=== PATIENT | female | born 1940 | race Caucasian/White ===

== ENCOUNTER 2018-05-01 22:05 | Inpatient (IN) | payer MEDICARE ==
[2018-05-01] MEDS ORDERED: ONDANSETRON 4 MG/2 ML VIAL IVP STA (22:16)
[2018-05-01] MEDS ORDERED: SODIUM CHLORIDE 0.9% 1,000 ML IV ONE (22:16)
[2018-05-01] MEDS ORDERED: SODIUM CHLORIDE 0.9% 1,000 ML IV STA (22:16)
[2018-05-01] MEDS ORDERED: SODIUM CHLORIDE 0.9% 500 ML IV STA (22:16)
[2018-05-01] MEDS ORDERED: PANTOPRAZOLE 40 MG/10 ML VIAL IVP STA (22:16)
--- NOTE | 2018-05-01 22:19 | ED ---
General Adult HPI - General Stated complaint: GI BLEED Time Seen by Provider: 05/01/18 22:08 Source: RN notes reviewed, old records reviewed - History of Present Illness Initial comments: This is a 77-year-old female the ER for evaluation. This patient presents for evaluation regarding positive GI bleed. Patient was found to have blood and bright red blood in her stool. Patient is on heparin. Patient states she feels weak but no wheezing the normal no pain. Patient has no prior history of GI bleed denies abdominal pain. - Related Data Home Medications Medication Instructions Recorded Confirmed Acetaminophen [Tylenol Arthritis] 650 mg PO Q4-6H PRN 11/13/16 11/13/16 Acetaminophen-Codeine 300-30mg 1 tab PO HS PRN 11/13/16 11/13/16 [Tylenol w/codeine #3] Aspirin 81 mg PO DAILY 11/13/16 11/13/16 Bisoprolol-Hctz 10-6.25 mg [Ziac 1 tab PO DAILY 11/13/16 11/13/16 10-6.25 MG] Glucosam/Guzman-Msm1/C/Chu/Bosw 2 tab PO DAILY 11/13/16 11/13/16 [Glucosamine-Chondroitin Tablet] Lisinopril 40 mg PO HS 11/13/16 11/13/16 Multivitamins, Thera [Multivitamin 1 tab PO DAILY 11/13/16 11/13/16 (formulary)] Raloxifene [Evista] 60 mg PO DAILY 11/13/16 11/13/16 amLODIPine [Norvasc] 10 mg PO DAILY 11/13/16 11/13/16 Previous Rx's Medication Instructions Recorded valACYclovir HCL [Valtrex] 1,000 mg PO Q8HR #21 tab 11/13/16 Albuterol Inhaler [Ventolin Hfa 2 puff INHALATION Q6HR PRN 30 Days 11/15/16 Inhaler] inhaler Albuterol Nebulized [Ventolin 2.5 mg INHALATION Q6H PRN 30 Days 11/15/16 Nebulized] nebu Budesonide [Pulmicort] 0.5 mg INHALATION RT-BID 30 Days 11/15/16 nebu Ipratropium Nebulized [Atrovent 0.5 mg INHALATION RT-QID 30 Days 11/15/16 Nebulized] nebu Levofloxacin [Levaquin] 500 mg PO DAILY 5 Days tab 11/15/16 predniSONE See Taper PO DAILY #45 tab 11/15/16 Allergies Allergy/AdvReac Type Severity Reaction Status Date / Time naproxen [From Naprosyn] Allergy Rash/Hives Verified 05/01/18 22:18 Review of Systems ROS Statement: Those systems with pertinent positive or pertinent negative responses have been documented in the HPI. ROS Other: All systems not noted in ROS Statement are negative. Past Medical History Past Medical History: Hyperlipidemia, Hypertension, Osteoarthritis (OA) History of Any Multi-Drug Resistant Organisms: None Reported Past Surgical History: Adenoidectomy, Joint Replacement, Tonsillectomy Additional Past Surgical History / Comment(s): hip replacement x 3 Past Psychological History: No Psychological Hx Reported Smoking Status: Former smoker Past Alcohol Use History: None Reported Past Drug Use History: None Reported - Past Family History Father Family Medical History: Diabetes Mellitus Mother Family Medical History: Hyperlipidemia General Exam General appearance: alert, in no apparent distress Head exam: Present: atraumatic, normocephalic, normal inspection Eye exam: Present: normal appearance, PERRL, EOMI. Absent: scleral icterus, conjunctival injection, periorbital swelling ENT exam: Present: normal exam, mucous membranes moist Neck exam: Present: normal inspection. Absent: tenderness, meningismus, lymphadenopathy Respiratory exam: Present: normal lung sounds bilaterally. Absent: respiratory distress, wheezes, rales, rhonchi, stridor Cardiovascular Exam: Present: regular rate, normal rhythm, normal heart sounds. Absent: systolic murmur, diastolic murmur, rubs, gallop, clicks GI/Abdominal exam: Present: soft, normal bowel sounds. Absent: distended, tenderness, guarding, rebound, rigid Rectal exam: Present: heme (+) stool, black stool, bloody stool Extremities exam: Present: normal inspection, full ROM, normal capillary refill. Absent: tenderness, pedal edema, joint swelling, calf tenderness Back exam: Present: normal inspection Neurological exam: Present: alert, oriented X3, CN II-XII intact Psychiatric exam: Present: normal affect, normal mood Skin exam: Present: warm, dry, intact, normal color. Absent: rash EKG Findings - EKG Comments: EKG Findings:: EKG shows normal sinus rhythm rate of 90, MI 140, QRS 66, QTc 452 Medical Decision Making - Medical Decision Making 77 female positive GI bleed. Patient is consistent GI bleed and bright red blood per rectum is melanotic and bradycardia in color. Patient is getting heparin shots, patient will be admitted for GI bleed Disposition Clinical Impression: GIB (gastrointestinal bleeding), Anemia Disposition: ADMITTED IP TO THIS HOSP Condition: Fair Is patient prescribed a controlled substance at d/c from ED?: No Referrals: Ben Morrow DO [Primary Care Provider] - 1-2 days
[2018-05-01 22:29] LABS: Basophils # (A) 0.1 k/uL (0-0.2); Basophils % (A) 1 %; Eosinophils # (A) 0.2 k/uL (0-0.7); Eosinophils % (A) 2 %; HCT 37.9 % (34.0-46.0); HGB 12.3 gm/dL (11.4-16.0); Lymphocytes # (A) 1.2 k/uL (1.0-4.8); Lymphocytes % (A) 12 %; MCH 34.9 pg (25.0-35.0); MCHC 32.4 g/dL (31.0-37.0); MCV 107.9 fL (80.0-100.0); Macrocytosis Moderate; Mean Platelet Volume 6.7; Monocytes # (A) 0.9 k/uL (0-1.0); Monocytes % (A) 10 %; Neutrophils # (A) 7.2 k/uL (1.3-7.7); Neutrophils % (A) 73 %; Platelet Count 274 k/uL (150-450); RBC 3.51 m/uL (3.80-5.40); RDW 14.2 % (11.5-15.5); WBC 9.8 k/uL (3.8-10.6)
[2018-05-01 22:37] LABS: INR 1.1 (<1.2); Partial Thromboplastin Time 36.3 sec (22.0-30.0); Prothrombin Time 10.6 sec (9.0-12.0)
[2018-05-01 22:53] LABS: ALT 54 U/L (9-52); AST 42 U/L (14-36); Albumin 3.1 g/dL (3.5-5.0); Alkaline Phosphatase 95 U/L (38-126); Anion Gap 10 mmol/L; Blood Urea Nitrogen 26 mg/dL (7-17); Calcium 8.9 mg/dL (8.4-10.2); Carbon Dioxide 30 mmol/L (22-30); Chloride 92 mmol/L (98-107); Glucose 89 mg/dL (74-99); Potassium 4.2 mmol/L (3.5-5.1); Sodium 132 mmol/L (137-145); Total Bilirubin 0.5 mg/dL (0.2-1.3); Total Protein 5.4 g/dL (6.3-8.2)
[2018-05-01 23:54] LABS: Creatine Kinase MB 1.2 ng/mL (0.0-2.4); Troponin I 0.018 ng/mL (0.000-0.034)
[2018-05-02 09:24] LABS: HCT 34.7 % (34.0-46.0); HGB 11.1 gm/dL (11.4-16.0); MCHC 31.9 g/dL (31.0-37.0); MCV 109.7 fL (80.0-100.0); Macrocytosis Marked; Mean Platelet Volume 6.7; Platelet Count 287 k/uL (150-450); RBC 3.16 m/uL (3.80-5.40); WBC 7.1 k/uL (3.8-10.6)
--- NOTE | 2018-05-02 10:01 | P.CONS ---
History of Present Illness - Reason for Consult Consult date: 05/02/18 Rectal bleeding Requesting physician: Chilo Dawkins - History of Present Illness 77-year-old female receiving local rehab originally from the [facility] admitted with one-day history of painless rectal bleeding. Patient states she did not personally witness rectal bleeding however the [facility] staff reported red- colored bowel movements. No recurrent bleeding since admission. She has no history GI bleeds. Denies fever chills hematemesis or melena. Prior to admission she was experiencing moderate constipation for several days. Last colonoscopy possibly 4-5 years ago at [facility] to her memory possible diverticulosis maybe one polyp removed. Hemoglobin 12.3 presently 11.1. MCV 107. White count 9.8. BUN 26 creatinine 0.4. INR 1.1. No aspirin but was receiving Celebrex prior to admission. Heparin subcutaneous injections at the [facility]. Review of Systems Constitutional: Denies fever, chills, sweats, weight gain, or loss. HEENT: Negative for migraines, blurred vision or loss, earaches, drainage, tinnitus, oral mucosal lesions, dysphagia, or odynophagia. CARDIAC: Negative for chest pain, arrhythmias, or palpitation. RESPIRATORY: Negative for shortness of breath, hemoptysis, cough, or sputum production. GI: See HPI for pertinent findings. : Negative for hematuria, urgency, frequency, polyuria, or dysuria. GYNc: Denies possibility of . Negative vaginal discharge. MUSCULOSKELETAL: Negative for muscle aches, swelling, arthritis, and arthralgias. NEUROLOGIC: Negative for stroke or TIA. ENDOCRINE: Negative for thyroid problems. SKIN: Negative for rash or itching. PSYCHIATRIC: Negative history for depression and anxiety Past Medical History Past Medical History: COPD, Hyperlipidemia, Hypertension, Osteoarthritis (OA) Additional Past Medical History / Comment(s): history of brain bleed, pt was sent to [facility]. pt was in rehab at [facility] and on heparin shots at home. History of Any Multi-Drug Resistant Organisms: None Reported Past Surgical History: Adenoidectomy, Joint Replacement, Tonsillectomy Additional Past Surgical History / Comment(s): hip replacement x 3 Past Psychological History: No Psychological Hx Reported Smoking Status: Former smoker Past Alcohol Use History: None Reported Past Drug Use History: None Reported - Past Family History Father Family Medical History: Diabetes Mellitus Mother Family Medical History: Hyperlipidemia Medications and Allergies Home Medications Medication Instructions Recorded Confirmed Type Lisinopril 40 mg PO DAILY 11/13/16 05/01/18 History Raloxifene [Evista] 60 mg PO DAILY 11/13/16 05/01/18 History Acetaminophen [Tylenol Extra 500 mg PO Q4HR PRN 05/01/18 05/01/18 History Strength] Bisoprolol Fumarate [Zebeta] 10 mg PO DAILY 05/01/18 05/01/18 History Diltiazem HCl [Diltiazem ER] 240 mg PO DAILY 05/01/18 05/01/18 History Furosemide [Lasix] 20 mg PO DAILY 05/01/18 05/01/18 History Heparin Sodium,Porcine [Heparin 5,000 unit SQ Q8HR 05/01/18 05/01/18 History Sodium] Levalbuterol Nebulized [Xopenex 1.25 mg INHALATION RT-TID 05/01/18 05/01/18 History Nebulized] Potassium Chloride ER [K-Dur 10] 10 meq PO DAILY 05/01/18 05/01/18 History Tiotropium Alba [Spiriva] 1 cap INHALATION RT-DAILY 05/01/18 05/01/18 History hydrALAZINE HCL 10 mg PO BID 05/01/18 05/01/18 History Allergies Allergy/AdvReac Type Severity Reaction Status Date / Time naproxen [From Naprosyn] Allergy Rash/Hives Verified 05/01/18 22:18 Physical Exam Vitals: Vital Signs Temp Pulse Pulse Resp BP BP Pulse Ox 05/02/18 08:00 98.8 F 94 22 186/87 96 05/02/18 04:00 97.8 F 87 26 H 181/84 97 05/01/18 23:31 97.7 F 82 20 174/88 98 05/01/18 22:57 98.0 F 84 18 153/83 100 05/01/18 22:12 97.2 F L 94 18 171/88 96 Intake and Output 05/01/18 05/02/18 05/02/18 22:59 06:59 14:59 Intake Total 100 530 Balance 100 530 Intake: Intake, IV Titration 100 50 Amount Sodium Chloride 0.9% 1, 100 50 000 ml @ 100 mls/hr IV . Q10H ONE Rx#:[id number] Oral 480 Other: Voiding Method Diaper Diaper Incontinent Incontinent # Voids 2 # Bowel Movements 2 Weight 45.359 kg 46 kg General appearance: The patient is alert, oriented, in no acute distress. HET: Head is normocephalic and atraumatic. Pupils are equal and reactive. Oropharynx is clear without lesions. Neck: Supple without lymphadenopathy. Trachea midline. Heart: S1 S2. Regular rate and rhythm. Lungs: Scattered rhonchi course breath sounds congested cough. Abdomen: Soft, nontender, nondistended with bowel sounds. No peritoneal signs. No palpable organomegaly or masses. Extremities: Normal skin color and turgor. No cyanosis, rash, ulceration, clubbing, or edema. Radial and pedal pulses are 2/4 bilaterally. Neurological: No focal deficits. Strength and sensation are grossly intact. Rectal: Gross dark burgundy stool in rectal vault. No palpable rectal masses. Results CBC & Chem 7: 05/02/18 09:12 05/01/18 22:18 Labs: Abnormal Lab Results - Last 24 Hours (Table) 05/01/18 05/01/18 05/01/18 Range/Units 22:18 22:18 22:18 RBC 3.51 L (3.80-5.40) m/uL Hgb (11.4-16.0) gm/dL MCV 107.9 H (80.0-100.0) fL APTT 36.3 H (22.0-30.0) sec Sodium 132 L (137-145) mmol/L Chloride 92 L (98-107) mmol/L BUN 26 H (7-17) mg/dL Creatinine 0.47 L (0.52-1.04) mg/dL AST 42 H (14-36) U/L ALT 54 H (9-52) U/L Total Protein 5.4 L (6.3-8.2) g/dL Albumin 3.1 L (3.5-5.0) g/dL 05/02/18 Range/Units 09:12 RBC 3.16 L (3.80-5.40) m/uL Hgb 11.1 L (11.4-16.0) gm/dL MCV 109.7 H (80.0-100.0) fL APTT (22.0-30.0) sec Sodium (137-145) mmol/L Chloride (98-107) mmol/L BUN (7-17) mg/dL Creatinine (0.52-1.04) mg/dL AST (14-36) U/L ALT (9-52) U/L Total Protein (6.3-8.2) g/dL Albumin (3.5-5.0) g/dL Assessment and Plan (1) Rectal bleeding Narrative/Plan: 77-year-old female admitted with a 1 day history of acute painless rectal bleeding bright red with reported history of possible colonic diverticulosis 4- 5 years ago per colonoscopy. Possible diverticular bleed exacerbated by constipation possible colitis possible neoplasm. Current Visit: Yes Status: Acute Code(s): K62.5 - HEMORRHAGE OF ANUS AND RECTUM SNOMED Code(s): 15292216 (2) Constipation Current Visit: Yes Status: Acute Code(s): K59.00 - CONSTIPATION, UNSPECIFIED SNOMED Code(s): 01843615 (3) Acute blood loss anemia Current Visit: Yes Status: Acute Code(s): D62 - ACUTE POSTHEMORRHAGIC ANEMIA SNOMED Code(s): 538701375 Plan: 1. Colonoscopy report requested from [facility] and place on chart for further review. 2. CBC monitoring. Clear liquids. Colonoscopy tentative Sunday. Plan of care was discussed with Dr. Dawkins. 3. Increased chest congestion cough will provide incentive spirometer. The epilepsy physician has discussed the risks, benefits and alternative therapies for the above-mentioned procedure and for both sedation/analgesia as well as necessary blood product administration, if indicated, as they pertain to this patient. The patient has indicated understanding and acceptance of the risks and procedures discussed. Thank you for this kind referral and the opportunity to participate in the care of your patient. This consultation was discussed with Dr. Starks. The impression and plan of care have been directed as dictated.
[2018-05-02] MEDS: ALBUTEROL NEBULIZED 2.5 MG/3 ML INHALATION SCH ×3 (12:00→21:29)
[2018-05-02] MEDS: RALOXIFENE 60 MG TAB PO SCH (12:11)
[2018-05-02] MEDS: BISOPROLOL 5 MG TAB PO SCH (12:11)
[2018-05-02] MEDS: LISINOPRIL 20 MG TAB PO SCH (12:11)
[2018-05-02] MEDS: DILTIAZEM CD 240 MG CAP.ER.24H PO SCH (12:11)
[2018-05-02] MEDS: FUROSEMIDE 20 MG TAB PO SCH (12:11)
[2018-05-02] MEDS: hydrALAZINE HCL 10 MG TAB PO SCH ×2 (12:11→19:55)
[2018-05-02] MEDS: POTASSIUM CHLORIDE ER 10 MEQ TAB.ER.PRT PO SCH (12:11)
--- NOTE | 2018-05-02 18:03 | HP ---
HISTORY AND PHYSICAL DATE OF ADMISSION: 05/01/2018. DATE OF SERVICE: 05/02/2018 PRESENTING COMPLAINT: Bright red blood per rectum. HISTORY OF PRESENTING COMPLAINT: This is a 77-year-old patient being followed at [facility] by Dr. Morrow. Chronic stable medical conditions include COPD, hypertension, hyperlipidemia, osteoarthritis and apparently a brain bleed that was managed conservatively at [facility]. The patient also has chronic hypoxic respiratory failure, wears oxygen at home 1.5-2L. The patient is not the most detailed historian. Patient's son is present, who keeps prompting. The patient was admitted with bright red blood per rectum, apparently over the last 2-3 days. Amount is unclear, but the patient is not even aware of the same. She was told the same. No abdominal pain. No nausea, vomiting. The patient has been on subcu heparin. Apparently patient previously had a colonoscopy with known diverticulosis. The patient does feel slightly tired and run down, was seen by GI earlier today. REVIEW OF SYSTEMS: CONSTITUTIONAL: Tired. HEENT: None. RESPIRATORY: Baseline short of breath. CARDIOVASCULAR: None. GASTROINTESTINAL: As above. GENITOURINARY: None. MUSCULOSKELETAL: Arthritic pain in joints. DERMATOLOGICAL: None. HEMATOLOGIC: None. LYMPHATIC: None. PSYCHIATRY: Forgetful. NEUROLOGICAL: Uses a walker. PAST MEDICAL HISTORY: COPD, hyperlipidemia, hypertension, osteoarthritis, cerebral bleed. PAST SURGICAL HISTORY: Adenoidectomy, joint replacement, hip replacement x3. SOCIAL HISTORY: Does not smoke or drink alcohol, though the patient did smoke in the past. Currently a resident of [facility], has been there for 2 days. The patient has smoked about a pack a day for 53 years, stopped about 5 years ago, using a walker. FAMILY HISTORY: Diabetes mellitus type 2. HOME MEDICATIONS: 1. Xopenex 1.25 mg t.i.d. 2. Tylenol 5 mg q.4 p.r.n. 3. Hydralazine 10 mg p.o. b.i.d. 4. Subcu heparin 5000 q.8h. 5. Spiriva 1 capsule p.o. daily. 6. Evista 60 mg p.o. daily. 7. Potassium 10 mEq p.o. daily. 8. Lisinopril 40 mg p.o. daily. 9. Lasix 20 mg p.o. daily. 10.Cardizem ER 240 mg p.o. daily. 11.Zebeta 10 mg p.o. daily. ALLERGIES: To NAPROXEN. EXAMINATION: VITAL SIGNS: On presentation, temperature 97.2, pulse 94, respirations 18, blood pressure 143/83, pulse ox 96% on 2L. GENERAL APPEARANCE: Thin built, BMI 18, lying in bed, awake. EYES: Pupils equal. Conjunctivae pale. HEENT: External appearance of nose and ears normal. Oral cavity normal. NECK: JVD not raised. Mass not palpable. RESPIRATORY: Effort increased. LUNGS: Diminished breath sounds. CARDIOVASCULAR: First and second sounds normal. No edema. ABDOMEN: Soft, nontender. Liver and spleen not palpable. LYMPHATIC: No lymph node palpable in neck or axillae. PSYCHIATRY: The patient is able answer simple questions. Mood and affect normal. NEUROLOGICAL: Pupils equal. Grossly intact. Power and sensation grossly intact. MUSCULOSKELETAL: Evidence of osteoarthritis. INVESTIGATIONS: White count 9.8, hemoglobin 12.3. Potassium 4.2, BUN 26, creatinine 0.47. EKG shows nonspecific ST-segment, some depression, flipped T-waves, poor quality. Repeat hemoglobin 11.1. ASSESSMENT: 1. Acute painless gastrointestinal bleed in a patient with possible known diverticulitis with likely the same. Hemorrhoids is also in the differential. There is no fever, no white count, no pain; hence, makes colitis less likely. 2. Protein-calorie malnutrition. Patient has a BMI of 18. Albumin is 3.1. Has some muscle wasting. 3. Mild hyponatremia, present on admission. 4. Acute blood loss anemia. Hemoglobin 11.21. 5. Chronic obstructive pulmonary disease in an ex-smoker. 6. Hyperlipidemia. 7. Essential hypertension. 8. Primary osteoarthritis. 9. History of cerebral bleed. 10.Chronic hypoxic respiratory failure on 1.5-2L oxygen at home from underlying chronic obstructive pulmonary disease. PLAN: Patient's home medications are resumed. The patient's subcu heparin is discontinued. H and H will be followed. GI was consulted, will follow the patient. Given patient's age, overall prognosis is guarded. Care was discussed with the patient and son at the bedside. MMODL / IJN: [id number] /
[2018-05-03] MEDS: ALBUTEROL NEBULIZED 2.5 MG/3 ML INHALATION SCH ×3 (08:28→20:01)
[2018-05-03] MEDS: IPRATROPIUM 0.5 MG/2.5 ML NEBU INHALATION SCH ×4 (08:28→20:01)
[2018-05-03 08:36] LABS: Basophils % (A) 0 %; Eosinophils # (A) 0.1 k/uL (0-0.7); Eosinophils % (A) 2 %; HCT 35.5 % (34.0-46.0); HGB 11.4 gm/dL (11.4-16.0); Lymphocytes # (A) 0.5 k/uL (1.0-4.8); Lymphocytes % (A) 6 %; MCH 35.1 pg (25.0-35.0); MCHC 32.2 g/dL (31.0-37.0); Macrocytosis Marked; Mean Platelet Volume 6.8; Monocytes # (A) 0.6 k/uL (0-1.0); Monocytes % (A) 7 %; Neutrophils # (A) 6.5 k/uL (1.3-7.7); Neutrophils % (A) 83 %; Platelet Count 281 k/uL (150-450); RBC 3.26 m/uL (3.80-5.40); RDW 14.3 % (11.5-15.5); WBC 7.9 k/uL (3.8-10.6)
[2018-05-03] MEDS: BISOPROLOL 5 MG TAB PO SCH (08:49)
[2018-05-03] MEDS: POTASSIUM CHLORIDE ER 10 MEQ TAB.ER.PRT PO SCH (08:49)
[2018-05-03] MEDS: RALOXIFENE 60 MG TAB PO SCH (08:49)
[2018-05-03] MEDS: DILTIAZEM CD 240 MG CAP.ER.24H PO SCH (08:49)
[2018-05-03] MEDS: FUROSEMIDE 20 MG TAB PO SCH (08:49)
[2018-05-03] MEDS: LISINOPRIL 20 MG TAB PO SCH (08:49)
[2018-05-03] MEDS: hydrALAZINE HCL 10 MG TAB PO SCH ×2 (08:49→20:37)
--- NOTE | 2018-05-03 09:23 | P.PN ---
Subjective Progress Note Date: 05/03/18 Principal diagnosis: No bowel movement since admission. Denies abdominal pain. Previous colonoscopy 4-5 years ago requested from outside facility still not received. Hemoglobin 11.4. Objective - Vital Signs Vital signs: Vital Signs Temp 97.5 F L 05/03/18 08:53 Pulse 85 05/03/18 08:53 Resp 18 05/03/18 08:53 BP 196/83 05/03/18 08:53 Pulse Ox 93 L 05/03/18 08:53 Intake & Output 05/02/18 05/03/18 05/03/18 18:59 06:59 18:59 Intake Total 1660 Balance 1660 Weight 46 kg 45 kg Intake: Intake, IV Titration 50 Amount Sodium Chloride 0.9% 1, 50 000 ml @ 100 mls/hr IV . Q10H ONE Rx#:[id number] Oral 1610 Other: Voiding Method Diaper Diaper Diaper Incontinent Incontinent Incontinent # Voids 2 # Bowel Movements 2 - Exam General appearance: The patient is alert, oriented, in no acute distress. HET: Head is normocephalic and atraumatic. Pupils are equal and reactive. Oropharynx is clear without lesions. Neck: Supple without lymphadenopathy. Trachea midline. Heart: S1 S2. Regular rate and rhythm. Lungs: No crackles or wheezes are heard. Abdomen: Soft, nontender, nondistended with bowel sounds. No peritoneal signs. No palpable organomegaly or masses. Extremities: Normal skin color and turgor. No cyanosis, rash, ulceration, clubbing, or edema. Radial and pedal pulses are 2/4 bilaterally. Neurological: No focal deficits. Strength and sensation are grossly intact. - Labs CBC & Chem 7: 05/03/18 08:22 05/01/18 22:18 Labs: Abnormal Lab Results - Last 24 Hours (Table) 05/02/18 05/03/18 Range/Units 09:12 08:22 RBC 3.16 L 3.26 L (3.80-5.40) m/uL Hgb 11.1 L (11.4-16.0) gm/dL MCV 109.7 H 109.0 H (80.0-100.0) fL MCH 35.1 H (25.0-35.0) pg Assessment and Plan (1) Rectal bleeding Narrative/Plan: 77-year-old female admitted with a 1 day history of acute painless rectal bleeding bright red with reported history of possible colonic diverticulosis 4- 5 years ago per colonoscopy. Possible diverticular bleed exacerbated by constipation possible colitis possible neoplasm. Current Visit: Yes Status: Acute Code(s): K62.5 - HEMORRHAGE OF ANUS AND RECTUM SNOMED Code(s): 56373383 (2) Constipation Current Visit: Yes Status: Acute Code(s): K59.00 - CONSTIPATION, UNSPECIFIED SNOMED Code(s): 39480597 (3) Acute blood loss anemia Current Visit: Yes Status: Acute Code(s): D62 - ACUTE POSTHEMORRHAGIC ANEMIA SNOMED Code(s): 141534536 Plan: 1. Colonoscopy report requested from [facility] and place on chart for further review. 2. CBC monitoring. Clear liquids. Colonoscopy tomorrow morning with Dr. Starks. Plan of care was discussed with Dr. Dawkins. Assessment and plan a care discussed with Dr. Mcmullen
[2018-05-03] MEDS ORDERED: BISACODYL 5 MG TABLET.DR PO STA (09:24)
[2018-05-03 09:36] LABS: Polychromasia Present
--- NOTE | 2018-05-03 10:36 | CDI ---
Last Revision, October 2017 Documentation Clarification Form Date: 05/03/18 From: Olive Lopez RN Admit Date: 05/01/2018 10:19:00 PM Patient Name: Donna Dueñas Visit Number: [id number] ATTENTION: The Clinical Documentation Specialists (CDI) and [facility] Coding Staff appreciate your assistance in clarifying documentation. Please respond to the clarification below the line at the bottom and electronically sign. The CDI & [facility] Coding staff will review the response and follow-up if needed. Please note: Queries are made part of the Legal Health Record. If you have any questions, please contact the author of this message via ITS. Dr. Chilo Dawkins, Malnutrition has been documented in H&P. History/Risk Factors: COPD, HTN, hyperlipidemia, OA, cerebral bleed, diverticulosis, chronic hypoxic respiratory failure with home O2@ 1.5-2 L. Presented with GI bleed Clinical Indicators: Labs: Albumin 3.1,Total Protein 5.4 Current BMI: 17.6 Treatment: Lab monitoring Patient is on a clear liquid diet at this time due to GI bleed In your professional opinion, can you please clarify if these findings signify one of the following conditions? Mild Protein-Calorie Malnutrition Moderate Protein-Calorie Malnutrition Severe Protein-Calorie Malnutrition Malnutrition, Unspecified Other condition, please specify Unable to determine Please continue to document in your progress notes, under the line and/or in the discharge summary in order to capture severity of illness and risk of mortality. Include clinical findings that support your diagnosis. see progress note MTDD
[2018-05-03] MEDS ORDERED: PEG 3350-NA SULF,BICARB,CL/KCL 4,000 ML BOTTLE PO ONE (15:00)
--- NOTE | 2018-05-03 21:40 | PN ---
PROGRESS NOTE DATE OF SERVICE: 05/03/2018 PRESENTING COMPLAINT: Bleeding per rectum. INTERVAL HISTORY: This is a patient who presented with bleeding per rectum. No further episodes. GI is planning to do a colonoscopy tomorrow. Lying in bed somewhat tired-appearing, though comfortable. REVIEW OF SYSTEMS: Attempted for constitutional, cardiovascular, GI, pulmonary; relevant findings as above. CURRENT MEDICATIONS: Reviewed. EXAMINATION: Temperature 97.6, pulse 86, respirations 16, blood pressure 139/69, pulse ox 96% on room air. GENERAL APPEARANCE: Lying in bed, awake. EYES: Pupils equal. Conjunctivae pale. HEENT: External nose and ears normal. Oral cavity normal. NECK: JVD not raised. Mass not palpable. RESPIRATORY: Effort normal. LUNGS: Decreased breath sounds. CARDIOVASCULAR: First and second sounds normal. No edema. ABDOMEN: Soft, nontender. PSYCHIATRY: Awake, answering simple questions. INVESTIGATIONS: White count 7.9, hemoglobin 11.4. ASSESSMENT: 1. Acute painless gastrointestinal bleed in a patient with possible known diverticulosis with cause likely the same. Hemorrhoids in the differential. Colitis less likely. 2. Protein-calorie malnutrition, moderate. 3. Mild hypoxemia, present on admission. 4. Acute blood loss anemia. 5. Chronic obstructive pulmonary disease in an ex-smoker. 6. Hyperlipidemia. 7. Essential hypertension. 8. Primary osteoarthritis. 9. History of cerebral bleed. 10.Chronic hypoxic respiratory failure, 1.5-2L oxygen at home from underlying chronic obstructive pulmonary disease. PLAN: Continue medication and treatment plan. The patient has had no further bleeding. Awaiting colonoscopy tomorrow. MMODL / IJN: [id number] /
[2018-05-04 06:25] LABS: Basophils % (A) 0 %; Eosinophils # (A) 0.1 k/uL (0-0.7); Eosinophils % (A) 1 %; HCT 34.2 % (34.0-46.0); HGB 11.4 gm/dL (11.4-16.0); Lymphocytes # (A) 0.7 k/uL (1.0-4.8); Lymphocytes % (A) 6 %; MCH 35.5 pg (25.0-35.0); MCHC 33.3 g/dL (31.0-37.0); MCV 106.6 fL (80.0-100.0); Macrocytosis Moderate; Mean Platelet Volume 7.1; Monocytes # (A) 0.9 k/uL (0-1.0); Monocytes % (A) 8 %; Neutrophils # (A) 10.1 k/uL (1.3-7.7); Neutrophils % (A) 85 %; Platelet Count 282 k/uL (150-450); RBC 3.21 m/uL (3.80-5.40); RDW 14.7 % (11.5-15.5); WBC 11.9 k/uL (3.8-10.6)
[2018-05-04] MEDS ORDERED: PROPOFOL 10 MG/ML 20 ML VIAL IV ONE (08:14)
[2018-05-04] MEDS ORDERED: LACTATED RINGERS 1,000 ML IV ONE (08:15)
[2018-05-04] MEDS: IPRATROPIUM 0.5 MG/2.5 ML NEBU INHALATION SCH ×4 (08:48→20:12)
[2018-05-04] MEDS: ALBUTEROL NEBULIZED 2.5 MG/3 ML INHALATION SCH ×3 (08:48→20:12)
--- NOTE | 2018-05-04 08:54 | P.PCN ---
Date of Procedure: 05/04/18 Procedure(s) Performed: Procedure: Total colonoscopy. Preoperative diagnosis: Rectal bleeding and anemia. Operative diagnosis: 1. Sigmoid diverticulosis with no evidence of acute diverticulitis, strictures, polyps, cancer or inflammatory disease. 2. No bleeding at the time of this exam. Preparation: GoLYTELY prep. Sedation: Was provided by anesthesia. Brief clinical history: The patient is a 77-year-old female receiving local rehab who was admitted with one-day history of painless rectal bleeding. Patient states she did not personally witness rectal bleeding however the [facility] staff reported red-colored bowel movements. No recurrent bleeding since admission. She has no history GI bleeds. Denies fever, chills, hematemesis or melena. Prior to admission she was experiencing moderate constipation for several days. Last colonoscopy possibly 4-5 years ago with one polyp removed. Hemoglobin 12.3 dropped to 11.1 presently 11.4 for last 2 days. MCV 107. White count 9.8. BUN 26 creatinine 0.4. INR 1.1. No aspirin but was receiving Celebrex prior to admission. Heparin was given subcutaneous injections at the [facility]. Other details are summarized in the history and physical and dictated consultations and progress notes. This evaluation is to assess for a source of bleeding. Procedure: With the patient on her left lateral decubitus position and after informed consent and adequate sedation, the perianal area was inspected and it did not show any fissures or fistulas. There were no masses felt on digital rectal examination. The Olympus CFQ 160L video colonoscope was then inserted in the rectum in the usual fashion and advanced to the cecum. There were several diverticular orifices seen scattered in the sigmoid but there was no evidence of acute diverticulitis or strictures. The mucosa appeared healthy. No polyps or tumors were seen or any evidence of bleeding. The patient tolerated the procedure well. Plan: The patient was reassured. It is possible that her bleeding was related to diverticular disease or superficial perianal pathology. Will allow regular diet as tolerated further plans based on her course.
[2018-05-04] MEDS: BISOPROLOL 5 MG TAB PO SCH (09:30)
[2018-05-04] MEDS: POTASSIUM CHLORIDE ER 10 MEQ TAB.ER.PRT PO SCH (09:30)
[2018-05-04] MEDS: LISINOPRIL 20 MG TAB PO SCH (09:30)
[2018-05-04] MEDS: hydrALAZINE HCL 10 MG TAB PO SCH ×2 (09:31→22:21)
[2018-05-04] MEDS: DILTIAZEM CD 240 MG CAP.ER.24H PO SCH (09:31)
[2018-05-04] MEDS: RALOXIFENE 60 MG TAB PO SCH (09:31)
[2018-05-04] MEDS: FUROSEMIDE 20 MG TAB PO SCH (09:31)
--- NOTE | 2018-05-04 18:41 | PN ---
PROGRESS NOTE DATE OF SERVICE: 05/04/2018 PRESENTING COMPLAINT: Bleeding per rectum. INTERVAL HISTORY: Patient has had bleeding per rectum, did undergo a colonoscopy today, found to have diverticulosis. No further evidence of bleeding. The patient is comfortable. No abdominal pain. REVIEW OF SYSTEMS: Done for constitutional, cardiovascular, GI, pulmonary; relevant findings as above. CURRENT MEDICATIONS: Reviewed. EXAMINATION: Temperature 98, pulse 88, respirations 18, blood pressure 140/70, pulse ox 97% on 2L. GENERAL APPEARANCE: Lying in bed, comfortable. EYES: Pupils equal. Conjunctivae normal. HEENT: External nose and ears normal. Oral cavity normal. NECK: JVD not raised. Mass not palpable. RESPIRATORY: Effort normal. LUNGS: Decreased breath sounds. CARDIOVASCULAR: First and second sounds normal. No edema. ABDOMEN: Soft, nontender. Liver and spleen not palpable. PSYCHIATRY: Awake, answering simple questions. INVESTIGATIONS: White count 11.9, hemoglobin 11.4. ASSESSMENT: 1. Acute gastrointestinal bleed felt to be diverticular. 2. Protein-calorie malnutrition, moderate. 3. Mild hypoxemia, present on admission. 4. Acute blood loss anemia. 5. Chronic obstructive pulmonary disease in an ex-smoker. 6. Hyperlipidemia. 7. Essential hypertension. 8. Primary osteoarthritis. 9. History of cerebral bleed. 10.Chronic hypoxic respiratory failure, 1.5L at home from underlying chronic obstructive pulmonary disease. PLAN: Continue current medication and treatment plan, await going back to the [facility]. I spoke to the nurse case management. Will not happen today because of pre-authorization. KIM / CIERRAN: [id number] /
[2018-05-04] MEDS: ACETAMINOPHEN TAB 500 MG TAB PO PRN (23:00)
[2018-05-05] MEDS: ALBUTEROL NEBULIZED 2.5 MG/3 ML INHALATION SCH ×3 (07:06→19:10)
[2018-05-05] MEDS: IPRATROPIUM 0.5 MG/2.5 ML NEBU INHALATION SCH ×4 (07:06→19:10)
[2018-05-05] MEDS: LISINOPRIL 20 MG TAB PO SCH (07:28)
[2018-05-05] MEDS: RALOXIFENE 60 MG TAB PO SCH (07:28)
[2018-05-05] MEDS: POTASSIUM CHLORIDE ER 10 MEQ TAB.ER.PRT PO SCH (07:28)
[2018-05-05] MEDS: BISOPROLOL 5 MG TAB PO SCH (07:28)
[2018-05-05] MEDS: hydrALAZINE HCL 10 MG TAB PO SCH ×2 (07:28→20:08)
[2018-05-05] MEDS: DILTIAZEM CD 240 MG CAP.ER.24H PO SCH (07:29)
[2018-05-05] MEDS: FUROSEMIDE 20 MG TAB PO SCH (07:29)
--- NOTE | 2018-05-05 21:27 | DS ---
DISCHARGE SUMMARY DATE OF ADMISSION: May 01, 2018. DATE OF DISCHARGE: May 06, 2018. DATE OF SERVICE: May 05, 2018. FINAL DIAGNOSES: 1. Acute gastrointestinal bleed felt to be colonic diverticulosis present on admission. 2. Moderate protein-calorie malnutrition. 3. Acute blood loss anemia from gastrointestinal bleed. 4. Chronic obstructive pulmonary disease in an ex-smoker. 5. Hyperlipidemia. 6. Essential hypertension. 7. Primary osteoarthritis. 8. History of cerebral bleed. 9. Chronic hypoxic respiratory failure, 1.5 L at home from underlying chronic obstructive pulmonary disease. CONSULTATION: Dr. Starks from GI. HOSPITAL COURSE: This patient presented with lower GI bleed. Colonoscopy did confirm diverticulosis with no evidence of active bleed. The patient's hemoglobin is stable at 11.4. PHYSICAL EXAMINATION: ABDOMEN: Soft. Nontender. Lungs fair air entry. DISCHARGE MEDICATIONS: 1. Lisinopril 40 mg p.o. daily. 2. Evista 60 mg p.o. daily. 3. Tylenol Extra 500 mg q.4 p.r.n. 4. Lipitor 10 mg p.o. daily. 5. Cardizem ER 240 mg p.o. daily. 6. Lasix 20 mg p.o. daily. 7. Heparin 5000 units subcu q.8h. 8. Xopenex 1.25 t.i.d. 9. Potassium 10 mEq p.o. daily. 10.Spiriva 1 capsule daily. 11.Hydralazine 10 mg p.o. b.i.d. DISPOSITION: [facility], physician Dr. Morrow at the [facility]. MMODL / CIERRAN: [id number] /
[2018-05-05] MEDS: ACETAMINOPHEN TAB 500 MG TAB PO PRN (23:03)
[2018-05-06] MEDS: hydrALAZINE HCL 10 MG TAB PO SCH ×2 (07:22→19:53)
[2018-05-06] MEDS: FUROSEMIDE 20 MG TAB PO SCH (07:22)
[2018-05-06] MEDS: LISINOPRIL 20 MG TAB PO SCH (07:22)
[2018-05-06] MEDS: POTASSIUM CHLORIDE ER 10 MEQ TAB.ER.PRT PO SCH (07:22)
[2018-05-06] MEDS: RALOXIFENE 60 MG TAB PO SCH (07:23)
[2018-05-06] MEDS: DILTIAZEM CD 240 MG CAP.ER.24H PO SCH (07:23)
[2018-05-06] MEDS: BISOPROLOL 5 MG TAB PO SCH (07:23)
[2018-05-06] MEDS: ALBUTEROL NEBULIZED 2.5 MG/3 ML INHALATION SCH ×2 (07:41→11:06)
[2018-05-06] MEDS: IPRATROPIUM 0.5 MG/2.5 ML NEBU INHALATION SCH ×3 (07:41→15:36)
[2018-05-06] MEDS: cefTRIAXone IN SWFI 1,000 MG/10 ML SYRINGE IVP SCH ×2 (09:34→09:36)
--- NOTE | 2018-05-06 12:54 | XR ---
EXAMINATION TYPE: XR chest 2V DATE OF EXAM: 05/06/2018 COMPARISON: Chest x-ray and CTA chest November 13, 2016 HISTORY: Congested cough and fever rule out pneumonia. TECHNIQUE: Frontal and lateral views of the chest are obtained. FINDINGS: There is chronic parenchymal change with new left basilar opacity and small left pleural e ffusion. There is no elevated left hemidiaphragm on lateral view. The cardiac silhouette size is upp er limits of normal with atherosclerotic aorta. The osseous structures remain demineralized. Underl carlos scoliosis is redemonstrated. IMPRESSION: Chronic changes with new elevated left hemidiaphragm, there is small left pleural effusi on and associated left basilar atelectasis and/or infiltrate new from prior studies.
--- NOTE | 2018-05-06 14:13 | DS ---
DISCHARGE SUMMARY DATE OF SERVICE: May 05, 2018. INTERVAL HISTORY: This patient was seen by me yesterday on May 05, 2018 DATE OF ADMISSION: May 01, 2018. DATE OF DISCHARGE: May 06, 2018. FINAL DIAGNOSES: 1. Acute gastrointestinal bleed felt to be colonic diverticulosis. 2. Moderate protein-calorie malnutrition. 3. Acute blood loss anemia from diverticular bleed. 4. Chronic obstructive pulmonary disease in an ex-smoker. 5. Hyperlipidemia. 6. Essential hypertension. 7. Primary osteoarthritis. 8. History of cerebral bleed. 9. Chronic hypoxic respiratory failure on 1.5 L at home. HOSPITAL COURSE: This pleasant lady who is an [facility] resident presented with bleeding from below. Abdomen was soft, nontender. Colonoscopy did confirm diverticulosis. Hemoglobin remained stable, it was 11.4. PLAN: Continue current medication and treatment plan. Hopefully patient will be discharged to the [facility] tomorrow. MMMARTIRL / CIERRAN: [id number] /
[2018-05-06 14:31] VITALS: BMI 17.5
[2018-05-06] MEDS: PIPERACILLIN-TAZOBACTAM 3.375 GM in DEXTROSE/WATER 1 50ML.BAG IVPB SCH ×2 (17:05→22:55)
[2018-05-06] MEDS ORDERED: IPRATROPIUM-ALBUTEROL 3 ML NEB INHALATION PRN (17:41)
--- NOTE | 2018-05-06 18:35 | P.PN ---
Subjective Progress Note Date: 05/06/18 Progress note being dictated for Dr. Braun Interval history: This is a 77-year-old female admitted with acute GI bleed, status post colonoscopy reporting sigmoid diverticulosis, without strictures polyps or inflammatory disease, no bleeding. Patient initially was being prepared for discharge yesterday and spiked fever, TMAX 100.3. Discharge subsequently was placed on hold and fever workup initiated. Sitting up in chair , presenting with loose nonproductive cough. Chest x-ray reporting new left basilar opacity, small left pleural effusion. Blood cultures pending. Antibiotics changed to Zosyn. No labs available today. Objective - Vital Signs Vital signs: Vital Signs Temp 97.9 F 05/06/18 15:00 Pulse 100 05/06/18 15:44 Resp 16 05/06/18 15:00 BP 156/65 05/06/18 15:00 Pulse Ox 90 L 05/06/18 15:00 Intake & Output 05/05/18 05/06/18 05/06/18 18:59 06:59 18:59 Intake Total 200 Balance 200 Weight 45 kg Intake: Oral 200 Other: Voiding Method Bedpan Bedpan Incontinent Diaper Diaper Incontinent Incontinent # Voids 2 2 2 # Bowel Movements 1 1 1 - Exam PHYSICAL EXAM: VITAL SIGNS: As above GENERAL: Sitting up in chair, tired appearing HEENT: Conjunctivae normal. eyes normal. Oral mucosa moist NECK: No JVD. No thyroid enlargement. No LNs CARDIOVASCULAR: S1, S2 muffled. No murmur RESPIRATION: Breath sounds diminished in the bases. Scattered rhonchi, fine bibasilar crackles, greater on the left. Loose congested cough. No bronchial breathing. ABDOMEN: Soft, nontender . No guarding. no masses palpable.Bowel sounds heard. LEGS: No edema. no swelling PSYCHIATRY: Alert and oriented -3, mood and affect normal. NERVOUS SYSTEM: Cranial N 2-12 grossly normal. Moves all 4 limbs. Diffuse weakness No focal deficits. Skin: no ulcer no rash Joints: No active swelling. No inflammation. - Labs CBC & Chem 7: 05/04/18 05:44 05/01/18 22:18 Assessment and Plan Assessment: 1. Acute on chronic hypoxic respiratory failure secondary to acute left lower lobe effusion, pneumonia. Wears 1.5l at home. 2. Acute blood loss anemia secondary to acutue GI bleed. status post colonoscopy, reporting sigmoid diverticulosis with no active bleeding 3. Moderate protein calorie malnutrition 4. COPD 5. History of nicotine abuse 6. History of cerebral bleed Plan: Continue current medication regime ,monitoring and symptomatic treatment. Antibiotics as mentioned above changed to Zosyn. DuoNeb scheduled and when necessary. Symbicort added to med regime. Sputum culture and urine culture ordered. Blood cultures pending. The impression and plan of care has been dictated as directed. : I performed a history and examination of this patient, discussed the same with the dictator. I agree with the dictator's note ,documented as a scribe. Any additional findings or plans will be noted.
[2018-05-06] MEDS: IPRATROPIUM-ALBUTEROL 3 ML NEB INHALATION SCH ×2 (19:28→20:44)
[2018-05-06] MEDS: SYMBICORT 160-4.5 MCG INHALER INHALATION SCH ×2 (19:28→20:44)
[2018-05-06] MEDS: ACETAMINOPHEN TAB 500 MG TAB PO PRN (19:53)
[2018-05-07 02:40] LABS: Appearance,Urine Cloudy (Clear); Bacteria,Urine Moderate /hpf; Bilirubin,Urine Negative (Negative); Blood,Urine Small (Negative); Color,Urine Yellow; Glucose,Urine (UA) Negative (Negative); Hyaline Casts,Urine 1 /lpf (0-2); Ketones,Urine Negative (Negative); Leukocyte Esterase,Urine Large (Negative); Mucus,Urine Rare /hpf; Nitrite,Urine Positive (Negative); Protein,Urine Negative (Negative); RBC,Urine 18 /hpf (0-5); Specific Gravity,Urine 1.016 (1.001-1.035); Squamous Epithelial Cell,Urine 6 /hpf (0-4); Urobilinogen,Urine <2.0 mg/dL (<2.0); WBC,Urine 84 /hpf (0-5)
[2018-05-07] MEDS: IPRATROPIUM-ALBUTEROL 3 ML NEB INHALATION SCH ×4 (07:37→19:51)
[2018-05-07] MEDS: SYMBICORT 160-4.5 MCG INHALER INHALATION SCH ×2 (07:37→19:51)
[2018-05-07] MEDS: PIPERACILLIN-TAZOBACTAM 3.375 GM in DEXTROSE/WATER 1 50ML.BAG IVPB SCH ×3 (08:22→23:49)
[2018-05-07] MEDS: DILTIAZEM CD 240 MG CAP.ER.24H PO SCH (08:23)
[2018-05-07] MEDS: BISOPROLOL 5 MG TAB PO SCH (08:23)
[2018-05-07] MEDS: hydrALAZINE HCL 10 MG TAB PO SCH ×2 (08:23→21:28)
[2018-05-07] MEDS: POTASSIUM CHLORIDE ER 10 MEQ TAB.ER.PRT PO SCH (08:23)
[2018-05-07] MEDS: RALOXIFENE 60 MG TAB PO SCH (08:24)
[2018-05-07] MEDS: LISINOPRIL 20 MG TAB PO SCH (08:24)
[2018-05-07] MEDS: FUROSEMIDE 20 MG TAB PO SCH (08:24)
--- NOTE | 2018-05-07 12:14 | P.CNPUL ---
History of Present Illness Consult date: 05/07/18 Requesting physician: Chilo Dawkins Reason for consult: abnormal CXR/CT (Left lower lobe atelectasis.) Chief complaint: Bloody bowel movement History of present illness: This is a very pleasant 77-year-old female patient who resides in the [facility] and follows with Dr. Morrow as her primary care physician. She has a history of hypertension, hyperlipidemia, osteoarthritis, previous brain bleed treated conservatively at the [facility], hip replacements 3. She also has a history of 25 year pack per day smoking however quit many years ago. She does have oxygen dependent chronic obstructive pulmonary disease. She's been seen by Dr. Landers in the past. She is on Xopenex and Spiriva in the outpatient setting. She was seen here back on 05/01/2018 in the emergency room after having bright red bleeding in her stools. She subsequently undergone a colonoscopy on 05/04/2018 that revealed diverticulosis but no active bleeding. The patient was planning to be discharged yesterday and developed a temperature of 100.3 and her discharge was placed on hold. Blood and urine cultures reveal no growth to date. Cervix revealed evidence of chronic changes with a elevated left hemidiaphragm. There is a small left pleural effusion and associated atelectasis. No clear evidence of pneumonia. She is currently afebrile. Hemodynamically stable. Maintaining good O2 saturations in the 90s on 2 L/m per nasal cannula. She does have a loose productive cough of thick yellow sputum. She's currently on Zosyn and bronchodilators along with Symbicort. She denies any worsening shortness of breath. She states she normally has a cough but usually clear sputum. Review of Systems Constitutional: Reports fatigue, Reports poor appetite, Reports weakness, Reports weight loss Eyes: denies blurred vision, denies decreased vision Ears: bilateral: decreased hearing Ears, nose, mouth and throat: Denies headache, Denies sore throat Cardiovascular: Denies chest pain, Denies shortness of breath Respiratory: Reports congestion, Reports cough with sputum, Reports dyspnea, Reports home oxygen Gastrointestinal: Reports abdominal pain, Reports melena Genitourinary: Denies dysuria, Denies hematuria Musculoskeletal: Reports low back pain Musculoskeletal: bilateral: hip pain Integumentary: Reports color changes Neurological: Reports balance difficulties, Reports weakness Psychiatric: Reports anxiety Endocrine: Denies fatigue, Denies weight change Hematologic/Lymphatic: Reports as per HPI Allergic/Immunologic: Reports as per HPI Past Medical History Past Medical History: COPD, Hyperlipidemia, Hypertension, Osteoarthritis (OA) Additional Past Medical History / Comment(s): history of brain bleed, pt was sent to [facility]. pt was in rehab at [facility] and on heparin shots at home. History of Any Multi-Drug Resistant Organisms: None Reported Past Surgical History: Adenoidectomy, Joint Replacement, Tonsillectomy Additional Past Surgical History / Comment(s): hip replacement x 3 Past Psychological History: No Psychological Hx Reported Smoking Status: Former smoker Past Alcohol Use History: None Reported Past Drug Use History: None Reported - Past Family History Father Family Medical History: Diabetes Mellitus Mother Family Medical History: Hyperlipidemia Medications and Allergies Home Medications Medication Instructions Recorded Confirmed Type Lisinopril 40 mg PO DAILY 11/13/16 05/01/18 History Raloxifene [Evista] 60 mg PO DAILY 11/13/16 05/01/18 History Acetaminophen [Tylenol Extra 500 mg PO Q4HR PRN 05/01/18 05/01/18 History Strength] Bisoprolol Fumarate [Zebeta] 10 mg PO DAILY 05/01/18 05/01/18 History Diltiazem HCl [Diltiazem 24Hr ER] 240 mg PO DAILY 05/01/18 05/01/18 History Furosemide [Lasix] 20 mg PO DAILY 05/01/18 05/01/18 History Heparin Sodium,Porcine [Heparin 5,000 unit SQ Q8HR 05/01/18 05/01/18 History Sodium] Levalbuterol Nebulized [Xopenex 1.25 mg INHALATION RT-TID 05/01/18 05/01/18 History Nebulized] Potassium Chloride ER [K-Dur 10] 10 meq PO DAILY 05/01/18 05/01/18 History Tiotropium Brinson [Spiriva] 1 cap INHALATION RT-DAILY 05/01/18 05/01/18 History hydrALAZINE HCL 10 mg PO BID 05/01/18 05/01/18 History Allergies Allergy/AdvReac Type Severity Reaction Status Date / Time naproxen [From Naprosyn] Allergy Rash/Hives Verified 05/01/18 22:18 Physical Exam Vitals: Vital Signs Temp Pulse Pulse Resp BP BP Pulse Ox 05/07/18 11:19 88 05/07/18 11:04 80 05/07/18 08:15 24 05/07/18 07:52 84 05/07/18 07:39 76 96 05/07/18 05:35 98.1 F 82 24 177/77 94 L 05/06/18 23:00 98.1 F 87 18 122/60 91 L 05/06/18 20:54 96 05/06/18 20:45 96 05/06/18 15:44 100 05/06/18 15:38 102 H 05/06/18 15:00 97.9 F 107 H 16 156/65 90 L Intake and Output 05/06/18 05/07/18 05/07/18 22:59 06:59 14:59 Other: Voiding Method Bedpan Bedpan Incontinent Incontinent # Voids 1 2 # Bowel Movements 1 - Constitutional General appearance: mild distress, thin - EENT Eyes: EOMI, PERRLA ENT: hard of hearing Ears: bilateral: normal - Neck Neck: normal ROM Carotids: bilateral: upstroke normal Thyroid: bilateral: normal size - Respiratory Respiratory: left: rhonchi - Cardiovascular Rhythm: regular Heart sounds: normal: S1, S2 - Gastrointestinal General gastrointestinal: normal bowel sounds - Neurologic Neurologic: CNII-XII intact - Musculoskeletal Musculoskeletal: generalized weakness - Psychiatric Psychiatric: A&O x's 3, appropriate affect, intact judgment & insight Results - Laboratory Findings CBC and BMP: 05/04/18 05:44 05/01/18 22:18 PT/INR, D-dimer PT 10.6 sec (9.0-12.0) 05/01/18 22:18 INR 1.1 (<1.2) 05/01/18 22:18 Abnormal lab findings: Abnormal Labs 05/01/18 05/01/18 05/01/18 22:18 22:18 22:18 WBC RBC 3.51 L Hgb MCV 107.9 H MCH Neutrophils # Lymphocytes # APTT 36.3 H Sodium 132 L Chloride 92 L BUN 26 H Creatinine 0.47 L AST 42 H ALT 54 H Total Protein 5.4 L Albumin 3.1 L Urine Appearance Urine Blood Urine Nitrite Ur Leukocyte Esterase Urine RBC Urine WBC Ur Squamous Epith Cells Urine Bacteria Urine Mucus 05/02/18 05/03/1805/04/18 09:12 08:22 05:44 WBC 11.9 H RBC 3.16 L 3.26 L 3.21 L Hgb 11.1 L MCV 109.7 H 109.0 H 106.6 H MCH 35.1 H 35.5 H Neutrophils # 10.1 H Lymphocytes # 0.5 L 0.7 L APTT Sodium Chloride BUN Creatinine AST ALT Total Protein Albumin Urine Appearance Urine Blood Urine Nitrite Ur Leukocyte Esterase Urine RBC Urine WBC Ur Squamous Epith Cells Urine Bacteria Urine Mucus 05/07/18 01:45 WBC RBC Hgb MCV MCH Neutrophils # Lymphocytes # APTT Sodium Chloride BUN Creatinine AST ALT Total Protein Albumin Urine Appearance Cloudy H Urine Blood Small H Urine Nitrite Positive H Ur Leukocyte Esterase Large H Urine RBC 18 H Urine WBC 84 H Ur Squamous Epith Cells 6 H Urine Bacteria Moderate H Urine Mucus Rare H - Diagnostic Findings Chest x-ray: image reviewed Assessment and Plan Assessment: Impression: #1 Acute on chronic hypoxic respiratory failure secondary to acute exacerbation of chronic obstructive pulmonary disease secondary to atelectasis/infiltrate in the left lower lobe. Recent colonoscopy. Currently on Zosyn, bronchodilators, Symbicort #2 Transient febrile illness. Suspect urinary tract infection. Blood, sputum and urine cultures are pending. #3 Gastrointestinal bleeding. Status post colonoscopy with evidence of diverticulosis but no acute bleeding. #4 Hypertension. #5 Hyperlipidemia. #6 Osteoarthritis with previous multiple orthopedic surgeries. #7 long term resident. Plan: The patient was seen and evaluated by Dr. King. Chest x-ray and labs were reviewed. Cultures are pending, probable urinary tract infection. We'll repeat a chest x-ray in the a.m. We will continue with DuoNeb inhalations, Symbicort, Zosyn. We will increase her activity as tolerated. We will continue to follow and make further recommendations based on her clinical status. I, the cosigning physician, performed a history & physical examination of the patient. Lungs sounds have few scattered rhonchi more so on the left lung base. Maintaining good O2 saturations in the 90s on 2 L/m per nasal cannula. I discussed the assessment and plan of care with my nurse practitioner, Doris Nails. I attest to the above note as dictated by her. Time with Patient: Greater than 30
[2018-05-07 13:13] LABS: Basophils % (A) 0 %; Eosinophils # (A) 0.1 k/uL (0-0.7); Eosinophils % (A) 1 %; HCT 34.2 % (34.0-46.0); HGB 11.3 gm/dL (11.4-16.0); Lymphocytes # (A) 0.5 k/uL (1.0-4.8); Lymphocytes % (A) 4 %; MCH 35.1 pg (25.0-35.0); MCHC 33.1 g/dL (31.0-37.0); MCV 106.2 fL (80.0-100.0); Macrocytosis Moderate; Mean Platelet Volume 6.9; Monocytes # (A) 0.6 k/uL (0-1.0); Monocytes % (A) 5 %; Neutrophils # (A) 9.5 k/uL (1.3-7.7); Neutrophils % (A) 88 %; Platelet Count 366 k/uL (150-450); RBC 3.22 m/uL (3.80-5.40); RDW 13.6 % (11.5-15.5); WBC 10.8 k/uL (3.8-10.6)
[2018-05-07 13:16] LABS: Anion Gap 8 mmol/L; Blood Urea Nitrogen 24 mg/dL (7-17); Calcium 8.7 mg/dL (8.4-10.2); Carbon Dioxide 32 mmol/L (22-30); Chloride 91 mmol/L (98-107); Glucose 112 mg/dL (74-99); Potassium 4.6 mmol/L (3.5-5.1); Sodium 131 mmol/L (137-145)
--- NOTE | 2018-05-07 17:14 | P.PN ---
Subjective Progress Note Date: 05/07/18 Progress note being dictated for Dr. Braun Interval history: This is a 77-year-old female admitted with acute GI bleed, status post colonoscopy reporting sigmoid diverticulosis, without strictures polyps or inflammatory disease, no bleeding. Patient initially was being prepared for discharge yesterday and spiked fever, TMAX 100.3. Discharge subsequently was placed on hold and fever workup initiated. Sitting up in chair , presenting with loose nonproductive cough. Chest x-ray reporting new left basilar opacity, small left pleural effusion. Blood cultures pending. Antibiotics changed to Zosyn. No labs available today. 05/07/2018 antibiotics adjusted yesterday, afebrile, preliminary blood cultures negative, urine culture pending. Worsening cough this morning with productive yellow sputum. Denies chest pain, palpitations or increasing shortness of breath. Evaluated by pulmonary with recommendations noted. Objective - Vital Signs Vital signs: Vital Signs Temp 98.8 F 05/07/18 14:15 Pulse 88 05/07/18 15:55 Resp 16 05/07/18 14:15 BP 103/61 05/07/18 14:15 Pulse Ox 92 L 05/07/18 14:15 Intake & Output 05/06/18 05/07/18 05/07/18 18:59 06:59 18:59 Intake Total 200 240 Balance 200 240 Weight 45 kg Intake: Oral 200 240 Other: Voiding Method Incontinent Bedpan Bedside Commode Incontinent Diaper # Voids 2 2 3 # Bowel Movements 1 1 1 - Exam PHYSICAL EXAM: VITAL SIGNS: As above GENERAL: Sitting up in chair, no acute distress HEENT: Conjunctivae normal. eyes normal. Oral mucosa moist NECK: No JVD. No thyroid enlargement. No LNs CARDIOVASCULAR: S1, S2 muffled. No murmur RESPIRATION: Breath sounds diminished in the bases. Scattered rhonchi, no crackles, no wheezing. Loose congested cough. No bronchial breathing. ABDOMEN: Soft, nontender . No guarding. no masses palpable.Bowel sounds heard. LEGS: No edema. no swelling PSYCHIATRY: Alert and oriented -3, mood and affect normal. NERVOUS SYSTEM: Cranial N 2-12 grossly normal. Moves all 4 limbs. Diffuse weakness No focal deficits. Skin: no ulcer no rash Joints: No active swelling. No inflammation. - Labs CBC & Chem 7: 05/07/18 12:48 05/07/18 12:48 Labs: Abnormal Lab Results - Last 24 Hours (Table) 05/07/18 05/07/18 05/07/18 Range/Units 01:45 12:48 12:48 WBC 10.8 H (3.8-10.6) k/uL RBC 3.22 L (3.80-5.40) m/uL Hgb 11.3 L (11.4-16.0) gm/dL MCV 106.2 H (80.0-100.0) fL MCH 35.1 H (25.0-35.0) pg Neutrophils # 9.5 H (1.3-7.7) k/uL Lymphocytes # 0.5 L (1.0-4.8) k/uL Sodium 131 L (137-145) mmol/L Chloride 91 L (98-107) mmol/L Carbon Dioxide 32 H (22-30) mmol/L BUN 24 H (7-17) mg/dL Creatinine 0.40 L (0.52-1.04) mg/dL Glucose 112 H (74-99) mg/dL Urine Appearance Cloudy H (Clear) Urine Blood Small H (Negative) Urine Nitrite Positive H (Negative) Ur Leukocyte Esterase Large H (Negative) Urine RBC 18 H (0-5) /hpf Urine WBC 84 H (0-5) /hpf Ur Squamous Epith Cells 6 H (0-4) /hpf Urine Bacteria Moderate H (None) /hpf Urine Mucus Rare H (None) /hpf Microbiology - Last 24 Hours (Table) 05/06/18 09:08 Blood Culture - Preliminary Blood No Growth after 24 hours 05/06/18 08:49 Blood Culture - Preliminary Blood No Growth after 24 hours 05/07/18 01:45 Urine Culture - Preliminary Urine,Voided Assessment and Plan Assessment: 1. Acute on chronic hypoxic respiratory failure secondary to acute COPD exacerbation, acute left lower lobe effusion, possible LLL pneumonia. Wears 1.5l at home. 2. Acute blood loss anemia secondary to acutue GI bleed. status post colonoscopy, reporting sigmoid diverticulosis with no active bleeding 3. Moderate protein calorie malnutrition 4. COPD 5. History of nicotine abuse 6. History of cerebral bleed 7. Ruling out acute UTI, cultures pending. Plan: Continue current medication regime ,monitoring and symptomatic treatment. Maintain Antibiotics, DuoNeb, Symbicort. Follow cultures closely. Discharge planning in progress for tomorrow pending chest x-ray in a.m. The impression and plan of care has been dictated as directed. : I performed a history and examination of this patient, discussed the same with the dictator. I agree with the dictator's note ,documented as a scribe. Any additional findings or plans will be noted.
[2018-05-07] MEDS: ACETAMINOPHEN TAB 500 MG TAB PO PRN (23:49)
[2018-05-08] MEDS: SYMBICORT 160-4.5 MCG INHALER INHALATION SCH ×2 (07:13→19:23)
[2018-05-08] MEDS: IPRATROPIUM-ALBUTEROL 3 ML NEB INHALATION SCH ×4 (07:14→19:23)
[2018-05-08] MEDS: PIPERACILLIN-TAZOBACTAM 3.375 GM in DEXTROSE/WATER 1 50ML.BAG IVPB SCH ×2 (08:15→16:42)
[2018-05-08] MEDS: BISOPROLOL 5 MG TAB PO SCH (08:16)
[2018-05-08] MEDS: FUROSEMIDE 20 MG TAB PO SCH (08:16)
[2018-05-08] MEDS: LISINOPRIL 20 MG TAB PO SCH (08:16)
[2018-05-08] MEDS: DILTIAZEM CD 240 MG CAP.ER.24H PO SCH (08:16)
[2018-05-08] MEDS: RALOXIFENE 60 MG TAB PO SCH (08:17)
[2018-05-08] MEDS: hydrALAZINE HCL 10 MG TAB PO SCH ×2 (08:17→21:38)
[2018-05-08] MEDS: POTASSIUM CHLORIDE ER 10 MEQ TAB.ER.PRT PO SCH (08:17)
[2018-05-08 08:22] LABS: Basophils % (A) 0 %; Eosinophils # (A) 0.2 k/uL (0-0.7); Eosinophils % (A) 3 %; HCT 30.9 % (34.0-46.0); Lymphocytes # (A) 0.4 k/uL (1.0-4.8); Lymphocytes % (A) 6 %; MCH 34.2 pg (25.0-35.0); MCHC 32.4 g/dL (31.0-37.0); MCV 105.5 fL (80.0-100.0); Macrocytosis Moderate; Mean Platelet Volume 7.6; Monocytes # (A) 0.6 k/uL (0-1.0); Monocytes % (A) 8 %; Neutrophils # (A) 5.9 k/uL (1.3-7.7); Neutrophils % (A) 82 %; Platelet Count 317 k/uL (150-450); RBC 2.93 m/uL (3.80-5.40); RDW 13.8 % (11.5-15.5); WBC 7.2 k/uL (3.8-10.6)
[2018-05-08 08:59] LABS: Anion Gap 8 mmol/L; Blood Urea Nitrogen 23 mg/dL (7-17); Calcium 8.3 mg/dL (8.4-10.2); Carbon Dioxide 30 mmol/L (22-30); Chloride 94 mmol/L (98-107); Glucose 83 mg/dL (74-99); Potassium 4.7 mmol/L (3.5-5.1); Sodium 132 mmol/L (137-145)
--- NOTE | 2018-05-08 10:23 | P.PN ---
Subjective Progress Note Date: 05/08/18 Principal diagnosis: Gastrointestinal bleeding This is a very pleasant 77-year-old female patient who resides in the [facility] and follows with Dr. Morrow as her primary care physician. She has a history of hypertension, hyperlipidemia, osteoarthritis, previous brain bleed treated conservatively at the [facility], hip replacements 3. She also has a history of 25 year pack per day smoking however quit many years ago. She does have oxygen dependent chronic obstructive pulmonary disease. She's been seen by Dr. Landers in the past. She is on Xopenex and Spiriva in the outpatient setting. She was seen here back on 05/01/2018 in the emergency room after having bright red bleeding in her stools. She subsequently undergone a colonoscopy on 05/04/2018 that revealed diverticulosis but no active bleeding. The patient was planning to be discharged yesterday and developed a temperature of 100.3 and her discharge was placed on hold. Blood and urine cultures reveal no growth to date. Cervix revealed evidence of chronic changes with a elevated left hemidiaphragm. There is a small left pleural effusion and associated atelectasis. No clear evidence of pneumonia. She is currently afebrile. Hemodynamically stable. Maintaining good O2 saturations in the 90s on 2 L/m per nasal cannula. She does have a loose productive cough of thick yellow sputum. She's currently on Zosyn and bronchodilators along with Symbicort. She denies any worsening shortness of breath. She states she normally has a cough but usually clear sputum. Patient is seen again today 05/08/2018 in follow-up on the regular medical floor. She is currently sitting up in a chair at the bedside. She is awake and alert in no acute distress. She denies any worsening shortness of breath. She continues with a loose nonproductive cough. She is breathing easier today as compared to yesterday. She is maintaining good O2 saturations up to 100% on 4 L/m per nasal cannula. She is currently afebrile. Hemodynamically stable. Pulmonary blood cultures reveal no growth. Urine culture is pending. White count 7.2. Hemoglobin 10.0. Creatinine 0.40. She remains on Zosyn. She is having some issues with weakness needing assist 2 to be up and about where she is usually ambulatory by walker. Considering subacute rehab. Objective - Vital Signs Vital signs: Vital Signs Temp 98.3 F 05/08/18 06:30 Pulse 82 05/08/18 07:29 Resp 16 05/08/18 06:30 BP 118/68 05/08/18 06:30 Pulse Ox 100 05/08/18 07:14 Intake & Output 05/07/18 05/08/18 05/08/18 18:59 06:59 18:59 Intake Total 240 Balance 240 Intake: Oral 240 Other: Voiding Method Bedside Commode Bedside Commode Diaper Diaper # Voids 3 4 # Bowel Movements 1 - Exam General appearance: No acute distress, thin - EENT Eyes: EOMI, PERRLA ENT: hard of hearing Ears: bilateral: normal - Neck Neck: normal ROM Carotids: bilateral: upstroke normal Thyroid: bilateral: normal size - Respiratory Respiratory: left: rhonchi - Cardiovascular Rhythm: regular Heart sounds: normal: S1, S2 - Gastrointestinal General gastrointestinal: normal bowel sounds - Neurologic Neurologic: CNII-XII intact - Musculoskeletal Musculoskeletal: generalized weakness - Psychiatric Psychiatric: A&O x's 3, appropriate affect, intact judgment & insight - Labs CBC & Chem 7: 05/08/18 07:18 05/08/18 07:18 Labs: Abnormal Lab Results - Last 24 Hours (Table) 05/07/18 05/07/18 05/08/18 Range/Units 12:48 12:48 07:18 WBC 10.8 H (3.8-10.6) k/uL RBC 3.22 L 2.93 L (3.80-5.40) m/uL Hgb 11.3 L 10.0 L (11.4-16.0) gm/dL Hct 30.9 L (34.0-46.0) % MCV 106.2 H 105.5 H (80.0-100.0) fL MCH 35.1 H (25.0-35.0) pg Neutrophils # 9.5 H (1.3-7.7) k/uL Lymphocytes # 0.5 L 0.4 L (1.0-4.8) k/uL Sodium 131 L (137-145) mmol/L Chloride 91 L (98-107) mmol/L Carbon Dioxide 32 H (22-30) mmol/L BUN 24 H (7-17) mg/dL Creatinine 0.40 L (0.52-1.04) mg/dL Glucose 112 H (74-99) mg/dL Calcium (8.4-10.2) mg/dL 05/08/18 Range/Units 07:18 WBC (3.8-10.6) k/uL RBC (3.80-5.40) m/uL Hgb (11.4-16.0) gm/dL Hct (34.0-46.0) % MCV (80.0-100.0) fL MCH (25.0-35.0) pg Neutrophils # (1.3-7.7) k/uL Lymphocytes # (1.0-4.8) k/uL Sodium 132 L (137-145) mmol/L Chloride 94 L (98-107) mmol/L Carbon Dioxide (22-30) mmol/L BUN 23 H (7-17) mg/dL Creatinine 0.40 L (0.52-1.04) mg/dL Glucose (74-99) mg/dL Calcium 8.3 L (8.4-10.2) mg/dL Microbiology - Last 24 Hours (Table) 05/06/18 09:08 Blood Culture - Preliminary Blood No Growth after 24 hours 05/06/18 08:49 Blood Culture - Preliminary Blood No Growth after 24 hours 05/07/18 01:45 Urine Culture - Preliminary Urine,Voided Assessment and Plan Assessment: Impression: #1 Acute on chronic hypoxic respiratory failure secondary to acute exacerbation of chronic obstructive pulmonary disease secondary to atelectasis/infiltrate in the left lower lobe. Recent colonoscopy. Currently on Zosyn, bronchodilators, Symbicort. #2 Transient febrile illness. Suspect urinary tract infection. Blood, sputum and urine cultures are pending. #3 Gastrointestinal bleeding. Status post colonoscopy with evidence of diverticulosis but no acute bleeding. #4 Hypertension. #5 Hyperlipidemia. #6 Osteoarthritis with previous multiple orthopedic surgeries. #7 Poor overall functional performance based on the above-mentioned multiple comorbidities. Plan: The patient was seen and evaluated by Dr. King. Chest x-ray pending, labs were reviewed. Cultures are pending, probable urinary tract infection. We will continue with DuoNeb inhalations, Symbicort, Zosyn. We will increase her activity as tolerated. She remains quite weak. May need subacute rehabilitation. We will continue to follow and make further recommendations based on her clinical status. I, the cosigning physician, performed a history & physical examination of the patient. Lungs sounds have few scattered rhonchi more so on the left lung base. Maintaining good O2 saturations in the 90s on 2 L/m per nasal cannula. I discussed the assessment and plan of care with my nurse practitioner, Doris Nails. I attest to the above note as dictated by her.
--- NOTE | 2018-05-08 16:26 | P.PN ---
Subjective Progress Note Date: 05/08/18 Progress note being dictated for Dr. Braun Interval history: This is a 77-year-old female admitted with acute GI bleed, status post colonoscopy reporting sigmoid diverticulosis, without strictures polyps or inflammatory disease, no bleeding. Patient initially was being prepared for discharge yesterday and spiked fever, TMAX 100.3. Discharge subsequently was placed on hold and fever workup initiated. Sitting up in chair , presenting with loose nonproductive cough. Chest x-ray reporting new left basilar opacity, small left pleural effusion. Blood cultures pending. Antibiotics changed to Zosyn. No labs available today. 05/07/2018 antibiotics adjusted yesterday, afebrile, preliminary blood cultures negative, urine culture pending. Worsening cough this morning with productive yellow sputum. Denies chest pain, palpitations or increasing shortness of breath. Evaluated by pulmonary with recommendations noted. 05/08/2018 maintained on Zosyn, nebulized bronchodilators. congestive loose nonproductive cough continues. Oxygen weaned down to 2 L nasal cannula, maintaining O2 sats of 95%. T-max 100. Preliminary blood cultures negative at 48 hours, urine culture pending. Objective - Vital Signs Vital signs: Vital Signs Temp 99.3 F 05/08/18 14:39 Pulse 82 05/08/18 15:36 Resp 18 05/08/18 14:39 BP 111/66 05/08/18 14:39 Pulse Ox 95 05/08/18 14:39 Intake & Output 05/07/18 05/08/18 05/08/18 18:59 06:59 18:59 Intake Total 240 480 Balance 240 480 Intake: Oral 240 480 Other: Voiding Method Bedside Commode Bedside Commode Diaper Diaper # Voids 3 4 3 # Bowel Movements 1 1 - Exam PHYSICAL EXAM: VITAL SIGNS: As above GENERAL: Sitting up in bed, no acute distress HEENT: Conjunctivae normal. eyes normal. Oral mucosa moist NECK: No JVD. No thyroid enlargement. No LNs CARDIOVASCULAR: S1, S2 muffled. No murmur RESPIRATION: Breath sounds diminished in the bases. Scattered rhonchi, no crackles, no wheezing. Loose congested cough. ABDOMEN: Soft, nontender . No guarding. no masses palpable.Bowel sounds heard. LEGS: No edema. no swelling PSYCHIATRY: Alert and oriented -3, mood and affect normal. NERVOUS SYSTEM: Cranial N 2-12 grossly normal. Moves all 4 limbs. Diffuse weakness No focal deficits. Skin: no ulcer no rash Joints: No active swelling. No inflammation. - Labs CBC & Chem 7: 05/08/18 07:18 05/08/18 07:18 Labs: Abnormal Lab Results - Last 24 Hours (Table) 05/08/18 05/08/18 Range/Units 07:18 07:18 RBC 2.93 L (3.80-5.40) m/uL Hgb 10.0 L (11.4-16.0) gm/dL Hct 30.9 L (34.0-46.0) % MCV 105.5 H (80.0-100.0) fL Lymphocytes # 0.4 L (1.0-4.8) k/uL Sodium 132 L (137-145) mmol/L Chloride 94 L (98-107) mmol/L BUN 23 H (7-17) mg/dL Creatinine 0.40 L (0.52-1.04) mg/dL Calcium 8.3 L (8.4-10.2) mg/dL Microbiology - Last 24 Hours (Table) 05/06/18 09:08 Blood Culture - Preliminary Blood No Growth after 48 hours 05/06/18 08:49 Blood Culture - Preliminary Blood No Growth after 48 hours Assessment and Plan Assessment: 1. Acute on chronic hypoxic respiratory failure secondary to acute COPD exacerbation, acute left lower lobe effusion, possible LLL pneumonia. Wears 1.5l at home. 2. Acute blood loss anemia secondary to acutue GI bleed. status post colonoscopy, reporting sigmoid diverticulosis with no active bleeding 3. Moderate protein calorie malnutrition 4. COPD 5. History of nicotine abuse 6. History of cerebral bleed 7. Ruling out acute UTI, cultures pending. Plan: Continue current medication regime ,monitoring and symptomatic treatment. Follow-up chest x-ray pending .Maintain Antibiotics, DuoNeb, Symbicort. Follow cultures closely. T-max 100, Discharge planning in progress for tomorrow. The impression and plan of care has been dictated as directed. : I performed a history and examination of this patient, discussed the same with the dictator. I agree with the dictator's note ,documented as a scribe. Any additional findings or plans will be noted.
--- NOTE | 2018-05-08 17:07 | XR ---
EXAMINATION TYPE: XR chest 1V portable DATE OF EXAM: 05/08/2018 Comparison: 05/06/2018 Clinical History: 77-year-old female LLL infiltrate Findings: Rotated exam. Patient is also obliqued towards the right. Heart appears normal size. There is some ov erlying soft tissue and external catheter projecting over the left base limiting assessment. Some str bhavani opacity here is favored to represent atelectasis. Mild diffuse interstitial prominence. We note a large right main pulmonary artery on the patient's comparison exam on the lateral view. Sclerotic f ocus within the intramedullary space of the proximal left humerus likely chondroid lesion such as enc hondroma. Impression: 1. Focal left basilar opacity has a somewhat strandy configuration favored to represent atelectasis r ather than infiltrate. There are limitations due to rotation, obliquity, and overlying artifacts. Fol low-up can be considered. 2. Pulmonary arterial hypertension. 3. Probable chondroid lesion such as enchondroma proximal left humerus.
[2018-05-08] MEDS: AMOXIC-POT CLAV 875-125MG 1 EACH TAB PO SCH ×2 (17:47→21:38)
[2018-05-08] MEDS: ACETAMINOPHEN TAB 500 MG TAB PO PRN (23:06)
[2018-05-09] MEDS: SYMBICORT 160-4.5 MCG INHALER INHALATION SCH ×2 (07:17→20:19)
[2018-05-09] MEDS: IPRATROPIUM-ALBUTEROL 3 ML NEB INHALATION SCH ×4 (07:17→20:19)
[2018-05-09] MEDS: DILTIAZEM CD 240 MG CAP.ER.24H PO SCH (07:49)
[2018-05-09] MEDS: AMOXIC-POT CLAV 875-125MG 1 EACH TAB PO SCH (07:49)
[2018-05-09] MEDS: FUROSEMIDE 20 MG TAB PO SCH (07:49)
[2018-05-09] MEDS: LISINOPRIL 20 MG TAB PO SCH (07:49)
[2018-05-09] MEDS: BISOPROLOL 5 MG TAB PO SCH (07:49)
[2018-05-09] MEDS: RALOXIFENE 60 MG TAB PO SCH (07:50)
[2018-05-09] MEDS: POTASSIUM CHLORIDE ER 10 MEQ TAB.ER.PRT PO SCH (07:50)
[2018-05-09] MEDS: hydrALAZINE HCL 10 MG TAB PO SCH ×2 (07:50→22:37)
--- NOTE | 2018-05-09 11:26 | P.PN ---
Subjective Progress Note Date: 05/09/18 This is a very pleasant 77-year-old female patient who resides in the [facility] and follows with Dr. Morrow as her primary care physician. She has a history of hypertension, hyperlipidemia, osteoarthritis, previous brain bleed treated conservatively at the [facility], hip replacements 3. She also has a history of 25 year pack per day smoking however quit many years ago. She does have oxygen dependent chronic obstructive pulmonary disease. She's been seen by Dr. Landers in the past. She is on Xopenex and Spiriva in the outpatient setting. She was seen here back on 05/01/2018 in the emergency room after having bright red bleeding in her stools. She subsequently undergone a colonoscopy on 05/04/2018 that revealed diverticulosis but no active bleeding. The patient was planning to be discharged yesterday and developed a temperature of 100.3 and her discharge was placed on hold. Blood and urine cultures reveal no growth to date. Cervix revealed evidence of chronic changes with a elevated left hemidiaphragm. There is a small left pleural effusion and associated atelectasis. No clear evidence of pneumonia. She is currently afebrile. Hemodynamically stable. Maintaining good O2 saturations in the 90s on 2 L/m per nasal cannula. She does have a loose productive cough of thick yellow sputum. She's currently on Zosyn and bronchodilators along with Symbicort. She denies any worsening shortness of breath. She states she normally has a cough but usually clear sputum. Patient is seen again today 05/08/2018 in follow-up on the regular medical floor. She is currently sitting up in a chair at the bedside. She is awake and alert in no acute distress. She denies any worsening shortness of breath. She continues with a loose nonproductive cough. She is breathing easier today as compared to yesterday. She is maintaining good O2 saturations up to 100% on 4 L/m per nasal cannula. She is currently afebrile. Hemodynamically stable. Pulmonary blood cultures reveal no growth. Urine culture is pending. White count 7.2. Hemoglobin 10.0. Creatinine 0.40. She remains on Zosyn. She is having some issues with weakness needing assist 2 to be up and about where she is usually ambulatory by walker. Considering subacute rehab. On 05/09/2018 the patient is resting comfortably in bed. No respiratory complaints. No aspiration. No episodes of GI bleeding. The patient's hemoglobin has remained stable. No cough or sputum production or chest tightness or wheezing. Still on IV Zosyn. White cell count is not elevated. There has been no other significant events the patient is being considered for subacute rehabilitation. The white cell count is at 7.2. Hemoglobin is at 10.0 mg lower compared to yesterday. There is been no evidence of any GI bleeding. Sodium level is at 132. Creatinine is stable at 0.4. Urine analysis was abnormal and urine cultures still pending. Chest x-ray that was done from 05/08/2018 showed limited left basilar opacity/atelectasis. Pulmonary arterial hypertension noted. Chondroid lesion probably a enchondroma in the proximal left humerus. Objective - Vital Signs Vital signs: Vital Signs Temp 97.0 F L 05/09/18 06:18 Pulse 88 05/09/18 11:19 Resp 16 05/09/18 06:18 BP 138/67 05/09/18 06:18 Pulse Ox 95 05/09/18 06:18 Intake & Output 05/08/18 05/09/18 05/09/18 18:59 06:59 18:59 Intake Total 480 Balance 480 Weight 45 kg Intake: Oral 480 Other: Voiding Method Bedside Commode Bedside Commode Bedside Commode Diaper Diaper Diaper Incontinent Incontinent Incontinent # Voids 3 1 2 # Bowel Movements 1 - Exam General appearance: No acute distress, thin - EENT Eyes: EOMI, PERRLA ENT: hard of hearing Ears: bilateral: normal - Neck Neck: normal ROM Carotids: bilateral: upstroke normal Thyroid: bilateral: normal size - Respiratory Respiratory: left: rhonchi - Cardiovascular Rhythm: regular Heart sounds: normal: S1, S2 - Gastrointestinal General gastrointestinal: normal bowel sounds - Neurologic Neurologic: CNII-XII intact - Musculoskeletal Musculoskeletal: generalized weakness - Psychiatric Psychiatric: A&O x's 3, appropriate affect, intact judgment & insight - Labs CBC & Chem 7: 05/08/18 07:18 05/08/18 07:18 Labs: Microbiology - Last 24 Hours (Table) 05/06/18 08:49 Blood Culture - Preliminary Blood No Growth after 72 hours 05/06/18 09:08 Blood Culture - Preliminary Blood No Growth after 48 hours Assessment and Plan Plan: Impression: #1 Acute on chronic hypoxic respiratory failure secondary to acute exacerbation of chronic obstructive pulmonary disease secondary to atelectasis/infiltrate in the left lower lobe. Clinically stable. Repeat chest x-ray from yesterday showed limited atelectatic changes and left lung base. Currently no respiratory difficulties and oxidation status has remained stable for now. #2 Transient febrile illness. Suspect urinary tract infection. Blood, sputum and urine cultures are pending. The patient meanwhile remains on IV Zosyn. #3 Gastrointestinal bleeding. Status post colonoscopy with evidence of diverticulosis but no acute bleeding. No evidence of any GI bleed and hemoglobin is up by 1 g #4 Hypertension. #5 Hyperlipidemia. #6 Osteoarthritis with previous multiple orthopedic surgeries. #7 Poor overall functional performance based on the above-mentioned multiple comorbidities. Plan Pulmonate status is stable. Check urine cultures. Modify antibiotics accordingly. Monitor hemoglobin. Aspiration precautions. ECF transfer once cleared by medicine. IV Zosyn was discontinued and the patient was placed on oral Augmentin.
[2018-05-09] MEDS: PIPERACILLIN-TAZOBACTAM 3.375 GM in DEXTROSE/WATER 1 50ML.BAG IVPB SCH ×2 (14:58→23:57)
[2018-05-09 15:42] LABS: Basophils % (A) 0 %; Eosinophils # (A) 0.2 k/uL (0-0.7); Eosinophils % (A) 2 %; HGB 11.2 gm/dL (11.4-16.0); Hypochromasia Slight; Lymphocytes # (A) 0.3 k/uL (1.0-4.8); Lymphocytes % (A) 4 %; MCH 34.1 pg (25.0-35.0); MCHC 31.9 g/dL (31.0-37.0); MCV 106.9 fL (80.0-100.0); Macrocytosis Moderate; Monocytes # (A) 0.6 k/uL (0-1.0); Monocytes % (A) 7 %; Neutrophils # (A) 7.3 k/uL (1.3-7.7); Neutrophils % (A) 86 %; Platelet Count 410 k/uL (150-450); RBC 3.27 m/uL (3.80-5.40); RDW 13.8 % (11.5-15.5); WBC 8.5 k/uL (3.8-10.6)
[2018-05-09 15:52] LABS: Anion Gap 12 mmol/L; Blood Urea Nitrogen 20 mg/dL (7-17); Calcium 8.8 mg/dL (8.4-10.2); Carbon Dioxide 28 mmol/L (22-30); Chloride 93 mmol/L (98-107); Glucose 132 mg/dL (74-99); Potassium 4.7 mmol/L (3.5-5.1); Sodium 133 mmol/L (137-145)
--- NOTE | 2018-05-09 22:29 | P.PN ---
Subjective Progress Note Date: 05/09/18 Progress note being dictated for Dr. Liang Interval history: This is a 77-year-old female admitted with acute GI bleed, status post colonoscopy reporting sigmoid diverticulosis, without strictures polyps or inflammatory disease, no bleeding. Patient initially was being prepared for discharge yesterday and spiked fever, TMAX 100.3. Discharge subsequently was placed on hold and fever workup initiated. Sitting up in chair , presenting with loose nonproductive cough. Chest x-ray reporting new left basilar opacity, small left pleural effusion. Blood cultures pending. Antibiotics changed to Zosyn. No labs available today. 05/07/2018 antibiotics adjusted yesterday, afebrile, preliminary blood cultures negative, urine culture pending. Worsening cough this morning with productive yellow sputum. Denies chest pain, palpitations or increasing shortness of breath. Evaluated by pulmonary with recommendations noted. 05/08/2018 maintained on Zosyn, nebulized bronchodilators. congestive loose nonproductive cough continues. Oxygen weaned down to 2 L nasal cannula, maintaining O2 sats of 95%. T-max 100. Preliminary blood cultures negative at 48 hours, urine culture pending. 05/09/2018 afebrile currently, fever again last night, T-max 100.6. IV access lost ,patient placed on Augmentin. Urine and sputum cultures pending. Labs pending. Chest x-ray of yesterday reporting atelectasis rather than infiltrate , incidental finding of probable chrondroid lesion proximal left humerus Objective - Vital Signs Vital signs: Vital Signs Temp 98.2 F 05/09/18 14:34 Pulse 84 05/09/18 14:34 Resp 20 05/09/18 14:34 BP 123/63 05/09/18 14:34 Pulse Ox 98 05/09/18 14:34 Intake & Output 05/08/18 05/09/18 05/09/18 18:59 06:59 18:59 Intake Total 480 Balance 480 Weight 45 kg 45 kg Intake: Oral 480 Other: Voiding Method Bedside Commode Bedside Commode Bedside Commode Diaper Diaper Diaper Incontinent Incontinent Incontinent # Voids 3 1 2 # Bowel Movements 1 - Exam PHYSICAL EXAM: VITAL SIGNS: As above GENERAL: Sitting up in bed, no acute distress, thin built HEENT: Conjunctivae normal. eyes normal. Oral mucosa moist NECK: No JVD. No thyroid enlargement. No LNs CARDIOVASCULAR: S1, S2 muffled. No murmur RESPIRATION: Breath sounds diminished in the bases. Scattered rhonchi, no crackles, no wheezing. Loose congested cough. ABDOMEN: Soft, nontender . No guarding. no masses palpable.Bowel sounds heard. LEGS: No edema. no swelling PSYCHIATRY: Alert and oriented -3, mood and affect normal. NERVOUS SYSTEM: Cranial N 2-12 grossly normal. Moves all 4 limbs. Diffuse weakness No focal deficits. Skin: no ulcer no rash Joints: No active swelling. No inflammation. - Labs CBC & Chem 7: 05/09/18 15:22 05/09/18 15:22 Labs: Microbiology - Last 24 Hours (Table) 05/06/18 09:08 Blood Culture - Preliminary Blood No Growth after 72 hours 05/07/18 01:45 Urine Culture - Final Urine,Voided 05/06/18 08:49 Blood Culture - Preliminary Blood No Growth after 72 hours Assessment and Plan Assessment: 1. Acute on chronic hypoxic respiratory failure secondary to acute COPD exacerbation, acute left lower lobe effusion, possible LLL pneumonia. Wears 1.5l at home. 2. Acute blood loss anemia secondary to acutue GI bleed. status post colonoscopy, reporting sigmoid diverticulosis with no active bleeding 3. Moderate protein calorie malnutrition 4. COPD 5. History of nicotine abuse 6. History of cerebral bleed 7. acute UTI, cultures pending. 8. Malnutrition, moderate Plan: Continue current medication regime ,monitoring and symptomatic treatment. Labs pending. Persistent fevers at night, infectious disease consulted. Awaiting sputum and urine cultures. Maintain Antibiotics, DuoNeb, Symbicort. Ensure supplements between meals 3 times a day, given malnutrition. PT/OT. The impression and plan of care has been dictated as directed. : I performed a history and examination of this patient, discussed the same with the dictator. I agree with the dictator's note ,documented as a scribe. Any additional findings or plans will be noted.
--- NOTE | 2018-05-10 06:58 | CONS ---
CONSULTATION DATE OF SERVICE: 05/09/2018. REASON FOR CONSULTATION: Fever. HISTORY OF PRESENT ILLNESS: The patient is a 77-year-old, female, who was brought into the ER at [facility] on 05/01/2018 with concern for bloody bowel movement for which the patient has been evaluated by the GI Services. Patient did have a colonoscopy done on 05/03/2018, which did show evidence of diverticulosis but no active bleeding. The patient was supposed to be discharged home on 05/05/2018, however, the patient has been running low-grade fever. She did have fever of 100.2 on 05/03 with 100.3 on 05/05. No fever on 05/06 and 100 degrees Fahrenheit on 05/07 with 100.6 on 05/08. With these low- grade fevers discharge has been put on hold. The patient did have a chest x-ray done on the , which shows chronic changes with new elevated left hemidiaphragm. The patient did have a urine that was done on the , which showed large leukocyte esterase with moderate bacteremia. The patient was initially treated with Zosyn. However, the patient lost her IV and subsequently refused to get any new IV started and antibiotic was switched to Augmentin. However, the patient did have a low-grade fever that prompted this Infectious Disease consultation. Patient did have a slight elevated white count of 11.1 on 05/04 down to 8.5 as of this morning. The patient says she is feeling weak. She did have a congested cough but unable to bring any sputum up. The patient denies having any chest pain. No nausea, vomiting. No abdominal pain. No diarrhea and no significant urinary symptoms. REVIEW OF SYSTEMS: CONSTITUTIONAL: Positive for weakness along with low-grade fever but no chills. EYES: No complaint. ENT: No complaint. RESPIRATORY: As per HPI. CARDIOVASCULAR: No complaint. GENITOURINARY: No complaint. GASTROINTESTINAL: As per HPI. MUSCULOSKELETAL: No complaint. INTEGUMENTARY: No complaint. PSYCHOLOGICAL: No complaint. ENDOCRINE: No complaint. NEUROLOGIC: No complaint. PAST MEDICAL HISTORY: Hypertension, hyperlipidemia, COPD, osteoarthritis, history of brain bleed. PAST SURGICAL HISTORY: Adenoidectomy, right hip replacement, tonsillectomy. SOCIAL HISTORY: Remote history of smoking. No drinking or drug use. FAMILY HISTORY: Father with history of diabetes. Mother history of hyperlipidemia. ALLERGIES: To NAPROXEN. MEDICATIONS: The patient is currently on Tylenol, DuoNeb, , Symbicort, Cardizem, Lasix, hydralazine, Augmentin, Avastatin, K-Dur. EXAMINATION: Blood pressure 136/60 with a pulse of 115, temperature 97.1, T-max 100.6. She is 94% on 2 L nasal cannula. General description is an elderly female up in the chair in no distress. No tachypnea or accessory muscle for respiration use. HEENT EXAMINATION: Slight pallor. No scleral icterus. Oral mucosa membrane is dry. No pharyngeal erythema or thrush. NECK: Trachea central. No thyromegaly. LUNGS: Unlabored breathing, decreased breath sounds in the bases. No wheeze or crackle. HEART: S1, S2. Regular rate and rhythm. ABDOMEN: Soft, no tenderness. No rigidity. EXTREMITIES: No edema feet. SKIN EXAMINATION: No rash or mass palpable. NEUROLOGICAL: Patient is awake, alert, oriented x2. Mood and affect normal. LABS: Hemoglobin is 11.8 with white count 8.5 with a BUN of 20, creatinine 0.39. Liver enzymes are mildly elevated. Urine has been significantly positive. Blood culture has been negative so far. DIAGNOSTIC IMPRESSION AND PLAN: Patient with low-grade fever in a patient who has been admitted to hospital with GI bleed, more likely secondary to diverticular in origin, status post colonoscopy and there was no evidence of any diverticulitis or active source of bleeding. Since colonoscopy the patient did have a low-grade fever on a daily basis. She did have a blood culture has been negative so far. Chest x-ray with some question of left lower lobe atelectasis versus pneumonia initially on Zosyn. The patient seemed to have resolution of fever for 1 day but then she lost her IV and has to be transitioned to p.o. Augmentin with subsequently recurrence of low-grade fever, more likely a Augmentin resistant pathogen. PLAN: 1. We will try to obtain sputum for Gram stain culture and sensitivity. 2. We will restart IV and restart Zosyn at 3.375 every 8 hours. 3. We will follow up on clinical condition and cultures to further adjust medication and determine her discharge antibiotic. Thank you for this consultation. Will follow this patient along with you. MMODL / IJN: [id number] /
[2018-05-10] MEDS: IPRATROPIUM-ALBUTEROL 3 ML NEB INHALATION SCH ×4 (07:11→18:53)
[2018-05-10] MEDS: SYMBICORT 160-4.5 MCG INHALER INHALATION SCH ×2 (07:11→18:53)
[2018-05-10] MEDS: LISINOPRIL 20 MG TAB PO SCH (07:14)
[2018-05-10] MEDS: hydrALAZINE HCL 10 MG TAB PO SCH ×2 (07:14→21:34)
[2018-05-10] MEDS: PIPERACILLIN-TAZOBACTAM 3.375 GM in DEXTROSE/WATER 1 50ML.BAG IVPB SCH ×3 (07:14→23:59)
[2018-05-10] MEDS: FUROSEMIDE 20 MG TAB PO SCH (07:14)
[2018-05-10] MEDS: POTASSIUM CHLORIDE ER 10 MEQ TAB.ER.PRT PO SCH (07:14)
[2018-05-10] MEDS: RALOXIFENE 60 MG TAB PO SCH (07:14)
[2018-05-10] MEDS: BISOPROLOL 5 MG TAB PO SCH (07:15)
[2018-05-10] MEDS: DILTIAZEM CD 240 MG CAP.ER.24H PO SCH (07:15)
--- NOTE | 2018-05-10 08:15 | CDI ---
Last Revision, October 2017 Documentation Clarification Form Date: 05/10/18 From: Olive Lopez RN Admit Date: 05/01/2018 10:19:00 PM Patient Name: Donna Dueñas Visit Number: [id number] ATTENTION: The Clinical Documentation Specialists (CDI) and [facility] Coding Staff appreciate your assistance in clarifying documentation. Please respond to the clarification below the line at the bottom and electronically sign. The CDI & [facility] Coding staff will review the response and follow-up if needed. Please note: Queries are made part of the Legal Health Record. If you have any questions, please contact the author of this message via ITS. Dr. Heriberto Braun, Pneumonia was documented in your notes on 05/06 - 05/09 History/Risk Factors: COPD, HTN,, hyperlipidemia, OA, cerebral bleed, diverticulosis, x smoker chronic hypoxic respiratory failure and home O2@ 1.5-2 L Clinical Indicators: WBC on admission: 9.8, 05/04 11.9, 05/09 11.2 Temp. 05/01 97.2 admission, 05/02 99.4, 05/04 100.1 & 100.2, 05/05 100.3, 05/07 100.0, 05/08 100.6, 05/09 97.0 X-ray: 05/06 left basilar atelectasis and /or infiltrate, 05/08 configuration favored to represent atelectasis rather than infiltrate. Sputum Cultures pending, blood cultures neg. after 72 hrs. Positive UTI Treatment: Antibiotics: Amoxicillin, Rocephin, Piperacillin O2 2L Breathing Tx: Albuterol, Symbicort In order to capture the severity of condition, please clarify if the condition signifies and you are treating for: Pneumonia ruled in Pneumonia ruled out Bacterial Pneumonia, specify causal organism (if known) Gram Negative Pneumonia Other bacteria (please specify) Viral Pneumonia, specify casual organism (if known) Healthcare Acquired Pneumonia/Pneumonia, unspecified Other, please specify Unable to determine Please continue to document in your progress notes, under the line below and/or in the discharge summary in order to capture severity of illness and risk of mortality. Include clinical findings that support your diagnosis. MTDD
--- NOTE | 2018-05-10 08:30 | CDI ---
Last Revision, October 2017 Documentation Clarification Form Date: 05/10/19 From: Olive Lopez RN Admit Date: 05/01/2018 10:19:00 PM Patient Name: Donna Dueñas Visit Number: [id number] ATTENTION: The Clinical Documentation Specialists (CDI) and [facility] Coding Staff appreciate your assistance in clarifying documentation. Please respond to the clarification below the line at the bottom and electronically sign. The CDI & [facility] Coding staff will review the response and follow-up if needed. Please note: Queries are made part of the Legal Health Record. If you have any questions, please contact the author of this message via ITS. Dr. Heriberto Braun, Documentation and location in medical record included Transient febrile illness , hypoxic respiratory failure, probable UTI, Pt. feels weak, Pneumonia was documented in the notes on 05/06 - 05/09 History/Risk Factors: COPD, HTN,, hyperlipidemia, OA, cerebral bleed, diverticulosis, x smoker chronic hypoxic respiratory failure and home O2@ 1.5-2 L Clinical Indicators: Vitals on admission: T 97.2, P 94, R 18, 171/88, 96% 2L WBC on admission: 9.8, 05/04 11.9, 05/09 11.2 Temp. 05/01 97.2 admission, 05/02 99.4, 05/04 100.1 & 100.2, 05/05 100.3, 05/07 100.0, 05/08 100.6, 05/09 97.0 X-ray: 05/06 left basilar atelectasis and /or infiltrate, Sputum Cultures pending, blood cultures neg. after 72 hrs. Positive UTI Treatment: Antibiotics: Amoxicillin, Rocephin, Piperacillin O2 2L Breathing Tx: Albuterol, Symbicort ID Consult: Dr. Romero IV Bolus: x1 In your professional opinion, please clarify if these findings signify one of the following conditions, whether the condition is POA, and cause, if known: Condition Sepsis ruled out Sepsis ruled in Severe Sepsis Septic Shock Other, please specify Unable to determine Present on Admission: Yes No Please continue to document in your progress notes, under the line below and/or in the discharge summary in order to capture severity of illness and risk of mortality. Include clinical findings that support your diagnosis. MTDD
[2018-05-10 09:13] LABS: Basophils # (A) 0.1 k/uL (0-0.2); Basophils % (A) 1 %; Eosinophils # (A) 0.2 k/uL (0-0.7); Eosinophils % (A) 2 %; HCT 35.2 % (34.0-46.0); HGB 11.1 gm/dL (11.4-16.0); Lymphocytes # (A) 0.6 k/uL (1.0-4.8); Lymphocytes % (A) 6 %; MCH 34.6 pg (25.0-35.0); MCHC 31.7 g/dL (31.0-37.0); MCV 109.2 fL (80.0-100.0); Macrocytosis Marked; Mean Platelet Volume 7.2; Monocytes # (A) 0.8 k/uL (0-1.0); Monocytes % (A) 8 %; Neutrophils % (A) 82 %; Platelet Count 425 k/uL (150-450); RBC 3.22 m/uL (3.80-5.40); WBC 9.8 k/uL (3.8-10.6)
[2018-05-10 09:44] LABS: Anion Gap 8 mmol/L; Blood Urea Nitrogen 20 mg/dL (7-17); Calcium 8.8 mg/dL (8.4-10.2); Carbon Dioxide 31 mmol/L (22-30); Chloride 93 mmol/L (98-107); Glucose 92 mg/dL (74-99); Potassium 4.8 mmol/L (3.5-5.1); Sodium 132 mmol/L (137-145)
[2018-05-10 10:24] LABS: Poikilocytosis (M) Present; Toxic Granulation Present
--- NOTE | 2018-05-10 14:38 | P.PN ---
Subjective Progress Note Date: 05/10/18 Principal diagnosis: Gastrointestinal bleeding This is a very pleasant 77-year-old female patient who resides in the [facility] and follows with Dr. Morrow as her primary care physician. She has a history of hypertension, hyperlipidemia, osteoarthritis, previous brain bleed treated conservatively at the [facility], hip replacements 3. She also has a history of 25 year pack per day smoking however quit many years ago. She does have oxygen dependent chronic obstructive pulmonary disease. She's been seen by Dr. Landers in the past. She is on Xopenex and Spiriva in the outpatient setting. She was seen here back on 05/01/2018 in the emergency room after having bright red bleeding in her stools. She subsequently undergone a colonoscopy on 05/04/2018 that revealed diverticulosis but no active bleeding. The patient was planning to be discharged yesterday and developed a temperature of 100.3 and her discharge was placed on hold. Blood and urine cultures reveal no growth to date. Cervix revealed evidence of chronic changes with a elevated left hemidiaphragm. There is a small left pleural effusion and associated atelectasis. No clear evidence of pneumonia. She is currently afebrile. Hemodynamically stable. Maintaining good O2 saturations in the 90s on 2 L/m per nasal cannula. She does have a loose productive cough of thick yellow sputum. She's currently on Zosyn and bronchodilators along with Symbicort. She denies any worsening shortness of breath. She states she normally has a cough but usually clear sputum. Patient is seen again today 05/08/2018 in follow-up on the regular medical floor. She is currently sitting up in a chair at the bedside. She is awake and alert in no acute distress. She denies any worsening shortness of breath. She continues with a loose nonproductive cough. She is breathing easier today as compared to yesterday. She is maintaining good O2 saturations up to 100% on 4 L/m per nasal cannula. She is currently afebrile. Hemodynamically stable. Pulmonary blood cultures reveal no growth. Urine culture is pending. White count 7.2. Hemoglobin 10.0. Creatinine 0.40. She remains on Zosyn. She is having some issues with weakness needing assist 2 to be up and about where she is usually ambulatory by walker. Considering subacute rehab. On 05/09/2018 the patient is resting comfortably in bed. No respiratory complaints. No aspiration. No episodes of GI bleeding. The patient's hemoglobin has remained stable. No cough or sputum production or chest tightness or wheezing. Still on IV Zosyn. White cell count is not elevated. There has been no other significant events the patient is being considered for subacute rehabilitation. The white cell count is at 7.2. Hemoglobin is at 10.0 mg lower compared to yesterday. There is been no evidence of any GI bleeding. Sodium level is at 132. Creatinine is stable at 0.4. Urine analysis was abnormal and urine cultures still pending. Chest x-ray that was done from 05/08/2018 showed limited left basilar opacity/atelectasis. Pulmonary arterial hypertension noted. Chondroid lesion probably a enchondroma in the proximal left humerus. The patient is seen again today 05/10/2018 in follow-up on the regular medical floor. She is currently sitting up in bed. She is awake and alert in no acute distress. She denies any worsening shortness of breath, cough or congestion. She is maintaining good O2 saturations in the upper 90s on 2 L/m per nasal cannula. She's been afebrile. Hemodynamically stable. Sputum culture reveals no growth thus far. White count 9.8. Hemoglobin 11.1. Creatinine 0.40. Blood and urine cultures revealed no growth. Objective - Vital Signs Vital signs: Vital Signs Temp 97.6 F 05/10/18 05:58 Pulse 100 05/10/18 11:12 Resp 15 05/10/18 05:58 BP 150/75 05/10/18 05:58 Pulse Ox 97 05/10/18 05:58 Intake & Output 05/09/18 05/10/18 05/10/18 18:59 06:59 18:59 Weight 45 kg Other: Voiding Method Bedside Commode Bedside Commode Bedside Commode Diaper Diaper Diaper Incontinent Incontinent Incontinent # Voids 2 1 2 # Bowel Movements 1 - Exam General appearance: No acute distress, thin - EENT Eyes: EOMI, PERRLA ENT: hard of hearing Ears: bilateral: normal - Neck Neck: normal ROM Carotids: bilateral: upstroke normal Thyroid: bilateral: normal size - Respiratory Respiratory: left: rhonchi - Cardiovascular Rhythm: regular Heart sounds: normal: S1, S2 - Gastrointestinal General gastrointestinal: normal bowel sounds - Neurologic Neurologic: CNII-XII intact - Musculoskeletal Musculoskeletal: generalized weakness - Psychiatric Psychiatric: A&O x's 3, appropriate affect, intact judgment & insight - Labs CBC & Chem 7: 05/10/18 07:46 05/10/18 07:46 Labs: Abnormal Lab Results - Last 24 Hours (Table) 05/09/18 05/09/18 05/10/18 Range/Units 15:22 15:22 07:46 RBC 3.27 L 3.22 L (3.80-5.40) m/uL Hgb 11.2 L 11.1 L (11.4-16.0) gm/dL MCV 106.9 H 109.2 H (80.0-100.0) fL Neutrophils # 8.0 H (1.3-7.7) k/uL Lymphocytes # 0.3 L 0.6 L (1.0-4.8) k/uL Sodium 133 L (137-145) mmol/L Chloride 93 L (98-107) mmol/L Carbon Dioxide (22-30) mmol/L BUN 20 H (7-17) mg/dL Creatinine 0.39 L (0.52-1.04) mg/dL Glucose 132 H (74-99) mg/dL 05/10/18 Range/Units 07:46 RBC (3.80-5.40) m/uL Hgb (11.4-16.0) gm/dL MCV (80.0-100.0) fL Neutrophils # (1.3-7.7) k/uL Lymphocytes # (1.0-4.8) k/uL Sodium 132 L (137-145) mmol/L Chloride 93 L (98-107) mmol/L Carbon Dioxide 31 H (22-30) mmol/L BUN 20 H (7-17) mg/dL Creatinine 0.40 L (0.52-1.04) mg/dL Glucose (74-99) mg/dL Microbiology - Last 24 Hours (Table) 05/06/18 09:08 Blood Culture - Preliminary Blood No Growth after 96 hours 05/06/18 08:49 Blood Culture - Preliminary Blood No Growth after 96 hours 05/07/18 01:45 Urine Culture - Final Urine,Voided 06/21/18 15:00 Gram Stain - Preliminary Sputum Assessment and Plan Assessment: Impression: #1 Acute on chronic hypoxic respiratory failure secondary to acute exacerbation of chronic obstructive pulmonary disease secondary to atelectasis/infiltrate in the left lower lobe. Recent colonoscopy. Currently on Zosyn, bronchodilators, Symbicort. #2 Transient febrile illness. Suspect urinary tract infection. Blood, sputum and urine cultures are pending. #3 Gastrointestinal bleeding. Status post colonoscopy with evidence of diverticulosis but no acute bleeding. #4 Hypertension. #5 Hyperlipidemia. #6 Osteoarthritis with previous multiple orthopedic surgeries. #7 Poor overall functional performance based on the above-mentioned multiple comorbidities. Plan: The patient was seen and evaluated by Dr. King. She is currently stable from the pulmonary standpoint. Antibiotics per ID. We'll see her on as-needed basis. I, the cosigning physician, performed a history & physical examination of the patient. Lungs sounds have few scattered rhonchi more so on the left lung base. Maintaining good O2 saturations in the 90s on 2 L/m per nasal cannula. I discussed the assessment and plan of care with my nurse practitioner, Doris Nails. I attest to the above note as dictated by her.
--- NOTE | 2018-05-10 18:00 | P.PN ---
Subjective Progress Note Date: 05/10/18 Progress note being dictated for Dr. Liang Interval history: This is a 77-year-old female admitted with acute GI bleed, status post colonoscopy reporting sigmoid diverticulosis, without strictures polyps or inflammatory disease, no bleeding. Patient initially was being prepared for discharge yesterday and spiked fever, TMAX 100.3. Discharge subsequently was placed on hold and fever workup initiated. Sitting up in chair , presenting with loose nonproductive cough. Chest x-ray reporting new left basilar opacity, small left pleural effusion. Blood cultures pending. Antibiotics changed to Zosyn. No labs available today. 05/07/2018 antibiotics adjusted yesterday, afebrile, preliminary blood cultures negative, urine culture pending. Worsening cough this morning with productive yellow sputum. Denies chest pain, palpitations or increasing shortness of breath. Evaluated by pulmonary with recommendations noted. 05/08/2018 maintained on Zosyn, nebulized bronchodilators. congestive loose nonproductive cough continues. Oxygen weaned down to 2 L nasal cannula, maintaining O2 sats of 95%. T-max 100. Preliminary blood cultures negative at 48 hours, urine culture pending. 05/09/2018 afebrile currently, fever again last night, T-max 100.6. IV access lost ,patient placed on Augmentin. Urine and sputum cultures pending. Labs pending. Chest x-ray of yesterday reporting atelectasis rather than infiltrate , incidental finding of probable chrondroid lesion proximal left humerus 05/10/2018 IV Zosyn resumed yesterday.afebrile, remained afebrile throughout the night. Sputum culture pending. Urine culture recollected. Feeling better. Objective - Vital Signs Vital signs: Vital Signs Temp 98.1 F 05/10/18 15:00 Pulse 102 H 05/10/18 15:55 Resp 14 05/10/18 15:00 BP 127/59 05/10/18 15:00 Pulse Ox 97 05/10/18 15:00 Intake & Output 05/09/18 05/10/18 05/10/18 18:59 06:59 18:59 Weight 45 kg Other: Voiding Method Bedside Commode Bedside Commode Bedside Commode Diaper Diaper Diaper Incontinent Incontinent Incontinent # Voids 2 1 2 # Bowel Movements 1 - Exam PHYSICAL EXAM: VITAL SIGNS: As above GENERAL: Sitting up in bed, no acute distress, thin built HEENT: Conjunctivae normal. eyes normal. Oral mucosa moist NECK: No JVD. No thyroid enlargement. No LNs CARDIOVASCULAR: S1, S2 muffled. No murmur RESPIRATION: Breath sounds diminished in the bases. Scattered rhonchi, no crackles, no wheezing. Loose congested cough. ABDOMEN: Soft, nontender . No guarding. no masses palpable.Bowel sounds heard. LEGS: No edema. no swelling PSYCHIATRY: Alert and oriented -3, mood and affect normal. NERVOUS SYSTEM: Cranial N 2-12 grossly normal. Moves all 4 limbs. Diffuse weakness No focal deficits. Skin: no ulcer no rash Joints: No active swelling. No inflammation. - Labs CBC & Chem 7: 05/10/18 07:46 05/10/18 07:46 Labs: Abnormal Lab Results - Last 24 Hours (Table) 05/10/18 05/10/18 Range/Units 07:46 07:46 RBC 3.22 L (3.80-5.40) m/uL Hgb 11.1 L (11.4-16.0) gm/dL MCV 109.2 H (80.0-100.0) fL Neutrophils # 8.0 H (1.3-7.7) k/uL Lymphocytes # 0.6 L (1.0-4.8) k/uL Sodium 132 L (137-145) mmol/L Chloride 93 L (98-107) mmol/L Carbon Dioxide 31 H (22-30) mmol/L BUN 20 H (7-17) mg/dL Creatinine 0.40 L (0.52-1.04) mg/dL Microbiology - Last 24 Hours (Table) 05/06/18 09:08 Blood Culture - Preliminary Blood No Growth after 96 hours 05/06/18 08:49 Blood Culture - Preliminary Blood No Growth after 96 hours 05/07/18 01:45 Urine Culture - Final Urine,Voided 05/09/18 15:00 Gram Stain - Preliminary Sputum Assessment and Plan Assessment: 1. Acute on chronic hypoxic respiratory failure secondary to acute COPD exacerbation, acute left lower lobe effusion, possible LLL pneumonia. Wears 1.5l at home. 2. Acute blood loss anemia secondary to acutue GI bleed. status post colonoscopy, reporting sigmoid diverticulosis with no active bleeding 3. Moderate protein calorie malnutrition 4. COPD 5. History of nicotine abuse 6. History of cerebral bleed 7. acute UTI, cultures pending. 8. Malnutrition, moderate Plan: Continue current medication regime ,monitoring and symptomatic treatment. Sputum and urine cultures pending. Discharge antibiotics as per ID. Discharge planning in progress for subacute rehab. Preauthorization pending. The impression and plan of care has been dictated as directed. : I performed a history and examination of this patient, discussed the same with the dictator. I agree with the dictator's note ,documented as a scribe. Any additional findings or plans will be noted.
--- NOTE | 2018-05-10 22:44 | PN ---
PROGRESS NOTE DATE OF SERVICE: 05/10/2018 REASON FOR FOLLOWUP: Pneumonia. INTERVAL HISTORY: The patient's overall fever pattern has improved, with no fever recorded in the last 24 hours after the patient started on Zosyn. The patient denies significant chest pain. She did have some cough, not bringing up any sputum. No abdominal pain. No nausea, vomiting, diarrhea. No burning or frequency of urine. PHYSICAL EXAMINATION: Blood pressure 127/57, pulse of 86, temperature 98.1. She is 97% on 2 L nasal cannula. General description is an elderly female lying in bed in no distress. RESPIRATORY SYSTEM: Unlabored breathing with decreased breath sounds at the base. No wheeze. HEART: S1, S2. Regular rate and rhythm. ABDOMEN: Soft. No tenderness. LABS: Hemoglobin 11.1 with a white count of 9.8. BUN of 20, creatinine 0.40. DIAGNOSTIC IMPRESSION AND PLAN: Patient with low-grade fever with concern likely for a possible Gram-negative pneumonia. Patient's fever responded to addition of Zosyn. That will be continued while waiting for the sputum culture to finalize to determine her discharge antibiotics. Continue with supportive care. MMODL / IJN: [id number] /
[2018-05-11] MEDS: SYMBICORT 160-4.5 MCG INHALER INHALATION SCH ×2 (07:45→19:05)
[2018-05-11] MEDS: IPRATROPIUM-ALBUTEROL 3 ML NEB INHALATION SCH ×4 (07:45→19:05)
[2018-05-11] MEDS: POTASSIUM CHLORIDE ER 10 MEQ TAB.ER.PRT PO SCH (08:41)
[2018-05-11] MEDS: DILTIAZEM CD 240 MG CAP.ER.24H PO SCH (08:41)
[2018-05-11] MEDS: BISOPROLOL 5 MG TAB PO SCH (08:41)
[2018-05-11] MEDS: FUROSEMIDE 20 MG TAB PO SCH (08:41)
[2018-05-11] MEDS: RALOXIFENE 60 MG TAB PO SCH (08:42)
[2018-05-11] MEDS: hydrALAZINE HCL 10 MG TAB PO SCH ×2 (08:42→20:34)
[2018-05-11] MEDS: LISINOPRIL 20 MG TAB PO SCH (08:42)
[2018-05-11 08:58] LABS: Anion Gap 6 mmol/L; Blood Urea Nitrogen 17 mg/dL (7-17); Calcium 8.6 mg/dL (8.4-10.2); Carbon Dioxide 32 mmol/L (22-30); Chloride 94 mmol/L (98-107); Glucose 126 mg/dL (74-99); Potassium 4.4 mmol/L (3.5-5.1); Sodium 132 mmol/L (137-145)
[2018-05-11 09:05] LABS: Basophils % (A) 1 %; Eosinophils # (A) 0.2 k/uL (0-0.7); Eosinophils % (A) 3 %; HCT 34.4 % (34.0-46.0); HGB 10.9 gm/dL (11.4-16.0); Hypochromasia Slight; Lymphocytes # (A) 0.4 k/uL (1.0-4.8); Lymphocytes % (A) 6 %; MCH 34.9 pg (25.0-35.0); MCHC 31.8 g/dL (31.0-37.0); MCV 109.8 fL (80.0-100.0); Macrocytosis Marked; Mean Platelet Volume 6.7; Monocytes # (A) 0.5 k/uL (0-1.0); Monocytes % (A) 7 %; Neutrophils % (A) 83 %; Platelet Count 424 k/uL (150-450); RBC 3.13 m/uL (3.80-5.40); RDW 14.1 % (11.5-15.5); WBC 7.2 k/uL (3.8-10.6)
[2018-05-11] MEDS: PIPERACILLIN-TAZOBACTAM 3.375 GM in DEXTROSE/WATER 1 50ML.BAG IVPB SCH ×2 (09:26→17:24)
--- NOTE | 2018-05-11 20:33 | PN ---
PROGRESS NOTE DATE OF SERVICE: 05/11/2018 This 77-year-old woman who was admitted with acute hypoxic respiratory failure with possible left lower lobe pneumonia also was having some fever. ECF rehab is being planned at this time. Pulmonary and Infectious Disease following the patient closely. Possibly gram-negative pneumonia. The patient has improved with Zosyn. No chest pain. No palpitations. No fever at this time. PHYSICAL EXAM: Alert and oriented times three. Pulse 86. Blood pressure 119/62, respirations 16, temperature 97.8, pulse ox 94% on 2 L. HEENT conjunctivae normal. Oral mucosa moist. NECK is no jugular venous distention. No carotid bruit. No lymph node enlargement. CARDIOVASCULAR: S1-S2 muffled. RESPIRATIONS: Breath sounds diminished in the bases. A few scattered rhonchi and crackles. ABDOMEN: Soft, nontender. LEGS: No edema. No swelling. CENTRAL NERVOUS SYSTEM: No focal deficits. LABORATORY DATA: WBC 7.9, hemoglobin 10.9, sodium 132. ASSESSMENT: 1. Acute left lower lobe pneumonia possibly gram-negative with chronic obstructive pulmonary disease, acute exacerbation, acute on chronic hypoxic respiratory failure. 2. Acute blood loss anemia secondary to acute gastrointestinal bleed, possibly sigmoid diverticulosis. 3. Moderate protein calorie malnutrition. 4. Gait dysfunction. 5. Chronic obstructive pulmonary disease. 6. History of nicotine dependence. 7. History of cerebral bleed. 8. Acute urinary tract infection. RECOMMENDATIONS AND DISCUSSION: In this 77-year-old woman who presented with multiple complex medical issues. We will monitor the patient closely. Continue the current medications, management and symptomatic treatment. Continue with IV antibiotics. PT, OT evaluation, possible ECF rehab. Guarded prognosis. Further recommendations to follow. MMODL / IJN: [id number] /
--- NOTE | 2018-05-11 23:00 | PN ---
PROGRESS NOTE DATE OF SERVICE: 05/11/2018. REASON FOR FOLLOWUP: Possible gram-negative pneumonia. INTERVAL HISTORY: The patient is afebrile. She has been breathing more comfortably. The cough has decreased in intensity. It is mostly dry in nature. No chest pain. No abdominal pain. No diarrhea. No urinary symptoms. EXAMINATION: Blood pressure 119/62 with a pulse of 83, temperature 97.8. She is 94% on 2 L nasal cannula. General description is an elderly female lying in bed in no distress. Respiratory system: Unlabored breathing with decreased breath sounds at the bases. No wheeze. Heart S1, S2. Regular rate and rhythm. Abdomen soft, no tenderness. LABS: Hemoglobin is 10.8, white count 7.2, BUN of 17, creatinine 0.43. currently pending. Blood culture has been negative. DIAGNOSTIC IMPRESSION AND PLAN: Patient with low-grade fever with concern for possible gram negative pneumonia. The patient at this time will be continued on Zosyn while waiting for the culture to finalize to narrow down her antibiotics. Continue supportive care. MMODL / IJN: [id number] /
[2018-05-12] MEDS: PIPERACILLIN-TAZOBACTAM 3.375 GM in DEXTROSE/WATER 1 50ML.BAG IVPB SCH ×4 (00:58→23:12)
[2018-05-12] MEDS: ACETAMINOPHEN TAB 500 MG TAB PO PRN (03:27)
[2018-05-12 06:27] VITALS: RESP 16
[2018-05-12] MEDS: IPRATROPIUM-ALBUTEROL 3 ML NEB INHALATION SCH ×5 (07:31→19:50)
[2018-05-12] MEDS: SYMBICORT 160-4.5 MCG INHALER INHALATION SCH ×2 (07:31→19:50)
[2018-05-12] MEDS: hydrALAZINE HCL 10 MG TAB PO SCH ×2 (08:27→21:39)
[2018-05-12] MEDS: RALOXIFENE 60 MG TAB PO SCH (08:27)
[2018-05-12] MEDS: FUROSEMIDE 20 MG TAB PO SCH (08:27)
[2018-05-12] MEDS: LISINOPRIL 20 MG TAB PO SCH (08:27)
[2018-05-12] MEDS: DILTIAZEM CD 240 MG CAP.ER.24H PO SCH (08:27)
[2018-05-12] MEDS: POTASSIUM CHLORIDE ER 10 MEQ TAB.ER.PRT PO SCH (08:27)
[2018-05-12] MEDS: BISOPROLOL 5 MG TAB PO SCH (08:27)
[2018-05-12 09:35] LABS: Basophils % (A) 1 %; Eosinophils # (A) 0.2 k/uL (0-0.7); Eosinophils % (A) 3 %; HCT 31.6 % (34.0-46.0); HGB 10.2 gm/dL (11.4-16.0); Lymphocytes # (A) 0.4 k/uL (1.0-4.8); Lymphocytes % (A) 7 %; MCH 34.5 pg (25.0-35.0); MCHC 32.3 g/dL (31.0-37.0); Macrocytosis Moderate; Mean Platelet Volume 6.7; Monocytes # (A) 0.5 k/uL (0-1.0); Monocytes % (A) 7 %; Neutrophils # (A) 5.4 k/uL (1.3-7.7); Neutrophils % (A) 81 %; Platelet Count 411 k/uL (150-450); RBC 2.96 m/uL (3.80-5.40); RDW 13.8 % (11.5-15.5); WBC 6.7 k/uL (3.8-10.6)
[2018-05-12 09:48] LABS: Anion Gap 8 mmol/L; Blood Urea Nitrogen 17 mg/dL (7-17); Calcium 8.5 mg/dL (8.4-10.2); Carbon Dioxide 32 mmol/L (22-30); Chloride 93 mmol/L (98-107); Glucose 107 mg/dL (74-99); Potassium 4.3 mmol/L (3.5-5.1); Sodium 133 mmol/L (137-145)
--- NOTE | 2018-05-12 19:07 | PN ---
PROGRESS NOTE DATE OF SERVICE: 05/12/2018 This 77-year-old woman who was admitted with acute left lower pneumonia possibly gram- negative with COPD exacerbation with acute on chronic hypoxic respiratory failure is being closely monitored at this time. No chest pain. No palpitations. Patient also complaining of mild fever this time. Cultures are negative so far. EXAM: Alert and oriented x3. Pulse is 78, blood pressure 129/59, respiration 16, temperature 99.1, pulse ox 97% on room air. HEENT: Conjunctivae normal. NECK: No jugular venous distention. CARDIOVASCULAR: S1, S2 muffled. RESPIRATORY: Breath sounds diminished in the bases. A few rhonchi. ABDOMEN: Soft. NERVOUS SYSTEM: No focal deficits. LABS: WBC 6.2, hemoglobin 10.2, sodium 133. ASSESSMENT: 1. Acute left lower lobe pneumonia possibly gram-negative pneumonia with chronic obstructive pulmonary disease acute exacerbation with acute on chronic hypoxic respiratory failure. 2. Acute blood loss anemia secondary to acute GI bleed, possibly sigmoid diverticulosis, moderate protein calorie malnutrition. 3. Gait dysfunction. 4. History of chronic obstructive pulmonary disease. 5. History of nicotine dependence. 7. Acute urinary tract infection. RECOMMENDATIONS AND DISCUSSION: I recommend to continue current medications. Symptomatic treatment. Otherwise at this time I recommend to continue with current medications. Continue symptomatic treatment. Continue with empiric antibiotics. Closely follow. Eventually ECF rehab. Guarded prognosis. Follow closely with Infectious Disease. Further recommendations to follow. KIM / CIERRAN: [id number] / MTDD
--- NOTE | 2018-05-13 00:16 | PN ---
PROGRESS NOTE DATE OF SERVICE: 05/12/2018. REASON FOR FOLLOWUP: Pneumonia. INTERVAL HISTORY: The patient did have a low-grade fever last night of 100.8, afebrile since then. She seemed to have been breathing comfortably. Denies having any chest pain or shortness of breath. Occasional cough. No abdominal pain, no diarrhea. EXAMINATION: Blood pressure 124/53 with a pulse of 96, temperature 97.7, he is 95% on room air. GENERAL DESCRIPTION: An elderly female up in the bed in no distress. RESPIRATORY SYSTEM: Unlabored breathing with decreased breath sounds at the bases. HEART: S1, S2. Regular rate and rhythm. ABDOMEN: Soft, no tenderness. LABS: Hemoglobin 10.8, white count 6.7 with a BUN of 17, creatinine 0.47. DIAGNOSTIC IMPRESSION AND PLAN: Patient with pneumonia. So far sputum has been negative for resistant pathogen. respiratory robbin. Currently on Zosyn. Antibiotic can be transitioned to oral Augmentin 875 b.i.d. for another 5 to 7 days to finish course of therapy. Continue supportive care. MMODL / IJN: [id number] /
[2018-05-13 06:29] VITALS: BP 154/72; TEMP 98.5
[2018-05-13] MEDS: PIPERACILLIN-TAZOBACTAM 3.375 GM in DEXTROSE/WATER 1 50ML.BAG IVPB SCH (08:05)
[2018-05-13] MEDS: IPRATROPIUM-ALBUTEROL 3 ML NEB INHALATION SCH ×2 (08:24→12:02)
[2018-05-13] MEDS: SYMBICORT 160-4.5 MCG INHALER INHALATION SCH (08:24)
[2018-05-13] MEDS: hydrALAZINE HCL 10 MG TAB PO SCH (09:14)
[2018-05-13] MEDS: LISINOPRIL 20 MG TAB PO SCH (09:14)
[2018-05-13] MEDS: FUROSEMIDE 20 MG TAB PO SCH (09:14)
[2018-05-13] MEDS: BISOPROLOL 5 MG TAB PO SCH (09:14)
[2018-05-13] MEDS: RALOXIFENE 60 MG TAB PO SCH (09:14)
[2018-05-13] MEDS: POTASSIUM CHLORIDE ER 10 MEQ TAB.ER.PRT PO SCH (09:15)
[2018-05-13] MEDS: DILTIAZEM CD 240 MG CAP.ER.24H PO SCH (09:15)
--- NOTE | 2018-05-13 09:56 | P.PN ---
Subjective Progress Note Date: 05/10/18 Progress note being dictated for Dr. Liang Interval history: This is a 77-year-old female admitted with acute GI bleed, status post colonoscopy reporting sigmoid diverticulosis, without strictures polyps or inflammatory disease, no bleeding. Patient initially was being prepared for discharge yesterday and spiked fever, TMAX 100.3. Discharge subsequently was placed on hold and fever workup initiated. Sitting up in chair , presenting with loose nonproductive cough. Chest x-ray reporting new left basilar opacity, small left pleural effusion. Blood cultures pending. Antibiotics changed to Zosyn. No labs available today. 05/07/2018 antibiotics adjusted yesterday, afebrile, preliminary blood cultures negative, urine culture pending. Worsening cough this morning with productive yellow sputum. Denies chest pain, palpitations or increasing shortness of breath. Evaluated by pulmonary with recommendations noted. 05/08/2018 maintained on Zosyn, nebulized bronchodilators. congestive loose nonproductive cough continues. Oxygen weaned down to 2 L nasal cannula, maintaining O2 sats of 95%. T-max 100. Preliminary blood cultures negative at 48 hours, urine culture pending. 05/09/2018 afebrile currently, fever again last night, T-max 100.6. IV access lost ,patient placed on Augmentin. Urine and sputum cultures pending. Labs pending. Chest x-ray of yesterday reporting atelectasis rather than infiltrate , incidental finding of probable chrondroid lesion proximal left humerus 05/10/2018 IV Zosyn resumed yesterday.afebrile, remained afebrile throughout the night. Sputum culture pending. Urine culture recollected. Feeling better. Objective - Vital Signs Vital signs: Vital Signs Temp 97.6 F 05/10/18 05:58 Pulse 92 05/10/18 07:25 Resp 15 05/10/18 05:58 BP 150/75 05/10/18 05:58 Pulse Ox 97 05/10/18 05:58 Intake & Output 05/09/18 05/10/18 05/10/18 18:59 06:59 18:59 Weight 45 kg Other: Voiding Method Bedside Commode Bedside Commode Bedside Commode Diaper Diaper Diaper Incontinent Incontinent Incontinent # Voids 2 1 - Exam PHYSICAL EXAM: VITAL SIGNS: As above GENERAL: Sitting up in bed, no acute distress, thin built HEENT: Conjunctivae normal. eyes normal. Oral mucosa moist NECK: No JVD. No thyroid enlargement. No LNs CARDIOVASCULAR: S1, S2 muffled. No murmur RESPIRATION: Breath sounds diminished in the bases. Scattered rhonchi, no crackles, no wheezing. Loose congested cough. ABDOMEN: Soft, nontender . No guarding. no masses palpable.Bowel sounds heard. LEGS: No edema. no swelling PSYCHIATRY: Alert and oriented -3, mood and affect normal. NERVOUS SYSTEM: Cranial N 2-12 grossly normal. Moves all 4 limbs. Diffuse weakness No focal deficits. Skin: no ulcer no rash Joints: No active swelling. No inflammation. - Labs CBC & Chem 7: 05/12/18 09:11 05/12/18 09:11 Labs: Abnormal Lab Results - Last 24 Hours (Table) 05/09/18 05/09/18 05/10/18 Range/Units 15:22 15:22 07:46 RBC 3.27 L 3.22 L (3.80-5.40) m/uL Hgb 11.2 L 11.1 L (11.4-16.0) gm/dL MCV 106.9 H 109.2 H (80.0-100.0) fL Lymphocytes # 0.3 L (1.0-4.8) k/uL Sodium 133 L (137-145) mmol/L Chloride 93 L (98-107) mmol/L BUN 20 H (7-17) mg/dL Creatinine 0.39 L (0.52-1.04) mg/dL Glucose 132 H (74-99) mg/dL Microbiology - Last 24 Hours (Table) 05/07/18 01:45 Urine Culture - Final Urine,Voided 05/09/18 15:00 Gram Stain - Preliminary Sputum 05/06/18 09:08 Blood Culture - Preliminary Blood No Growth after 72 hours 05/06/18 08:49 Blood Culture - Preliminary Blood No Growth after 72 hours Assessment and Plan Assessment: 1. Acute on chronic hypoxic respiratory failure secondary to acute COPD exacerbation, acute left lower lobe effusion, possible LLL pneumonia. Wears 1.5l at home. 2. Acute blood loss anemia secondary to acutue GI bleed. status post colonoscopy, reporting sigmoid diverticulosis with no active bleeding 3. Moderate protein calorie malnutrition 4. COPD 5. History of nicotine abuse 6. History of cerebral bleed 7. acute UTI, cultures pending. 8. Malnutrition, moderate Plan: Continue current medication regime ,monitoring and symptomatic treatment. Sputum and urine cultures pending. Discharge antibiotics as per ID. Discharge planning in progress for subacute rehab. Preauthorization pending. The impression and plan of care has been dictated as directed. : I performed a history and examination of this patient, discussed the same with the dictator. I agree with the dictator's note ,documented as a scribe. Any additional findings or plans will be noted.
--- NOTE | 2018-05-13 10:09 | P.DS ---
Providers Date of admission: 05/01/18 22:19 Expected date of discharge: 05/13/18 Attending physician: Chilo Liang Consults: 05/07/18 09:57 Consult Physician Routine Consulting Provider: Elton King Consult Reason/Comments: congestion, cough Do you want consulting provider notified?: Yes 05/09/18 12:16 Consult Physician Routine Consulting Provider: Veronica Romero Consult Reason/Comments: persist. fevers, UTI, LLL infiltrate Do you want consulting provider notified?: Yes Primary care physician: [facility] Course: Final Diagnoses: 1. Acute on chronic hypoxic respiratory failure secondary to acute COPD exacerbation, acute left lower lobe pneumonia. Wears 1.5l at home. 2. Acute blood loss anemia secondary to acutue GI bleed. status post colonoscopy, reporting sigmoid diverticulosis with no active bleeding 3. Moderate protein calorie malnutrition 4. COPD 5. History of nicotine abuse 6. History of cerebral bleed 7. acute UTI 8. Malnutrition, moderate protein calorie Hospital course:This is a 77-year-old female admitted initially with acute GI bleed, status post colonoscopy reporting sigmoid diverticulosis, without strictures polyps or inflammatory disease, no bleeding. Patient initially was being prepared for discharge, spiked fever, TMAX 100.3. Discharge subsequently was placed on hold and fever workup initiated. Chest x-ray reporting new left basilar opacity, small left pleural effusion. Evaluated by infectious disease and pulmonary. Maintained on IV antibiotics, nebulized bronchodilators for acute left lower lobe pneumonia, possibly gram-negative with acute COPD exacerbation. Sputum negative. Urine culture negative. Significant clinical improvement.Cleared by both infectious disease and pulmonary for discharge. Patient is being discharged to subacute rehab in a stable condition with guarded prognosis. EXAM: GENERAL: Alert and oriented 3, no acute distress, thin built CARDIOVASCULAR: S1, S2 muffled. No murmur RESPIRATION: Breath sounds diminished in the bases. Scattered rhonchi, no crackles, no wheezing. ABDOMEN: Soft, nontender . No guarding. no masses palpable.Bowel sounds heard. NERVOUS SYSTEM: Cranial N 2-12 grossly normal. Moves all 4 limbs. Diffuse weakness No focal deficits. The impression and plan of care has been dictated as directed. : I performed a history and examination of this patient, discussed the same with the dictator. I agree with the dictator's note ,documented as a scribe. Any additional findings or plans will be noted. Time taken: 35 minutes Patient Condition at Discharge: Stable Plan - Discharge Summary New Discharge Prescriptions: New Budesonide-Formot 160-4.5 Mcg [Symbicort 160-4.5 Mcg Inhaler] 2 puff INHALATION RT-BID puff Amoxic-Pot Clav 875-125Mg [Augmentin 875-125] 1 tab PO Q12HR #10 tablet Ipratropium-Albuterol Nebulize [Duoneb 0.5 mg-3 mg/3 ml Soln] 3 ml INHALATION RT-QID ampul.neb Ipratropium-Albuterol Nebulize [Duoneb 0.5 mg-3 mg/3 ml Soln] 3 ml INHALATION Q4H PRN ampul.neb PRN Reason: Shortness Of Breath Or Wheezing Continue Raloxifene [Evista] 60 mg PO DAILY Lisinopril 40 mg PO DAILY hydrALAZINE HCL 10 mg PO BID Heparin Sodium,Porcine [Heparin Sodium] 5,000 unit SQ Q8HR Potassium Chloride ER [K-Dur 10] 10 meq PO DAILY Furosemide [Lasix] 20 mg PO DAILY Diltiazem HCl [Diltiazem 24Hr ER] 240 mg PO DAILY Bisoprolol Fumarate [Zebeta] 10 mg PO DAILY Acetaminophen [Tylenol Extra Strength] 500 mg PO Q4HR PRN PRN Reason: Pain Discontinued Tiotropium [place] [Spiriva] 1 cap INHALATION RT-DAILY Discharge Medication List Lisinopril 40 mg PO DAILY 11/13/16 [History] Raloxifene [Evista] 60 mg PO DAILY 11/13/16 [History] Acetaminophen [Tylenol Extra Strength] 500 mg PO Q4HR PRN 05/01/18 [History] Bisoprolol Fumarate [Zebeta] 10 mg PO DAILY 05/01/18 [History] Diltiazem HCl [Diltiazem 24Hr ER] 240 mg PO DAILY 05/01/18 [History] Furosemide [Lasix] 20 mg PO DAILY 05/01/18 [History] Heparin Sodium,Porcine [Heparin Sodium] 5,000 unit SQ Q8HR 05/01/18 [History] Potassium Chloride ER [K-Dur 10] 10 meq PO DAILY 05/01/18 [History] hydrALAZINE HCL 10 mg PO BID 05/01/18 [History] Amoxic-Pot Clav 875-125Mg [Augmentin 875-125] 1 tab PO Q12HR #10 tablet [Rx] Budesonide-Formot 160-4.5 Mcg [Symbicort 160-4.5 Mcg Inhaler] 2 puff INHALATION RT-BID puff 05/13/18 [Rx] Ipratropium-Albuterol Nebulize [Duoneb 0.5 mg-3 mg/3 ml Soln] 3 ml INHALATION Q4H PRN ampul.neb 05/13/18 [Rx] Ipratropium-Albuterol Nebulize [Duoneb 0.5 mg-3 mg/3 ml Soln] 3 ml INHALATION RT -QID ampul.neb 05/13/18 [Rx] Follow up Appointment(s)/Referral(s): David Landers MD [STAFF PHYSICIAN] - 1 Week Ben Morrow DO [Primary Care Provider] - 05/07/18 [facility] Kerry Kam [NON-STAFF] - 1 Week Patient Instructions/Handouts: Diverticulosis (DC), Urinary Tract Infection in Women (DC), Diverticulosis Diet (GEN) Activity/Diet/Wound Care/Special Instructions: Oxygen via nasal cannula Up with assist and walker, fall precautions, change positions every 2 hours while awake. Cardiac, divertic diet. DNR code status Discharge Disposition: TRANSFER TO SNF/ECF
[2018-05-13 12:15] VITALS: PULSE 84
--- NOTE | 2018-05-13 13:07 | ECHOF ---
Referral Reason:infection MEASUREMENTS -------- HEIGHT: 160.0 cm WEIGHT: 44.9 kg BP: 154/72 RVIDd: 2.8 cm (< 3.3) IVSd: 1.2 cm (0.6 - 1.1) LVIDd: 4.6 cm (3.9 - 5.3) LVPWd: 1.2 cm (0.6 - 1.1) IVSs: 1.3 cm LVIDs: 2.6 cm LVPWs: 1.4 cm Ao Diam: 3.1 cm (2.0 - 3.7) AV Cusp: 1.5 cm (1.5 - 2.6) LA Diam: 2.0 cm (2.7 - 3.8) EPSS: 0.7 cm MV E August: 0.58 m/s MV DecT: 306 ms MV A August: 1.27 m/s MV E/A Ratio: 0.45 AR PHT: 521 ms RAP: 5.00 mmHg RVSP: 37.65 mmHg MV EF SLOPE: 144.99 mm/s (70 - 150) MV EXCURSION: 1.44 cm (> 18.000) FINDINGS -------- Sinus rhythm. This was a technically good study. The left ventricular size is normal. There is mild concentric left ventricular hypertrophy. Overa ll left ventricular systolic function is normal with, an EF between 55 - 60 %. The right ventricle is normal in size and function. The left atrium is mildly dilated. RA appears enlarged. Aortic valve is trileaflet and is mildly thickened. There is moderate aortic regurgitation. There is no evidence of aortic stenosis. The mitral valve leaflets are mildly thickened. Moderate mitral annular calcification present. Mi ld mitral regurgitation is present. Mild tricuspid regurgitation present. There is borderline pulmonary hypertension. The right ventr icular systolic pressure, as measured by Doppler, is 37.65mmHg. Trace/mild (physiologic) pulmonic regurgitation. The aortic root size is normal. Normal inferior vena cava with normal inspiratory collapse consistent with estimated right atrial pre ssure of 5 mmHg. There is no pericardial effusion. CONCLUSIONS -------- 1. Sinus rhythm. 2. This was a technically good study. 3. The left ventricular size is normal. 4. There is mild concentric left ventricular hypertrophy. 5. Overall left ventricular systolic function is normal with, an EF between 55 - 60 %. 6. The left atrium is mildly dilated. 7. RA appears enlarged. 8. Aortic valve is trileaflet and is mildly thickened. 9. There is moderate aortic regurgitation. 10. The mitral valve leaflets are mildly thickened. 11. Moderate mitral annular calcification present. 12. Mild mitral regurgitation is present. 13. Mild tricuspid regurgitation present. 14. There is borderline pulmonary hypertension. 15. The right ventricular systolic pressure, as measured by Doppler, is 37.65mmHg. 16. Trace/mild (physiologic) pulmonic regurgitation. 17. The aortic root size is normal. 18. There is no pericardial effusion. EVENING ANCHOR: Juan Bonner RDCS
--- NOTE | 2018-05-13 14:10 | PN ---
PROGRESS NOTE DATE OF SERVICE: 05/13/2018 REASON FOR FOLLOWUP: Pneumonia. INTERVAL HISTORY: The patient is afebrile, she is breathing comfortably. The cough has decreased in intensity. Denies having any chest pain. No abdominal pain or any diarrhea. PHYSICAL EXAMINATION: Blood pressure 154/72 with a pulse of 84, temperature 98.5, she is 99% on 2 L nasal cannula. General description is an elderly female, lying in bed in no distress. RESPIRATORY SYSTEM: Unlabored breathing, clear to auscultation. HEART: S1, S2. Regular rate and rhythm. ABDOMEN: Soft, no tenderness. LABS: Hemoglobin 10.8, white count 6.7, BUN of 17, creatinine 0.47. DIAGNOSTIC IMPRESSION AND PLAN: Patient with pneumonia, sputum has been negative and the pathogen antibiotic can be switched to Augmentin antibiotic b.i.d. for about a week to finish a course of therapy. Continue supportive care. MMODL / IJN: [id number] /
== END 2018-05-13 14:01 | DRG 377 ==
LOC: EC 22:05 → 6SEL 22:19 → 4MS4W 05-04 15:38
PROVIDERS: ADMIT Hospitalist; ATTEND Hospitalist
PROC: 0DJD8ZZ Inspection of Lower Intestinal Tract, Via Natural or Artificial Opening Endoscopic (ICD-10-PCS; principal; 2018-05-04 08:00)
DX: K57.31 Diverticulosis of large intestine without perforation or abscess with bleeding (principal); J96.21 Acute and chronic respiratory failure with hypoxia; J15.6 Pneumonia due to other Gram-negative bacteria; E44.0 Moderate protein-calorie malnutrition; D62 Acute posthemorrhagic anemia; Z68.1 Body mass index [BMI] 19.9 or less, adult; E87.1 Hypo-osmolality and hyponatremia; J44.0 Chronic obstructive pulmonary disease with (acute) lower respiratory infection; J44.1 Chronic obstructive pulmonary disease with (acute) exacerbation; J98.11 Atelectasis; N39.0 Urinary tract infection, site not specified; I27.21 Secondary pulmonary arterial hypertension; D16.02 Benign neoplasm of scapula and long bones of left upper limb; E78.5 Hyperlipidemia, unspecified; I10 Essential (primary) hypertension; M19.91 Primary osteoarthritis, unspecified site; R26.9 Unspecified abnormalities of gait and mobility; R32 Unspecified urinary incontinence; K59.00 Constipation, unspecified; Z71.3 Dietary counseling and surveillance; Z99.81 Dependence on supplemental oxygen; Z79.01 Long term (current) use of anticoagulants; Z79.82 Long term (current) use of aspirin; Z79.810 Long term (current) use of selective estrogen receptor modulators (SERMs); Z79.899 Other long term (current) drug therapy; Z87.891 Personal history of nicotine dependence; Z86.010 Personal history of colon polyps; Z86.79 Personal history of other diseases of the circulatory system; Z96.641 Presence of right artificial hip joint; Z88.8 Allergy status to other drugs, medicaments and biological substances; Z83.3 Family history of diabetes mellitus; Z83.49 Family history of other endocrine, nutritional and metabolic diseases
CPT/HCPCS: 36415; 45378; 71045; 71046; 80048; 80053; 81001; 82550; 82553; 84484; 85025; 85027; 85610; 85730; 86850; 86900; 86901; 87040; 87070; 87086; 87205; 93005; 93306; 94640; 94760; 96361; 96374; 99285

== ENCOUNTER 2019-03-26 12:07 | Inpatient (IN) | payer MEDICARE ==
[2019-03-26] MEDS ORDERED: ACETAMINOPHEN TAB 500 MG TAB PO STA (12:28)
[2019-03-26] MEDS ORDERED: IPRATROPIUM-ALBUTEROL 3 ML NEB INHALATION STA (12:32)
[2019-03-26] MEDS ORDERED: methylPREDNISolone SOD SUCCI 125 MG/2 ML VIAL IV STA (12:32)
--- NOTE | 2019-03-26 12:32 | ED ---
General Adult HPI - General Chief complaint: Shortness of Breath Stated complaint: LOW O2, FATIQUE Time Seen by Provider: 03/26/19 12:10 Source: patient, family, RN notes reviewed Mode of arrival: wheelchair Limitations: no limitations - History of Present Illness Initial comments: This is a 78-year-old female who presents emergency department with past medical history significant for COPD and pedal edema. Patient comes into the emergency department stating overnight she got much worse with her breathing she has oxygen at home but only wears in the house not which goes out. Patient states she also has a cough and is coughing up some sputum on occasion. Patient denies any chest pain or palpitations. Patient states she feels warm but has not taken her temperature. Patient denies any abdominal pain patient nausea vomiting diarrhea. Patient states her pedal edema and stayed consistent is not any worse and has been. Patient denies any abdominal pain patient denies nausea vomiting diarrhea. Patient denies any lightheadedness or dizziness. Patient denies any headache or any numbness or weakness. Patient states she's [place] [facility] [place]. - Related Data Home Medications Medication Instructions Recorded Confirmed Lisinopril 40 mg PO DAILY 11/13/16 03/26/19 Acetaminophen [Tylenol Extra 500 mg PO Q4HR PRN 05/01/18 03/26/19 Strength] Bisoprolol Fumarate [Zebeta] 10 mg PO DAILY 05/01/18 03/26/19 Furosemide [Lasix] 20 mg PO DAILY 05/01/18 03/26/19 Potassium Chloride ER [K-Dur 10] 10 meq PO DAILY 05/01/18 03/26/19 hydrALAZINE HCL 10 mg PO BID 05/01/18 03/26/19 Acetaminophen-Codeine 300-30mg 1 tab PO BID PRN 03/26/19 03/26/19 [Tylenol w/codeine #3] Celecoxib [CeleBREX] 200 mg PO DAILY 03/26/19 03/26/19 Diltiazem HCl [Cardizem CD] 120 mg PO DAILY 03/26/19 03/26/19 Fexofenadine HCl [Lucia Allergy] 180 mg PO DAILY 03/26/19 03/26/19 Multivitamins, Thera [Multivitamin 1 tab PO DAILY 03/26/19 03/26/19 (formulary)] Raloxifene [Evista] 60 mg PO DAILY 03/26/19 03/26/19 Previous Rx's Medication Instructions Recorded Budesonide-Formot 160-4.5 Mcg 2 puff INHALATION RT-BID puff 05/13/18 [Symbicort 160-4.5 Mcg Inhaler] Ipratropium-Albuterol Nebulize 3 ml INHALATION Q4H PRN ampul.neb 05/13/18 [Duoneb 0.5 mg-3 mg/3 ml Soln] Ipratropium-Albuterol Nebulize 3 ml INHALATION RT-QID ampul.neb 05/13/18 [Duoneb 0.5 mg-3 mg/3 ml Soln] Allergies Allergy/AdvReac Type Severity Reaction Status Date / Time naproxen [From Naprosyn] Allergy Rash/Hives Verified 03/26/19 12:55 Review of Systems ROS Statement: Those systems with pertinent positive or pertinent negative responses have been documented in the HPI. ROS Other: All systems not noted in ROS Statement are negative. Past Medical History Past Medical History: COPD, Hyperlipidemia, Hypertension, Osteoarthritis (OA) Additional Past Medical History / Comment(s): history of brain bleed, pt was se nt to [facility]. pt was in rehab at [facility] and on heparin shots at home. History of Any Multi-Drug Resistant Organisms: None Reported Past Surgical History: Adenoidectomy, Joint Replacement, Tonsillectomy Additional Past Surgical History / Comment(s): hip replacement x 3 Past Psychological History: No Psychological Hx Reported Smoking Status: Former smoker Past Alcohol Use History: None Reported Past Drug Use History: None Reported - Past Family History Father Family Medical History: Diabetes Mellitus Mother Family Medical History: Hyperlipidemia General Exam - General Exam Comments Initial Comments: GENERAL: Patient is well-developed and well-nourished. Patient is nontoxic and well- hydrated and is in mild distress. I took the patient's temperature in the room orally was 99.5 though she feels warm. ENT: Neck is soft and supple. No significant lymphadenopathy is noted. Oropharynx is clear. Moist mucous membranes. Neck has full range of motion without eliciting any pain. EYES: The sclera were anicteric and conjunctiva were pink and moist. Extraocular movements were intact and pupils were equal round and reactive to light. Eyeli ds were unremarkable. PULMONARY: Unlabored respirations. Good breath sounds bilaterally. Patient has crackles in the left lung base. or wheezing was noted. CARDIOVASCULAR: There is a regular rate and rhythm without any murmurs gallops or rubs. ABDOMEN: Soft and nontender with normal bowel sounds. SKIN: Skin is clear with no lesions or rashes and otherwise unremarkable. NEUROLOGIC: Patient is alert and oriented x3. Cranial nerves II through XII are grossly intact. Motor and sensory are also intact. Normal speech, volume and content. Symmetrical smile. MUSCULOSKELETAL: Normal extremities with adequate strength and full range of motion. Patient has 2+ edema bilaterally LYMPHATICS: No significant lymphadenopathy is noted PSYCHIATRIC: Normal psychiatric evaluation. Limitations: no limitations Course Vital Signs 03/26/19 03/26/19 03/26/19 12:15 12:26 13:09 Temperature 98.2 F 99.5 F Pulse Rate 90 80 Respiratory 22 Rate Blood Pressure 183/83 O2 Sat by Pulse 89 L Oximetry 03/26/19 13:20 Temperature Pulse Rate 75 Respiratory Rate Blood Pressure O2 Sat by Pulse Oximetry Medical Decision Making - Medical Decision Making EKG shows sinus rhythm with occasional PAC at a rate of 70 bpm KS interval 254 QRS is 68 QT interval 400 QTC is 456 per patient's EKG shows no ST segment elevation or depression. X-ray shows no acute infiltrate. I gave the patient breathing treatments and steroids and she was feeling better but still not back to her baseline. I repeated the breathing treatment. Patient was oxygenating upper 80s after the treatment him without oxygen I spoke with Dr. Dawkins he agreed to admit the patient admitted the patient I wrote admitting orders. - Lab Data Result diagrams: 03/26/19 12:30 03/26/19 12:30 Lab Results 03/26/19 03/26/19 03/26/19 Range/Units 12:30 12:30 12:30 WBC 4.9 (3.8-10.6) k/uL RBC 3.40 L (3.80-5.40) m/uL Hgb 11.6 (11.4-16.0) gm/dL Hct 37.5 (34.0-46.0) % MCV 110.5 H (80.0-100.0) fL MCH 34.2 (25.0-35.0) pg MCHC 31.0 (31.0-37.0) g/dL RDW 17.2 H (11.5-15.5) % Plt Count 247 (150-450) k/uL Neutrophils % 76 % Lymphocytes % 10 % Monocytes % 10 % Eosinophils % 1 % Basophils % 0 % Neutrophils # 3.7 (1.3-7.7) k/uL Lymphocytes # 0.5 L (1.0-4.8) k/uL Monocytes # 0.5 (0-1.0) k/uL Eosinophils # 0.0 (0-0.7) k/uL Basophils # 0.0 (0-0.2) k/uL Manual Slide Review Performed Hypochromasia Slight Poikilocytosis Slight Anisocytosis Slight Macrocytosis Marked A PT (9.0-12.0) sec INR (<1.2) APTT (22.0-30.0) sec Sodium 138 (137-145) mmol/L Potassium 5.6 H (3.5-5.1) mmol/L Chloride 103 (98-107) mmol/L Carbon Dioxide 28 (22-30) mmol/L Anion Gap 7 mmol/L BUN 25 H (7-17) mg/dL Creatinine 0.35 L (0.52-1.04) mg/dL Est GFR (CKD-EPI)AfAm >90 (>60 ml/min/1.73 sqM) Est GFR (CKD-EPI)NonAf >90 (>60 ml/min/1.73 sqM) Glucose 90 (74-99) mg/dL Plasma Lactic Acid Kit 1.4 (0.7-2.0) mmol/L Calcium 9.3 (8.4-10.2) mg/dL Total Bilirubin 0.9 (0.2-1.3) mg/dL AST 69 H (14-36) U/L ALT 53 H (9-52) U/L Alkaline Phosphatase 102 (38-126) U/L Troponin I (0.000-0.034) ng/mL Total Protein 7.0 (6.3-8.2) g/dL Albumin 4.1 (3.5-5.0) g/dL 03/26/19 03/26/19 Range/Units 12:30 12:30 WBC (3.8-10.6) k/uL RBC (3.80-5.40) m/uL Hgb (11.4-16.0) gm/dL Hct (34.0-46.0) % MCV (80.0-100.0) fL MCH (25.0-35.0) pg MCHC (31.0-37.0) g/dL RDW (11.5-15.5) % Plt Count (150-450) k/uL Neutrophils % % Lymphocytes % % Monocytes % % Eosinophils % % Basophils % % Neutrophils # (1.3-7.7) k/uL Lymphocytes # (1.0-4.8) k/uL Monocytes # (0-1.0) k/uL Eosinophils # (0-0.7) k/uL Basophils # (0-0.2) k/uL Manual Slide Review Hypochromasia Poikilocytosis Anisocytosis Macrocytosis PT 10.9 (9.0-12.0) sec INR 1.0 (<1.2) APTT 24.8 (22.0-30.0) sec Sodium (137-145) mmol/L Potassium (3.5-5.1) mmol/L Chloride (98-107) mmol/L Carbon Dioxide (22-30) mmol/L Anion Gap mmol/L BUN (7-17) mg/dL Creatinine (0.52-1.04) mg/dL Est GFR (CKD-EPI)AfAm (>60 ml/min/1.73 sqM) Est GFR (CKD-EPI)NonAf (>60 ml/min/1.73 sqM) Glucose (74-99) mg/dL Plasma Lactic Acid Kit (0.7-2.0) mmol/L Calcium (8.4-10.2) mg/dL Total Bilirubin (0.2-1.3) mg/dL AST (14-36) U/L ALT (9-52) U/L Alkaline Phosphatase (38-126) U/L Troponin I 0.049 H* (0.000-0.034) ng/mL Total Protein (6.3-8.2) g/dL Albumin (3.5-5.0) g/dL Critical Care Time Critical Care Time: Yes Total Critical Care Time: 35 Disposition Clinical Impression: COPD with acute exacerbation Disposition: ADMITTED IP TO THIS HOSP Referrals: Ben Morrow DO [Primary Care Provider] - 1-2 days Time of Disposition: 15:21
[2019-03-26 13:00] LABS: Anisocytosis Slight; Basophils % (A) 0 %; Eosinophils % (A) 1 %; HCT 37.5 % (34.0-46.0); HGB 11.6 gm/dL (11.4-16.0); Hypochromasia Slight; Lymphocytes # (A) 0.5 k/uL (1.0-4.8); Lymphocytes % (A) 10 %; MCH 34.2 pg (25.0-35.0); MCV 110.5 fL (80.0-100.0); Macrocytosis Marked; Monocytes # (A) 0.5 k/uL (0-1.0); Monocytes % (A) 10 %; Neutrophils # (A) 3.7 k/uL (1.3-7.7); Neutrophils % (A) 76 %; Platelet Count 247 k/uL (150-450); Poikilocytosis Slight; RDW 17.2 % (11.5-15.5); WBC 4.9 k/uL (3.8-10.6)
[2019-03-26 13:18] LABS: Partial Thromboplastin Time 24.8 sec (22.0-30.0); Prothrombin Time 10.9 sec (9.0-12.0)
[2019-03-26 13:20] LABS: Albumin 4.1 g/dL (3.5-5.0); Anion Gap 7 mmol/L; Blood Urea Nitrogen 25 mg/dL (7-17); Calcium 9.3 mg/dL (8.4-10.2); Carbon Dioxide 28 mmol/L (22-30); Chloride 103 mmol/L (98-107); Glucose 90 mg/dL (74-99); Sodium 138 mmol/L (137-145); Total Bilirubin 0.9 mg/dL (0.2-1.3)
[2019-03-26 13:22] LABS: AST 69 U/L (14-36); Potassium 5.6 mmol/L (3.5-5.1)
[2019-03-26 13:23] LABS: ALT 53 U/L (9-52); Alkaline Phosphatase 102 U/L (38-126)
--- NOTE | 2019-03-26 15:00 | XR ---
EXAMINATION TYPE: XR chest 2V DATE OF EXAM: 03/26/2019 COMPARISON: 05/08/2018 HISTORY: Shortness of breath TECHNIQUE: Frontal and lateral views of the chest are obtained. FINDINGS: Scattered senescent parenchymal changes noted. Hyperinflation compatible with COPD. No evidence for infiltrate. No evidence for atelectasis. Heart size is stable. Pulmonary venous congestion without evidence for overt failure. Basilar pleural -parenchymal opacity remains stable. Mediastinal structures are stable and grossly unremarkable. No evidence for hilar prominence. Degenerative changes dorsal spine. IMPRESSION: 1. Pulmonary venous congestion without evidence for overt failure. Basilar pleural-parenchymal opacit y remains stable.
[2019-03-26] MEDS ORDERED: ALBUTEROL NEBULIZED (CONC) 5 MG, SODIUM CHLORIDE 0.9% NEBULIZ 3 ML INHALATION STA ×2 (15:21)
[2019-03-26] MEDS ORDERED: IPRATROPIUM-ALBUTEROL 3 ML NEB INHALATION PRN (15:22)
[2019-03-26 16:59] LABS: Glucose,Whole Blood 154 mg/dL (75-99)
[2019-03-26 17:16] LABS: Amorphous Sediment,Urine Occasional /hpf; Appearance,Urine Cloudy (Clear); Bacteria,Urine Rare /hpf; Bilirubin,Urine Negative (Negative); Blood,Urine Negative (Negative); Color,Urine Light Yellow; Glucose,Urine (UA) Negative (Negative); Ketones,Urine Negative (Negative); Leukocyte Esterase,Urine Negative (Negative); Nitrite,Urine Negative (Negative); PH, Urine 7.5 (5.0-8.0); Protein,Urine Negative (Negative); RBC,Urine 1 /hpf (0-5); Specific Gravity,Urine 1.012 (1.001-1.035); Squamous Epithelial Cell,Urine 10 /hpf (0-4); Urobilinogen,Urine <2.0 mg/dL (<2.0); WBC,Urine 4 /hpf (0-5)
[2019-03-26] MEDS: methylPREDNISolone SOD SUCCI 125 MG/2 ML VIAL IV SCH ×2 (18:03→23:55)
[2019-03-26] MEDS ORDERED: SYMBICORT 160-4.5 MCG INHALER INHALATION SCH (20:00)
[2019-03-26] MEDS ORDERED: guaiFENesin SYRUP 100MG/5ML 200 MG/10 ML CUP PO PRN (20:04)
[2019-03-26 20:46] LABS: Glucose,Whole Blood 250 mg/dL (75-99)
[2019-03-26] MEDS: IPRATROPIUM-ALBUTEROL 3 ML NEB INHALATION SCH (21:03)
--- NOTE | 2019-03-26 23:22 | HP ---
HISTORY AND PHYSICAL DATE OF ADMISSION: 03/26/2019. DATE OF SERVICE: 03/26/2019. PRESENTING COMPLAINT: Short of breath. HISTORY OF PRESENTING COMPLAINT: Pleasant 78-year-old patient of Dr. Morrow and it data architect Dr. Reid. Chronic stable medical conditions include diverticulosis, hypertension, hyperlipidemia, osteoarthritis, and on home oxygen 1.5 L. For 2 to 3 days has been increasingly short of breath, cough with sputum which is green in color. No fever. No chills. Appetite is fair. Wheezing quite a bit. Short of breath at rest. Admitted for the same. REVIEW OF SYSTEMS: CONSTITUTIONAL: Weak and tired. HEENT: None. RESPIRATORY: As above. CARDIOVASCULAR: None. GASTROINTESTINAL: None. GENITOURINARY: None. MUSCULOSKELETAL: Arthritic pain in different joints. DERMATOLOGICAL, HEMATOLOGIC, LYMPHATIC: None. PSYCHIATRY: None. NEUROLOGIC: None. PAST HISTORY: Diverticulosis, COPD, hypertension, hyperlipidemia, osteoarthritis, cerebral bleed, home oxygen 1.5 L. PAST SURGICAL HISTORY: Adenoidectomy, joint replacement, tonsillectomy, left hip replacement x3. SOCIAL HISTORY: The patient smoked a pack a day for close to 53 years, stopped about 6 years ago. No smoking. No alcohol. Uses a walker. Lives at [facility]. FAMILY HISTORY: Diabetes type 2. MEDICATIONS: 1. DuoNeb every 4 p.r.n. 2. Symbicort 160/4.5, 2 puffs b.i.d. 3. Evista 50 mg p.o. daily. 4. Potassium 10 mEq daily. 5. Lisinopril 40 mg daily. 6. DuoNeb q.i.d. 7. Lasix 20 mg daily. 8. Celebrex 200 mg p.o. daily. 9. Zometa 10 mg p.o. daily. 10.Hydralazine 10 mg b.i.d. 11. 180 mg p.o. daily. 12.Cardizem CD 120 mg p.o. daily. 13.Tylenol 3 one tablet p.o. b.i.d. p.r.n. 14.Multivitamin 1 tablet p.o. daily. 15.Tylenol Extra Strength 500 mg every 4h p.r.n. ALLERGIES: NAPROXEN. PHYSICAL EXAMINATION: VITAL SIGNS: Vital signs on presentation, temperature 98.2, pulse 90, respiration 22, blood pressure 183/83, pulse ox 98% on room air. GENERAL APPEARANCE: Thin built. BMI 17.6, sitting up, short of breath at rest. EYES: Pupils equal. Conjunctivae normal. HEENT: External appearance of nose and ears normal. Oral cavity normal. NECK: JVD not raised. Mass not palpable. Respiratory effort increased. LUNGS: Diminished breath sounds, prolonged expiration wheezing. CARDIOVASCULAR: First and second sounds normal. No edema. ABDOMEN: Soft, nontender. Liver and spleen not palpable. LYMPHATIC: No lymph nodes palpable in the neck and axilla. PSYCHIATRY: Alert and oriented x3. Mood and affect anxious-appearing. NEUROLOGICAL: Pupils equal. Cranial nerves grossly intact. Power and sensation grossly intact. INVESTIGATIONS: White count 4.9, , potassium 5.6, BUN 25, creatinine 0.35, troponin 0.049 and 0.027. EKG tracing personally reviewed by me shows nonspecific T-wave changes. Chest x-ray film personally reviewed by me shows some cardiomegaly and some chronic changes. ASSESSMENT: 1. Acute COPD exacerbation in an ex-smoker. 2. Acute tracheobronchitis versus pneumonia. 3. Colonic diverticulosis, asymptomatic. 4. Essential hypertension. 5. Hyperlipidemia. 6. Primary osteoarthritis. 7. Chronic hypoxic respiratory failure on 1.5 L from underlying chronic obstructive pulmonary disease. PLAN: Patient is put on nebulized bronchodilators, inhaled steroids, IV steroids, nebulized Perforomist. Increase dose of Mucinex 200 mg twice a day. Also getting Solu-Medrol. Care was discussed with the patient. Questions were answered. Consultation will be made to Dr. King. MMCHARU / SHALINI: [id number] /
[2019-03-26] MEDS: hydrALAZINE HCL 10 MG TAB PO SCH (23:42)
[2019-03-26] MEDS: guaiFENesin 600 MG TABLET.ER PO SCH (23:43)
[2019-03-26] MEDS: INSULIN ASPART (NovoLOG) 100 UNIT/ML VIAL SQ SCH (23:45)
[2019-03-27] MEDS: IPRATROPIUM-ALBUTEROL 3 ML NEB INHALATION SCH ×6 (00:14→20:25)
[2019-03-27] MEDS: BUDESONIDE 1 MG/2 ML NEBU INHALATION SCH ×3 (00:14→20:25)
[2019-03-27] MEDS: FORMOTEROL FUMARATE 20 MCG/2 ML NEBU INHALATION SCH ×3 (00:14→20:02)
[2019-03-27] MEDS: Acetaminophen-Codeine 300-30mg TAB PO PRN ×2 (01:20→21:50)
[2019-03-27] MEDS: ACETAMINOPHEN TAB 500 MG TAB PO PRN ×2 (01:24→21:47)
[2019-03-27] MEDS: methylPREDNISolone SOD SUCCI 125 MG/2 ML VIAL IV SCH ×3 (06:15→17:35)
[2019-03-27 07:03] LABS: Glucose,Whole Blood 137 mg/dL (75-99)
[2019-03-27] MEDS: LORATADINE 10 MG TAB PO SCH (07:22)
[2019-03-27] MEDS: POTASSIUM CHLORIDE ER 10 MEQ TAB.ER.PRT PO SCH (07:22)
[2019-03-27] MEDS: hydrALAZINE HCL 10 MG TAB PO SCH ×2 (07:22→21:41)
[2019-03-27] MEDS: MULTIVITAMINS, THERA 1 EACH TAB PO SCH (07:22)
[2019-03-27] MEDS: LISINOPRIL 20 MG TAB PO SCH (07:22)
[2019-03-27] MEDS: guaiFENesin 600 MG TABLET.ER PO SCH ×2 (07:22→21:41)
[2019-03-27] MEDS: MELOXICAM 7.5 MG TAB PO SCH (07:22)
[2019-03-27] MEDS: INSULIN ASPART (NovoLOG) 100 UNIT/ML VIAL SQ SCH ×4 (07:23→21:42)
[2019-03-27] MEDS: FUROSEMIDE 20 MG TAB PO SCH (07:23)
[2019-03-27] MEDS: RALOXIFENE 60 MG TAB PO SCH (07:24)
[2019-03-27] MEDS: DILTIAZEM CD 120 MG CAP.ER.24H PO SCH (07:24)
[2019-03-27] MEDS: BISOPROLOL 5 MG TAB PO SCH (07:24)
[2019-03-27 12:01] LABS: Glucose,Whole Blood 169 mg/dL (75-99)
[2019-03-27] MEDS ORDERED: ARTIFICIAL TEARS-HYPROMELLOSE DROPS 15 ML BTL BOTH EYES PRN (12:28)
[2019-03-27] MEDS: AZITHROMYCIN 500 MG TAB PO SCH (12:29)
--- NOTE | 2019-03-27 12:32 | P.CNPUL ---
History of Present Illness Consult date: 03/27/19 Requesting physician: Chilo Dawkins Reason for consult: dyspnea, cough, COPD, hypoxemia, abnormal CXR/CT Chief complaint: Shortness of breath, cough, congestion History of present illness: This is a 78-year-old white female patient with past medical history of COPD with chronic hypoxemic respiratory failure, patient usually wears 1,5 of oxygen/min, patient has a history of hypertension, hyperlipidemia, osteoarthritis, previous history of intracranial hemorrhage that was treated conservatively at the [facility], hip replacements 3. Patient resides at the [facility], and she does require assistance with some of her ADLs including getting dressed and bathed, she normally moves around in the wheelchair, but is able to ambulate briefly with a walker short distances. Patient has a chronically elevated left hemidiaphragm, we had previously seen the patient in consultation in April 2018 for COPD exacerbation, and possibility of left lower lobe infiltrate, a UTI and GI bleeding. On 03/26/2019 patient presented to the emergency department with complaints of worsening shortness of breath for 2 days, some cough and congestion, and patient was not able to bring up any sputum, she denied any fever or chills, she denied any chest pain, denied any lower extremity edema, no nausea vomiting or diarrhea. No headaches, no palpitations, no numbness or weakness. She states she had missed 2-3 doses of her oral Lasix because she thinks it fell out of her medication couple. And she had noted some increased swelling in her lower extremities. Chest x-ray showed pulmonary venous congestion without evidence of overt heart failure, and chronic basilar pleural parenchymal opacity. EKG showed sinus rhythm with PACs, left ventricular hypertrophy, and evidence of a septal infarct of undetermined age. No acute ischemic changes. Troponin was mildly elevated at 0.049, and the second and third troponins were negative at 0.027, and 0.021. White blood cell, was 4.9, hemoglobin is 11.6, coagulation profile was within normal limits, sodium was 138, potassium is 5.6, chloride was 103, CO2 is 28, B1 is 25 creatinine was 0.35. Patient was started on her home dose Lasix, nebulized treatments, the steroids, we were consulted for evaluation of her shortness of breath Review of Systems All systems: negative Constitutional: Denies chills, Denies fever Eyes: denies blurred vision, denies pain Ears, nose, mouth and throat: Denies headache, Denies sore throat Cardiovascular: Reports edema, Reports leg edema, Reports shortness of breath, Denies chest pain Respiratory: Reports congestion, Reports cough, Reports dyspnea, Reports home oxygen Gastrointestinal: Denies abdominal pain, Denies diarrhea, Denies nausea, Denies vomiting Genitourinary: Denies dysuria, Denies hematuria Musculoskeletal: Denies myalgias Integumentary: Denies pruritus, Denies rash Neurological: Denies numbness, Denies weakness Psychiatric: Denies anxiety, Denies depression Endocrine: Denies fatigue, Denies weight change Past Medical History Past Medical History: COPD, Hyperlipidemia, Hypertension, Osteoarthritis (OA) Additional Past Medical History / Comment(s): history of brain bleed, pt was sent to [facility]. History of Any Multi-Drug Resistant Organisms: None Reported Past Surgical History: Adenoidectomy, Joint Replacement, Tonsillectomy Additional Past Surgical History / Comment(s): Left hip replacement x 3 Past Anesthesia/Blood Transfusion Reactions: No Reported Reaction Past Psychological History: No Psychological Hx Reported Smoking Status: Former smoker Past Alcohol Use History: None Reported Past Drug Use History: None Reported - Past Family History Father Family Medical History: Diabetes Mellitus Mother Family Medical History: Hyperlipidemia Medications and Allergies Home Medications Medication Instructions Recorded Confirmed Type Lisinopril 40 mg PO DAILY 11/13/16 03/26/19 History Acetaminophen [Tylenol Extra 500 mg PO Q4HR PRN 05/01/18 03/26/19 History Strength] Bisoprolol Fumarate [Zebeta] 10 mg PO DAILY 05/01/18 03/26/19 History Furosemide [Lasix] 20 mg PO DAILY 05/01/18 03/26/19 History Potassium Chloride ER [K-Dur 10] 10 meq PO DAILY 05/01/18 03/26/19 History hydrALAZINE HCL 10 mg PO BID 05/01/18 03/26/19 History Budesonide-Formot 160-4.5 Mcg 2 puff INHALATION RT-BID puff 05/13/18 03/26/19 Rx [Symbicort 160-4.5 Mcg Inhaler] Ipratropium-Albuterol Nebulize 3 ml INHALATION Q4H PRN ampul.neb 05/13/18 03/26/19 Rx [Duoneb 0.5 mg-3 mg/3 ml Soln] Ipratropium-Albuterol Nebulize 3 ml INHALATION RT-QID ampul.neb 05/13/18 03/26/19 Rx [Duoneb 0.5 mg-3 mg/3 ml Soln] Acetaminophen-Codeine 300-30mg 1 tab PO BID PRN 03/26/19 03/26/19 History [Tylenol w/codeine #3] Celecoxib [CeleBREX] 200 mg PO DAILY 03/26/19 03/26/19 History Diltiazem HCl [Cardizem CD] 120 mg PO DAILY 03/26/19 03/26/19 History Fexofenadine HCl [Lucia Allergy] 180 mg PO DAILY 03/26/19 03/26/19 History Multivitamins, Thera [Multivitamin 1 tab PO DAILY 03/26/19 03/26/19 History (formulary)] Raloxifene [Evista] 60 mg PO DAILY 03/26/19 03/26/19 History Allergies Allergy/AdvReac Type Severity Reaction Status Date / Time naproxen [From Naprosyn] Allergy Rash/Hives Verified 03/26/19 12:55 Physical Exam Vitals: Vital Signs Temp Pulse Pulse Resp BP BP Pulse Ox 03/27/19 12:02 80 03/27/19 09:09 84 03/27/19 08:55 84 03/27/19 08:44 84 96 03/27/19 07:00 98.1 F 92 16 199/89 93 L 03/27/19 00:27 88 03/27/19 00:15 84 03/26/19 22:00 98.2 F 88 20 165/72 88 L 03/26/19 21:14 80 03/26/19 21:07 97 03/26/19 21:04 80 03/26/19 16:46 98.2 F 90 18 179/79 93 L 03/26/19 16:32 98.0 F 90 18 176/81 96 03/26/19 15:45 78 18 03/26/19 15:40 78 18 03/26/19 15:32 78 19 189/98 89 L 03/26/19 13:20 75 03/26/19 13:09 80 03/26/19 12:26 99.5 F 03/26/19 12:15 98.2 F 90 22 183/83 89 L Intake and Output 03/26/19 03/27/19 03/27/19 22:59 06:59 14:59 Intake Total 250 Balance 250 Intake: Oral 250 Other: Voiding Method Bedpan Bedpan Bedpan Incontinent Incontinent Incontinent # Voids 1 0 GENERAL EXAM: Alert, pleasant, 78-year-old white female, on 2 L of oxygen with pulse ox of 96%, comfortable in no apparent distress. Ration has a loose congested nonproductive cough HEAD: Normocephalic/atraumatic. EYES: Normal reaction of pupils, equal size. Conjunctiva pink, sclera white. NOSE: Clear with pink turbinates. THROAT: No erythema or exudates. NECK: No masses, no JVD, no thyroid enlargement, no adenopathy. CHEST: No chest wall deformity. Symmetrical expansion. LUNGS: Equal air entry and breath sounds, with the basilar Rales CVS: Regular rate and rhythm, normal S1 and S2, no gallops, no murmurs, no rubs ABDOMEN: Soft, nontender. No hepatosplenomegaly, normal bowel sounds, no guarding or rigidity. EXTREMITIES: No clubbing, no edema, no cyanosis, 2+ pulses and upper and lower extremities. MUSCULOSKELETAL: Muscle strength and tone normal. SPINE: No scoliosis or deformity SKIN: No rashes CENTRAL NERVOUS SYSTEM: Alert and oriented -3. No focal deficits, tone is normal in all 4 extremities. PSYCHIATRIC: Alert and oriented -3. Appropriate affect. Intact judgment and insight. Results - Laboratory Findings CBC and BMP: 03/26/19 12:30 03/26/19 12:30 PT/INR, D-dimer PT 10.9 sec (9.0-12.0) 03/26/19 12:30 INR 1.0 (<1.2) 03/26/19 12:30 Abnormal lab findings: Abnormal Labs 03/26/19 03/26/19 03/26/19 12:30 12:30 12:30 RBC 3.40 L MCV 110.5 H RDW 17.2 H Lymphocytes # 0.5 L Macrocytosis Marked A Potassium 5.6 H BUN 25 H Creatinine 0.35 L POC Glucose (mg/dL) AST 69 H ALT 53 H Troponin I 0.049 H* Urine Appearance Ur Squamous Epith Cells Amorphous Sediment Urine Bacteria 03/26/19 03/26/19 03/26/19 14:26 16:56 20:40 RBC MCV RDW Lymphocytes # Macrocytosis Potassium BUN Creatinine POC Glucose (mg/dL) 154 H 250 H AST ALT Troponin I Urine Appearance Cloudy H Ur Squamous Epith Cells 10 H Amorphous Sediment Occasional H Urine Bacteria Rare H 03/27/19 03/27/19 07:02 11:58 RBC MCV RDW Lymphocytes # Macrocytosis Potassium BUN Creatinine POC Glucose (mg/dL) 137 H 169 H AST ALT Troponin I Urine Appearance Ur Squamous Epith Cells Amorphous Sediment Urine Bacteria - Diagnostic Findings Chest x-ray: report reviewed, image reviewed Additional studies: EKG reviewed Assessment and Plan Plan: Assessment: #1. Acute on chronic hypoxemic respiratory failure, related to exacerbation of COPD, and chest x-ray showed pulmonary venous congestion that could be related to acute exacerbation of congestive heart failure with previously documented p reserved left ventricular systolic function with an EF of 55-60% on the echocardiogram from 05/13/2018 #2. Mild exacerbation of COPD #3. Hypertension #4. Hyperlipidemia #5. Osteoarthritis #6. History of COPD with chronic hypoxemic respiratory failure with underlying FEV1 of 0.73 L or 36% of predicted, consistent with stage III COPD #7. The story of intracranial hemorrhage that was conservatively managed at the [facility] #8. Recent outpatient treatment for his COPD exacerbation in February #9. Former smoker, in remission, quit smoking 5 years ago, smoked half a pack a day for 20 years Plan: Continue with the oral dose of Lasix, continue nebulized bronchodilators and IV steroids, we'll add Zithromax, Pulmicort and Perforomist, we'll continue to follow and make further recommendations I performed a history & physical examination of the patient and discussed their management with my nurse practitioner, Laly Calabrese. I reviewed the nurse practitioner's note and agree with the documented findings and plan of care. Lung sounds are positive for bibasilar crackles. The findings and the impression was discussed with the patient. I attest to the documentation by the nurse practitioner. Time with Patient: Greater than 30
[2019-03-27 13:45] VITALS: BMI 17.2
[2019-03-27 16:50] LABS: Glucose,Whole Blood 254 mg/dL (75-99)
[2019-03-27 20:15] LABS: Glucose,Whole Blood 183 mg/dL (75-99)
[2019-03-28] MEDS: IPRATROPIUM-ALBUTEROL 3 ML NEB INHALATION SCH ×6 (00:19→20:54)
[2019-03-28] MEDS: methylPREDNISolone SOD SUCCI 125 MG/2 ML VIAL IV SCH ×4 (00:34→17:09)
[2019-03-28 07:29] LABS: Glucose,Whole Blood 149 mg/dL (75-99)
--- NOTE | 2019-03-28 07:29 | PN ---
PROGRESS NOTE DATE OF SERVICE: 03/27/2019. PRESENTING COMPLAINT: Short of breath, wheezing. INTERVAL HISTORY: Patient admitted with severe COPD exacerbation with tracheobronchitis, pneumonia. Still very congested, short of breath, wheezing, though she is better than yesterday. Did tolerate some diet. REVIEW OF SYSTEMS: Done for constitutional, cardiovascular, GI, pulmonary; relevant findings above. CURRENT MEDICATIONS: Current medications are reviewed that include bronchodilators, IV Solu-Medrol. PHYSICAL EXAMINATION: On examination, temperature 96.7, pulse 72, respiration 16, blood pressure 126/71, pulse ox 96% on 2 L. GENERAL APPEARANCE: Sitting up, awake, tired. EYES: Pupils equal. Conjunctivae normal. NECK: JVD not raised. Mass not palpable. RESPIRATORY: Effort increased. LUNGS: Diminished breath sounds, prolonged expiration. CARDIOVASCULAR: First and second sounds normal, no edema. ABDOMEN: Soft, nontender. Liver and spleen not palpable. PSYCHIATRY: Alert and oriented x3. Mood and affect normal. INVESTIGATIONS: Accu-Cheks are noted. ASSESSMENT: 1. Acute chronic obstructive pulmonary disease exacerbation in an ex-smoker. 2. Acute tracheobronchitis versus pneumonia. 3. Colonic diverticulosis, asymptomatic. 4. Essential hypertension. 5. Hyperlipidemia. 6. Primary osteoarthritis. 7. Chronic hypoxic respiratory failure on 1.5 L from underlying chronic obstructive pulmonary disease. PLAN: Continue current medication and treatment plan. Patient is slow to respond. Continue with IV steroids, bronchodilators and current medications. MMODL / IJN: [id number] /
[2019-03-28] MEDS ORDERED: IPRATROPIUM-ALBUTEROL 3 ML NEB INHALATION PRN (07:50)
[2019-03-28] MEDS: POTASSIUM CHLORIDE ER 10 MEQ TAB.ER.PRT PO SCH (08:06)
[2019-03-28] MEDS: LORATADINE 10 MG TAB PO SCH (08:06)
[2019-03-28] MEDS: hydrALAZINE HCL 10 MG TAB PO SCH ×2 (08:06→21:42)
[2019-03-28] MEDS: guaiFENesin 600 MG TABLET.ER PO SCH ×2 (08:06→21:42)
[2019-03-28] MEDS: MULTIVITAMINS, THERA 1 EACH TAB PO SCH (08:07)
[2019-03-28] MEDS: MELOXICAM 7.5 MG TAB PO SCH (08:07)
[2019-03-28] MEDS: RALOXIFENE 60 MG TAB PO SCH (08:07)
[2019-03-28] MEDS: LISINOPRIL 20 MG TAB PO SCH (08:07)
[2019-03-28] MEDS: FUROSEMIDE 20 MG TAB PO SCH (08:07)
[2019-03-28] MEDS: BISOPROLOL 5 MG TAB PO SCH (08:08)
[2019-03-28] MEDS: DILTIAZEM CD 120 MG CAP.ER.24H PO SCH (08:08)
[2019-03-28] MEDS: INSULIN ASPART (NovoLOG) 100 UNIT/ML VIAL SQ SCH ×4 (08:10→21:46)
[2019-03-28] MEDS: BUDESONIDE 1 MG/2 ML NEBU INHALATION SCH ×2 (09:18→20:54)
[2019-03-28] MEDS: FORMOTEROL FUMARATE 20 MCG/2 ML NEBU INHALATION SCH ×2 (09:18→20:54)
[2019-03-28] MEDS: AZITHROMYCIN 500 MG TAB PO SCH (11:11)
[2019-03-28 11:41] LABS: Glucose,Whole Blood 150 mg/dL (75-99)
--- NOTE | 2019-03-28 13:27 | P.PN ---
Subjective Progress Note Date: 03/28/19 Principal diagnosis: Acute on chronic hypoxic respiratory failure related to exacerbation of COPD and exacerbation of CHF This is a 78-year-old white female patient with past medical history of COPD with chronic hypoxemic respiratory failure, patient usually wears 1,5 of oxygen/ min, patient has a history of hypertension, hyperlipidemia, osteoarthritis, previous history of intracranial hemorrhage that was treated conservatively at the [facility], hip replacements 3. Patient resides at the [facility], and she does require assistance with some of her ADLs including getting dressed and bathed, she normally moves around in the wheelchair, but is able to ambulate briefly with a walker short distances. Patient has a chronically elevated left hemidiaphragm, we had previously seen the patient in consultation in April 2018 for COPD exacerbation, and possibility of left lower lobe infiltrate, a UTI and GI bleeding. On 03/26/2019 patient presented to the [facility] department with complaints of worsening shortness of breath for 2 days, some cough and congestion, and patient was not able to bring up any sputum, she denied any fever or chills, she denied any chest pain, denied any lower extremity edema, no nausea vomiting or diarrhea. No headaches, no palpitations, no numbness or weakness. She states she had missed 2-3 doses of her oral Lasix because she thinks it fell out of her medication couple. And she had noted some increased swelling in her lower extremities. Chest x-ray showed pulmonary venous congestion without evidence of overt heart failure, and chronic basilar pleural parenchymal opacity. EKG showed sinus rhythm with PACs, left vent ricular hypertrophy, and evidence of a septal infarct of undetermined age. No acute ischemic changes. Troponin was mildly elevated at 0.049, and the second and third troponins were negative at 0.027, and 0.021. White blood cell, was 4.9, hemoglobin is 11.6, coagulation profile was within normal limits, sodium was 138, potassium is 5.6, chloride was 103, CO2 is 28, B1 is 25 creatinine was 0.35. Patient was started on her home dose Lasix, nebulized treatments, the steroids, we were consulted for evaluation of her shortness of breath On 03/28/2019 patient seen in follow-up on medical surgical floor. She states she is breathing easier, still sounds congested, she started to bring up some y ellowish colored phlegm. Lung sounds are diminished, patient remains on supplemental oxygen, currently at 3 L with a pulse ox of 98%, no fever or chills, blood and urine cultures showed no growth, proBNP came back elevated 13,400, suggesting acute exacerbation of chronic congestive heart failure. No acute events overnight, no complaint of chest pain, patient is on the oral Zithromax, she is on oral Lasix, breathing treatments and IV steroids. Objective - Vital Signs Vital signs: Vital Signs Temp 97.6 F 03/28/19 06:46 Pulse 90 03/28/19 13:11 Resp 18 03/28/19 08:29 BP 195/94 03/28/19 06:46 Pulse Ox 98 03/28/19 09:18 Intake & Output 03/27/19 03/28/19 03/28/19 18:59 06:59 18:59 Intake Total 450 Balance 450 Weight 45.359 kg Intake: Oral 450 Other: Voiding Method Bedpan Bedpan Bedpan Incontinent Incontinent Incontinent # Voids 4 2 # Bowel Movements 0 1 - Exam GENERAL EXAM: Alert, pleasant, 78-year-old white female, on 3 L of oxygen with pulse ox of 96%, comfortable in no apparent distress. she has a loose congested nonproductive cough HEAD: Normocephalic/atraumatic. EYES: Normal reaction of pupils, equal size. Conjunctiva pink, sclera white. NOSE: Clear with pink turbinates. THROAT: No erythema or exudates. NECK: No masses, no JVD, no thyroid enlargement, no adenopathy. CHEST: No chest wall deformity. Symmetrical expansion. LUNGS: Equal air entry and breath sounds, with the basilar Rales CVS: Regular rate and rhythm, normal S1 and S2, no gallops, no murmurs, no rubs ABDOMEN: Soft, nontender. No hepatosplenomegaly, normal bowel sounds, no guarding or rigidity. EXTREMITIES: No clubbing, no edema, no cyanosis, 2+ pulses and upper and lower extremities. MUSCULOSKELETAL: Muscle strength and tone normal. SPINE: No scoliosis or deformity SKIN: No rashes CENTRAL NERVOUS SYSTEM: Alert and oriented -3. No focal deficits, tone is normal in all 4 extremities. PSYCHIATRIC: Alert and oriented -3. Appropriate affect. Intact judgment and insight. - Labs CBC & Chem 7: 03/26/19 12:30 03/26/19 12:30 Labs: Abnormal Lab Results - Last 24 Hours (Table) 03/27/19 03/27/19 03/28/19 Range/Units 16:48 20:14 07:04 POC Glucose (mg/dL) 254 H 183 H 149 H (75-99) mg/dL 03/28/19 Range/Units 11:26 POC Glucose (mg/dL) 150 H (75-99) mg/dL Microbiology - Last 24 Hours (Table) 03/26/19 14:26 Urine Culture - Final Urine,Voided 03/26/19 12:30 Blood Culture - Preliminary Blood No Growth after 24 hours Assessment and Plan Plan: Assessment: #1. Acute on chronic hypoxemic respiratory failure, related to exacerbation of COPD, and chest x-ray showed pulmonary venous congestion that could be related to acute exacerbation of congestive heart failure with previously documented preserved left ventricular systolic function with an EF of 55-60% on the echocardiogram from 05/13/2018 #2. Mild exacerbation of COPD #3. Hypertension #4. Hyperlipidemia #5. Osteoarthritis #6. History of COPD with chronic hypoxemic respiratory failure with underlying FEV1 of 0.73 L or 36% of predicted, consistent with stage III COPD #7. The story of intracranial hemorrhage that was conservatively managed at the [facility] #8. Recent outpatient treatment for his COPD exacerbation in February #9. Former smoker, in remission, quit smoking 5 years ago, smoked half a pack a day for 20 years Plan: Continue current medical treatment, oral diuretics, empiric antibiotics, breathing treatments and IV steroids. No acute events overnight, no complaints of chest pain, proBNP was positive at 13,400 suggesting acute exacerbation of chronic congestive heart failure. We'll obtain a repeat chest x-ray tomorrow, continue with oral diuretics. I performed a history & physical examination of the patient and discussed their management with my nurse practitioner, Laly Calabrese. I reviewed the nurse practitioner's note and agree with the documented findings and plan of care. Lung sounds are positive for bibasilar crackles. The findings and the impression was discussed with the patient. I attest to the documentation by the nurse practitioner. Time with Patient: Less than 30
[2019-03-28] MEDS ORDERED: FUROSEMIDE 10 MG/ML 2 ML VIAL IV ONE (15:49)
[2019-03-28 16:55] LABS: Glucose,Whole Blood 251 mg/dL (75-99)
[2019-03-28] MEDS: ACETAMINOPHEN TAB 500 MG TAB PO PRN (19:47)
[2019-03-28 20:37] LABS: Glucose,Whole Blood 160 mg/dL (75-99)
[2019-03-28] MEDS: Acetaminophen-Codeine 300-30mg TAB PO PRN (21:53)
--- NOTE | 2019-03-28 23:05 | PN ---
PROGRESS NOTE DATE OF SERVICE: 03/28/2019 PRESENTING COMPLAINT: Short of breath, wheezing. INTERVAL HISTORY: Patient admitted with severe COPD exacerbation with tracheobronchitis/pneumonia. Breathing is only a shade better. Still congested cough. Not bringing up much sputum. Remains short of breath, wheezing. Eating some. REVIEW OF SYSTEMS: Done for constitutional, cardiovascular, GI, pulmonary; relevant findings as above. CURRENT MEDICATIONS: Reviewed. They include DuoNeb every 4 hours, IV Solu-Medrol. PHYSICAL EXAMINATION: Temperature 98.4, pulse 87, respiration 22, blood pressure 171/87, pulse ox 96% on 2 L. GENERAL APPEARANCE: Sitting up. Tired-appearing. EYES: Pupils equal. Conjunctivae normal. NECK: JVD unable to assess. Mass not palpable. RESPIRATORY: Effort increased. LUNGS: Poor air entry. Prolonged expiration. CARDIOVASCULAR: First and second sounds normal. No edema. ABDOMEN: Soft, non-tender. Liver and spleen not palpable. PSYCHIATRY: Alert and oriented x3. Mood and affect normal. INVESTIGATIONS: Accu-Cheks are noted. ProBNP 30,400. ASSESSMENT: 1. Acute severe chronic obstructive pulmonary disease exacerbation an ex-smoker, slow to respond. 2. Pneumonia; suspect gram-negative organism. 3. Chronic diverticulosis, asymptomatic. 4. Essential hypertension. 5. Hyperlipidemia. 6. Primary osteoarthritis. 7. Chronic hypoxic respiratory failure, on 1.5 L at home, from underlying chronic obstructive pulmonary disease. PLAN: Patient definitely is slow to respond. Continue with bronchodilators, steroids. Did talk to the patient at length and told her that she will be here at least for 2 or 3 days, depending on her clinical course. I encouraged her to be out of bed. MMODL / IJN: [id number] /
[2019-03-29] MEDS: methylPREDNISolone SOD SUCCI 125 MG/2 ML VIAL IV SCH ×4 (05:13→17:58)
[2019-03-29 06:56] LABS: Glucose,Whole Blood 180 mg/dL (75-99)
--- NOTE | 2019-03-29 07:31 | XR ---
EXAMINATION TYPE: XR chest 1V portable DATE OF EXAM: 03/29/2019 HISTORY: shortness of breath. REFERENCE: Previous study dated 03/26/2019. FINDINGS: Heart size upper limits of normal. Pulmonary vasculature has improved. There is some residu al interstitial change persisting. There is left basilar airspace disease. I cannot exclude a small l eft effusion. IMPRESSION: 1. SOME IMPROVEMENT IN THE AMOUNT OF VASCULAR CONGESTION. 2. BORDERLINE CARDIOMEGALY. 3. LEFT BASILAR AIRSPACE DISEASE. 4. I CANNOT EXCLUDE A SMALL, LEFT EFFUSION.
[2019-03-29] MEDS: guaiFENesin 600 MG TABLET.ER PO SCH ×2 (08:16→21:02)
[2019-03-29] MEDS: MULTIVITAMINS, THERA 1 EACH TAB PO SCH (08:16)
[2019-03-29] MEDS: POTASSIUM CHLORIDE ER 10 MEQ TAB.ER.PRT PO SCH (08:16)
[2019-03-29] MEDS: LISINOPRIL 20 MG TAB PO SCH (08:16)
[2019-03-29] MEDS: RALOXIFENE 60 MG TAB PO SCH (08:16)
[2019-03-29] MEDS: FUROSEMIDE 20 MG TAB PO SCH (08:16)
[2019-03-29] MEDS: BISOPROLOL 5 MG TAB PO SCH (08:16)
[2019-03-29] MEDS: MELOXICAM 7.5 MG TAB PO SCH (08:16)
[2019-03-29] MEDS: DILTIAZEM CD 120 MG CAP.ER.24H PO SCH (08:16)
[2019-03-29] MEDS: INSULIN ASPART (NovoLOG) 100 UNIT/ML VIAL SQ SCH ×4 (08:17→21:03)
[2019-03-29] MEDS: LORATADINE 10 MG TAB PO SCH (08:17)
[2019-03-29] MEDS: hydrALAZINE HCL 10 MG TAB PO SCH ×2 (08:17→21:02)
[2019-03-29] MEDS: Acetaminophen-Codeine 300-30mg TAB PO PRN ×2 (08:20→21:10)
[2019-03-29] MEDS: FORMOTEROL FUMARATE 20 MCG/2 ML NEBU INHALATION SCH ×2 (08:24→19:54)
[2019-03-29] MEDS: IPRATROPIUM-ALBUTEROL 3 ML NEB INHALATION SCH ×4 (08:24→19:54)
[2019-03-29] MEDS: BUDESONIDE 1 MG/2 ML NEBU INHALATION SCH ×2 (08:24→19:54)
--- NOTE | 2019-03-29 11:23 | P.PN ---
Subjective Progress Note Date: 03/29/19 Principal diagnosis: Acute on chronic hypoxic respiratory failure related to exacerbation of COPD and exacerbation of CHF This is a 78-year-old white female patient with past medical history of COPD with chronic hypoxemic respiratory failure, patient usually wears 1,5 of oxygen /min, patient has a history of hypertension, hyperlipidemia, osteoarthritis, previous history of intracranial hemorrhage that was treated conservatively at the [facility], hip replacements 3. Patient resides at the [facility], and she does require assistance with some of her ADLs including getting dressed and bathed, she normally moves around in the wheelchair, but is able to ambulate briefly with a walker short distances. Patient has a chronically elevated left hemidiaphragm, we had previously seen the patient in consultation in April 2018 for COPD exacerbation, and possibility of left lower lobe infiltrate, a UTI and GI bleeding. [facility] complaints of worsening shortness of breath for 2 days, some cough and congestion, and patient was not able to bring up any sputum, she denied any fever or chills, she denied any chest pain, denied any lower extremity edema, no nausea vomiting or diarrhea. No headaches, no palpitations, no numbness or weakness. She states she had missed 2-3 doses of her oral Lasix because she thinks it fell out of her medication couple. And she had noted some increased swelling in her lower extremities. Chest x-ray showed pulmonary venous congestion without evidence of overt heart failure, and chronic basilar pleural parenchymal opacity. EKG showed sinus rhythm with PACs, left tere tricular hypertrophy, and evidence of a septal infarct of undetermined age. No acute ischemic changes. Troponin was mildly elevated at 0.049, and the second and third troponins were negative at 0.027, and 0.021. White blood cell, was 4.9, hemoglobin is 11.6, coagulation profile was within normal limits, sodium was 138, potassium is 5.6, chloride was 103, CO2 is 28, B1 is 25 creatinine was 0.35. Patient was started on her home dose Lasix, nebulized treatments, the steroids, we were consulted for evaluation of her shortness of breath On 03/28/2019 patient seen in follow-up on medical surgical floor. She states she is breathing easier, still sounds congested, she started to bring up some yellowish colored phlegm. Lung sounds are diminished, patient remains on supplemental oxygen, currently at 3 L with a pulse ox of 98%, no fever or chills, blood and urine cultures showed no growth, proBNP came back elevated 13,400, suggesting acute exacerbation of chronic congestive heart failure. No acute events overnight, no complaint of chest pain, patient is on the oral Zithromax, she is on oral Lasix, breathing treatments and IV steroids. The patient is seen today 03/29/2019 in follow-up on the regular medical floor. She is awake and alert in no acute distress. Resting quite comfortably in bed. Breathing easier today as compared to yesterday. Maintaining good O2 saturations in the upper 90s on 2 L/m per nasal cannula. She's been afebrile. Blood and urine cultures reveal no growth. She remains on DuoNeb inhalations, Pulmicort and Perforomist inhalations, V Solu-Medrol and antibiotics in the form of azithromycin. Today's chest x-ray shows improvement in the vascular conge stion. Borderline cardiomegaly, left basilar airspace disease, small left effusion. Objective - Vital Signs Vital signs: Vital Signs Temp 98.7 F 03/29/19 07:00 Pulse 104 H 03/29/19 11:05 Resp 15 03/29/19 08:00 BP 195/84 03/29/19 07:00 Pulse Ox 97 03/29/19 07:00 Intake & Output 03/28/19 03/29/19 03/29/19 18:59 06:59 18:59 Intake Total 1080 360 Output Total 500 Balance 1080 -500 360 Intake: Oral 1080 360 Output: Urine 500 Other: Voiding Method Bedpan Bedpan Bedpan Incontinent Incontinent Incontinent # Voids 10 1 # Bowel Movements 1 - Exam GENERAL EXAM: Alert, pleasant, 78-year-old white female, on 2 L of oxygen, comfortable in no apparent distress. HEAD: Normocephalic/atraumatic. EYES: Normal reaction of pupils, equal size. Conjunctiva pink, sclera white. NOSE: Clear with pink turbinates. THROAT: No erythema or exudates. NECK: No masses, no JVD, no thyroid enlargement, no adenopathy. CHEST: No chest wall deformity. Symmetrical expansion. LUNGS: Equal air entry and breath sounds, with the basilar Rales CVS: Regular rate and rhythm, normal S1 and S2, no gallops, no murmurs, no rubs ABDOMEN: Soft, nontender. No hepatosplenomegaly, normal bowel sounds, no guarding or rigidity. EXTREMITIES: No clubbing, no edema, no cyanosis, 2+ pulses and upper and lower extremities. MUSCULOSKELETAL: Muscle strength and tone normal. SPINE: No scoliosis or deformity SKIN: No rashes CENTRAL NERVOUS SYSTEM: No focal deficits, tone is normal in all 4 extremities. PSYCHIATRIC: Alert and oriented -3. Appropriate affect. Intact judgment and insight - Labs CBC & Chem 7: 03/26/19 12:30 03/26/19 12:30 Labs: Abnormal Lab Results - Last 24 Hours (Table) 03/28/19 03/28/19 03/28/19 Range/Units 11:26 16:21 20:36 POC Glucose (mg/dL) 150 H 251 H 160 H (75-99) mg/dL 03/29/19 Range/Units 06:54 POC Glucose (mg/dL) 180 H (75-99) mg/dL Microbiology - Last 24 Hours (Table) 03/26/19 12:30 Blood Culture - Preliminary Blood No Growth after 48 hours Assessment and Plan Assessment: Assessment: #1. Acute on chronic hypoxemic respiratory failure, related to exacerbation of COPD, and chest x-ray showed pulmonary venous congestion that could be related to acute exacerbation of congestive heart failure with previously documented preserved left ventricular systolic function with an EF of 55-60% on the echocardiogram from 05/13/2018 #2. Mild exacerbation of COPD #3. Hypertension #4. Hyperlipidemia #5. Osteoarthritis #6. History of COPD with chronic hypoxemic respiratory failure with underlying FEV1 of 0.73 L or 36% of predicted, consistent with stage III COPD #7. The story of intracranial hemorrhage that was conservatively managed at the [facility] #8. Recent outpatient treatment for his COPD exacerbation in February #9. Former smoker, in remission, quit smoking 5 years ago, smoked half a pack a day for 20 years Plan: The patient was seen and evaluated by Dr. Landers. Chest x-ray reviewed. We'll continue with the current treatment plan. Increase her activity as tolerated. We'll continue to follow. I, the cosigning physician, performed a history & physical examination of the patient. Lungs sounds with crackles at the bilateral bases, few scattered rhonchi. Maintaining good O2 saturations in the 90s on 2 L/m per nasal cannula. I discussed the assessment and plan of care with my nurse practitioner, Doris Nails. I attest to the above note as dictated by her.
[2019-03-29 11:45] LABS: Glucose,Whole Blood 146 mg/dL (75-99)
[2019-03-29] MEDS: AZITHROMYCIN 500 MG TAB PO SCH (13:12)
[2019-03-29 16:48] LABS: Glucose,Whole Blood 186 mg/dL (75-99)
[2019-03-29] MEDS: FUROSEMIDE 10 MG/ML 4 ML VIAL IV SCH ×2 (17:58→21:03)
--- NOTE | 2019-03-29 19:55 | PN ---
PROGRESS NOTE DATE OF SERVICE: 03/29/2019 This 78-year-old woman who was admitted with COPD also had some fluid overload also. The patient also had significant shortness of breath. The patient also had concerns for possible tracheobronchitis and pneumonia. Dr. Landers following the patient closely. The most recent chest x-ray personally reviewed by me showed bilateral lesions. PAST MEDICAL HISTORY: Reviewed. REVIEW OF SYSTEMS: CARDIO SYSTEM: As mentioned earlier. RESPIRATORY: As mentioned earlier. GI no nausea. no dysuria. CENTRAL NERVOUS SYSTEM: As mentioned earlier. CURRENT MEDICATIONS: Reviewed and include: 1. Tylenol 500 q.4h p.r.n. 2. Tylenol #3. 3. DuoNeb q.i.d. and p.r.n. 4. Artificial tears. 5. Zithromax 500 mg. 6. Zebeta. 7. Pulmicort 1 mg b.i.d. 8. Cardizem CD 120 mg daily. 9. Perforomist b.i.d. 10.Lasix. 11.Mucinex. 12.Apresoline. 13.Zestril. 14.Claritin. 15.Solu-Medrol 60 IV q.6h. PHYSICAL EXAM: Patient is alert, oriented x3, pulse 83, blood pressure 114/70, respiration 17, temperature 98.4, pulse ox 91 percent on 2 L. HEENT: Conjunctivae normal. Oral mucosa moist. NECK is no jugular venous distention. No carotid bruit. No lymph node enlargement. CARDIOVASCULAR SYSTEM: Ejection systolic murmur present. RESPIRATORY: Breath sounds diminished at the bases. Scattered rhonchi and crackles. Expiratory wheezing also present. ABDOMEN: Soft, nontender. LEGS are no edema. No swelling. CENTRAL NERVOUS SYSTEM: No focal deficits. LABS: WBC not available. Otherwise, potassium is 5.6 and glucose is 146. NT proBNP is 13, 400. ASSESSMENT: 1. Shortness of breath possibly multifactorial including chronic obstructive pulmonary disease acute exacerbation as well as congestive heart failure acute exacerbation with acute on chronic diastolic dysfunction, ejection fraction 50-60 percent with acute hypoxic respiratory failure. 2. Acute purulent tracheobronchitis, possible bibasilar bronchopneumonia possibly gram- negative. 3. Chronic diverticulosis, symptomatic. 4. Hypertension. 5. Hyperlipidemia. 6. Degenerative joint disease. 7. Chronic hypoxic respiratory failure on 1.5 L oxygen at home. 8. Increased random blood sugar. 9. Increased potassium. 10.Increased MCV. RECOMMENDATIONS AND DISCUSSION: This 78-year-old woman who presented with multiple complex medical issues, we will monitor the patient closely. Continue the current management. Continue symptomatic treatment. We will initiate cautious IV. Monitor creatinine closely. Otherwise, at this time, I also recommend continue IV steroids. Optimize bronchodilators. Empiric antibiotics. Closely follow with Dr. Landers. Guarded prognosis. Further recommendations to follow. MMODL / IJN: [id number] / MTDD
[2019-03-29 20:11] LABS: Glucose,Whole Blood 175 mg/dL (75-99)
[2019-03-29] MEDS: HEPARIN SODIUM,PORCINE 5,000 UNIT/ML 1 ML VIAL SQ SCH (21:03)
[2019-03-30] MEDS: methylPREDNISolone SOD SUCCI 125 MG/2 ML VIAL IV SCH ×4 (00:11→18:12)
[2019-03-30 06:48] LABS: Glucose,Whole Blood 145 mg/dL (75-99)
[2019-03-30 07:19] LABS: Anisocytosis Slight; Basophils % (A) 0 %; Eosinophils % (A) 0 %; HGB 11.3 gm/dL (11.4-16.0); Hypochromasia Moderate; Lymphocytes # (A) 0.3 k/uL (1.0-4.8); Lymphocytes % (A) 3 %; MCH 33.9 pg (25.0-35.0); MCHC 30.4 g/dL (31.0-37.0); MCV 111.7 fL (80.0-100.0); Mean Platelet Volume 7.6; Monocytes # (A) 0.6 k/uL (0-1.0); Monocytes % (A) 6 %; Neutrophils # (A) 8.5 k/uL (1.3-7.7); Neutrophils % (A) 90 %; Platelet Count 281 k/uL (150-450); Poikilocytosis Slight; RBC 3.32 m/uL (3.80-5.40); RDW 16.7 % (11.5-15.5); WBC 9.4 k/uL (3.8-10.6)
[2019-03-30 07:30] LABS: Macrocytosis Marked
--- NOTE | 2019-03-30 07:46 | XR ---
EXAMINATION TYPE: XR chest 1V portable DATE OF EXAM: 03/30/2019 HISTORY: shortness of breath. REFERENCE: Previous study dated 03/29/2019. FINDINGS: Lung volumes are prominent. Heart size upper limits of normal. There is dense consolidation behind the heart. There is a left-sided pleural effusion. There has been little if any change in the appearance of the chest. IMPRESSION: NO SIGNIFICANT INTERVAL CHANGE IN THE APPEARANCE OF THE CHEST.
[2019-03-30 07:54] LABS: Blood Urea Nitrogen 54 mg/dL (7-17); Calcium 8.8 mg/dL (8.4-10.2); Chloride 98 mmol/L (98-107); Glucose 129 mg/dL (74-99); Potassium 3.7 mmol/L (3.5-5.1); Sodium 142 mmol/L (137-145)
[2019-03-30 08:01] LABS: Anion Gap 5 mmol/L
[2019-03-30] MEDS: LISINOPRIL 20 MG TAB PO SCH (08:01)
[2019-03-30] MEDS: MELOXICAM 7.5 MG TAB PO SCH (08:02)
[2019-03-30] MEDS: RALOXIFENE 60 MG TAB PO SCH (08:02)
[2019-03-30] MEDS: BISOPROLOL 5 MG TAB PO SCH (08:02)
[2019-03-30] MEDS: hydrALAZINE HCL 10 MG TAB PO SCH ×2 (08:02→21:36)
[2019-03-30] MEDS: MULTIVITAMINS, THERA 1 EACH TAB PO SCH (08:02)
[2019-03-30] MEDS: POTASSIUM CHLORIDE ER 10 MEQ TAB.ER.PRT PO SCH (08:02)
[2019-03-30] MEDS: DILTIAZEM CD 120 MG CAP.ER.24H PO SCH (08:02)
[2019-03-30] MEDS: LORATADINE 10 MG TAB PO SCH (08:02)
[2019-03-30] MEDS: HEPARIN SODIUM,PORCINE 5,000 UNIT/ML 1 ML VIAL SQ SCH ×2 (08:02→21:39)
[2019-03-30] MEDS: guaiFENesin 600 MG TABLET.ER PO SCH ×2 (08:02→21:35)
[2019-03-30] MEDS: FUROSEMIDE 10 MG/ML 4 ML VIAL IV SCH (08:03)
[2019-03-30] MEDS: INSULIN ASPART (NovoLOG) 100 UNIT/ML VIAL SQ SCH ×4 (08:03→21:37)
[2019-03-30] MEDS: FORMOTEROL FUMARATE 20 MCG/2 ML NEBU INHALATION SCH ×2 (08:11→20:14)
[2019-03-30] MEDS: IPRATROPIUM-ALBUTEROL 3 ML NEB INHALATION SCH ×4 (08:11→20:16)
[2019-03-30] MEDS: ACETAMINOPHEN TAB 500 MG TAB PO PRN ×2 (08:11→23:07)
[2019-03-30] MEDS: BUDESONIDE 1 MG/2 ML NEBU INHALATION SCH ×3 (08:11→20:27)
[2019-03-30] MEDS: Acetaminophen-Codeine 300-30mg TAB PO PRN ×2 (08:12→21:48)
[2019-03-30 08:14] LABS: Carbon Dioxide 39 mmol/L (22-30)
--- NOTE | 2019-03-30 09:19 | P.PN ---
Subjective Progress Note Date: 03/30/19 Principal diagnosis: Acute on chronic hypoxic respiratory failure related to exacerbation of COPD and exacerbation of CHF This is a 78-year-old white female patient with past medical history of COPD with chronic hypoxemic respiratory failure, patient usually wears 1,5 of oxygen/ min, patient has a history of hypertension, hyperlipidemia, osteoarthritis, previous history of intracranial hemorrhage that was treated conservatively at the [facility], hip replacements 3. Patient resides at the [facility], and she does require assistance with some of her ADLs including getting dressed and bathed, she normally moves around in the wheelchair, but is able to ambulate briefly with a walker short distances. Patient has a chronically elevated left hemidiaphragm, we had previously seen the patient in consultation in April 2018 for COPD exacerbation, and possibility of left lower lobe infiltrate, a UTI and GI bleeding. On 03/26/2019 patient presented to the [facility] department with complaints of worsening shortness of breath for 2 days, some cough and congestion, and patient was not able to bring up any sputum, she denied any fever or chills, she denied any chest pain, denied any lower extremity edema, no nausea vomiting or diarrhea. No headaches, no palpitations, no numbness or weakness. She states she had missed 2-3 doses of her oral Lasix because she thinks it fell out of her medication couple. And she had noted some increased swelling in her lower extremities. Chest x-ray showed pulmonary venous congestion without evidence of overt heart failure, and chronic basilar pleural parenchymal opacity. EKG showed sinus rhythm with PACs, left vent ricular hypertrophy, and evidence of a septal infarct of undetermined age. No acute ischemic changes. Troponin was mildly elevated at 0.049, and the second and third troponins were negative at 0.027, and 0.021. White blood cell, was 4.9, hemoglobin is 11.6, coagulation profile was within normal limits, sodium was 138, potassium is 5.6, chloride was 103, CO2 is 28, B1 is 25 creatinine was 0.35. Patient was started on her home dose Lasix, nebulized treatments, the steroids, we were consulted for evaluation of her shortness of breath On 03/28/2019 patient seen in follow-up on medical surgical floor. She states she is breathing easier, still sounds congested, she started to bring up some y ellowish colored phlegm. Lung sounds are diminished, patient remains on supplemental oxygen, currently at 3 L with a pulse ox of 98%, no fever or chills, blood and urine cultures showed no growth, proBNP came back elevated 13,400, suggesting acute exacerbation of chronic congestive heart failure. No acute events overnight, no complaint of chest pain, patient is on the oral Zithromax, she is on oral Lasix, breathing treatments and IV steroids. On 03/30/2019 patient seen in follow-up on medical surgical floor. She is awake and alert, in no acute distress, she is complaining that she was urinating all night last night, and did not get any sleep. She was started on IV Lasix of 40 mg every 12 hours yesterday, and she has been on the bedpan frequently through the night. She remains on 1/2 L of oxygen with pulse ox of 94%, she is afebrile, hemodynamically patient is stable, a bit hypertensive. Lung sounds are positive for coarse rhonchi, and patient has a congested cough, and she is able to bring up whitish colored sputum. No chest pain, no chills, blood and urine cultures showed no growth, she is on oral Zithromax for antibiotic coverage, and she is on breathing treatments. No edema in lower extremities. Repeat chest x-ray was obtained this morning, and shows no interval change since yesterday's chest x-ray with dense consolidation at the left lower lobe. Patient is clinically stable, no leukocytosis on today's labs, white blood cell count is 9.4, hemoglobin is 11.3, sodium is 142, potassium is 3.7, chloride is 98, CO2 is 39, B1 is 54, and creatinine 0.47, and patient is developing volume contraction alkalosis, we'll cut back the IV Lasix to once daily Objective - Vital Signs Vital signs: Vital Signs Temp 98.3 F 03/30/19 07:00 Pulse 100 03/30/19 08:26 Resp 16 03/30/19 08:07 BP 193/77 03/30/19 07:00 Pulse Ox 94 L 03/30/19 07:00 Intake & Output 03/29/19 03/30/19 03/30/19 18:59 06:59 18:59 Intake Total 840 Balance 840 Intake: Oral 840 Other: Voiding Method Bedpan Bedpan Incontinent Incontinent # Voids 4 3 - Exam GENERAL EXAM: Alert, pleasant, 78-year-old white female, on 1.5 L of oxygen with pulse ox of 96%, comfortable in no apparent distress. she has a loose congested nonproductive cough HEAD: Normocephalic/atraumatic. EYES: Normal reaction of pupils, equal size. Conjunctiva pink, sclera white. NOSE: Clear with pink turbinates. THROAT: No erythema or exudates. NECK: No masses, no JVD, no thyroid enlargement, no adenopathy. CHEST: No chest wall deformity. Symmetrical expansion. LUNGS: Equal air entry and breath sounds, with coarse rhonchi CVS: Regular rate and rhythm, normal S1 and S2, no gallops, no murmurs, no rubs ABDOMEN: Soft, nontender. No hepatosplenomegaly, normal bowel sounds, no guarding or rigidity. EXTREMITIES: No clubbing, no edema, no cyanosis, 2+ pulses and upper and lower extremities. MUSCULOSKELETAL: Muscle strength and tone normal. SPINE: No scoliosis or deformity SKIN: No rashes CENTRAL NERVOUS SYSTEM: Alert and oriented -3. No focal deficits, tone is normal in all 4 extremities. PSYCHIATRIC: Alert and oriented -3. Appropriate affect. Intact judgment and insight. - Labs CBC & Chem 7: 03/30/19 06:52 03/30/19 06:52 Labs: Abnormal Lab Results - Last 24 Hours (Table) 03/29/19 03/29/19 03/29/19 Range/Units 11:44 16:46 20:10 RBC (3.80-5.40) m/uL Hgb (11.4-16.0) gm/dL MCV (80.0-100.0) fL MCHC (31.0-37.0) g/dL RDW (11.5-15.5) % Neutrophils # (1.3-7.7) k/uL Lymphocytes # (1.0-4.8) k/uL Macrocytosis Carbon Dioxide (22-30) mmol/L BUN (7-17) mg/dL Creatinine (0.52-1.04) mg/dL Glucose (74-99) mg/dL POC Glucose (mg/dL) 146 H 186 H 175 H (75-99) mg/dL 03/30/19 03/30/19 03/30/19 Range/Units 06:47 06:52 06:52 RBC 3.32 L (3.80-5.40) m/uL Hgb 11.3 L (11.4-16.0) gm/dL MCV 111.7 H (80.0-100.0) fL MCHC 30.4 L (31.0-37.0) g/dL RDW 16.7 H (11.5-15.5) % Neutrophils # 8.5 H (1.3-7.7) k/uL Lymphocytes # 0.3 L (1.0-4.8) k/uL Macrocytosis Marked A Carbon Dioxide 39 H (22-30) mmol/L BUN 54 H (7-17) mg/dL Creatinine 0.47 L (0.52-1.04) mg/dL Glucose 129 H (74-99) mg/dL POC Glucose (mg/dL) 145 H (75-99) mg/dL Microbiology - Last 24 Hours (Table) 03/26/19 12:30 Blood Culture - Preliminary Blood No Growth after 72 hours Assessment and Plan Plan: Assessment: #1. Acute on chronic hypoxemic respiratory failure, related to exacerbation of COPD, and chest x-ray showed pulmonary venous congestion that could be related to acute exacerbation of congestive heart failure with previously documented preserved left ventricular systolic function with an EF of 55-60% on the echocardiogram from 05/13/2018 On 03/30/2019 repeat chest x-ray was obtained, and shows dense consolidation at the left lower lobe, behind a heart with left-sided pleural effusion, has not changed despite the IV diuretics. Rule out possibility of pneumonia #2. Mild exacerbation of COPD #3. Hypertension #4. Hyperlipidemia #5. Osteoarthritis #6. History of COPD with chronic hypoxemic respiratory failure with underlying FEV1 of 0.73 L or 36% of predicted, consistent with stage III COPD #7. The story of intracranial hemorrhage that was conservatively managed at the [facility] #8. Recent outpatient treatment for his COPD exacerbation in February #9. Former smoker, in remission, quit smoking 5 years ago, smoked half a pack a day for 20 years Plan: Patient is developing volume contraction alkalosis, clinically does not look fluid overloaded we'll cut back the dose of Lasix to once daily, chest x-ray has been reviewed, and shows dense consolidation behind the heart with left-sided pleural effusion. We'll continue with current antibiotics, clinically patient is looking stable, no leukocytosis, no fever or chills, and sputum for culture, will obtain pro-calcitonin level. We'll continue to follow I performed a history & physical examination of the patient and discussed their management with my nurse practitioner, Laly Calabrese. I reviewed the nurse practitioner's note and agree with the documented findings and plan of care. Lung sounds are positive for bibasilar crackles. The findings and the impression was discussed with the patient. I attest to the documentation by the nurse practitioner. Time with Patient: Less than 30
[2019-03-30 11:36] LABS: Glucose,Whole Blood 182 mg/dL (75-99)
[2019-03-30] MEDS: AZITHROMYCIN 500 MG TAB PO SCH (13:38)
[2019-03-30 16:51] LABS: Glucose,Whole Blood 211 mg/dL (75-99)
[2019-03-30 21:30] LABS: Glucose,Whole Blood 131 mg/dL (75-99)
[2019-03-30] MEDS: PANTOPRAZOLE 40 MG TABLET PO SCH (21:34)
[2019-03-30] MEDS: predniSONE 20 MG TAB PO SCH (21:35)
[2019-03-30] MEDS: FUROSEMIDE 40 MG TAB PO SCH (21:35)
--- NOTE | 2019-03-30 23:03 | PN ---
PROGRESS NOTE DATE OF SERVICE: 03/30/2019 This 78-year-old woman was admitted with multiple medical issues, including COPD acute exacerbation, also had some fluid overload also. The patient is on steroids and IV Lasix, also. The patient's hemoglobin improved significantly. The most recent chest x- ray which was personally reviewed by me showed dense consolidation being the left heart. PAST MEDICAL HISTORY: Reviewed. REVIEW OF SYSTEMS: CARDIOVASCULAR: No angina or palpitations. RESPIRATION: As mentioned earlier. GI as mentioned earlier. : No dysuria. CENTRAL NERVOUS SYSTEM: As mentioned earlier. CURRENT MEDICATIONS: Reviewed and include: 1. Tylenol 500 mg q.4 p.r.n. 2. Tylenol #3. 3. DuoNeb q.i.d. p.r.n. 4. Zithromax 500 mg p.o. daily. 5. Zebeta. 6. Pulmicort. 7. Cardizem CD. 8. Perforomist. 9. Lasix. 10.Mucinex. 11.Heparin. 12.NovoLog. 13.Zestril. 14.Claritin. 15.Solu-Medrol. 16.K-Dur. PHYSICAL EXAMINATION: The patient is alert, oriented times three. Pulse is 80. Blood pressure 130/64, respiration 16, temperature 98.4, pulse ox 97% on 2 L. HEENT: Conjunctivae normal. Oral mucosa moist. NECK is no jugular venous distention. No carotid bruit. No lymph node enlargement. CARDIOVASCULAR: S1, S2 muffled. RESPIRATORY: Breath sounds diminished in the bases. Bilateral scattered rhonchi and expiratory wheezing and crackles. ABDOMEN is soft, nontender. LEGS are no edema. No swelling. CENTRAL NERVOUS SYSTEM: No focal deficits. LABORATORY DATA: WBC 9.2, hemoglobin 11.3. Accu-Cheks noted. ASSESSMENT: 1. Shortness of breath possibly multifactorial including chronic obstructive pulmonary disease acute exacerbation also well as congestive heart failure acute exacerbation with acute on chronic diastolic dysfunction, ejection fraction 50-60 percent with acute hypoxic respiratory failure. 2. Possible left lower lobe pneumonia possibly gram-negative. 3. Chronic diverticulosis, symptomatic. 4. Hypertension. 5. Hyperlipidemia. 6. History of degenerative joint disease. 7. Chronic hypoxic respiratory failure on 1.5 L oxygen at home. 8. Increased random blood sugar. 9. Increased potassium. 10.Increased MCV. RECOMMENDATIONS AND DISCUSSION: Recommend to continue current medications. Continue with monitoring, symptomatic treatment. Continue with antibiotics. We will cut down the steroids. Guarded prognosis because of multiple complex medical issues. Closely follow with Pulmonary. Further recommendations to follow. X-rays noted. The patient is keen on going home but I would also recommend PT/OT evaluation and continue to monitor. Prognosis guarded. Further recommendations to follow. MMMARTIRL / IJN: [id number] / MTDD
[2019-03-31 07:15] LABS: Glucose,Whole Blood 204 mg/dL (75-99)
[2019-03-31] MEDS: predniSONE 20 MG TAB PO SCH (07:35)
[2019-03-31] MEDS: HEPARIN SODIUM,PORCINE 5,000 UNIT/ML 1 ML VIAL SQ SCH ×2 (07:35→21:27)
[2019-03-31] MEDS: BISOPROLOL 5 MG TAB PO SCH (07:35)
[2019-03-31] MEDS: MELOXICAM 7.5 MG TAB PO SCH (07:36)
[2019-03-31] MEDS: guaiFENesin 600 MG TABLET.ER PO SCH ×2 (07:36→21:26)
[2019-03-31] MEDS: hydrALAZINE HCL 10 MG TAB PO SCH ×2 (07:36→21:26)
[2019-03-31] MEDS: POTASSIUM CHLORIDE ER 10 MEQ TAB.ER.PRT PO SCH (07:36)
[2019-03-31] MEDS: RALOXIFENE 60 MG TAB PO SCH (07:36)
[2019-03-31] MEDS: LISINOPRIL 20 MG TAB PO SCH (07:36)
[2019-03-31] MEDS: FUROSEMIDE 40 MG TAB PO SCH (07:36)
[2019-03-31] MEDS: MULTIVITAMINS, THERA 1 EACH TAB PO SCH (07:36)
[2019-03-31] MEDS: DILTIAZEM CD 120 MG CAP.ER.24H PO SCH (07:37)
[2019-03-31] MEDS: PANTOPRAZOLE 40 MG TABLET PO SCH (07:37)
[2019-03-31] MEDS: LORATADINE 10 MG TAB PO SCH (07:37)
[2019-03-31] MEDS: INSULIN ASPART (NovoLOG) 100 UNIT/ML VIAL SQ SCH ×4 (07:44→21:27)
[2019-03-31] MEDS: FORMOTEROL FUMARATE 20 MCG/2 ML NEBU INHALATION SCH ×2 (07:47→20:10)
[2019-03-31] MEDS: IPRATROPIUM-ALBUTEROL 3 ML NEB INHALATION SCH ×4 (07:47→20:11)
[2019-03-31] MEDS: BUDESONIDE 1 MG/2 ML NEBU INHALATION SCH ×2 (07:47→20:10)
[2019-03-31 08:34] LABS: Basophils % (A) 0 %; Eosinophils % (A) 0 %; HCT 38.4 % (34.0-46.0); HGB 11.5 gm/dL (11.4-16.0); Hypochromasia Marked; Lymphocytes # (A) 0.2 k/uL (1.0-4.8); Lymphocytes % (A) 3 %; MCH 33.3 pg (25.0-35.0); MCV 111.1 fL (80.0-100.0); Macrocytosis Marked; Mean Platelet Volume 7.3; Monocytes # (A) 0.7 k/uL (0-1.0); Monocytes % (A) 7 %; Neutrophils # (A) 8.5 k/uL (1.3-7.7); Neutrophils % (A) 89 %; Platelet Count 331 k/uL (150-450); Poikilocytosis Slight; RBC 3.45 m/uL (3.80-5.40); RDW 15.9 % (11.5-15.5); WBC 9.6 k/uL (3.8-10.6)
[2019-03-31 09:00] LABS: Blood Urea Nitrogen 51 mg/dL (7-17); Calcium 8.8 mg/dL (8.4-10.2); Chloride 95 mmol/L (98-107); Glucose 124 mg/dL (74-99); Potassium 3.8 mmol/L (3.5-5.1); Sodium 142 mmol/L (137-145)
[2019-03-31] MEDS ORDERED: FUROSEMIDE 10 MG/ML 4 ML VIAL IV SCH (09:00)
[2019-03-31 09:07] LABS: Anion Gap 4 mmol/L
[2019-03-31 09:13] LABS: Carbon Dioxide 43 mmol/L (22-30)
--- NOTE | 2019-03-31 11:30 | P.PN ---
Subjective Progress Note Date: 03/31/19 Principal diagnosis: Acute on chronic hypoxic respiratory failure related to exacerbation of COPD and exacerbation of CHF This is a 78-year-old white female patient with past medical history of COPD with chronic hypoxemic respiratory failure, patient usually wears 1,5 of oxygen/ min, patient has a history of hypertension, hyperlipidemia, osteoarthritis, previous history of intracranial hemorrhage that was treated conservatively at the [facility], hip replacements 3. Patient resides at the [facility], and she does require assistance with some of her ADLs including getting dressed and bathed, she normally moves around in the wheelchair, but is able to ambulate briefly with a walker short distances. Patient has a chronically elevated left hemidiaphragm, we had previously seen the patient in consultation in April 2018 for COPD exacerbation, and possibility of left lower lobe infiltrate, a UTI and GI bleeding. On 03/26/2019 patient presented to the [facility] department with complaints of worsening shortness of breath for 2 days, some cough and congestion, and patient was not able to bring up any sputum, she denied any fever or chills, she denied any chest pain, denied any lower extremity edema, no nausea vomiting or diarrhea. No headaches, no palpitations, no numbness or weakness. She states she had missed 2-3 doses of her oral Lasix because she thinks it fell out of her medication couple. And she had noted some increased swelling in her lower extremities. Chest x-ray showed pulmonary venous congestion without evidence of overt heart failure, and chronic basilar pleural parenchymal opacity. EKG showed sinus rhythm with PACs, left vent ricular hypertrophy, and evidence of a septal infarct of undetermined age. No acute ischemic changes. Troponin was mildly elevated at 0.049, and the second and third troponins were negative at 0.027, and 0.021. White blood cell, was 4.9, hemoglobin is 11.6, coagulation profile was within normal limits, sodium was 138, potassium is 5.6, chloride was 103, CO2 is 28, B1 is 25 creatinine was 0.35. Patient was started on her home dose Lasix, nebulized treatments, the steroids, we were consulted for evaluation of her shortness of breath On 03/28/2019 patient seen in follow-up on medical surgical floor. She states she is breathing easier, still sounds congested, she started to bring up some y ellowish colored phlegm. Lung sounds are diminished, patient remains on supplemental oxygen, currently at 3 L with a pulse ox of 98%, no fever or chills, blood and urine cultures showed no growth, proBNP came back elevated 13,400, suggesting acute exacerbation of chronic congestive heart failure. No acute events overnight, no complaint of chest pain, patient is on the oral Zithromax, she is on oral Lasix, breathing treatments and IV steroids. On 03/30/2019 patient seen in follow-up on medical surgical floor. She is awake and alert, in no acute distress, she is complaining that she was urinating all night last night, and did not get any sleep. She was started on IV Lasix of 40 mg every 12 hours yesterday, and she has been on the bedpan frequently through the night. She remains on 1/2 L of oxygen with pulse ox of 94%, she is afebrile, hemodynamically patient is stable, a bit hypertensive. Lung sounds are positive for coarse rhonchi, and patient has a congested cough, and she is able to bring up whitish colored sputum. No chest pain, no chills, blood and urine cultures showed no growth, she is on oral Zithromax for antibiotic coverage, and she is on breathing treatments. No edema in lower extremities. Repeat chest x-ray was obtained this morning, and shows no interval change since yesterday's chest x-ray with dense consolidation at the left lower lobe. Patient is clinically stable, no leukocytosis on today's labs, white blood cell count is 9.4, hemoglobin is 11.3, sodium is 142, potassium is 3.7, chloride is 98, CO2 is 39, B1 is 54, and creatinine 0.47, and patient is developing volume contraction alkalosis, we'll cut back the IV Lasix to once daily On 03/31/2017 patient seen in follow-up on medical surgical floor. She is awake and alert, she is sitting up in the recliner, she is in no acute distress, she is on 23 L of oxygen per pulse ox is 99%, no complaints of chest pain, no worsening shortness of breath, lung sounds are positive for a few scattered rho nchi, no rales. Today's labs have been reviewed and showed a CO2 of 43, BUN of 51, creatinine is 0.44, and IV Lasix has been switched to oral Lasix. No white count, no fever or chills. Pro-calcitonin level is low at 0.05, suggesting absence of infection. Objective - Vital Signs Vital signs: Vital Signs Temp 98.1 F 03/31/19 06:00 Pulse 96 03/31/19 08:11 Resp 18 03/31/19 08:00 BP 187/83 03/31/19 06:00 Pulse Ox 99 03/31/19 07:47 Intake & Output 03/30/19 03/31/19 03/31/19 18:59 06:59 18:59 Intake Total 850 540 480 Balance 850 540 480 Intake: Oral 850 540 480 Other: Voiding Method Bedpan Bedpan Incontinent Incontinent # Voids 14 # Bowel Movements 0 - Exam GENERAL EXAM: Alert, pleasant, 78-year-old white female, on 3 L of oxygen with pulse ox of 96%, comfortable in no apparent distress. she has a loose congested nonproductive cough HEAD: Normocephalic/atraumatic. EYES: Normal reaction of pupils, equal size. Conjunctiva pink, sclera white. NOSE: Clear with pink turbinates. THROAT: No erythema or exudates. NECK: No masses, no JVD, no thyroid enlargement, no adenopathy. CHEST: No chest wall deformity. Symmetrical expansion. LUNGS: Equal air entry and breath sounds, with coarse rhonchi CVS: Regular rate and rhythm, normal S1 and S2, no gallops, no murmurs, no rubs ABDOMEN: Soft, nontender. No hepatosplenomegaly, normal bowel sounds, no guarding or rigidity. EXTREMITIES: No clubbing, no edema, no cyanosis, 2+ pulses and upper and lower extremities. MUSCULOSKELETAL: Muscle strength and tone normal. SPINE: No scoliosis or deformity SKIN: No rashes CENTRAL NERVOUS SYSTEM: Alert and oriented -3. No focal deficits, tone is normal in all 4 extremities. PSYCHIATRIC: Alert and oriented -3. Appropriate affect. Intact judgment and insight. - Labs CBC & Chem 7: 03/31/19 08:06 03/31/19 08:06 Labs: Abnormal Lab Results - Last 24 Hours (Table) 03/30/19 03/30/19 03/30/19 Range/Units 11:34 16:31 21:03 RBC (3.80-5.40) m/uL MCV (80.0-100.0) fL MCHC (31.0-37.0) g/dL RDW (11.5-15.5) % Neutrophils # (1.3-7.7) k/uL Lymphocytes # (1.0-4.8) k/uL Macrocytosis Chloride (98-107) mmol/L Carbon Dioxide (22-30) mmol/L BUN (7-17) mg/dL Creatinine (0.52-1.04) mg/dL Glucose (74-99) mg/dL POC Glucose (mg/dL) 182 H 211 H 131 H (75-99) mg/dL 03/31/19 03/31/19 03/31/19 Range/Units 07:10 08:06 08:06 RBC 3.45 L (3.80-5.40) m/uL MCV 111.1 H (80.0-100.0) fL MCHC 30.0 L (31.0-37.0) g/dL RDW 15.9 H (11.5-15.5) % Neutrophils # 8.5 H (1.3-7.7) k/uL Lymphocytes # 0.2 L (1.0-4.8) k/uL Macrocytosis Marked A Chloride 95 L (98-107) mmol/L Carbon Dioxide 43 H* (22-30) mmol/L BUN 51 H (7-17) mg/dL Creatinine 0.44 L (0.52-1.04) mg/dL Glucose 124 H (74-99) mg/dL POC Glucose (mg/dL) 204 H (75-99) mg/dL Microbiology - Last 24 Hours (Table) 03/26/19 12:30 Blood Culture - Preliminary Blood No Growth after 96 hours Assessment and Plan Plan: Assessment: #1. Acute on chronic hypoxemic respiratory failure, related to exacerbation of COPD, and chest x-ray showed pulmonary venous congestion that could be related to acute exacerbation of congestive heart failure with previously documented preserved left ventricular systolic function with an EF of 55-60% on the echocardiogram from 05/13/2018 On 03/30/2019 repeat chest x-ray was obtained, and shows dense consolidation at the left lower lobe, behind a heart with left-sided pleural effusion, has not changed despite the IV diuretics. Rule out possibility of pneumonia #2. Mild exacerbation of COPD #3. Hypertension #4. Hyperlipidemia #5. Osteoarthritis #6. History of COPD with chronic hypoxemic respiratory failure with underlying FEV1 of 0.73 L or 36% of predicted, consistent with stage III COPD #7. The story of intracranial hemorrhage that was conservatively managed at the [facility] #8. Recent outpatient treatment for his COPD exacerbation in February #9. Former smoker, in remission, quit smoking 5 years ago, smoked half a pack a day for 20 years Plan: Lasix have been transitioned to oral Lasix, patient has developed volume contraction alkalosis. Calcitonin level came back low at 0.05, suggesting absence of infection, left lower lung consolidation likely related to atelectasis, clinically patient is negative for any fever or chills, no chest pain, no leukocytosis. Encourage patient to sit up in the chair, deep breathe and cough, continue with nebulized bronchodilators, we will Probably stop the antibiotics, from pulmonary perspective patient is stable for discharge home to [facility] today, if cleared by cardiology. I performed a history & physical examination of the patient and discussed their management with my nurse practitioner, Laly Calabrese. I reviewed the nurse practitioner's note and agree with the documented findings and plan of care. Lung sounds are positive for bibasilar crackles. The findings and the impression was discussed with the patient. I attest to the documentation by the nurse practitioner. Time with Patient: Less than 30
[2019-03-31 11:54] LABS: Glucose,Whole Blood 146 mg/dL (75-99)
[2019-03-31 17:04] LABS: Glucose,Whole Blood 163 mg/dL (75-99)
[2019-03-31 20:40] LABS: Glucose,Whole Blood 149 mg/dL (75-99)
[2019-03-31] MEDS: Acetaminophen-Codeine 300-30mg TAB PO PRN (21:25)
[2019-03-31] MEDS: ACETAMINOPHEN TAB 500 MG TAB PO PRN (21:26)
--- NOTE | 2019-03-31 21:48 | PN ---
PROGRESS NOTE DATE OF SERVICE: 03/31/2019 This 78-year-old woman who was admitted with COPD acute exacerbation as well as CHF acute exacerbation is being closely monitored. The shortness of breath is much improved at this time. Patient complains of weakness. No chest pain. No palpitations. No fever. EXAM: Alert and oriented times three. Pulse is 91. Blood pressure 172/75, respiration 18, temperature 98.1, pulse ox 94% on room air. HEENT: Conjunctivae normal. NECK: No jugular venous distention. No carotid bruit. CARDIOVASCULAR: S1, S2 muffled. RESPIRATORY: Breath sounds diminished in the bases. Bilateral scattered rhonchi and crackles. Expiratory wheezing. ABDOMEN is soft. Nontender. CENTRAL NERVOUS SYSTEM: No focal deficits. LABORATORY DATA: WBC 9.7, hemoglobin 11.2, sodium 140 potassium 3.8, CO2 is 43. ASSESSMENT: 1. Shortness of breath possibly multifactorial including chronic obstructive pulmonary disease acute exacerbation as well as congestive heart failure acute exacerbation with acute on chronic diastolic dysfunction, ejection fraction 50-60 percent with acute hypoxic hypercarbic respiratory failure. 2. Possible left lower lobe pneumonia possibly gram-negative. 3. Chronic diverticulosis, symptomatic. 4. Hypertension. 5. Gait dysfunction. 6. Hyperlipidemia. 7. History of degenerative joint disease. 8. Chronic hypoxic respiratory failure on 1.5 L oxygen at home. 9. Increased random blood sugar. 10.Increased potassium. 11.Increased MCV. RECOMMENDATIONS AND DISCUSSION: Recommend to continue current medications and continue with monitoring, symptomatic treatment. Otherwise, at this time, I recommend continue the bronchodilators. Continue with tapering steroids. Otherwise PT/OT evaluation, possible ECF rehab. Guarded prognosis because of multiple complex medical issues. Further recommendations to follow. MMODL / IJN: [id number] /
[2019-04-01] MEDS: BUDESONIDE 1 MG/2 ML NEBU INHALATION SCH ×2 (07:06→19:21)
[2019-04-01] MEDS: IPRATROPIUM-ALBUTEROL 3 ML NEB INHALATION SCH ×4 (07:06→19:21)
[2019-04-01] MEDS: FORMOTEROL FUMARATE 20 MCG/2 ML NEBU INHALATION SCH ×2 (07:06→19:21)
[2019-04-01 07:11] LABS: Glucose,Whole Blood 101 mg/dL (75-99)
[2019-04-01] MEDS: INSULIN ASPART (NovoLOG) 100 UNIT/ML VIAL SQ SCH ×4 (07:46→21:44)
[2019-04-01] MEDS: HEPARIN SODIUM,PORCINE 5,000 UNIT/ML 1 ML VIAL SQ SCH ×2 (07:47→21:43)
[2019-04-01] MEDS: DILTIAZEM CD 120 MG CAP.ER.24H PO SCH (07:47)
[2019-04-01] MEDS: LORATADINE 10 MG TAB PO SCH (07:47)
[2019-04-01] MEDS: BISOPROLOL 5 MG TAB PO SCH (07:47)
[2019-04-01] MEDS: MULTIVITAMINS, THERA 1 EACH TAB PO SCH (07:47)
[2019-04-01] MEDS: hydrALAZINE HCL 10 MG TAB PO SCH ×2 (07:47→21:43)
[2019-04-01] MEDS: PANTOPRAZOLE 40 MG TABLET PO SCH (07:47)
[2019-04-01] MEDS: LISINOPRIL 20 MG TAB PO SCH (07:48)
[2019-04-01] MEDS: FUROSEMIDE 40 MG TAB PO SCH (07:48)
[2019-04-01] MEDS: MELOXICAM 7.5 MG TAB PO SCH (07:48)
[2019-04-01] MEDS: POTASSIUM CHLORIDE ER 10 MEQ TAB.ER.PRT PO SCH (07:48)
[2019-04-01] MEDS: predniSONE 20 MG TAB PO SCH (07:49)
[2019-04-01] MEDS: Acetaminophen-Codeine 300-30mg TAB PO PRN (07:54)
[2019-04-01] MEDS: RALOXIFENE 60 MG TAB PO SCH (07:56)
[2019-04-01] MEDS: guaiFENesin 600 MG TABLET.ER PO SCH ×2 (07:57→21:43)
[2019-04-01 09:31] LABS: Anisocytosis Slight; Basophils % (A) 0 %; Eosinophils % (A) 0 %; HCT 38.5 % (34.0-46.0); HGB 11.7 gm/dL (11.4-16.0); Hypochromasia Moderate; Lymphocytes # (A) 0.3 k/uL (1.0-4.8); Lymphocytes % (A) 2 %; MCH 33.7 pg (25.0-35.0); MCHC 30.5 g/dL (31.0-37.0); MCV 110.6 fL (80.0-100.0); Macrocytosis Marked; Mean Platelet Volume 7.6; Monocytes # (A) 1.2 k/uL (0-1.0); Monocytes % (A) 9 %; Neutrophils # (A) 12.6 k/uL (1.3-7.7); Neutrophils % (A) 88 %; Platelet Count 307 k/uL (150-450); Poikilocytosis Slight; RBC 3.48 m/uL (3.80-5.40); WBC 14.4 k/uL (3.8-10.6)
[2019-04-01 09:51] LABS: Blood Urea Nitrogen 44 mg/dL (7-17); Calcium 8.9 mg/dL (8.4-10.2); Chloride 96 mmol/L (98-107); Glucose 100 mg/dL (74-99); Potassium 4.1 mmol/L (3.5-5.1); Sodium 141 mmol/L (137-145)
[2019-04-01 09:58] LABS: Anion Gap 4 mmol/L
[2019-04-01 10:22] LABS: Carbon Dioxide 41 mmol/L (22-30)
--- NOTE | 2019-04-01 11:40 | ECHOF ---
Referral Reason:chf MEASUREMENTS -------- HEIGHT: 162.6 cm WEIGHT: 45.4 kg BP: 187/83 RVIDd: 2.9 cm (< 3.3) IVSd: 1.3 cm (0.6 - 1.1) LVIDd: 4.4 cm (3.9 - 5.3) LVPWd: 1.2 cm (0.6 - 1.1) IVSs: 1.8 cm LVIDs: 3.1 cm LVPWs: 1.6 cm LA Diam: 2.6 cm (2.7 - 3.8) LAESV Index (A-L): 45.75 ml/m Ao Diam: 1.2 cm (2.0 - 3.7) EPSS: 1.7 cm MV E August: 0.61 m/s MV DecT: 278 ms MV A August: 1.32 m/s MV E/A Ratio: 0.46 AV maxP.53 mmHg AV meanP.57 mmHg AR PHT: 699 ms RAP: 5.00 mmHg RVSP: 51.67 mmHg MV EF SLOPE: 13.26 mm/s (70 - 150) MV EXCURSION: 1.59 cm (> 18.000) FINDINGS -------- Sinus rhythm. This was a technically excellent study. The left ventricular size is normal. There is mild concentric left ventricular hypertrophy. Overa ll left ventricular systolic function is mild-moderately impaired with, an EF between 40 - 45 %. The right ventricle is normal in size. LA is severely dilated >40 ml/m2 The right atrium is normal in size. Patent foramen ovale present There is mild aortic valve sclerosis. There is [id number]-sbjagbuv aortic regurgitation. There is mi ld aortic stenosis present. Peak/mean gradient across the Aortic Valve is 17.53mmHg / 6.57mmHg. The mitral valve leaflets are mildly thickened. Mild mitral annular calcification present. Mild m itral regurgitation is present. Mild tricuspid regurgitation present. There is moderate pulmonary hypertension. The right ventric ular systolic pressure, as measured by Doppler, is 51.67mmHg. Trace/mild (physiologic) pulmonic regurgitation. The aortic root size is normal. Normal inferior vena cava with normal inspiratory collapse consistent with estimated right atrial pre ssure of 5 mmHg. There is no pericardial effusion. Small Pleural Effusion. CONCLUSIONS -------- 1. Sinus rhythm. 2. This was a technically excellent study. 3. The left ventricular size is normal. 4. There is mild concentric left ventricular hypertrophy. 5. Overall left ventricular systolic function is mild-moderately impaired with, an EF between 40 - 45 %. 6. The right ventricle is normal in size. 7. LA is severely dilated >40 ml/m2 8. The right atrium is normal in size. 9. Patent foramen ovale present 10. There is mild aortic valve sclerosis. 11. There is [id number] aortic regurgitation. 12. There is mild aortic stenosis present. 13. Peak/mean gradient across the Aortic Valve is 17.53mmHg / 6.57mmHg. 14. The mitral valve leaflets are mildly thickened. 15. Mild mitral annular calcification present. 16. Mild mitral regurgitation is present. 17. Mild tricuspid regurgitation present. 18. There is moderate pulmonary hypertension. 19. The right ventricular systolic pressure, as measured by Doppler, is 51.67mmHg. 20. Trace/mild (physiologic) pulmonic regurgitation. 21. The aortic root size is normal. 22. Normal inferior vena cava with normal inspiratory collapse consistent with estimated right atrial pressure of 5 mmHg. 23. There is no pericardial effusion. 24. Small Pleural Effusion. RN CARDIAC REHAB: JOEY Knight
[2019-04-01 11:57] LABS: Glucose,Whole Blood 131 mg/dL (75-99)
--- NOTE | 2019-04-01 13:15 | P.DS ---
Providers Date of admission: 03/27/19 15:49 Attending physician: Chilo Dawkins Consults: 03/26/19 15:22 Consult Physician Routine Consulting Provider: Elton King Consult Reason/Comments: COPD Do you want consulting provider notified?: Yes Primary care physician: Ben Morrow [facility] Course: Final diagnosis Shortness of breath possibly multifactorial including COPD acute exacerbation as well as CHF acute exacerbation with acute on chronic diastolic dysfunction ejection fraction 50-60% with acute hypoxic hypercapnic respiratory failure present on admission. Left lower lobe pneumonia possibly gram-negative present on admission. Chronic diverticulosis symptomatic asymptomatic. Hypertension Gait dysfunction Hyperlipidemia history of DJD Chronic hypoxic respiratory failure on 1.5 L oxygen at home Increased elevated blood sugar Increased potassium Increased random blood sugar Increased potassium Increased MCV Discharge disposition The patient be discharged in a stable condition with guarded prognosis to ECF. Total time that time taken 35 minutes. History of present illness This 78-year-old woman with a past medical history multiple medical problems being followed by Dr. Morrow outpatient setting was admitted with a shortness of breath which is multifactorial as described above. Patient was treated with bronchodilator steroids antibiotics. Patient improved significantly. However the patient was complaining of severe weakness. PTOT was consulted. ECF rehab was recommended. Discharged in a stable condition with guarded prognosis. On exam vitals are stable. Cardio S1 and S2 normal. Respirator system few sc attered rhonchi and crackles. Abdomen soft nontender. Nervous system no focal deficit. Please refer to the medication reconciliation sheet or details of medications. Plan - Discharge Summary New Discharge Prescriptions: New Artificial Tears-Hypromellose [Artificial Tear Drops] 2 drops BOTH EYES TID PRN bottle PRN Reason: Dry Eye(S) Cefuroxime Axetil [Ceftin] 500 mg PO BID 3 Days #6 tab Ipratropium-Albuterol Nebulize [Duoneb 0.5 mg-3 mg/3 ml Soln] 3 ml INHALATION RT-QID ampul.neb guaiFENesin [Mucinex] 1,200 mg PO Q12HR tablet.er predniSONE 10 mg PO DIRECTED #30 tab Continue Lisinopril 40 mg PO DAILY hydrALAZINE HCL 10 mg PO BID Potassium Chloride ER [K-Dur 10] 10 meq PO DAILY Furosemide [Lasix] 20 mg PO DAILY Bisoprolol Fumarate [Zebeta] 10 mg PO DAILY Acetaminophen [Tylenol Extra Strength] 500 mg PO Q4HR PRN PRN Reason: Pain Budesonide-Formot 160-4.5 Mcg [Symbicort 160-4.5 Mcg Inhaler] 2 puff INHALATION RT-BID puff Ipratropium-Albuterol Nebulize [Duoneb 0.5 mg-3 mg/3 ml Soln] 3 ml INHALATION RT-QID ampul.neb Ipratropium-Albuterol Nebulize [Duoneb 0.5 mg-3 mg/3 ml Soln] 3 ml INHALATION Q4H PRN ampul.neb PRN Reason: Shortness Of Breath Or Wheezing Raloxifene [Evista] 60 mg PO DAILY Celecoxib [CeleBREX] 200 mg PO DAILY Fexofenadine HCl [Lucia Allergy] 180 mg PO DAILY Diltiazem HCl [Cardizem CD] 120 mg PO DAILY Acetaminophen-Codeine 300-30mg [Tylenol w/codeine #3] 1 tab PO BID PRN PRN Reason: Pain Multivitamins, Thera [Multivitamin (formulary)] 1 tab PO DAILY Discharge Medication List Lisinopril 40 mg PO DAILY 11/13/16 [History] Acetaminophen [Tylenol Extra Strength] 500 mg PO Q4HR PRN 05/01/18 [History] Bisoprolol Fumarate [Zebeta] 10 mg PO DAILY 05/01/18 [History] Furosemide [Lasix] 20 mg PO DAILY 05/01/18 [History] Potassium Chloride ER [K-Dur 10] 10 meq PO DAILY 05/01/18 [History] hydrALAZINE HCL 10 mg PO BID 05/01/18 [History] Budesonide-Formot 160-4.5 Mcg [Symbicort 160-4.5 Mcg Inhaler] 2 puff INHALATION RT-BID puff 05/13/18 [Rx] Ipratropium-Albuterol Nebulize [Duoneb 0.5 mg-3 mg/3 ml Soln] 3 ml INHALATION Q4H PRN ampul.neb 05/13/18 [Rx] Ipratropium-Albuterol Nebulize [Duoneb 0.5 mg-3 mg/3 ml Soln] 3 ml INHALATION RT-QID ampul.neb 05/13/18 [Rx] Acetaminophen-Codeine 300-30mg [Tylenol w/codeine #3] 1 tab PO BID PRN 03/26/19 [History] Celecoxib [CeleBREX] 200 mg PO DAILY 03/26/19 [History] Diltiazem HCl [Cardizem CD] 120 mg PO DAILY 03/26/19 [History] Fexofenadine HCl [Lucia Allergy] 180 mg PO DAILY 03/26/19 [History] Multivitamins, Thera [Multivitamin (formulary)] 1 tab PO DAILY 03/26/19 [History] Raloxifene [Evista] 60 mg PO DAILY 03/26/19 [History] Artificial Tears-Hypromellose [Artificial Tear Drops] 2 drops BOTH EYES TID PRN bottle 04/01/19 [Rx] Cefuroxime Axetil [Ceftin] 500 mg PO BID 3 Days #6 tab 04/01/19 [Rx] Ipratropium-Albuterol Nebulize [Duoneb 0.5 mg-3 mg/3 ml Soln] 3 ml INHALATION RT-QID ampul.neb 04/01/19 [Rx] guaiFENesin [Mucinex] 1,200 mg PO Q12HR tablet.er 04/01/19 [Rx] predniSONE 10 mg PO DIRECTED #30 tab 04/01/19 [Rx] Follow up Appointment(s)/Referral(s): Ben Morrow DO [Primary Care Provider] - 04/03/19 2:40 pm [facility] [NON-STAFF] - Activity/Diet/Wound Care/Special Instructions: RN Please call [facility] to update them when patient is d/c.
[2019-04-01 17:26] LABS: Glucose,Whole Blood 205 mg/dL (75-99)
[2019-04-01 20:33] LABS: Glucose,Whole Blood 130 mg/dL (75-99)
[2019-04-02] MEDS: IPRATROPIUM-ALBUTEROL 3 ML NEB INHALATION SCH ×4 (07:04→20:09)
[2019-04-02] MEDS: BUDESONIDE 1 MG/2 ML NEBU INHALATION SCH ×2 (07:04→20:08)
[2019-04-02] MEDS: FORMOTEROL FUMARATE 20 MCG/2 ML NEBU INHALATION SCH ×2 (07:04→20:08)
[2019-04-02 07:37] LABS: Glucose,Whole Blood 93 mg/dL (75-99)
[2019-04-02] MEDS: HEPARIN SODIUM,PORCINE 5,000 UNIT/ML 1 ML VIAL SQ SCH ×2 (08:06→21:38)
[2019-04-02] MEDS: MELOXICAM 7.5 MG TAB PO SCH (08:07)
[2019-04-02] MEDS: predniSONE 20 MG TAB PO SCH (08:07)
[2019-04-02] MEDS: FUROSEMIDE 40 MG TAB PO SCH (08:08)
[2019-04-02] MEDS: LORATADINE 10 MG TAB PO SCH (08:08)
[2019-04-02] MEDS: LISINOPRIL 20 MG TAB PO SCH (08:08)
[2019-04-02] MEDS: BISOPROLOL 5 MG TAB PO SCH (08:08)
[2019-04-02] MEDS: ACETAMINOPHEN TAB 500 MG TAB PO PRN (08:09)
[2019-04-02] MEDS: DILTIAZEM CD 120 MG CAP.ER.24H PO SCH (08:09)
[2019-04-02] MEDS: INSULIN ASPART (NovoLOG) 100 UNIT/ML VIAL SQ SCH ×4 (08:10→21:38)
[2019-04-02] MEDS: hydrALAZINE HCL 10 MG TAB PO SCH ×2 (08:10→21:37)
[2019-04-02] MEDS: MULTIVITAMINS, THERA 1 EACH TAB PO SCH (08:10)
[2019-04-02] MEDS: PANTOPRAZOLE 40 MG TABLET PO SCH (08:10)
[2019-04-02] MEDS: guaiFENesin 600 MG TABLET.ER PO SCH ×2 (08:10→21:37)
[2019-04-02] MEDS: POTASSIUM CHLORIDE ER 10 MEQ TAB.ER.PRT PO SCH (08:10)
[2019-04-02] MEDS: RALOXIFENE 60 MG TAB PO SCH (08:11)
[2019-04-02 09:46] LABS: HCT 37.2 % (34.0-46.0); HGB 11.1 gm/dL (11.4-16.0); Hypochromasia Marked; MCHC 29.8 g/dL (31.0-37.0); MCV 110.8 fL (80.0-100.0); Macrocytosis Marked; Mean Platelet Volume 7.3; Platelet Count 287 k/uL (150-450); Poikilocytosis Slight; RBC 3.35 m/uL (3.80-5.40); RDW 15.7 % (11.5-15.5); WBC 12.5 k/uL (3.8-10.6)
[2019-04-02 09:57] LABS: Blood Urea Nitrogen 42 mg/dL (7-17); Calcium 8.7 mg/dL (8.4-10.2); Chloride 96 mmol/L (98-107); Glucose 116 mg/dL (74-99); Potassium 3.8 mmol/L (3.5-5.1); Sodium 139 mmol/L (137-145)
[2019-04-02 10:04] LABS: Anion Gap 2 mmol/L
[2019-04-02 10:12] LABS: Carbon Dioxide 41 mmol/L (22-30)
--- NOTE | 2019-04-02 10:35 | PN ---
PROGRESS NOTE DATE OF SERVICE: 04/01/2019 This is a 78-year-old woman who was admitted with COPD exacerbation, improved significantly. No chest pain. No palpitations. No fever. PHYSICAL EXAM: Alert and oriented x2. Pulse 88, blood pressure 90/77, respirations 15, temp is 98 degrees, pulse ox 100% on 2 L. HEENT: Conjunctivae normal. CARDIOVASCULAR: S1, S2, muffled. RESPIRATORY: Breath sounds diminished at the bases, scattered rhonchi, no crackles. ABDOMEN: Soft, nontender. LEGS: No edema, no swelling. NERVOUS SYSTEM: No focal deficits. LABS: Reviewed. WBC 14.4. ASSESSMENT: 1. Chronic obstructive pulmonary disease, acute exacerbation. 2. Congestive heart failure, acute exacerbation. 3. Left lower lobe pneumonia. 4. Chronic diverticulosis. 5. Hypertension. 6. Gait dysfunction. 7. Hyperlipidemia. 8. Degenerative joint disease. 9. Chronic hypoxic respiratory failure. RECOMMENDATION: Consequently continue the management and treatments at this time PT OT evaluation, possible ECF rehab. Guarded prognosis. Further recommendations to follow. MMODL / IJN: [id number] / MTDD
[2019-04-02 11:28] LABS: Lymphocytes # (M) 0.13 k/uL (1.0-4.8); Metamyelocytes # (M) 0.13 k/uL (0); Metamyelocytes % 1 %; Myelocytes # (M) 0.25 k/uL (0); Myelocytes % 2 %; Neutrophils # (M) 11.13 k/uL (1.3-7.7); Neutrophils % (M) 89 %; Nucleated Red Blood Cells 0 /100 WBC (0-0); Total Cells Counted 200
[2019-04-02 11:29] LABS: Target Cells Present
[2019-04-02 11:30] LABS: Anisocytosis (M) Present
[2019-04-02 12:13] LABS: Glucose,Whole Blood 155 mg/dL (75-99)
[2019-04-02 17:16] LABS: Glucose,Whole Blood 198 mg/dL (75-99)
[2019-04-02 22:03] LABS: Glucose,Whole Blood 139 mg/dL (75-99)
[2019-04-03] MEDS: IPRATROPIUM-ALBUTEROL 3 ML NEB INHALATION SCH ×3 (07:05→15:12)
[2019-04-03] MEDS: BUDESONIDE 1 MG/2 ML NEBU INHALATION SCH (07:05)
[2019-04-03] MEDS: FORMOTEROL FUMARATE 20 MCG/2 ML NEBU INHALATION SCH (07:05)
[2019-04-03 07:45] LABS: Glucose,Whole Blood 87 mg/dL (75-99)
[2019-04-03] MEDS: PANTOPRAZOLE 40 MG TABLET PO SCH (07:45)
[2019-04-03] MEDS: POTASSIUM CHLORIDE ER 10 MEQ TAB.ER.PRT PO SCH (07:45)
[2019-04-03] MEDS: FUROSEMIDE 40 MG TAB PO SCH (07:45)
[2019-04-03] MEDS: predniSONE 20 MG TAB PO SCH (07:45)
[2019-04-03] MEDS: LISINOPRIL 20 MG TAB PO SCH (07:46)
[2019-04-03] MEDS: HEPARIN SODIUM,PORCINE 5,000 UNIT/ML 1 ML VIAL SQ SCH (07:46)
[2019-04-03] MEDS: MULTIVITAMINS, THERA 1 EACH TAB PO SCH (07:47)
[2019-04-03] MEDS: hydrALAZINE HCL 10 MG TAB PO SCH (07:47)
[2019-04-03] MEDS: MELOXICAM 7.5 MG TAB PO SCH (07:47)
[2019-04-03] MEDS: LORATADINE 10 MG TAB PO SCH (07:47)
[2019-04-03] MEDS: guaiFENesin 600 MG TABLET.ER PO SCH (07:47)
[2019-04-03] MEDS: INSULIN ASPART (NovoLOG) 100 UNIT/ML VIAL SQ SCH ×3 (07:51→12:05)
[2019-04-03] MEDS: DILTIAZEM CD 120 MG CAP.ER.24H PO SCH (07:52)
[2019-04-03] MEDS: BISOPROLOL 5 MG TAB PO SCH (07:52)
[2019-04-03] MEDS: RALOXIFENE 60 MG TAB PO SCH (07:56)
[2019-04-03 09:45] LABS: Anion Gap 2 mmol/L; Blood Urea Nitrogen 43 mg/dL (7-17); Calcium 8.8 mg/dL (8.4-10.2); Carbon Dioxide 40 mmol/L (22-30); Chloride 97 mmol/L (98-107); Glucose 88 mg/dL (74-99); Potassium 3.8 mmol/L (3.5-5.1); Sodium 139 mmol/L (137-145)
[2019-04-03 09:55] LABS: HGB 11.5 gm/dL (11.4-16.0); Hypochromasia Marked; MCH 32.8 pg (25.0-35.0); MCHC 29.6 g/dL (31.0-37.0); MCV 110.8 fL (80.0-100.0); Macrocytosis Marked; Mean Platelet Volume 7.5; Platelet Count 299 k/uL (150-450); RBC 3.52 m/uL (3.80-5.40); RDW 15.5 % (11.5-15.5)
[2019-04-03] MEDS: ACETAMINOPHEN TAB 500 MG TAB PO PRN (10:09)
[2019-04-03 10:30] LABS: WBC 12.6 k/uL (3.8-10.6)
[2019-04-03 10:35] LABS: Band Neutrophils % 1 %; Lymphocytes # (M) 0.63 k/uL (1.0-4.8); Metamyelocytes # (M) 0.13 k/uL (0); Metamyelocytes % 1 %; Monocytes # (M) 0.76 k/uL (0-1.0); Myelocytes # (M) 0.13 k/uL (0); Myelocytes % 1 %; Neutrophils % (M) 87 %; Nucleated Red Blood Cells 0 /100 WBC (0-0); Total Cells Counted 200
[2019-04-03 10:37] LABS: Anisocytosis (M) Present
[2019-04-03 10:38] LABS: Poikilocytosis (M) Present
--- NOTE | 2019-04-03 11:28 | DS ---
DISCHARGE SUMMARY DATE OF ADMISSION: 03/27/2019 DATE OF DISCHARGE: 04/03/2019 FINAL DIAGNOSES: 1. Acute severe chronic obstructive pulmonary disease exacerbation in an ex-smoker. 2. Pneumonia, suspect gram-negative organism, POA. 3. Chronic colonic diverticulosis, asymptomatic. 4. Essential hypertension. 5. Hyperlipidemia. 6. Primary osteoarthritis. 7. Chronic hypoxic respiratory failure on 1.5 L oxygen at home from underlying chronic obstructive pulmonary disease. 8. Chronic systolic left ventricular dysfunction, ejection fraction 40% to 45% from hypertensive cardiomyopathy. CONSULTATION: Dr. Reid from Pulmonary. HOSPITAL COURSE: This patient presented with COPD exacerbation and pneumonia. Doing better at the time of discharge. The patient has become a bit weak and tired. Appetite is catching up. Per the rn field case manager, the patient was not sure about his disposition. Had a talk with the patient and also brought the watch caser back and had a further discussion with the patient. The patient at this point is ready to go to inpatient rehab. [facility] is being looked at. Questions were discussed and answered. Otherwise patient is rather comfortable. Discussion and discharge planning more than 35 minutes. ON EXAMINATION: Afebrile, pulse 86, respiration 20, blood pressure 160/77, pulse ox 92% on 2 L. LUNGS: Decreased breath sounds. PSYCH: AO x3. LABS: White count 12.6, potassium 3.8, BUN 43, creatinine 0.45. The patient did have a 2-D echocardiogram that showed a EF of 40% to 45%. DISPOSITION: [facility], [facility]. MEDICATIONS: 1. Lisinopril 40 mg a day. 2. Tylenol Extra Strength 500 mg q.4 p.r.n. 3. Zebeta 10 mg p.o. daily. 4. Lasix 20 mg daily. 5. Potassium 10 mEq daily. 6. Symbicort 160/4.5 two puffs b.i.d. 7. DuoNeb q.i.d. plus q.4 p.r.n. 8. Tylenol No. 3 one tablet b.i.d. p.r.n. 9. Celebrex 200 mg p.o. daily. 10.Cardizem CD 120 mg p.o. daily. 11.Lucia 180 mg p.o. daily. 12.Multivitamin 1 tablet p.o. daily. 13.Evista 60 mg p.o. daily. 14.Artificial Tears 2 drops both eyes t.i.d. p.r.n. 15.DuoNeb q.i.d. 16.Mucinex 1200 mg q.12. 17.Prednisone taper. 18.Hydralazine 50 mg p.o. t.i.d. Follow up with Dr. Morrow at the [facility]. MMMARTIRL / CIERRAN: [id number] /
[2019-04-03 11:48] LABS: Glucose,Whole Blood 126 mg/dL (75-99)
[2019-04-03 14:56] VITALS: BP 167/74; RESP 18; TEMP 98.1
[2019-04-03 15:21] VITALS: PULSE 82
== END 2019-04-03 15:54 | DRG 177 ==
LOC: EC 12:07 → INTOOBSV 15:22 → 4SSUR 15:22 → 4MS4W 15:39 → OBSVTOIN 03-27 15:49 → 4SSUR 03-28 18:48 → 4MS4W 03-30 14:53
PROVIDERS: ADMIT Hospitalist; ATTEND Hospitalist
DX: J15.6 Pneumonia due to other Gram-negative bacteria (principal); J96.21 Acute and chronic respiratory failure with hypoxia; J96.22 Acute and chronic respiratory failure with hypercapnia; I50.33 Acute on chronic diastolic (congestive) heart failure; J44.1 Chronic obstructive pulmonary disease with (acute) exacerbation; I43 Cardiomyopathy in diseases classified elsewhere; J44.0 Chronic obstructive pulmonary disease with (acute) lower respiratory infection; I11.0 Hypertensive heart disease with heart failure; E78.5 Hyperlipidemia, unspecified; M19.91 Primary osteoarthritis, unspecified site; Z96.642 Presence of left artificial hip joint; R26.9 Unspecified abnormalities of gait and mobility; K57.30 Diverticulosis of large intestine without perforation or abscess without bleeding; Z79.1 Long term (current) use of non-steroidal anti-inflammatories (NSAID); Z79.51 Long term (current) use of inhaled steroids; Z79.899 Other long term (current) drug therapy; Z83.3 Family history of diabetes mellitus; Z86.73 Personal history of transient ischemic attack (TIA), and cerebral infarction without residual deficits; Z87.891 Personal history of nicotine dependence; Z99.81 Dependence on supplemental oxygen; Z90.89 Acquired absence of other organs; Z83.49 Family history of other endocrine, nutritional and metabolic diseases
CPT/HCPCS: 36415; 71045; 71046; 80048; 80053; 81001; 83605; 83880; 84145; 84484; 85025; 85610; 85730; 87040; 87086; 93005; 93306; 94640; 94760; 96374; 99291

== ENCOUNTER 2019-05-28 14:32 | Inpatient (IN) | payer MEDICARE ==
[2019-05-28] MEDS ORDERED: ACETAMINOPHEN TAB 325 MG TAB PO STA (15:17)
[2019-05-28] MEDS ORDERED: IPRATROPIUM-ALBUTEROL 3 ML NEB INHALATION STA (15:18)
--- NOTE | 2019-05-28 15:21 | ED ---
General Adult HPI - General Chief complaint: Shortness of Breath Stated complaint: SOB Time Seen by Provider: 05/28/19 15:12 Source: patient, EMS, RN notes reviewed Mode of arrival: EMS Limitations: no limitations - History of Present Illness Initial comments: Patient is a pleasant 78-year-old female presenting to the emergency Department with complaints of cough and difficulty breathing. Patient has similar symptoms chronically associated with COPD. Symptoms have been worse for the past couple of days. Patient states she was told she had a fever earlier however herself was unaware of it. Patient has been coughing productive of a sputum. Patient does have some leg swelling however this is chronic and unchanged for her. No chest pain. - Related Data Home Medications Medication Instructions Recorded Confirmed Lisinopril 40 mg PO DAILY 11/13/16 05/28/19 Acetaminophen [Tylenol Extra 500 mg PO Q4HR PRN 05/01/18 05/28/19 Strength] Bisoprolol Fumarate [Zebeta] 10 mg PO DAILY 05/01/18 05/28/19 Furosemide [Lasix] 20 mg PO DAILY 05/01/18 05/28/19 Potassium Chloride ER [K-Dur 10] 10 meq PO DAILY 05/01/18 05/28/19 Celecoxib [CeleBREX] 200 mg PO DAILY 03/26/19 05/28/19 Diltiazem HCl [Cardizem CD] 240 mg PO DAILY 03/26/19 05/28/19 Fexofenadine HCl [Lucia Allergy] 180 mg PO DAILY 03/26/19 05/28/19 Multivitamins, Thera [Multivitamin 1 tab PO DAILY 03/26/19 05/28/19 (formulary)] Raloxifene [Evista] 60 mg PO DAILY 03/26/19 05/28/19 Ipratropium-Albuterol Nebulize 3 ml INHALATION RT-Q4H PRN 05/28/19 05/28/19 [Duoneb 0.5 mg-3 mg/3 ml Soln] hydrALAZINE HCL 10 mg PO TID 05/28/19 05/28/19 Previous Rx's Medication Instructions Recorded Budesonide-Formot 160-4.5 Mcg 2 puff INHALATION RT-BID puff 05/13/18 [Symbicort 160-4.5 Mcg Inhaler] Artificial Tears-Hypromellose 2 drops BOTH EYES TID PRN bottle 04/01/19 [Artificial Tear Drops] Ipratropium-Albuterol Nebulize 3 ml INHALATION RT-QID ampul.neb 04/01/19 [Duoneb 0.5 mg-3 mg/3 ml Soln] Allergies Allergy/AdvReac Type Severity Reaction Status Date / Time naproxen [From Naprosyn] Allergy Rash/Hives Verified 05/28/19 15:48 Review of Systems ROS Statement: Those systems with pertinent positive or pertinent negative responses have been documented in the HPI. ROS Other: All systems not noted in ROS Statement are negative. Constitutional: Reports: as per HPI Eyes: Denies: eye pain ENT: Denies: ear pain Respiratory: Reports: cough, dyspnea Cardiovascular: Denies: chest pain Endocrine: Reports: fatigue Gastrointestinal: Denies: abdominal pain Genitourinary: Denies: dysuria Musculoskeletal: Denies: back pain Skin: Denies: rash Neurological: Denies: weakness Past Medical History Past Medical History: COPD, Hyperlipidemia, Hypertension, Osteoarthritis (OA) Additional Past Medical History / Comment(s): history of brain bleed, pt was sent to [facility]. History of Any Multi-Drug Resistant Organisms: None Reported Past Surgical History: Adenoidectomy, Joint Replacement, Tonsillectomy Additional Past Surgical History / Comment(s): Left hip replacement x 3 Past Anesthesia/Blood Transfusion Reactions: No Reported Reaction Past Psychological History: No Psychological Hx Reported Smoking Status: Former smoker Past Alcohol Use History: None Reported Past Drug Use History: None Reported - Past Family History Father Family Medical History: Diabetes Mellitus Mother Family Medical History: Hyperlipidemia General Exam Limitations: no limitations General appearance: alert Head exam: Present: atraumatic Eye exam: Present: normal appearance, PERRL ENT exam: Present: normal oropharynx Neck exam: Present: normal inspection Respiratory exam: Present: wheezes, rales Cardiovascular Exam: Present: tachycardia GI/Abdominal exam: Present: soft. Absent: tenderness Extremities exam: Present: pedal edema (+1 bilateral). Absent: calf tenderness Neurological exam: Present: alert Psychiatric exam: Present: normal affect, normal mood Skin exam: Present: normal color Course Vital Signs 05/28/19 05/28/19 05/28/19 14:42 15:36 15:38 Temperature 100.9 F H Pulse Rate 131 H 126 H 116 H Respiratory 24 24 Rate Blood Pressure 199/122 176/109 O2 Sat by Pulse 94 L 95 Oximetry 05/28/19 15:50 Temperature Pulse Rate 122 H Respiratory Rate Blood Pressure O2 Sat by Pulse Oximetry - Reevaluation(s) Reevaluation #1: 05/28/19 16:35 Patient does meet sepsis criteria diagnosed at 1635. Blood culture and lactic acid have been ordered. IV antibiotics will be ordered. EKG Findings - EKG Comments: EKG Findings:: Sinus tachycardia 123. OR 150. QRS 68. QT 412. QTC 589. Left axis. Septal Q waves. Nonspecific ST-T. Medical Decision Making - Medical Decision Making Patient reevaluated. Patient updated on results and plan. Case is discussed in detail with Dr. Dawkins, who will admit For Dr. Morrow. - Lab Data Result diagrams: 05/28/19 14:41 05/28/19 14:41 Lab Results 05/28/19 05/28/19 05/28/19 Range/Units 14:41 14:41 14:41 WBC 9.4 (3.8-10.6) k/uL RBC 3.50 L (3.80-5.40) m/uL Hgb 11.9 (11.4-16.0) gm/dL Hct 37.5 (34.0-46.0) % MCV 107.2 H (80.0-100.0) fL MCH 34.1 (25.0-35.0) pg MCHC 31.8 (31.0-37.0) g/dL RDW 14.8 (11.5-15.5) % Plt Count 318 (150-450) k/uL Neutrophils % 83 % Lymphocytes % 4 % Monocytes % 11 % Eosinophils % 0 % Basophils % 0 % Neutrophils # 7.8 H (1.3-7.7) k/uL Lymphocytes # 0.4 L (1.0-4.8) k/uL Monocytes # 1.0 (0-1.0) k/uL Eosinophils # 0.0 (0-0.7) k/uL Basophils # 0.0 (0-0.2) k/uL Hypochromasia Slight Macrocytosis Moderate PT (9.0-12.0) sec INR (<1.2) APTT (22.0-30.0) sec Sodium 137 (137-145) mmol/L Potassium 5.2 H (3.5-5.1) mmol/L Chloride 102 (98-107) mmol/L Carbon Dioxide 25 (22-30) mmol/L Anion Gap 10 mmol/L BUN 31 H (7-17) mg/dL Creatinine 0.36 L (0.52-1.04) mg/dL Est GFR (CKD-EPI)AfAm >90 (>60 ml/min/1.73 sqM) Est GFR (CKD-EPI)NonAf >90 (>60 ml/min/1.73 sqM) Glucose 121 H (74-99) mg/dL Plasma Lactic Acid Kit 1.5 (0.7-2.0) mmol/L Calcium 9.5 (8.4-10.2) mg/dL Total Bilirubin 0.6 (0.2-1.3) mg/dL AST 40 H (14-36) U/L ALT 24 (9-52) U/L Alkaline Phosphatase 122 (38-126) U/L Total Protein 6.5 (6.3-8.2) g/dL Albumin 3.9 (3.5-5.0) g/dL Urine Color Urine Appearance (Clear) Urine pH (5.0-8.0) Ur Specific [place] (1.001-1.035) Urine Protein (Negative) Urine Glucose (UA) (Negative) Urine Ketones (Negative) Urine Blood (Negative) Urine Nitrite (Negative) Urine Bilirubin (Negative) Urine Urobilinogen (<2.0) mg/dL Ur Leukocyte Esterase (Negative) Urine RBC (0-5) /hpf Urine WBC (0-5) /hpf Ur Squamous Epith Cells (0-4) /hpf Urine Bacteria (None) /hpf Urine Mucus (None) /hpf 05/28/19 05/28/19 Range/Units 14:41 15:20 WBC (3.8-10.6) k/uL RBC (3.80-5.40) m/uL Hgb (11.4-16.0) gm/dL Hct (34.0-46.0) % MCV (80.0-100.0) fL MCH (25.0-35.0) pg MCHC (31.0-37.0) g/dL RDW (11.5-15.5) % Plt Count (150-450) k/uL Neutrophils % % Lymphocytes % % Monocytes % % Eosinophils % % Basophils % % Neutrophils # (1.3-7.7) k/uL Lymphocytes # (1.0-4.8) k/uL Monocytes # (0-1.0) k/uL Eosinophils # (0-0.7) k/uL Basophils # (0-0.2) k/uL Hypochromasia Macrocytosis PT 10.4 (9.0-12.0) sec INR 1.0 (<1.2) APTT 29.3 (22.0-30.0) sec Sodium (137-145) mmol/L Potassium (3.5-5.1) mmol/L Chloride (98-107) mmol/L Carbon Dioxide (22-30) mmol/L Anion Gap mmol/L BUN (7-17) mg/dL Creatinine (0.52-1.04) mg/dL Est GFR (CKD-EPI)AfAm (>60 ml/min/1.73 sqM) Est GFR (CKD-EPI)NonAf (>60 ml/min/1.73 sqM) Glucose (74-99) mg/dL Plasma Lactic Acid Kit (0.7-2.0) mmol/L Calcium (8.4-10.2) mg/dL Total Bilirubin (0.2-1.3) mg/dL AST (14-36) U/L ALT (9-52) U/L Alkaline Phosphatase (38-126) U/L Total Protein (6.3-8.2) g/dL Albumin (3.5-5.0) g/dL Urine Color Yellow Urine Appearance Cloudy H (Clear) Urine pH 5.5 (5.0-8.0) Ur Specific [place] 1.025 (1.001-1.035) Urine Protein 2+ H (Negative) Urine Glucose (UA) Negative (Negative) Urine Ketones 1+ H (Negative) Urine Blood Small H (Negative) Urine Nitrite Positive H (Negative) Urine Bilirubin Negative (Negative) Urine Urobilinogen <2.0 (<2.0) mg/dL Ur Leukocyte Esterase Large H (Negative) Urine RBC 11 H (0-5) /hpf Urine WBC >182 H (0-5) /hpf Ur Squamous Epith Cells 5 H (0-4) /hpf Urine Bacteria Moderate H (None) /hpf Urine Mucus Many H (None) /hpf - Radiology Data Radiology results: image reviewed (Chest x-ray shows chronic changes and cardiomegaly. Persistent left basilar opacity, difficult to exclude acute infiltrate.) Critical Care Time Critical Care Time: Yes Total Critical Care Time: 33 Disposition Clinical Impression: Acute exacerbation of chronic obstructive airways disease, UTI (urinary tract infection), Sepsis Disposition: ADMITTED IP TO THIS HOSP Is patient prescribed a controlled substance at d/c from ED?: No Referrals: Ben Morrow DO [Primary Care Provider] - 1-2 days Decision Time: 16:36
[2019-05-28 15:35] LABS: Basophils % (A) 0 %; Eosinophils % (A) 0 %; HCT 37.5 % (34.0-46.0); HGB 11.9 gm/dL (11.4-16.0); Hypochromasia Slight; Lymphocytes # (A) 0.4 k/uL (1.0-4.8); Lymphocytes % (A) 4 %; MCH 34.1 pg (25.0-35.0); MCHC 31.8 g/dL (31.0-37.0); MCV 107.2 fL (80.0-100.0); Macrocytosis Moderate; Mean Platelet Volume 7.4; Monocytes % (A) 11 %; Neutrophils # (A) 7.8 k/uL (1.3-7.7); Neutrophils % (A) 83 %; Platelet Count 318 k/uL (150-450); RDW 14.8 % (11.5-15.5); WBC 9.4 k/uL (3.8-10.6)
[2019-05-28 15:44] LABS: ALT 24 U/L (9-52); AST 40 U/L (14-36); African American GFR (CKD) >90 (>60 ml/min/1.73 sqM); Albumin 3.9 g/dL (3.5-5.0); Alkaline Phosphatase 122 U/L (38-126); Anion Gap 10 mmol/L; Blood Urea Nitrogen 31 mg/dL (7-17); Calcium 9.5 mg/dL (8.4-10.2); Carbon Dioxide 25 mmol/L (22-30); Chloride 102 mmol/L (98-107); Glucose 121 mg/dL (74-99); Potassium 5.2 mmol/L (3.5-5.1); Sodium 137 mmol/L (137-145); Total Bilirubin 0.6 mg/dL (0.2-1.3); Total Protein 6.5 g/dL (6.3-8.2)
[2019-05-28 15:47] LABS: Appearance,Urine Cloudy (Clear); Bacteria,Urine Moderate /hpf; Bilirubin,Urine Negative (Negative); Blood,Urine Small (Negative); Color,Urine Yellow; Glucose,Urine (UA) Negative (Negative); Ketones,Urine 1+ (Negative); Leukocyte Esterase,Urine Large (Negative); Mucus,Urine Many /hpf; Nitrite,Urine Positive (Negative); PH, Urine 5.5 (5.0-8.0); Protein,Urine 2+ (Negative); RBC,Urine 11 /hpf (0-5); Specific Gravity,Urine 1.025 (1.001-1.035); Squamous Epithelial Cell,Urine 5 /hpf (0-4); Urobilinogen,Urine <2.0 mg/dL (<2.0); WBC,Urine >182 /hpf (0-5)
[2019-05-28 15:50] LABS: Partial Thromboplastin Time 29.3 sec (22.0-30.0); Prothrombin Time 10.4 sec (9.0-12.0)
--- NOTE | 2019-05-28 16:28 | XR ---
EXAMINATION TYPE: XR chest 2V DATE OF EXAM: 05/28/2019 COMPARISON: Chest x-ray March 30, 2019 HISTORY: COPD with shortness of breath TECHNIQUE: Frontal and lateral views of the chest are obtained. FINDINGS: There is chronic parenchymal changes with persistent left basilar opacity. Right lung abdoulaye ins clear. The cardiac silhouette size remains enlarged with atherosclerotic aorta. Sclerotic focus l eft humeral head is consistent with bone infarct. IMPRESSION: Chronic changes and cardiomegaly with persistent left basilar opacity which some acute i nfiltrate is difficult to exclude on background chronic parenchymal change.
[2019-05-28] MEDS ORDERED: cefTRIAXone IN SWFI 1,000 MG/10 ML SYRINGE IVP STA (16:36)
[2019-05-28] MEDS ORDERED: IPRATROPIUM-ALBUTEROL 3 ML NEB INHALATION PRN (16:36)
[2019-05-28] MEDS ORDERED: methylPREDNISolone SOD SUCCI 125 MG/2 ML VIAL IV STA (16:36)
[2019-05-28] MEDS: hydrALAZINE HCL 10 MG TAB PO SCH ×2 (19:27→23:35)
[2019-05-28] MEDS: IPRATROPIUM-ALBUTEROL 3 ML NEB INHALATION SCH (19:27)
[2019-05-28] MEDS: methylPREDNISolone SOD SUCCI 125 MG/2 ML VIAL IV SCH ×2 (19:29→23:35)
[2019-05-28] MEDS ORDERED: ARTIFICIAL TEARS-HYPROMELLOSE DROPS 15 ML BTL BOTH EYES PRN (19:56)
[2019-05-28] MEDS: SYMBICORT 160-4.5 MCG INHALER INHALATION SCH (20:49)
[2019-05-29 00:06] LABS: Glucose,Whole Blood 173 mg/dL (75-99)
[2019-05-29] MEDS: methylPREDNISolone SOD SUCCI 125 MG/2 ML VIAL IV SCH ×3 (05:21→16:29)
[2019-05-29] MEDS: FUROSEMIDE 20 MG TAB PO SCH (07:27)
[2019-05-29] MEDS: LISINOPRIL 20 MG TAB PO SCH (07:27)
[2019-05-29] MEDS: DILTIAZEM CD 240 MG CAP.ER.24H PO SCH (07:28)
[2019-05-29] MEDS: MULTIVITAMINS, THERA 1 EACH TAB PO SCH (07:28)
[2019-05-29] MEDS: BISOPROLOL 5 MG TAB PO SCH (07:28)
[2019-05-29] MEDS: POTASSIUM CHLORIDE ER 10 MEQ TAB.ER.PRT PO SCH (07:28)
[2019-05-29] MEDS: hydrALAZINE HCL 10 MG TAB PO SCH ×3 (07:28→22:22)
[2019-05-29] MEDS: ACETAMINOPHEN TAB 500 MG TAB PO PRN ×2 (07:36→22:22)
[2019-05-29] MEDS: IPRATROPIUM-ALBUTEROL 3 ML NEB INHALATION SCH ×4 (08:45→19:35)
[2019-05-29] MEDS: SYMBICORT 160-4.5 MCG INHALER INHALATION SCH ×2 (08:46→19:35)
[2019-05-29] MEDS: guaiFENesin 600 MG TABLET.ER PO SCH ×2 (10:48→20:19)
[2019-05-29] MEDS: NON-FORMULARY DRUG (Celecoxib 200 MG) PO SCH (11:20)
--- NOTE | 2019-05-29 12:43 | P.CNPUL ---
History of Present Illness Consult date: 05/29/19 Reason for consult: dyspnea, cough Chief complaint: Dyspnea cough, congestion, fever History of present illness: This is a 78-year-old white female patient, a resident at the [facility], with past medical history of COPD on home oxygen at 2-3 L/m, hypertension, hyperlipidemia, osteoarthritis, previous history of intracranial hemorrhage treated conservatively at the [facility], hip replacements 3, recu rrent urinary tract infections, previous episode of GI bleeding, former smoker, osteoarthritis, CHF with diastolic dysfunction. Patient presents to the emergency department on 05/28/2019 with 4 day history of dyspnea, and coughing, she was told she had a fever. Denied any chest pain, she is bringing up thick clear and white sputum. No hemoptysis, no chest pain, no nausea, vomiting or diarrhea. She states she had a couple of nurses aides with cold symptoms and coughing that were taking care of her. She has some chronic lower extremity swelling, which is unchanged. Chest x-ray chronic changes of left hemidiaphragm elevation with left basilar opacity, although an acute infiltrate is difficult to exclude. Urinalysis with evidence of infection, positive for nitrites and blood, large amount of leuks, RBCs and WBCs of greater than 182. Patient denied any urinary symptoms. The rest of blood work has been reviewed, showing white blood cell, of 9.4, hemoglobin of 11.9, platelet count of 318, coagulation profile was within normal limits, sodium was 137, potassium is 5.2, chloride was 102, CO2 is 25, BUN is 31 and creatinine was 0.36. Lactic acid was 1.5, and subsequent one was 1.3. Her liver enzymes were unremarkable. Patient was tachycardic on admission, febrile with a temp of 100.9F. EKG showed sinus tach with left axis deviation, left atrial enlargement, and evidence of anteroseptal infarct of undetermined age. Blood cultures have been sent, urine and sputum cultures have been ordered. Patient has been started on empiric antibiotics in the form of Rocephin. We are consulted for evaluation of her shortness of breath and cough Review of Systems All systems: negative Constitutional: Denies chills, Denies fever Eyes: denies blurred vision, denies pain Ears, nose, mouth and throat: Denies headache, Denies sore throat Cardiovascular: Denies chest pain, Denies shortness of breath Respiratory: Reports congestion, Reports cough, Reports cough with sputum, Reports respiratory infections Gastrointestinal: Denies abdominal pain, Denies diarrhea, Denies nausea, Denies vomiting Genitourinary: Denies dysuria, Denies hematuria Musculoskeletal: Denies myalgias Integumentary: Denies pruritus, Denies rash Neurological: Denies numbness, Denies weakness Psychiatric: Denies anxiety, Denies depression Endocrine: Denies fatigue, Denies weight change Past Medical History Past Medical History: COPD, Hyperlipidemia, Hypertension, Osteoarthritis (OA) Additional Past Medical History / Comment(s): history of brain bleed about a year ago, pt was sent to [facility] [[email or web address] History of Any Multi-Drug Resistant Organisms: None Reported Past Surgical History: Adenoidectomy, Joint Replacement, Tonsillectomy Additional Past Surgical History / Comment(s): Left hip replacement x 3 Past Anesthesia/Blood Transfusion Reactions: No Reported Reaction Past Psychological History: No Psychological Hx Reported Smoking Status: Former smoker Past Alcohol Use History: None Reported Past Drug Use History: None Reported - Past Family History Father Family Medical History: Diabetes Mellitus Mother Family Medical History: Hyperlipidemia Medications and Allergies Home Medications Medication Instructions Recorded Confirmed Type Lisinopril 40 mg PO DAILY 11/13/16 05/28/19 History Acetaminophen [Tylenol Extra 500 mg PO Q4HR PRN 05/01/18 05/28/19 History Strength] Bisoprolol Fumarate [Zebeta] 10 mg PO DAILY 05/01/18 05/28/19 History Furosemide [Lasix] 20 mg PO DAILY 05/01/18 05/28/19 History Potassium Chloride ER [K-Dur 10] 10 meq PO DAILY 05/01/18 05/28/19 History Budesonide-Formot 160-4.5 Mcg 2 puff INHALATION RT-BID puff 05/13/18 05/28/19 Rx [Symbicort 160-4.5 Mcg Inhaler] Celecoxib [CeleBREX] 200 mg PO DAILY 03/26/19 05/28/19 History Diltiazem HCl [Cardizem CD] 240 mg PO DAILY 03/26/19 05/28/19 History Fexofenadine HCl [Lucia Allergy] 180 mg PO DAILY 03/26/19 05/28/19 History Multivitamins, Thera [Multivitamin 1 tab PO DAILY 03/26/19 05/28/19 History (formulary)] Raloxifene [Evista] 60 mg PO DAILY 03/26/19 05/28/19 History Artificial Tears-Hypromellose 2 drops BOTH EYES TID PRN bottle 04/01/19 05/28/19 Rx [Artificial Tear Drops] Ipratropium-Albuterol Nebulize 3 ml INHALATION RT-QID ampul.neb 04/01/19 05/28/19 Rx [Duoneb 0.5 mg-3 mg/3 ml Soln] Ipratropium-Albuterol Nebulize 3 ml INHALATION RT-Q4H PRN 05/28/19 05/28/19 History [Duoneb 0.5 mg-3 mg/3 ml Soln] hydrALAZINE HCL 10 mg PO TID 05/28/19 05/28/19 History Allergies Allergy/AdvReac Type Severity Reaction Status Date / Time naproxen [From Naprosyn] Allergy Rash/Hives Verified 05/28/19 15:48 Physical Exam Vitals: Vital Signs Temp Pulse Pulse Resp BP BP Pulse Ox 05/29/19 11:36 90 05/29/19 11:26 88 05/29/19 09:20 90 05/29/19 09:07 86 97 05/29/19 05:05 98.3 F 88 22 176/87 97 05/29/19 01:28 85 151/81 96 05/28/19 23:42 92 152/81 94 L 05/28/19 22:25 97.8 F 99 22 171/77 97 05/28/19 21:30 97.5 F L 118 H 24 179/84 94 L 05/28/19 19:59 111 H 16 153/77 96 05/28/19 19:39 112 H 05/28/19 19:31 120 H 95 05/28/19 19:28 98 F 130 H 28 H 172/90 97 05/28/19 18:32 98.9 F 102 H 24 156/84 94 L 05/28/19 16:45 99.0 F 111 H 24 141/103 94 L 05/28/19 15:50 122 H 05/28/19 15:38 116 H 05/28/19 15:36 126 H 24 176/109 95 05/28/19 14:42 100.9 F H 131 H 24 199/122 94 L Intake and Output 05/28/19 05/29/19 05/29/19 22:59 06:59 14:59 Intake Total 400 100 Balance 400 100 Intake: Amount of Fluid Infused ( 200 ml) Oral 200 100 Other: Voiding Method Bedpan Incontinent # Voids 1 3 GENERAL EXAM: Alert, pleasant, 78-year-old white female, on 3 L of oxygen with a pulse ox of 97%, comfortable in no apparent distress. HEAD: Normocephalic/atraumatic. EYES: Normal reaction of pupils, equal size. Conjunctiva pink, sclera white. NOSE: Clear with pink turbinates. THROAT: No erythema or exudates. NECK: No masses, no JVD, no thyroid enlargement, no adenopathy. CHEST: No chest wall deformity. Symmetrical expansion. LUNGS: Equal air entry with minimal basilar crackles CVS: Regular rate and rhythm, normal S1 and S2, no gallops, no murmurs, no rubs ABDOMEN: Soft, nontender. No hepatosplenomegaly, normal bowel sounds, no guarding or rigidity. EXTREMITIES: No clubbing, mild pretibial edema, with healing wounds on the lower extremities. no cyanosis, 2+ pulses and upper and lower extremities. MUSCULOSKELETAL: Muscle strength and tone normal. SPINE: No scoliosis or deformity SKIN: No rashes CENTRAL NERVOUS SYSTEM: Alert and oriented -3. No focal deficits, tone is nor mal in all 4 extremities. PSYCHIATRIC: Alert and oriented -3. Appropriate affect. Intact judgment and insight. Results - Laboratory Findings CBC and BMP: 05/28/19 14:41 05/28/19 14:41 PT/INR, D-dimer PT 10.4 sec (9.0-12.0) 05/28/19 14:41 INR 1.0 (<1.2) 05/28/19 14:41 Abnormal lab findings: Abnormal Labs 05/28/19 05/28/19 05/28/19 14:41 14:41 15:20 RBC 3.50 L MCV 107.2 H Neutrophils # 7.8 H Lymphocytes # 0.4 L Potassium 5.2 H BUN 31 H Creatinine 0.36 L Glucose 121 H POC Glucose (mg/dL) AST 40 H Urine Appearance Cloudy H Urine Protein 2+ H Urine Ketones 1+ H Urine Blood Small H Urine Nitrite Positive H Ur Leukocyte Esterase Large H Urine RBC 11 H Urine WBC >182 H Ur Squamous Epith Cells 5 H Urine Bacteria Moderate H Urine Mucus Many H 05/29/19 00:03 RBC MCV Neutrophils # Lymphocytes # Potassium BUN Creatinine Glucose POC Glucose (mg/dL) 173 H AST Urine Appearance Urine Protein Urine Ketones Urine Blood Urine Nitrite Ur Leukocyte Esterase Urine RBC Urine WBC Ur Squamous Epith Cells Urine Bacteria Urine Mucus - Diagnostic Findings Chest x-ray: report reviewed, image reviewed Additional studies: EKG reviewed Assessment and Plan Plan: Assessment: #1. Dyspnea, cough congestion, chest x-ray showed chronic changes of left hemidiaphragm elevation, and left basilar opacity, acute infiltrate is difficult to exclude, and exacerbation of COPD #2. Acute urinary tract infection #3. History of stage III COPD, with underlying FEV1 of 0.73 L or 36% of predicted with chronic hypoxemic respiratory failure #4. History of chronic congestive heart failure, and the latest echocardiogram showed mild to moderately impaired LV function with EF between 40-45% with [id number] aortic regurgitation, mild aortic stenosis, with peak/mean gradient across the aortic valve of 17.53 mmHg/6.57 mmHg, mild mitral regurgitation and mild tricuspid regurgitation #5. Moderate pulmonary hypertension with right ventricular systolic pressure of 51.6 mmHg #6. Hypertension #7. Hyperlipidemia #8. Osteoarthritis #9. History of intracranial hemorrhage conservatively managed at the [facility] #10. Former smoker, in remission, quit smoking 5 years ago, smoked half a pack a day for 20 years Plan: We will continue with current antibiotic coverage, we will add Zithromax, chest x-ray has been reviewed with Dr. Cardona, showing chronic changes, however possibility of acute infiltrate at the left base is difficult to entirely exclu de, will continue the antibiotics, nebulized bronchodilators, Mucinex will be added, IV steroids, oral Lasix. Send a sputum culture, blood and urine cultures are pending. I performed a history & physical examination of the patient and discussed their management with my nurse practitioner, Laly Calabrese. I reviewed the nurse practitioner's note and agree with the documented findings and plan of care. Lung sounds are positive for basilar rales throughout the lung garcia. The findings and the impression was discussed with the patient. I attest to the documentation by the nurse practitioner. Time with Patient: Greater than 30
[2019-05-29] MEDS: AZITHROMYCIN 500 MG TAB PO SCH (13:05)
[2019-05-29 14:58] VITALS: BMI 18.8
--- NOTE | 2019-05-29 16:34 | P.HPIM ---
History of Present Illness H&P Date: 05/29/19 Chief Complaint: Cough short of breath History of presenting complaint: This is a very pleasant 78-year-old patient of Dr. Morrow and Dr. Quesada is patient's detailer. Chronic stable medical conditions include colonic diverticulosis, hypertension, hyperlipidemia, osteoarthritis on home oxygen 1.5 L. Patient presents with worsening cough short of breath and wheezing going on for about 4 days. Getting worse. Patient also had some fever and chills. Bringing up some phlegm. Does small amount. Congested in the chest. Checks x- ray did show pneumonia admitted with broncho-titers steroids antibiotics. Patient's appetite is okay. Review of systems: GEN.: Tired, fever or chills EYES: None HEENT: None NECK: None RESPIRATORY: As above CARDIOVASCULAR: None GASTROINTESTINAL: None GENITOURINARY: None MUSCULOSKELETAL: Pain in the joints LYMPHATICS: None HEMATOLOGICAL: None PSYCHIATRY: None NEUROLOGICAL: None Social history: Patient stopped smoking C is 6 years ago. Smoked for about 53 years about a pack a day. No alcohol. Does use a walker. Lives at [facility] Family history: Diabetes mellitus type 2 Physical examination: VITAL SIGNS: Temperature 100.9, pulse 131, respiration 24, blood pressure 1 99/ 1 22, 94% on 2 L GENERAL: Slim built sitting up slightly short of breath. EYES: Pupils equal. Conjunctiva normal. HEENT: External appearance of nose and ears normal, oral cavity grossly normal. NECK: JVD not raised; masses not palpable. HEART: First and second heart sounds are normal; no edema. LUNGS: Respiratory rate increased, decreased breath sounds prolonged expiration and wheezing few scattered crackles. ABDOMEN: Soft, nontender, liver spleen not palpable, no masses palpable. PSYCH: Alert and oriented x3; mood and affect normal. NEUROLOGICAL: Cranial nerves grossly intact; no facial asymmetry, power and sensation grossly intact. LYMPHATICS: No lymph nodes palpable in the axilla and neck MUSCULAR- skeletal: Evidence of OA especially in the hands Investigations, reviewed in the clinical context: EKG-tracing personally reviewed by me shows sinus tachycardia and evidence of P pulmonale Checks x-ray film personally reviewed by me shows scattered infiltrates White count 9.4 hemoglobin 11.9 potassium 5.2 nightly 31 and creatinine 0.36 Assessment: -Pneumonia, suspected gram-negative organism, causing sepsis, POA -Acute COPD exacerbation and an ex-smoker -Colonic diverticulosis -Essential hypertension -Hyperlipidemia -Primary osteoarthritis -Chronic hypoxic respiratory failure on 1.5 L of oxygen at home from underlying COPD -History of brain bleed Plan: Patient started on IV Solu-Medrol, bronchodilators, IV ceftriaxone. Other home medications resumed. Lovenox for DVT prophylaxis. Care was discussed with the patient. Questions were answered. Pulmonary was consulted. Past Medical History Past Medical History: COPD, Hyperlipidemia, Hypertension, Osteoarthritis (OA) Additional Past Medical History / Comment(s): history of brain bleed about a year ago, pt was sent to [facility]. History of Any Multi-Drug Resistant Organisms: None Reported Past Surgical History: Adenoidectomy, Joint Replacement, Tonsillectomy Additional Past Surgical History / Comment(s): Left hip replacement x 3 Past Anesthesia/Blood Transfusion Reactions: No Reported Reaction Past Psychological History: No Psychological Hx Reported Smoking Status: Former smoker Past Alcohol Use History: None Reported Past Drug Use History: None Reported - Past Family History Father Family Medical History: Diabetes Mellitus Mother Family Medical History: Hyperlipidemia Medications and Allergies Home Medications Medication Instructions Recorded Confirmed Type Lisinopril 40 mg PO DAILY 11/13/16 05/28/19 History Acetaminophen [Tylenol Extra 500 mg PO Q4HR PRN 05/01/18 05/28/19 History Strength] Bisoprolol Fumarate [Zebeta] 10 mg PO DAILY 05/01/18 05/28/19 History Furosemide [Lasix] 20 mg PO DAILY 05/01/18 05/28/19 History Potassium Chloride ER [K-Dur 10] 10 meq PO DAILY 05/01/18 05/28/19 History Budesonide-Formot 160-4.5 Mcg 2 puff INHALATION RT-BID puff 05/13/18 05/28/19 Rx [Symbicort 160-4.5 Mcg Inhaler] Celecoxib [CeleBREX] 200 mg PO DAILY 03/26/19 05/28/19 History Diltiazem HCl [Cardizem CD] 240 mg PO DAILY 03/26/19 05/28/19 History Fexofenadine HCl [Lucia Allergy] 180 mg PO DAILY 03/26/19 05/28/19 History Multivitamins, Thera [Multivitamin 1 tab PO DAILY 03/26/19 05/28/19 History (formulary)] Raloxifene [Evista] 60 mg PO DAILY 03/26/19 05/28/19 History Artificial Tears-Hypromellose 2 drops BOTH EYES TID PRN bottle 04/01/19 05/28/19 Rx [Artificial Tear Drops] Ipratropium-Albuterol Nebulize 3 ml INHALATION RT-QID ampul.neb 04/01/19 05/28/19 Rx [Duoneb 0.5 mg-3 mg/3 ml Soln] Ipratropium-Albuterol Nebulize 3 ml INHALATION RT-Q4H PRN 05/28/19 05/28/19 History [Duoneb 0.5 mg-3 mg/3 ml Soln] hydrALAZINE HCL 10 mg PO TID 05/28/19 05/28/19 History Allergies Allergy/AdvReac Type Severity Reaction Status Date / Time naproxen [From Naprosyn] Allergy Rash/Hives Verified 05/28/19 15:48 Physical Exam Vitals: Vital Signs Temp Pulse Pulse Resp BP BP Pulse Ox 05/29/19 11:36 90 05/29/19 11:26 88 05/29/19 09:20 90 05/29/19 09:07 86 97 05/29/19 05:05 98.3 F 88 22 176/87 97 05/29/19 01:28 85 151/81 96 05/28/19 23:42 92 152/81 94 L 05/28/19 22:25 97.8 F 99 22 171/77 97 05/28/19 21:30 97.5 F L 118 H 24 179/84 94 L 05/28/19 19:59 111 H 16 153/77 96 05/28/19 19:39 112 H 05/28/19 19:31 120 H 95 05/28/19 19:28 98 F 130 H 28 H 172/90 97 05/28/19 18:32 98.9 F 102 H 24 156/84 94 L 05/28/19 16:45 99.0 F 111 H 24 141/103 94 L 05/28/19 15:50 122 H 05/28/19 15:38 116 H 05/28/19 15:36 126 H 24 176/109 95 Intake and Output 05/29/19 05/29/19 05/29/19 06:59 14:59 22:59 Intake Total 100 Balance 100 Intake: Oral 100 Other: Voiding Method Bedpan Incontinent # Voids 3 Weight 49.895 kg Results CBC & Chem 7: 05/28/19 14:41 05/28/19 14:41 Labs: Abnormal Lab Results - Last 24 Hours (Table) 05/28/19 05/28/19 05/28/19 Range/Units 14:41 14:41 15:20 RBC 3.50 L (3.80-5.40) m/uL MCV 107.2 H (80.0-100.0) fL Neutrophils # 7.8 H (1.3-7.7) k/uL Lymphocytes # 0.4 L (1.0-4.8) k/uL Potassium 5.2 H (3.5-5.1) mmol/L BUN 31 H (7-17) mg/dL Creatinine 0.36 L (0.52-1.04) mg/dL Glucose 121 H (74-99) mg/dL POC Glucose (mg/dL) (75-99) mg/dL AST 40 H (14-36) U/L Urine Appearance Cloudy H (Clear) Urine Protein 2+ H (Negative) Urine Ketones 1+ H (Negative) Urine Blood Small H (Negative) Urine Nitrite Positive H (Negative) Ur Leukocyte Esterase Large H (Negative) Urine RBC 11 H (0-5) /hpf Urine WBC >182 H (0-5) /hpf Ur Squamous Epith Cells 5 H (0-4) /hpf Urine Bacteria Moderate H (None) /hpf Urine Mucus Many H (None) /hpf 05/29/19 Range/Units 00:03 RBC (3.80-5.40) m/uL MCV (80.0-100.0) fL Neutrophils # (1.3-7.7) k/uL Lymphocytes # (1.0-4.8) k/uL Potassium (3.5-5.1) mmol/L BUN (7-17) mg/dL Creatinine (0.52-1.04) mg/dL Glucose (74-99) mg/dL POC Glucose (mg/dL) 173 H (75-99) mg/dL AST (14-36) U/L Urine Appearance (Clear) Urine Protein (Negative) Urine Ketones (Negative) Urine Blood (Negative) Urine Nitrite (Negative) Ur Leukocyte Esterase (Negative) Urine RBC (0-5) /hpf Urine WBC (0-5) /hpf Ur Squamous Epith Cells (0-4) /hpf Urine Bacteria (None) /hpf Urine Mucus (None) /hpf Microbiology - Last 24 Hours (Table) 05/28/19 15:20 Urine Culture - Preliminary Urine,Catheterized Thrombosis Risk Factor Assmnt - Choose All That Apply Each Risk Factor Represents 3 Points: Age 75 years or older Thrombosis Risk Factor Assessment Total Risk Factor Score: 3 Thrombosis Risk Factor Assessment Level: Moderate Risk
[2019-05-29] MEDS: methylPREDNISolone SOD SUCCI 40 MG/ML 1 ML VIAL IV SCH (16:45)
[2019-05-29] MEDS: ENOXAPARIN 40 MG/0.4 ML SYRINGE SQ SCH (16:48)
[2019-05-30] MEDS: methylPREDNISolone SOD SUCCI 40 MG/ML 1 ML VIAL IV SCH ×4 (00:08→23:32)
[2019-05-30] MEDS: guaiFENesin 600 MG TABLET.ER PO SCH ×2 (08:05→20:30)
[2019-05-30] MEDS: POTASSIUM CHLORIDE ER 10 MEQ TAB.ER.PRT PO SCH (08:06)
[2019-05-30] MEDS: AZITHROMYCIN 500 MG TAB PO SCH (08:06)
[2019-05-30] MEDS: hydrALAZINE HCL 10 MG TAB PO SCH ×3 (08:06→21:58)
[2019-05-30] MEDS: FUROSEMIDE 20 MG TAB PO SCH (08:06)
[2019-05-30] MEDS: MULTIVITAMINS, THERA 1 EACH TAB PO SCH (08:06)
[2019-05-30] MEDS: LISINOPRIL 20 MG TAB PO SCH (08:06)
[2019-05-30] MEDS: ENOXAPARIN 40 MG/0.4 ML SYRINGE SQ SCH (08:09)
[2019-05-30] MEDS: SYMBICORT 160-4.5 MCG INHALER INHALATION SCH ×2 (08:33→19:09)
[2019-05-30] MEDS: IPRATROPIUM-ALBUTEROL 3 ML NEB INHALATION SCH ×4 (08:33→19:09)
[2019-05-30] MEDS: DILTIAZEM CD 240 MG CAP.ER.24H PO SCH (08:36)
[2019-05-30] MEDS: NON-FORMULARY DRUG (Celecoxib 200 MG) PO SCH (08:36)
[2019-05-30] MEDS: BISOPROLOL 5 MG TAB PO SCH (08:36)
--- NOTE | 2019-05-30 10:47 | P.PN ---
Subjective Progress Note Date: 05/30/19 Principal diagnosis: COPD exacerbation, left basilar opacity This is a 78-year-old white female patient, a resident at the [facility], with past medical history of COPD on home oxygen at 2-3 L/m, hypertension, hyperlipidemia, osteoarthritis, previous history of intracranial hemorrhage treated conservatively at the [facility], hip replacements 3, recurrent urinary tract infections, previous episode of GI bleeding, former smoker, osteoarthritis, CHF with diastolic dysfunction. Patient presents to the emergency department on 05/28/2019 with 4 day history of dyspnea, and coughing, she was told she had a fever. Denied any chest pain, she is bringing up thick clear and white sputum. No hemoptysis, no chest pain, no nausea, vomiting or diarrhea. She states she had a couple of nurses aides with cold symptoms and coughing that were taking care of her. She has some chronic lower extremity swelling, which is unchanged. Chest x-ray chronic changes of left hemidiaphragm elevation with left basilar opacity, although an acute infiltrate is difficult to exclude. Urinalysis with evidence of infection, positive for nitrites and blood, large amount of leuks, RBCs and WBCs of greater than 182. Patient denied any urinary symptoms. The rest of blood work has been reviewed, showing white blood cell, of 9.4, hemoglobin of 11.9, platelet count of 318, coagulation profile was within normal limits, sodium was 137, potassium is 5.2, chloride was 102, CO2 is 25, BUN is 31 and creatinine was 0.36. Lactic acid was 1.5, and subsequent one was 1.3. Her liver enzymes were unremarkable. Patient was tachycardic on admission, febrile with a temp of 100.9F. EKG showed sinus tach with left axis deviation, left atrial enlargement, and evidence of anteroseptal infarct of undetermined age. Blood cultures have been sent, urine and sputum cultures have been ordered. Patient has been started on empiric antibiotics in the form of Rocephin. We are consulted for evaluation of her shortness of breath and cough. The patient is seen today 05/30/2019 in follow-up on the regular medical floor. She is awake and alert in no acute distress. She continues with a loose productive cough. No fever chills or night sweats. She is maintaining good O2 saturations in the upper 90s on 3 L/m per nasal cannula. She's been afebrile. Urine culture positive for gram-negative bacilli. Blood culture reveals no growth. Currently on ceftriaxone and azithromycin. Continued on DuoNeb inhalations, Symbicort, IV Solu Medrol. Objective - Vital Signs Vital signs: Vital Signs Temp 97.8 F 05/30/19 05:50 Pulse 92 05/30/19 08:43 Resp 16 05/30/19 05:50 BP 173/80 05/30/19 05:50 Pulse Ox 98 05/30/19 05:50 Intake & Output 05/29/19 05/30/19 05/30/19 18:59 06:59 18:59 Intake Total 100 Balance 100 Weight 49.895 kg Intake: Oral 100 Other: Voiding Method Bedpan Incontinent # Voids 3 1 1 - Exam GENERAL EXAM: Alert, pleasant, 78-year-old female, on 3 L of oxygen with a pulse ox of 98%, comfortable in no apparent distress. HEAD: Normocephalic/atraumatic. EYES: Normal reaction of pupils, equal size. Conjunctiva pink, sclera white. NOSE: Clear with pink turbinates. THROAT: No erythema or exudates. NECK: No masses, no JVD, no thyroid enlargement, no adenopathy. CHEST: No chest wall deformity. Symmetrical expansion. LUNGS: Equal air entry with few scattered rhonchi, end expiratory wheeze. CVS: Regular rate and rhythm, normal S1 and S2, no gallops, no murmurs, no rubs ABDOMEN: Soft, nontender. No hepatosplenomegaly, normal bowel sounds, no guarding or rigidity. EXTREMITIES: No clubbing, mild pretibial edema, with healing wounds on the lower extremities. no cyanosis, 2+ pulses and upper and lower extremities. MUSCULOSKELETAL: Muscle strength and tone normal. SPINE: No scoliosis or deformity SKIN: No rashes CENTRAL NERVOUS SYSTEM: No focal deficits, tone is normal in all 4 extremities. PSYCHIATRIC: Alert and oriented -3. Appropriate affect. Intact judgment and insight. - Labs CBC & Chem 7: 05/28/19 14:41 05/28/19 14:41 Labs: Microbiology - Last 24 Hours (Table) 05/28/19 15:20 Urine Culture - Preliminary Urine,Catheterized Gram Neg Bacilli 05/28/19 14:41 Blood Culture - Preliminary Blood No Growth after 24 hours Assessment and Plan Assessment: Assessment: #1. Dyspnea, cough congestion, chest x-ray showed chronic changes of left hemidiaphragm elevation, and left basilar opacity, acute infiltrate is difficult to exclude, and exacerbation of COPD #2. Acute urinary tract infection secondary to gram-negative bacilli #3. History of stage III COPD, with underlying FEV1 of 0.73 L or 36% of predicted with chronic hypoxemic respiratory failure #4. History of chronic congestive heart failure, and the latest echocardiogram showed mild to moderately impaired LV function with EF between 40-45% with [id number] aortic regurgitation, mild aortic stenosis, with peak/mean gradient across the aortic valve of 17.53 mmHg/6.57 mmHg, mild mitral regurgitation and mild tricuspid regurgitation #5. Moderate pulmonary hypertension with right ventricular systolic pressure of 51.6 mmHg #6. Hypertension #7. Hyperlipidemia #8. Osteoarthritis #9. History of intracranial hemorrhage conservatively managed at the [facility] #10. Former smoker, in remission, quit smoking 5 years ago, smoked half a pack a day for 20 years Plan: The patient was seen and evaluated by Dr. Landers. She is currently stable from the pulmonary standpoint. We'll continue with the current treatment plan. Increase her activity as tolerated. Obtain a sputum sample. We'll continue to follow and make further recommendations based on her clinical status. I, the cosigning physician, performed a history & physical examination of the patient. Lungs sounds with few scattered rhonchi, end expiratory wheeze. Maintaining good O2 saturations in the 90s on 3 L/m per nasal cannula. I discussed the assessment and plan of care with my nurse practitioner, Doris Nails. I attest to the above note as dictated by her.
[2019-05-30 14:18] VITALS: RESP 20
[2019-05-30] MEDS: ACETAMINOPHEN TAB 500 MG TAB PO PRN (20:30)
--- NOTE | 2019-05-30 23:33 | P.PN ---
Progress Note - Text Progress Note Date: 05/30/19 Chief Complaint: Cough short of breath History of presenting complaint: This is a very pleasant 78-year-old patient of Dr. 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 Chronic stable medical conditions include colonic diverticulosis, hypertension, hyperlipidemia, osteoarthritis on home oxygen 1.5 L. Patient presents with worsening cough short of breath and wheezing going on for about 4 days. Getting worse. Patient also had some fever and chills. Bringing up some phlegm. Does small amount. Congested in the chest. Checks x- ray did show pneumonia admitted with broncho-titers steroids antibiotics. Patient's appetite is okay. Admitted with COPD exacerbation and pneumonia. Today-still feeling tired. Short of breath. Wheezing. Cough. Congested. Tired rundown. Clitoris some diet. Review of systems: Was done for constitutional, cardiovascular, GI, pulmonary. relevant finding as above Current medications are reviewed that include: Azithromycin, ceftriaxone, IV Solu-Medrol 40 mg every 8, DuoNeb Physical examination: VITAL SIGNS: L 98.1, 85, 20, 147/68, 97% on 2 L GENERAL: Laying in bed, short of breath, tired. EYES: Pupils equal. Conjunctiva normal. HEENT: External appearance of nose and ears normal, oral cavity grossly normal. NECK: JVD not raised; masses not palpable. HEART: First and second heart sounds are normal; no edema. LUNGS: Respiratory rate increased, decreased breath sounds prolonged expiration and wheezing few scattered crackles. ABDOMEN: Soft, nontender, liver spleen not palpable, no masses palpable. PSYCH: Alert and oriented x3; mood and affect normal. Investigations, reviewed in the clinical context: EKG-tracing personally reviewed by me shows sinus tachycardia and evidence of P pulmonale Checks x-ray film personally reviewed by me shows scattered infiltrates Assessment: -Pneumonia, suspected gram-negative organism, causing sepsis, POA, slow to respond -Acute COPD exacerbation and an ex-smoker, slow to respond -Colonic diverticulosis -Essential hypertension -Hyperlipidemia -Primary osteoarthritis -Chronic hypoxic respiratory failure on 1.5 L of oxygen at home from underlying COPD -History of brain bleed Plan: Patient started on symptomatic. Continue with bronchodilators IV steroids. IV antibiotics. Care was discussed with patient. Encouraged to sit up and be out of bed.
[2019-05-31 06:56] VITALS: BP 173/83; TEMP 97.8
[2019-05-31] MEDS: SYMBICORT 160-4.5 MCG INHALER INHALATION SCH (07:12)
[2019-05-31] MEDS: IPRATROPIUM-ALBUTEROL 3 ML NEB INHALATION SCH ×2 (07:12→10:54)
[2019-05-31] MEDS: AZITHROMYCIN 500 MG TAB PO SCH (09:10)
[2019-05-31] MEDS: MULTIVITAMINS, THERA 1 EACH TAB PO SCH (09:11)
[2019-05-31] MEDS: POTASSIUM CHLORIDE ER 10 MEQ TAB.ER.PRT PO SCH (09:11)
[2019-05-31] MEDS: hydrALAZINE HCL 10 MG TAB PO SCH (09:11)
[2019-05-31] MEDS: ENOXAPARIN 40 MG/0.4 ML SYRINGE SQ SCH (09:11)
[2019-05-31] MEDS: guaiFENesin 600 MG TABLET.ER PO SCH (09:11)
[2019-05-31] MEDS: LISINOPRIL 20 MG TAB PO SCH (09:11)
[2019-05-31] MEDS: DILTIAZEM CD 240 MG CAP.ER.24H PO SCH (09:11)
[2019-05-31] MEDS: methylPREDNISolone SOD SUCCI 40 MG/ML 1 ML VIAL IV SCH (09:11)
[2019-05-31] MEDS: BISOPROLOL 5 MG TAB PO SCH (09:11)
[2019-05-31] MEDS: NON-FORMULARY DRUG (Celecoxib 200 MG) PO SCH (09:12)
[2019-05-31] MEDS: FUROSEMIDE 20 MG TAB PO SCH (09:12)
[2019-05-31 11:00] VITALS: PULSE 78
--- NOTE | 2019-05-31 23:36 | P.DS ---
Providers Date of admission: 05/28/19 16:36 Expected date of discharge: 05/31/19 Attending physician: Chilo Dawkins Consults: 05/28/19 16:36 Consult Physician Routine Consulting Provider: David Landers Consult Reason/Comments: dyspnea Do you want consulting provider notified?: Yes Primary care physician: Ben Morrow [place] [facility] Course: Hospital course: This is a very pleasant 78-year-old patient of Dr. 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 Chronic stable medical conditions include colonic diverticulosis, hypertension, hyperlipidemia, osteoarthritis on home oxygen 1.5 L. Patient presents with worsening cough short of breath and wheezing going on for about 4 days. Getting worse. Patient also had some fever and chills. Bringing up some phlegm. Does small amount. Congested in the chest. Checks x- ray did show pneumonia admitted with broncho-titers steroids antibiotics. Patient's appetite is okay. Admitted with COPD exacerbation and pneumonia. Today. Feeling much better. Breathing much improved. Eating well. Very keen to go home. Feels nearly back to baseline. Consultations: Dr. Landers from pulmonary Physical examination: VITAL SIGNS: 97.8, 80, 20, 154/70, 35% on 2 L GENERAL: Propped up, looking better. EYES: Pupils equal. Conjunctiva normal. HEENT: External appearance of nose and ears normal, oral cavity grossly normal. NECK: JVD not raised; masses not palpable. HEART: First and second heart sounds are normal; no edema. LUNGS: Respiratory rate increased, improved air entry, less wheezing ABDOMEN: Soft, nontender, liver spleen not palpable, no masses palpable. PSYCH: Alert and oriented x3; mood and affect normal. Investigations, reviewed in the clinical context: EKG-tracing personally reviewed by me shows sinus tachycardia and evidence of P pulmonale Checks x-ray film personally reviewed by me shows scattered infiltrates Discharge diagnosis: -Pneumonia, suspected gram-negative organism, causing sepsis, POA, -Acute COPD exacerbation and an ex-smoker, -Colonic diverticulosis -Essential hypertension -Hyperlipidemia -Primary osteoarthritis -Chronic hypoxic respiratory failure on 1.5 L of oxygen at home from underlying COPD -History of brain bleed Disposition: Home Patient Condition at Discharge: Stable Plan - Discharge Summary Discharge Rx Participant: No New Discharge Prescriptions: New Cefuroxime Axetil [Ceftin] 500 mg PO BID 3 Days #6 tab guaiFENesin [Mucinex] 1,200 mg PO Q12HR #30 tablet.er predniSONE 10 mg PO DAILY #30 tab Continue Lisinopril 40 mg PO DAILY Potassium Chloride ER [K-Dur 10] 10 meq PO DAILY Furosemide [Lasix] 20 mg PO DAILY Bisoprolol Fumarate [Zebeta] 10 mg PO DAILY Acetaminophen [Tylenol Extra Strength] 500 mg PO Q4HR PRN PRN Reason: Pain Budesonide-Formot 160-4.5 Mcg [Symbicort 160-4.5 Mcg Inhaler] 2 puff INHALATION RT-BID puff Raloxifene [Evista] 60 mg PO DAILY Celecoxib [CeleBREX] 200 mg PO DAILY Fexofenadine HCl [Lucia Allergy] 180 mg PO DAILY Diltiazem HCl [Cardizem CD] 240 mg PO DAILY Multivitamins, Thera [Multivitamin (formulary)] 1 tab PO DAILY Artificial Tears-Hypromellose [Artificial Tear Drops] 2 drops BOTH EYES TID PRN bottle PRN Reason: Dry Eye(S) Ipratropium-Albuterol Nebulize [Duoneb 0.5 mg-3 mg/3 ml Soln] 3 ml INHALATION RT-Q4H PRN PRN Reason: Shortness Of Breath Or Wheezing hydrALAZINE HCL 10 mg PO TID Discontinued Ipratropium-Albuterol Nebulize [Duoneb 0.5 mg-3 mg/3 ml Soln] 3 ml INHALATION RT-QID ampul.neb Discharge Medication List Lisinopril 40 mg PO DAILY 11/13/16 [History] Acetaminophen [Tylenol Extra Strength] 500 mg PO Q4HR PRN 05/01/18 [History] Bisoprolol Fumarate [Zebeta] 10 mg PO DAILY 05/01/18 [History] Furosemide [Lasix] 20 mg PO DAILY 05/01/18 [History] Potassium Chloride ER [K-Dur 10] 10 meq PO DAILY 05/01/18 [History] Budesonide-Formot 160-4.5 Mcg [Symbicort 160-4.5 Mcg Inhaler] 2 puff INHALATION RT-BID puff 05/13/18 [Rx] Celecoxib [CeleBREX] 200 mg PO DAILY 03/26/19 [History] Diltiazem HCl [Cardizem CD] 240 mg PO DAILY 03/26/19 [History] Fexofenadine HCl [Lucia Allergy] 180 mg PO DAILY 03/26/19 [History] Multivitamins, Thera [Multivitamin (formulary)] 1 tab PO DAILY 03/26/19 [History] Raloxifene [Evista] 60 mg PO DAILY 03/26/19 [History] Artificial Tears-Hypromellose [Artificial Tear Drops] 2 drops BOTH EYES TID PRN bottle 04/01/19 [Rx] Ipratropium-Albuterol Nebulize [Duoneb 0.5 mg-3 mg/3 ml Soln] 3 ml INHALATION RT-Q4H PRN 05/28/19 [History] hydrALAZINE HCL 10 mg PO TID 05/28/19 [History] Cefuroxime Axetil [Ceftin] 500 mg PO BID 3 Days #6 tab 05/31/19 [Rx] guaiFENesin [Mucinex] 1,200 mg PO Q12HR #30 tablet.er 05/31/19 [Rx] predniSONE 10 mg PO DAILY #30 tab 05/31/19 [Rx] Follow up Appointment(s)/Referral(s): Ben Morrow DO [Primary Care Provider] - [facility] - Patient Instructions/Handouts: Urinary Tract Infection in Women (DC), COPD (Chronic Obstructive Pulmonary Disease) (DC) Discharge Disposition: HOME WITH HOME HEALTH SERVICES
== END 2019-05-31 15:07 | disposition home or self-care (01) | DRG 871 ==
LOC: EC 14:32 → 4MS4W 16:36
PROVIDERS: ADMIT Hospitalist; ATTEND Hospitalist
DX: A41.9 Sepsis, unspecified organism (principal); J15.6 Pneumonia due to other Gram-negative bacteria; J44.1 Chronic obstructive pulmonary disease with (acute) exacerbation; N39.0 Urinary tract infection, site not specified; J96.11 Chronic respiratory failure with hypoxia; I50.32 Chronic diastolic (congestive) heart failure; J44.0 Chronic obstructive pulmonary disease with (acute) lower respiratory infection; I11.0 Hypertensive heart disease with heart failure; M19.91 Primary osteoarthritis, unspecified site; Z66 Do not resuscitate; E78.5 Hyperlipidemia, unspecified; I27.20 Pulmonary hypertension, unspecified; Z96.642 Presence of left artificial hip joint; K57.30 Diverticulosis of large intestine without perforation or abscess without bleeding; B96.89 Other specified bacterial agents as the cause of diseases classified elsewhere; Z79.51 Long term (current) use of inhaled steroids; Z79.899 Other long term (current) drug therapy; Z88.6 Allergy status to analgesic agent; Z90.49 Acquired absence of other specified parts of digestive tract; Z83.3 Family history of diabetes mellitus; Z83.49 Family history of other endocrine, nutritional and metabolic diseases; Z86.69 Personal history of other diseases of the nervous system and sense organs; Z79.1 Long term (current) use of non-steroidal anti-inflammatories (NSAID); Z87.440 Personal history of urinary (tract) infections; Z99.81 Dependence on supplemental oxygen; Z87.891 Personal history of nicotine dependence
CPT/HCPCS: 36415; 71046; 80053; 81001; 83605; 85025; 85610; 85730; 87040; 87070; 87077; 87086; 87186; 87205; 93005; 94640; 94760; 96374; 96375; 99291

== ENCOUNTER 2019-09-10 10:20 | Inpatient (IN) | payer MEDICARE ==
[2019-09-10] MEDS ORDERED: SODIUM CHLORIDE 0.9% 1,000 ML IV STA ×2 (11:04)
[2019-09-10] MEDS ORDERED: methylPREDNISolone SOD SUCCI 125 MG/2 ML VIAL IV STA (11:09)
[2019-09-10] MEDS ORDERED: IPRATROPIUM-ALBUTEROL 3 ML NEB INHALATION STA (11:09)
[2019-09-10] MEDS ORDERED: LABETALOL 5 MG/ML VIAL MDV IVP STA (11:12)
[2019-09-10 11:20] LABS: Basophils # (A) 0.3 k/uL (0-0.2); Basophils % (A) 2 %; Eosinophils # (A) 0.1 k/uL (0-0.7); Eosinophils % (A) 1 %; HCT 39.1 % (34.0-46.0); HGB 12.3 gm/dL (11.4-16.0); Hypochromasia Marked; Lymphocytes # (A) 0.1 k/uL (1.0-4.8); Lymphocytes % (A) 1 %; MCH 32.9 pg (25.0-35.0); MCHC 31.4 g/dL (31.0-37.0); MCV 104.7 fL (80.0-100.0); Macrocytosis Moderate; Mean Platelet Volume 6.9; Monocytes # (A) 0.5 k/uL (0-1.0); Monocytes % (A) 4 %; Neutrophils # (A) 12.6 k/uL (1.3-7.7); Neutrophils % (A) 92 %; Platelet Count 358 k/uL (150-450); Poikilocytosis Slight; RBC 3.74 m/uL (3.80-5.40); RDW 14.9 % (11.5-15.5); WBC 13.7 k/uL (3.8-10.6)
[2019-09-10 11:30] LABS: ALT 30 U/L (9-52); AST 65 U/L (14-36); African American GFR (CKD) >90 (>60 ml/min/1.73 sqM); Albumin 3.8 g/dL (3.5-5.0); Alkaline Phosphatase 99 U/L (38-126); Anion Gap 8 mmol/L; Blood Urea Nitrogen 25 mg/dL (7-17); Calcium 9.3 mg/dL (8.4-10.2); Carbon Dioxide 31 mmol/L (22-30); Chloride 100 mmol/L (98-107); Glucose 94 mg/dL (74-99); Sodium 139 mmol/L (137-145); Total Bilirubin 1.3 mg/dL (0.2-1.3)
[2019-09-10 11:32] LABS: Potassium 5.3 mmol/L (3.5-5.1)
--- NOTE | 2019-09-10 11:48 | XR ---
EXAMINATION TYPE: XR chest 2V DATE OF EXAM: 09/10/2019 COMPARISON: Chest x-ray May 28, 2019 HISTORY: History of UTI with weakness rule out infiltrate TECHNIQUE: Frontal and lateral views of the chest are obtained. FINDINGS: There is chronic parenchymal changes bilaterally. Focal lateral left basilar opacity is i mproved from prior. Focal right suprahilar opacity and air overlying EKG leads is also present. No pl eural effusion or pneumothorax bilaterally The cardiac silhouette size is enlarged with atherosclerot ic aorta. Sclerotic lesion left proximal humerus favors bone infarct or chondroid lesion. It is noted stable. IMPRESSION: Cardiomegaly and chronic parenchymal changes with areas of acute infiltrate lateral left lung base and right suprahilar level difficult to exclude. Consider progress study.
[2019-09-10 11:55] LABS: Partial Thromboplastin Time 18.6 sec (22.0-30.0)
[2019-09-10] MEDS ORDERED: ACETAMINOPHEN TAB 500 MG TAB PO STA (12:19)
[2019-09-10] MEDS ORDERED: AZITHROMYCIN 500 MG in SODIUM CHLORIDE 0.9% 250 ML IVPB STA (12:20)
--- NOTE | 2019-09-10 12:25 | ED ---
General Adult HPI - General Chief complaint: Altered Mental Status Stated complaint: Weak/uti/mental status change Time Seen by Provider: 09/10/19 10:54 Source: EMS Mode of arrival: EMS Limitations: altered mental status, physical limitation - History of Present Illness Initial comments: This 78-year-old white female presents with home care worker with a complaint of cough and difficulty in breathing. She apparently has had this for approximately one week. She apparently has had intermittent fevers as well and has a temperature of 102 currently. She lies any chest pain. She apparently give a urine sample this past Sunday and was called 2 days ago noting that she has a urinary tract infection. She apparently was going to have some medicatio ns delivered to her house but she would not answer. The home care worker relates that she is normally alert and oriented but today she is confused. History is somewhat limited per patient due to this confusion. She is denying any current urinary frequency, urgency, or dysuria. She does have a history of COPD and wears oxygen at home and takes breathing treatments regularly. No other complaints or modifying factors. - Related Data Home Medications Medication Instructions Recorded Confirmed Lisinopril 40 mg PO DAILY 11/13/16 09/10/19 Acetaminophen [Tylenol Extra 500 mg PO Q4HR PRN 05/01/18 09/10/19 Strength] Bisoprolol Fumarate [Zebeta] 10 mg PO DAILY 05/01/18 09/10/19 Furosemide [Lasix] 20 mg PO BID 05/01/18 09/10/19 Potassium Chloride ER [K-Dur 10] 10 meq PO DAILY 05/01/18 09/10/19 Celecoxib [CeleBREX] 200 mg PO DAILY 03/26/19 09/10/19 Diltiazem HCl [Cardizem CD] 240 mg PO DAILY 03/26/19 09/10/19 Fexofenadine HCl [Lucia Allergy] 180 mg PO DAILY 03/26/19 09/10/19 Multivitamins, Thera [Multivitamin 1 tab PO DAILY 03/26/19 09/10/19 (formulary)] Raloxifene [Evista] 60 mg PO DAILY 03/26/19 09/10/19 Ipratropium-Albuterol Nebulize 3 ml INHALATION RT-Q4H PRN 05/28/19 09/10/19 [Duoneb 0.5 mg-3 mg/3 ml Soln] hydrALAZINE HCL 10 mg PO TID 05/28/19 09/10/19 Cefuroxime [Ceftin] 250 mg PO BID 09/10/19 09/10/19 Cholecalciferol [Vitamin D3 (25 5,000 unit PO DAILY 09/10/19 09/10/19 Mcg = 1000 Iu)] Silvsorb Topical Gel 1 applic TOPICAL DIRECTED 09/10/19 09/10/19 Previous Rx's Medication Instructions Recorded Budesonide-Formot 160-4.5 Mcg 2 puff INHALATION RT-BID puff 05/13/18 [Symbicort 160-4.5 Mcg Inhaler] Artificial Tears-Hypromellose 2 drops BOTH EYES TID PRN bottle 04/01/19 [Artificial Tear Drops] Allergies Allergy/AdvReac Type Severity Reaction Status Date / Time naproxen [From Naprosyn] Allergy Rash/Hives Verified 09/10/19 11:24 Review of Systems ROS Statement: Those systems with pertinent positive or pertinent negative responses have been documented in the HPI. ROS Other: All systems not noted in ROS Statement are negative. Past Medical History Past Medical History: COPD, Hyperlipidemia, Hypertension, Osteoarthritis (OA) Additional Past Medical History / Comment(s): history of brain bleed about a year ago, pt was sent to [facility]. History of Any Multi-Drug Resistant Organisms: None Reported Past Surgical History: Adenoidectomy, Joint Replacement, Tonsillectomy Additional Past Surgical History / Comment(s): Left hip replacement x 3 Past Anesthesia/Blood Transfusion Reactions: No Reported Reaction Past Psychological History: No Psychological Hx Reported Smoking Status: Former smoker Past Alcohol Use History: None Reported Past Drug Use History: None Reported - Past Family History Father Family Medical History: Diabetes Mellitus Mother Family Medical History: Hyperlipidemia General Exam - General Exam Comments Initial Comments: GENERAL: The patient is well nourished and well hydrated. VITAL SIGNS: Heart rate, blood pressure, respiratory rate reviewed as recorded in nurse's notes. EYES: Pupils are round and reactive. Extraocular movements are intact. No conjunctival / lid redness or swelling. ENT: No external evidence of injury, swelling, or ecchymosis. Airway is patent. Throat is clear. NECK: Nontender. No swelling or evidence of injury. No subcutaneous emphysema. Trachea is midline. No thyroid mass. HEART: Regular rate and rhythm. Good peripheral pulses. LUNGS/CHEST: Wheezing noted bilateral chest. No ecchymosis, subcutaneous emphysema, or tenderness. ABDOMEN: Abdomen soft without tenderness. No palpable masses or organomegaly. No peritoneal signs. No abdominal wall swelling or ecchymosis. EXTREMITIES: No extremity tenderness. Normal muscle tone and function. No thorac olumbar tenderness. NEUROLOGIC: Sensation is grossly intact. Cranial nerve exam reveals face is sym metrical, tongue is midline, speech is clear. SKIN: There are some chronic wounds to anterior aspect of bilateral legs. No induration or masses noted. PSYCHIATRIC: Alert and pleasant but not oriented. Limitations: altered mental status, physical limitation Course Vital Signs 09/10/19 09/10/19 09/10/19 10:49 11:57 11:59 Temperature 102.2 F H Pulse Rate 100 98 Pulse Rate [ 98 Ophthalmology Assistant ] Respiratory 16 20 Rate Blood Pressure 206/108 Blood Pressure 192/89 [Left Arm Sitting] O2 Sat by Pulse 97 96 Oximetry 09/10/19 09/10/19 12:00 12:16 Temperature Pulse Rate 98 99 Pulse Rate [ Ophthalmology Assistant ] Respiratory 20 Rate Blood Pressure 192/89 Blood Pressure [Left Arm Sitting] O2 Sat by Pulse 96 Oximetry Medical Decision Making - Medical Decision Making The patient is seen and examined. All diagnostics are reviewed. The EKG shows a normal sinus rhythm at a rate of 99. There is some nonspecific ST-T wave changes noted diffusely. There is no ST elevation. The NJ interval is 144, QS duration is 82, and the QTC intervals prolonged at 526. There is evidence of left ventricular hypertrophy. An IV is established patient is hydrated. She receives some Tylenol orally for her fever. She does receive a double DuoNeb breathing treatment. The laboratories reviewed and does show a leukocytosis as well as some hyperkalemia. Lactic acid is normal. Patient is given Rocephin and Zithromax intravenously. Her last admission was over 3 months ago and this appears to be a community-acquired pneumonia. The chest x-ray does show bilateral pneumonia per radiology. This certainly would be consistent with her symptomatology. Urinalysis is pending. The case is discussed with Dr. Dawkins and he is agreeable with admission. In addition, her blood pressure is significantly elevated and she is given some labetalol. It is felt as though her mental status changes are likely due to the infection. It is certainly possible that she may have a urinary infection as well but she is unable to urinate at this time. - Lab Data Result diagrams: 09/10/19 10:48 09/10/19 10:48 Lab Results 09/10/19 09/10/19 09/10/19 Range/Units 10:48 10:48 10:48 WBC 13.7 H (3.8-10.6) k/uL RBC 3.74 L (3.80-5.40) m/uL Hgb 12.3 (11.4-16.0) gm/dL Hct 39.1 (34.0-46.0) % MCV 104.7 H (80.0-100.0) fL MCH 32.9 (25.0-35.0) pg MCHC 31.4 (31.0-37.0) g/dL RDW 14.9 (11.5-15.5) % Plt Count 358 (150-450) k/uL Neutrophils % 92 % Lymphocytes % 1 % Monocytes % 4 % Eosinophils % 1 % Basophils % 2 % Neutrophils # 12.6 H (1.3-7.7) k/uL Lymphocytes # 0.1 L (1.0-4.8) k/uL Monocytes # 0.5 (0-1.0) k/uL Eosinophils # 0.1 (0-0.7) k/uL Basophils # 0.3 H (0-0.2) k/uL Hypochromasia Marked Poikilocytosis Slight Macrocytosis Moderate PT (9.0-12.0) sec INR (<1.2) APTT (22.0-30.0) sec Sodium 139 (137-145) mmol/L Potassium 5.3 H (3.5-5.1) mmol/L Chloride 100 (98-107) mmol/L Carbon Dioxide 31 H (22-30) mmol/L Anion Gap 8 mmol/L BUN 25 H (7-17) mg/dL Creatinine 0.42 L (0.52-1.04) mg/dL Est GFR (CKD-EPI)AfAm >90 (>60 ml/min/1.73 sqM) Est GFR (CKD-EPI)NonAf >90 (>60 ml/min/1.73 sqM) Glucose 94 (74-99) mg/dL Plasma Lactic Acid Kit 1.8 (0.7-2.0) mmol/L Calcium 9.3 (8.4-10.2) mg/dL Total Bilirubin 1.3 (0.2-1.3) mg/dL AST 65 H (14-36) U/L ALT 30 (9-52) U/L Alkaline Phosphatase 99 (38-126) U/L Total Protein 7.0 (6.3-8.2) g/dL Albumin 3.8 (3.5-5.0) g/dL 09/10/19 Range/Units 10:48 WBC (3.8-10.6) k/uL RBC (3.80-5.40) m/uL Hgb (11.4-16.0) gm/dL Hct (34.0-46.0) % MCV (80.0-100.0) fL MCH (25.0-35.0) pg MCHC (31.0-37.0) g/dL RDW (11.5-15.5) % Plt Count (150-450) k/uL Neutrophils % % Lymphocytes % % Monocytes % % Eosinophils % % Basophils % % Neutrophils # (1.3-7.7) k/uL Lymphocytes # (1.0-4.8) k/uL Monocytes # (0-1.0) k/uL Eosinophils # (0-0.7) k/uL Basophils # (0-0.2) k/uL Hypochromasia Poikilocytosis Macrocytosis PT 11.0 (9.0-12.0) sec INR 1.0 (<1.2) APTT 18.6 L (22.0-30.0) sec Sodium (137-145) mmol/L Potassium (3.5-5.1) mmol/L Chloride (98-107) mmol/L Carbon Dioxide (22-30) mmol/L Anion Gap mmol/L BUN (7-17) mg/dL Creatinine (0.52-1.04) mg/dL Est GFR (CKD-EPI)AfAm (>60 ml/min/1.73 sqM) Est GFR (CKD-EPI)NonAf (>60 ml/min/1.73 sqM) Glucose (74-99) mg/dL Plasma Lactic Acid Kit (0.7-2.0) mmol/L Calcium (8.4-10.2) mg/dL Total Bilirubin (0.2-1.3) mg/dL AST (14-36) U/L ALT (9-52) U/L Alkaline Phosphatase (38-126) U/L Total Protein (6.3-8.2) g/dL Albumin (3.5-5.0) g/dL Disposition Clinical Impression: Fever, Hypertensive crisis, Bilateral pneumonia, Dyspnea, Leukocytosis, Altered mental status, Urinary tract infection, COPD exacerbation, Hyperkalemia, Prolonged Q-T interval on ECG Disposition: ADMITTED IP TO THIS HOSP Condition: Fair Is patient prescribed a controlled substance at d/c from ED?: No Referrals: Ben Morrow DO [Primary Care Provider] - 1-2 days Time of Disposition: 12:29 Decision Date: 09/10/19 Decision Time: 12:29
[2019-09-10] MEDS ORDERED: ARTIFICIAL TEARS-HYPROMELLOSE DROPS 15 ML BTL BOTH EYES PRN (12:33)
[2019-09-10] MEDS ORDERED: ACETAMINOPHEN TAB 500 MG TAB PO PRN (12:35)
[2019-09-10] MEDS ORDERED: LABETALOL 5 MG/ML VIAL MDV IVP PRN (12:36)
[2019-09-10 13:01] LABS: Appearance,Urine Cloudy (Clear); Bacteria,Urine Many /hpf; Bilirubin,Urine Negative (Negative); Blood,Urine Negative (Negative); Color,Urine Yellow; Glucose,Urine (UA) Negative (Negative); Ketones,Urine 1+ (Negative); Leukocyte Esterase,Urine Moderate (Negative); Mucus,Urine Rare /hpf; Nitrite,Urine Positive (Negative); Protein,Urine 1+ (Negative); Specific Gravity,Urine 1.019 (1.001-1.035); Squamous Epithelial Cell,Urine <1 /hpf (0-4); Urobilinogen,Urine <2.0 mg/dL (<2.0); WBC,Urine 78 /hpf (0-5)
[2019-09-10] MEDS ORDERED: cloNIDine HCL 0.1 MG TAB PO PRN (13:02)
[2019-09-10] MEDS: ENOXAPARIN 40 MG/0.4 ML SYRINGE SQ SCH (13:35)
[2019-09-10] MEDS: [UNRECOGNIZED DRUG - OTHER] TOPICAL SCH (13:35)
[2019-09-10] MEDS: IPRATROPIUM-ALBUTEROL 3 ML NEB INHALATION PRN (15:35)
[2019-09-10] MEDS ORDERED: INFLUENZA VACCINE (6 MOS+) 60 MCG/0.5 ML SYRINGE IM ONE (16:02)
[2019-09-10 16:07] VITALS: BMI 19.5
[2019-09-10] MEDS: hydrALAZINE HCL 10 MG TAB PO SCH ×2 (16:15→21:54)
[2019-09-10] MEDS: SYMBICORT 160-4.5 MCG INHALER INHALATION SCH (20:37)
[2019-09-10 21:02] LABS: Glucose,Whole Blood 194 mg/dL (75-99)
[2019-09-10] MEDS: FUROSEMIDE 20 MG TAB PO SCH (21:55)
[2019-09-10] MEDS: INSULIN ASPART (NovoLOG) 100 UNIT/ML VIAL SQ SCH (21:56)
--- NOTE | 2019-09-10 21:58 | CT ---
EXAMINATION TYPE: CT brain wo con DATE OF EXAM: 09/10/2019 COMPARISON: None HISTORY: ams CT DLP: 1153 mGycm Automated exposure control for dose reduction was used. FINDINGS: There is some hypodensity in the periventricular white matter. There is no mass effect nor midline sh ift. There is no sign of intracranial hemorrhage. There is 3 cm area of yañez-white matter hypodensity left occipital lobe consistent with old infarct. The calvarium is intact. 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 CHRONIC SMALL VESSEL ISCHEMIA. NO HEMORRHAGE.
[2019-09-10 22:35] LABS: ABG Base Excess 4.9 mmol/L; ABG HCO3 30 mmol/L (21-25); ABG Oxygen Saturation 96.2 % (94-97); ABG PCO2 47 mmHg (35-45); ABG PH 7.41 (7.35-7.45); ABG PO2 80 mmHg (83-108); ABG TCO2 31 mmol/L (19-24); Allen Test Performed? Yes
[2019-09-11 06:57] LABS: Glucose,Whole Blood 105 mg/dL (75-99)
[2019-09-11] MEDS: IPRATROPIUM-ALBUTEROL 3 ML NEB INHALATION PRN (07:21)
[2019-09-11] MEDS: SYMBICORT 160-4.5 MCG INHALER INHALATION SCH (07:21)
[2019-09-11] MEDS: ENOXAPARIN 40 MG/0.4 ML SYRINGE SQ SCH (09:48)
[2019-09-11] MEDS: MELOXICAM 7.5 MG TAB PO SCH (09:54)
[2019-09-11] MEDS: CHOLECALCIFEROL 1,000 UNIT TAB PO SCH (09:54)
[2019-09-11] MEDS: LORATADINE 10 MG TAB PO SCH (09:54)
[2019-09-11] MEDS: hydrALAZINE HCL 10 MG TAB PO SCH ×3 (09:54→21:38)
[2019-09-11] MEDS: FUROSEMIDE 20 MG TAB PO SCH ×2 (09:57→21:38)
[2019-09-11] MEDS: DILTIAZEM CD 120 MG CAP.ER.24H PO SCH (09:57)
[2019-09-11] MEDS: LISINOPRIL 20 MG TAB PO SCH (09:57)
[2019-09-11] MEDS: RALOXIFENE 60 MG TAB PO SCH (09:58)
[2019-09-11] MEDS: BISOPROLOL 5 MG TAB PO SCH (09:58)
[2019-09-11] MEDS: MULTIVITAMINS, THERA 1 EACH TAB PO SCH (09:58)
[2019-09-11] MEDS: POTASSIUM CHLORIDE ER 10 MEQ TAB.ER.PRT PO SCH (10:10)
--- NOTE | 2019-09-11 10:40 | P.CNPUL ---
History of Present Illness Consult date: 09/11/19 Requesting physician: Chilo Dawkins Reason for consult: dyspnea, abnormal CXR/CT Chief complaint: Fever, altered mental status, UTI, History of present illness: This is a very pleasant 78-year-old female patient who follows with Dr. Morrow as her primary care physician. She has a history of arthritis, hemorrhagic CVA, hypertension, anemia. She also has Gold stage III chronic obstructive pulmonary disease with an FEV1 value 36% of predicted. She does have a 20 year pack per day smoking history however quit in 2009. She follows with Dr. Reid in our office for the same. She is maintained on Symbicort, DuoNeb inhalations. She was brought in to the emergency room yesterday by her order control clerk blood bank after being found to have altered mental status and confusion. Computed tomography scan of the brain revealed old left occipital lobe cortical infarct. Chronic small vessel ischemia. No hemorrhage. She had a temperature of 102. Recent urinalysis revealed a UTI but the patient did not answer the door when the medications were being delivered. Urinalysis here does show positive nitrates moderate leukocytes and high white count. Influenza screen is negative. ProBNP 13,100. Troponin 0.034. Arterial blood gases on 28% FiO2 revealed a pO2 of 80, pCO2 47, pH 7.41. White count 13.7. Hemoglobin 12.3. Sodium 139. Potassium 5.3. Bicarb 31. Creatinine 0.42. Chest x-ray showed areas of acute infiltrate in the lateral left lung base in the right suprahilar area. We're consulted for the same. She is seen today on the regular medical floor. She is awake and alert in no acute distress. She is still confused as to place and time. She is stating she did not receive her breathing treatment this morning however upon discussion with respiratory therapy she had just had it recently. She is maintaining good O2 saturations in the mid 90s on 2 L/m per nasal cannula. She's been afebrile. Urine culture pending. Blood and sputum cultures pending. She has been initiated on DuoNeb inhalations, Symbicort and antibiotics in the form of ceftriaxone and azithromycin. Review of Systems REVIEW OF SYSTEMS: CONSTITUTIONAL: Denies any recent significant weight loss or weight gain. EYES: Denies change in vision. EARS, NOSE, MOUTH, THROAT: Denies headaches, denies sore throat. CARDIOVASCULAR: Denies chest pain, palpitations or syncopal episodes. RESPIRATORY: Positive for shortness of breath, cough, congestion no hemoptysis. GASTROINTESTINAL: Denies change in appetite, denies abdominal pain GENITOURINARY: Denies hematuria, denies infections. MUSKULOSKELETAL: Denies pain, denies swelling. INTEGUMENTARY: Denies rash, denies eczema. NEUROLOGICAL: Positive for recent memory loss, no recent seizure activity. PSYCHIATRIC: Denies anxiety, denies depression. HEMATOLOGIC/LYMPHATIC: Denies anemia, denies enlarged lymph nodes. Past Medical History Past Medical History: COPD, Hyperlipidemia, Hypertension, Osteoarthritis (OA) Additional Past Medical History / Comment(s): history of brain bleed about a year ago, pt was sent to [facility]. History of Any Multi-Drug Resistant Organisms: None Reported Past Surgical History: Adenoidectomy, Joint Replacement, Tonsillectomy Additional Past Surgical History / Comment(s): Left hip replacement x 3 Past Anesthesia/Blood Transfusion Reactions: No Reported Reaction Smoking Status: Former smoker - Past Family History Father Family Medical History: Diabetes Mellitus Mother Family Medical History: Hyperlipidemia Medications and Allergies Home Medications Medication Instructions Recorded Confirmed Type Lisinopril 40 mg PO DAILY 11/13/16 09/10/19 History Acetaminophen [Tylenol Extra 500 mg PO Q4HR PRN 05/01/18 09/10/19 History Strength] Bisoprolol Fumarate [Zebeta] 10 mg PO DAILY 05/01/18 09/10/19 History Furosemide [Lasix] 20 mg PO BID 05/01/18 09/10/19 History Potassium Chloride ER [K-Dur 10] 10 meq PO DAILY 05/01/18 09/10/19 History Budesonide-Formot 160-4.5 Mcg 2 puff INHALATION RT-BID puff 05/13/18 09/10/19 Rx [Symbicort 160-4.5 Mcg Inhaler] Celecoxib [CeleBREX] 200 mg PO DAILY 03/26/19 09/10/19 History Diltiazem HCl [Cardizem CD] 240 mg PO DAILY 03/26/19 09/10/19 History Fexofenadine HCl [Lucia Allergy] 180 mg PO DAILY 03/26/19 09/10/19 History Multivitamins, Thera [Multivitamin 1 tab PO DAILY 03/26/19 09/10/19 History (formulary)] Raloxifene [Evista] 60 mg PO DAILY 03/26/19 09/10/19 History Artificial Tears-Hypromellose 2 drops BOTH EYES TID PRN bottle 04/01/19 09/10/19 Rx [Artificial Tear Drops] Ipratropium-Albuterol Nebulize 3 ml INHALATION RT-Q4H PRN 05/28/19 09/10/19 History [Duoneb 0.5 mg-3 mg/3 ml Soln] hydrALAZINE HCL 10 mg PO TID 05/28/19 09/10/19 History Cefuroxime [Ceftin] 250 mg PO BID 09/10/19 09/10/19 History Cholecalciferol [Vitamin D3 (25 5,000 unit PO DAILY 09/10/19 09/10/19 History Mcg = 1000 Iu)] Silvsorb Topical Gel 1 applic TOPICAL DIRECTED 09/10/19 09/10/19 History Allergies Allergy/AdvReac Type Severity Reaction Status Date / Time naproxen [From Naprosyn] Allergy Rash/Hives Verified 09/10/19 11:24 Physical Exam Vitals: Vital Signs Temp Pulse Pulse Pulse Resp BP BP 09/11/19 07:36 84 09/11/19 07:22 88 09/11/19 04:11 98.6 F 81 16 188/86 09/10/19 22:06 83 20 169/77 09/10/19 21:09 97.6 F 75 26 H 166/77 09/10/19 20:38 09/10/19 20:30 97.6 F 87 18 138/76 09/10/19 19:00 98.2 F 87 18 139/65 09/10/19 16:59 98.5 F 90 15 169/75 09/10/19 15:44 85 09/10/19 15:35 81 09/10/19 15:00 98.2 F 89 18 165/86 09/10/19 13:47 96.9 F L 09/10/19 13:34 09/10/19 13:20 93 26 H 161/77 09/10/19 13:00 95 27 H 176/94 09/10/19 12:52 97 20 176/94 09/10/19 12:50 97 26 H 176/94 09/10/19 12:40 98 11 L 176/94 09/10/19 12:30 103 H 6 L 198/97 09/10/19 12:16 99 09/10/19 12:00 98 20 192/89 09/10/19 11:59 98 09/10/19 11:57 98 20 192/89 09/10/19 10:49 102.2 F H 100 16 206/108 Pulse Ox 09/11/19 07:36 09/11/19 07:22 09/11/19 04:11 96 09/10/19 22:06 95 09/10/19 21:09 95 09/10/19 20:38 97 09/10/19 20:30 98 09/10/19 19:00 94 L 09/10/19 16:59 92 L 09/10/19 15:44 09/10/19 15:35 09/10/19 15:00 97 09/10/19 13:47 09/10/19 13:34 96 09/10/19 13:20 95 09/10/19 13:00 94 L 09/10/19 12:52 93 L 09/10/19 12:50 09/10/19 12:40 09/10/19 12:30 90 L 09/10/19 12:16 09/10/19 12:00 96 09/10/19 11:59 09/10/19 11:57 96 09/10/19 10:49 97 Intake and Output 09/10/19 09/11/19 09/11/19 22:59 06:59 14:59 Intake Total 540 240 Balance 540 240 Intake: Intake, IV Titration 300 Amount Sodium Chloride 0.9% 1, 300 000 ml @ 100 mls/hr IV . Q10H STA Rx#:[id number] Oral 240 240 Other: Voiding Method Incontinent Incontinent # Voids 1 3 GENERAL EXAM: Alert, pleasant 78-year-old female patient, on 2 L nasal cannula, comfortable in no apparent distress. HEAD: Normocephalic. EYES: Normal reaction of pupils, equal size. NOSE: Clear with pink turbinates. THROAT: No erythema or exudates. NECK: No masses, no JVD. CHEST: No chest wall deformity. LUNGS: Equal air entry with end expiratory wheeze, few scattered rhonchi. CVS: S1 and S2 normal with no audible murmur, regular rhythm. ABDOMEN: No hepatosplenomegaly, normal bowel sounds, no guarding or rigidity. SPINE: No scoliosis or deformity SKIN: No rashes CENTRAL NERVOUS SYSTEM: Alert, oriented 2. No focal deficits, tone is normal in all 4 extremities. EXTREMITIES: There is no peripheral edema. No clubbing, no cyanosis. Peripheral pulses are intact. Results - Laboratory Findings CBC and BMP: 09/10/19 10:48 09/10/19 10:48 ABG ABG pH 7.41 (7.35-7.45) 09/10/19 22:28 ABG pCO2 47 mmHg (35-45) H 09/10/19 22:28 ABG pO2 80 mmHg (83-108) L 09/10/19 22:28 ABG O2 Saturation 96.2 % (94-97) 09/10/19 22:28 PT/INR, D-dimer PT 11.0 sec (9.0-12.0) 09/10/19 10:48 INR 1.0 (<1.2) 09/10/19 10:48 Abnormal lab findings: Abnormal Labs 09/10/19 09/10/19 09/10/19 10:48 10:48 10:48 WBC 13.7 H RBC 3.74 L MCV 104.7 H Neutrophils # 12.6 H Lymphocytes # 0.1 L Basophils # 0.3 H APTT 18.6 L ABG pCO2 ABG pO2 ABG HCO3 ABG Total CO2 Potassium 5.3 H Carbon Dioxide 31 H BUN 25 H Creatinine 0.42 L POC Glucose (mg/dL) AST 65 H Urine Appearance Urine Protein Urine Ketones Urine Nitrite Ur Leukocyte Esterase Urine WBC Urine Bacteria Urine Mucus 09/10/19 09/10/19 09/10/19 12:40 21:00 22:28 WBC RBC MCV Neutrophils # Lymphocytes # Basophils # APTT ABG pCO2 47 H ABG pO2 80 L ABG HCO3 30 H ABG Total CO2 31 H Potassium Carbon Dioxide BUN Creatinine POC Glucose (mg/dL) 194 H AST Urine Appearance Cloudy H Urine Protein 1+ H Urine Ketones 1+ H Urine Nitrite Positive H Ur Leukocyte Esterase Moderate H Urine WBC 78 H Urine Bacteria Many H Urine Mucus Rare H 09/11/19 06:47 WBC RBC MCV Neutrophils # Lymphocytes # Basophils # APTT ABG pCO2 ABG pO2 ABG HCO3 ABG Total CO2 Potassium Carbon Dioxide BUN Creatinine POC Glucose (mg/dL) 105 H AST Urine Appearance Urine Protein Urine Ketones Urine Nitrite Ur Leukocyte Esterase Urine WBC Urine Bacteria Urine Mucus - Diagnostic Findings Chest x-ray: image reviewed Assessment and Plan Assessment: Impression: #1 Altered mental status suspect secondary to urinary tract infection and multifocal pneumonia. #2 Acute exacerbation of Gold stage III chronic obstructive pulmonary disease, FEV1 value 36% of predicted, secondary to an acute pneumonia. #3 Urinary tract infection, cultures pending. #4 Febrile illness secondary to above. #5 History of previous hemorrhagic CVA. #6 Hypertension. #7 Arthritis. #8 History of systolic congestive heart failure with ejection fraction 40-45%. Plan: The patient was seen and evaluated by Dr. Landers. Chest x-ray and labs were reviewed. We'll continue with the current treatment plan including DuoNeb inhalations, Symbicort, antibiotics. Hold off on steroids for now due to her altered mental status. Cultures are pending. We will continue to follow and make further recommendations based on her clinical status. I, the cosigning physician, performed a history & physical examination of the patient. Lungs sounds with faint end expiratory wheeze, few scattered rhonchi. Maintaining good O2 saturations in the 90s on 2 L/m per nasal cannula. I discussed the assessment and plan of care with my nurse practitioner, Doris Nails. I attest to the above consultation as dictated by her. Time with Patient: Greater than 30
[2019-09-11] MEDS: INSULIN ASPART (NovoLOG) 100 UNIT/ML VIAL SQ SCH ×4 (10:48→21:21)
[2019-09-11] MEDS: IPRATROPIUM-ALBUTEROL 3 ML NEB INHALATION SCH ×3 (11:09→19:43)
--- NOTE | 2019-09-11 11:33 | P.CON ---
Consult Note - . Consult date: 09/11/19 Assessment/Plan:: This is a 78-year-old pleasant feel now who is known to the wound care center being seen by wound care for nonhealing ulcerations to bilateral lower extremities and sacrum. The bilateral lower leg ulcerations have been there for approximately 1 year they will spontaneously occur and then heal and reopened. Prior to being seen by the wound care center she has been using Neosporin to the site and is noticed that they were progressively getting worse. When the patient was seen in the wound care center she had significant small ample bilateral legs that swelling has decreased. Patient also has a ulceration to the sacrum but is been there for a few months. Ulceration to right medial lower extremity has adherent Slough and granulation. Wound is attached to the wound bed measuring approximately 2 x 4 x 2 x 1 x 0.2 cm, left lateral superior lower leg ulceration shows improvement from last week. Measuring approximately 4.2 x 1.5 x 0.1 cm there is adherent Slough granulation seen within wound bed, left lateral inferior lower extremity ulceration is showing improvement compared to last week, measuring approximately 2.9 x 1.5 x 0.1 cm, minimal slough noted on the wound bed granulation seen throughout. Sacral ulceration shows no change compared to last week we'll measuring 0.5 x 0.5 x 0.2 cm granulation is noted within wound bed. starr Wound has callus noted. Review of systems: Integumentary: Reports wounds, denies pruritus, denies other lesions Physical exam: Integumentary: See HPI, Assessment/plan: 1. 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 Apply honey alginate, saline moistened gauze, and rolled gauze, Tubigrip. Change Sunday. Elevate legs at least 30 minutes 3 times a day. Keep current appointment in the [facility]ound Care [facility]tr[facility] September 18 at 3:00 2. Nonpressure chronic ulcer of left lower extremity with fat layer exposure. As noted above 3. Pressure ulcer of sacral region stage II. Apply triad daily Utilize foam, limit weightbearing to the site, utilized a air cushion for sitting. 4. Venous insufficiency. As noted above Thank you for the consultation, any questions please contact the wound care center DNP note has been reviewed and discussed with Dr. Schuster and the impression and plan of care has been directed as dictated.
[2019-09-11 11:48] LABS: Glucose,Whole Blood 109 mg/dL (75-99)
[2019-09-11] MEDS ORDERED: AZITHROMYCIN 500 MG in SODIUM CHLORIDE 0.9% 250 ML IVPB SCH (12:00)
[2019-09-11] MEDS: [UNRECOGNIZED DRUG - OTHER] TOPICAL SCH (14:06)
[2019-09-11] MEDS: HYDROPHILIC CREAM 180 GM TUBE TOPICAL SCH (14:56)
--- NOTE | 2019-09-11 16:48 | P.HPIM ---
History of Present Illness H&P Date: 09/11/19 Chief Complaint: Congested cough History of presenting complaint: This is a very pleasant 78-year-old patient of Dr. Morrow and Dr. 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 Chronic stable medical conditions include colonic diverticulosis, hypertension, hyperlipidemia, osteoarthritis on home oxygen 1.5 L. patient has not been feeling well. She was just diagnosed with a UTI. Has had a cough and fever. Bringing up sputum. When the home care worker checked on her found her to be a bit confused. Patient was brought to the ER. Found to have fever of 101. Chest x-ray showed infiltrates. Compared with pneumonia. Patient's appetite is gone on. Bringing up yellow sputum. Review of systems: GEN.: Tired, fever or chills EYES: None HEENT: None NECK: None RESPIRATORY: As above CARDIOVASCULAR: None GASTROINTESTINAL: None GENITOURINARY: None MUSCULOSKELETAL: Pain in the joints LYMPHATICS: None HEMATOLOGICAL: None PSYCHIATRY: Was confused at home NEUROLOGICAL: None Social history: Patient stopped smoking 6 years ago. Smoked for about 53 years about a pack a day. No alcohol. Does use a walker. Lives at [facility] Family history: Diabetes mellitus type 2 Physical examination: VITAL SIGNS: 102.2, 100, 16, 206 overweight, 77% on 4 L GENERAL: BMI 19.5, sitting up tired EYES: Pupils equal. Conjunctiva normal. HEENT: External appearance of nose and ears normal, oral cavity grossly normal. NECK: JVD not raised; masses not palpable. HEART: First and second heart sounds are normal; no edema. LUNGS: Respiratory rate increased, decreased breath sounds prolonged expiration and wheezing few scattered crackles. ABDOMEN: Soft, nontender, liver spleen not palpable, no masses palpable. PSYCH: Answering questions, but not sure exactly what happened at home NEUROLOGICAL: Cranial nerves grossly intact; no facial asymmetry, power and sensation grossly intact. LYMPHATICS: No lymph nodes palpable in the axilla and neck MUSCULAR- skeletal: Evidence of OA especially in the hands Investigations, reviewed in the clinical context: White count 3.7 hemoglobin 12.3 potassium 5.3 bun 25 ferritin 0.42 Computed tomography scan of brain-chronic changes EKG tracing personally reviewed by me-normal sinus rhythm Chest x-ray film personally reviewed by me-infiltrates particularly on the right side - Assessment: -Pneumonia, suspected gram-negative organism, causing sepsis, POA -Acute delirium from underlying pneumonia -Acute COPD exacerbation in an ex-smoker -Colonic diverticulosis -Essential hypertension -Hyperlipidemia -Primary osteoarthritis -Chronic hypoxic respiratory failure on 1.5 L of oxygen at home from underlying COPD -History of brain bleed -CODE STATUS DO NOT RESUSCITATE Plan: Patient started on inhaled steroid, bronchodilators, IV ceftriaxone. Home medications be continued. Pulmonary was consulted. Care was discussed with the patient. Lovenox for DVT prophylaxis. Past Medical History Past Medical History: COPD, Hyperlipidemia, Hypertension, Osteoarthritis (OA) Additional Past Medical History / Comment(s): history of brain bleed about a year ago, pt was sent to [facility]. History of Any Multi-Drug Resistant Organisms: None Reported Past Surgical History: Adenoidectomy, Joint Replacement, Tonsillectomy Additional Past Surgical History / Comment(s): Left hip replacement x 3 Past Anesthesia/Blood Transfusion Reactions: No Reported Reaction Smoking Status: Former smoker - Past Family History Father Family Medical History: Diabetes Mellitus Mother Family Medical History: Hyperlipidemia Medications and Allergies Home Medications Medication Instructions Recorded Confirmed Type Lisinopril 40 mg PO DAILY 11/13/16 09/10/19 History Acetaminophen [Tylenol Extra 500 mg PO Q4HR PRN 05/01/18 09/10/19 History Strength] Bisoprolol Fumarate [Zebeta] 10 mg PO DAILY 05/01/18 09/10/19 History Furosemide [Lasix] 20 mg PO BID 05/01/18 09/10/19 History Potassium Chloride ER [K-Dur 10] 10 meq PO DAILY 05/01/18 09/10/19 History Budesonide-Formot 160-4.5 Mcg 2 puff INHALATION RT-BID puff 05/13/18 09/10/19 Rx [Symbicort 160-4.5 Mcg Inhaler] Celecoxib [CeleBREX] 200 mg PO DAILY 03/26/19 09/10/19 History Diltiazem HCl [Cardizem CD] 240 mg PO DAILY 03/26/19 09/10/19 History Fexofenadine HCl [Lucia Allergy] 180 mg PO DAILY 03/26/19 09/10/19 History Multivitamins, Thera [Multivitamin 1 tab PO DAILY 03/26/19 09/10/19 History (formulary)] Raloxifene [Evista] 60 mg PO DAILY 03/26/19 09/10/19 History Artificial Tears-Hypromellose 2 drops BOTH EYES TID PRN bottle 04/01/19 09/10/19 Rx [Artificial Tear Drops] Ipratropium-Albuterol Nebulize 3 ml INHALATION RT-Q4H PRN 05/28/19 09/10/19 History [Duoneb 0.5 mg-3 mg/3 ml Soln] hydrALAZINE HCL 10 mg PO TID 05/28/19 09/10/19 History Cefuroxime [Ceftin] 250 mg PO BID 09/10/19 09/10/19 History Cholecalciferol [Vitamin D3 (25 5,000 unit PO DAILY 09/10/19 09/10/19 History Mcg = 1000 Iu)] Silvsorb Topical Gel 1 applic TOPICAL DIRECTED 09/10/19 09/10/19 History Allergies Allergy/AdvReac Type Severity Reaction Status Date / Time naproxen [From Naprosyn] Allergy Rash/Hives Verified 09/10/19 11:24 Physical Exam Vitals: Vital Signs Temp Pulse Pulse Pulse Resp BP BP 09/11/19 07:36 84 09/11/19 07:22 88 09/11/19 04:11 98.6 F 81 16 188/86 09/10/19 22:06 83 20 169/77 09/10/19 21:09 97.6 F 75 26 H 166/77 09/10/19 20:38 09/10/19 20:30 97.6 F 87 18 138/76 09/10/19 19:00 98.2 F 87 18 139/65 09/10/19 16:59 98.5 F 90 15 169/75 09/10/19 15:44 85 09/10/19 15:35 81 09/10/19 15:00 98.2 F 89 18 165/86 09/10/19 13:47 96.9 F L 09/10/19 13:34 09/10/19 13:20 93 26 H 161/77 09/10/19 13:00 95 27 H 176/94 09/10/19 12:52 97 20 176/94 09/10/19 12:50 97 26 H 176/94 09/10/19 12:40 98 11 L 176/94 09/10/19 12:30 103 H 6 L 198/97 09/10/19 12:16 99 09/10/19 12:00 98 20 09/10/19 11:59 98 09/10/19 11:57 98 19209/10/19 10:49 102.2 F H 100 16 206/108 Pulse Ox 09/11/19 07:36 09/11/19 07:22 09/11/19 04:11 96 09/10/19 22:06 95 09/10/19 21:09 95 09/10/19 20:38 97 09/10/19 20:30 98 09/10/19 19:00 94 L 09/10/19 16:59 92 L 09/10/19 15:44 09/10/19 15:35 09/10/19 15:00 97 09/10/19 13:47 09/10/19 13:34 96 09/10/19 13:20 95 09/10/19 13:00 94 L 09/10/19 12:52 93 L 09/10/19 12:50 09/10/19 12:40 09/10/19 12:30 90 L 09/10/19 12:16 09/10/19 12:00 96 09/10/19 11:59 09/10/19 11:57 96 09/10/19 10:49 97 Intake and Output 09/10/19 09/11/19 09/11/19 22:59 06:59 14:59 Intake Total 540 240 Balance 540 240 Intake: Intake, IV Titration 300 Amount Sodium Chloride 0.9% 1, 300 000 ml @ 100 mls/hr IV . Q10H STA Rx#:[id number] Oral 240 240 Other: Voiding Method Incontinent Incontinent # Voids 1 3 Results CBC & Chem 7: 09/10/19 10:48 09/10/19 10:48 Labs: Abnormal Lab Results - Last 24 Hours (Table) 09/10/19 09/10/19 09/10/19 Range/Units 10:48 10:48 10:48 WBC 13.7 H (3.8-10.6) k/uL RBC 3.74 L (3.80-5.40) m/uL MCV 104.7 H (80.0-100.0) fL Neutrophils # 12.6 H (1.3-7.7) k/uL Lymphocytes # 0.1 L (1.0-4.8) k/uL Basophils # 0.3 H (0-0.2) k/uL APTT 18.6 L (22.0-30.0) sec ABG pCO2 (35-45) mmHg ABG pO2 (83-108) mmHg ABG HCO3 (21-25) mmol/L ABG Total CO2 (19-24) mmol/L Potassium 5.3 H (3.5-5.1) mmol/L Carbon Dioxide 31 H (22-30) mmol/L BUN 25 H (7-17) mg/dL Creatinine 0.42 L (0.52-1.04) mg/dL POC Glucose (mg/dL) (75-99) mg/dL AST 65 H (14-36) U/L Urine Appearance (Clear) Urine Protein (Negative) Urine Ketones (Negative) Urine Nitrite (Negative) Ur Leukocyte Esterase (Negative) Urine WBC (0-5) /hpf Urine Bacteria (None) /hpf Urine Mucus (None) /hpf 09/10/19 09/10/19 09/10/19 Range/Units 12:40 21:00 22:28 WBC (3.8-10.6) k/uL RBC (3.80-5.40) m/uL MCV (80.0-100.0) fL Neutrophils # (1.3-7.7) k/uL Lymphocytes # (1.0-4.8) k/uL Basophils # (0-0.2) k/uL APTT (22.0-30.0) sec ABG pCO2 47 H (35-45) mmHg ABG pO2 80 L (83-108) mmHg ABG HCO3 30 H (21-25) mmol/L ABG Total CO2 31 H (19-24) mmol/L Potassium (3.5-5.1) mmol/L Carbon Dioxide (22-30) mmol/L BUN (7-17) mg/dL Creatinine (0.52-1.04) mg/dL POC Glucose (mg/dL) 194 H (75-99) mg/dL AST (14-36) U/L Urine Appearance Cloudy H (Clear) Urine Protein 1+ H (Negative) Urine Ketones 1+ H (Negative) Urine Nitrite Positive H (Negative) Ur Leukocyte Esterase Moderate H (Negative) Urine WBC 78 H (0-5) /hpf Urine Bacteria Many H (None) /hpf Urine Mucus Rare H (None) /hpf 09/11/19 Range/Units 06:47 WBC (3.8-10.6) k/uL RBC (3.80-5.40) m/uL MCV (80.0-100.0) fL Neutrophils # (1.3-7.7) k/uL Lymphocytes # (1.0-4.8) k/uL Basophils # (0-0.2) k/uL APTT (22.0-30.0) sec ABG pCO2 (35-45) mmHg ABG pO2 (83-108) mmHg ABG HCO3 (21-25) mmol/L ABG Total CO2 (19-24) mmol/L Potassium (3.5-5.1) mmol/L Carbon Dioxide (22-30) mmol/L BUN (7-17) mg/dL Creatinine (0.52-1.04) mg/dL POC Glucose (mg/dL) 105 H (75-99) mg/dL AST (14-36) U/L Urine Appearance (Clear) Urine Protein (Negative) Urine Ketones (Negative) Urine Nitrite (Negative) Ur Leukocyte Esterase (Negative) Urine WBC (0-5) /hpf Urine Bacteria (None) /hpf Urine Mucus (None) /hpf Microbiology - Last 24 Hours (Table) 09/10/19 12:40 Urine Culture - Preliminary Urine,Voided Thrombosis Risk Factor Assmnt - Choose All That Apply Any of the Below Risk Factors Present?: Yes Each Factor Represents 1 point: Abnormal pulmonary function (COPD), Serious lung disease incl. pneumonia (< 1month) Other Risk Factors: Yes Each Risk Factor Represents 3 Points: Age 75 years or older Other congenital or acquired thrombophilia - If yes, enter type in comment: No Thrombosis Risk Factor Assessment Total Risk Factor Score: 5 Thrombosis Risk Factor Assessment Level: High Risk
[2019-09-11] MEDS: guaiFENesin 600 MG TABLET.ER PO SCH ×2 (16:52→21:38)
[2019-09-11 17:10] LABS: Glucose,Whole Blood 100 mg/dL (75-99)
[2019-09-11] MEDS: FORMOTEROL FUMARATE 20 MCG/2 ML NEBU INHALATION SCH (19:43)
[2019-09-11] MEDS: BUDESONIDE 1 MG/2 ML NEBU INHALATION SCH (19:43)
[2019-09-11 19:47] LABS: Glucose,Whole Blood 115 mg/dL (75-99)
[2019-09-12] MEDS: IPRATROPIUM-ALBUTEROL 3 ML NEB INHALATION SCH ×7 (01:17→23:05)
[2019-09-12 07:05] LABS: Glucose,Whole Blood 93 mg/dL (75-99)
[2019-09-12] MEDS: INSULIN ASPART (NovoLOG) 100 UNIT/ML VIAL SQ SCH ×4 (07:31→20:46)
[2019-09-12] MEDS: BISOPROLOL 5 MG TAB PO SCH (07:43)
[2019-09-12] MEDS: DILTIAZEM CD 120 MG CAP.ER.24H PO SCH (07:44)
[2019-09-12] MEDS: hydrALAZINE HCL 10 MG TAB PO SCH (07:44)
[2019-09-12] MEDS: LISINOPRIL 20 MG TAB PO SCH (07:44)
[2019-09-12] MEDS: FUROSEMIDE 20 MG TAB PO SCH ×2 (07:45→20:45)
[2019-09-12] MEDS: ENOXAPARIN 40 MG/0.4 ML SYRINGE SQ SCH (08:18)
[2019-09-12] MEDS: CHOLECALCIFEROL 1,000 UNIT TAB PO SCH (08:18)
[2019-09-12] MEDS: MELOXICAM 7.5 MG TAB PO SCH (08:19)
[2019-09-12] MEDS: guaiFENesin 600 MG TABLET.ER PO SCH ×2 (08:19→20:45)
[2019-09-12] MEDS: RALOXIFENE 60 MG TAB PO SCH (08:20)
[2019-09-12] MEDS: MULTIVITAMINS, THERA 1 EACH TAB PO SCH (08:20)
[2019-09-12] MEDS: LORATADINE 10 MG TAB PO SCH (08:20)
[2019-09-12] MEDS: POTASSIUM CHLORIDE ER 10 MEQ TAB.ER.PRT PO SCH (08:21)
[2019-09-12] MEDS ORDERED: CEFDINIR 300 MG CAP PO SCH (09:00)
[2019-09-12] MEDS: BUDESONIDE 1 MG/2 ML NEBU INHALATION SCH ×2 (09:01→19:47)
[2019-09-12] MEDS: FORMOTEROL FUMARATE 20 MCG/2 ML NEBU INHALATION SCH ×2 (09:01→19:47)
[2019-09-12] MEDS: HYDROPHILIC CREAM 180 GM TUBE TOPICAL SCH (09:04)
--- NOTE | 2019-09-12 10:49 | P.PN ---
Subjective Progress Note Date: 09/12/19 Principal diagnosis: Altered mental status, febrile illness, UTI This is a very pleasant 78-year-old female patient who follows with Dr. Morrow as her primary care physician. She has a history of arthritis, hemorrhagic CVA, hypertension, anemia. She also has Gold stage III chronic obstructive pulmonary disease with an FEV1 value 36% of predicted. She does have a 20 year pack per day smoking history however quit in 2009. She follows with Dr. Reid in our office for the same. She is maintained on Symbicort, DuoNeb inhalations. She was brought in to the emergency room yesterday by her marketing operations intern after being found to have altered mental status and confusion. Computed tomography scan of the brain revealed old left occipital lobe cortical infarct. Chronic small vessel ischemia. No hemorrhage. She had a temperature of 102. Recent urinalysis revealed a UTI but the patient did not answer the door when the medications were being delivered. Urinalysis here does show positive nitrates moderate leukocytes and high white count. Influenza screen is negative. ProBNP 13,100. Troponin 0.034. Arterial blood gases on 28% FiO2 revealed a pO2 of 80, pCO2 47, pH 7.41. White count 13.7. Hemoglobin 12.3. Sodium 139. Potassium 5.3. Bicarb 31. Creatinine 0.42. Chest x-ray showed areas of acute infiltrate in the lateral left lung base in the right suprahilar area. We're consulted for the same. She is seen today on the regular medical floor. She is awake and alert in no acute distress. She is still confused as to place and time. She is stating she did not receive her breathing treatment this morning however upon discussion with respiratory therapy she had just had it recently. She is maintaining good O2 saturations in the mid 90s on 2 L/m per nasal cannula. She's been afebrile. Urine culture pending. Blood and sputum cultures pending. She has been initiated on DuoNeb inhalations, Symbicort and antibiotics in the form of ceftriaxone and azithromycin. The patient is seen today 09/12/2019 in follow-up on the regular medical floor. She is awake and alert in no acute distress. She denies any worsening shortness of breath, cough or congestion. She's afebrile. Maintaining O2 saturation in the 90s on 2 L/m per nasal cannula. Somewhat hypertensive. Urine culture positive for gram-negative bacilli. Blood culture reveals no growth to date. She is continued on DuoNeb inhalations, Pulmicort inhalations, antibiotics in the form of ceftriaxone. Follow-up chest x-ray pending. Lower extremity and sacral wounds being addressed by the wound Center. Objective - Vital Signs Vital signs: Vital Signs Temp 98.4 F 09/12/19 10:25 Pulse 89 09/12/19 10:25 Resp 16 09/12/19 10:25 BP 167/70 09/12/19 10:25 Pulse Ox 94 L 09/12/19 10:25 Intake & Output 09/11/19 09/12/19 09/12/19 18:59 06:59 18:59 Intake Total 800 590 Balance 800 590 Intake: Intake, IV Titration 800 Amount Sodium Chloride 0.9% 1, 800 000 ml @ 100 mls/hr IV . Q10H STA Rx#:[id number] Oral 590 Other: Voiding Method Bedpan Bedpan Bedside Commode Diaper Diaper Diaper Incontinent Incontinent Incontinent # Voids 5 4 - Exam GENERAL EXAM: Alert, pleasant 78-year-old female patient, on 2 L nasal cannula, comfortable in no apparent distress. HEAD: Normocephalic. EYES: Normal reaction of pupils, equal size. NOSE: Clear with pink turbinates. THROAT: No erythema or exudates. NECK: No masses, no JVD. CHEST: No chest wall deformity. LUNGS: Equal air entry with end expiratory wheeze, few scattered rhonchi. CVS: S1 and S2 normal with no audible murmur, regular rhythm. ABDOMEN: No hepatosplenomegaly, normal bowel sounds, no guarding or rigidity. SPINE: No scoliosis or deformity SKIN: Wounds of the lower extremities and sacral areas. CENTRAL NERVOUS SYSTEM: Alert, oriented 2. No focal deficits, tone is normal in all 4 extremities. EXTREMITIES: There is 1+ peripheral edema. No clubbing, no cyanosis. Peripheral pulses are intact. - Labs CBC & Chem 7: 09/10/19 10:48 09/10/19 10:48 Labs: Abnormal Lab Results - Last 24 Hours (Table) 09/11/19 09/11/19 09/11/19 Range/Units 11:47 17:08 19:46 POC Glucose (mg/dL) 109 H 100 H 115 H (75-99) mg/dL Microbiology - Last 24 Hours (Table) 09/11/19 11:25 Gram Stain - Preliminary Sputum 09/10/19 12:40 Urine Culture - Preliminary Urine,Voided Gram Neg Bacilli 09/10/19 10:48 Blood Culture - Preliminary Blood No Growth after 24 hours Assessment and Plan Assessment: Impression: #1 Altered mental status suspect secondary to urinary tract infection and mul tifocal pneumonia. #2 Acute exacerbation of Gold stage III chronic obstructive pulmonary disease, F EV1 value 36% of predicted, secondary to an acute pneumonia. #3 Urinary tract infection, secondary to gram-negative bacilli, final ID pending. #4 Febrile illness secondary to above. #5 History of previous hemorrhagic CVA. #6 Hypertension. #7 Arthritis. #8 History of systolic congestive heart failure with ejection fraction 40-45%. #9 Nonhealing wounds of the lower extremities and sacral area. Follows in the wound Center. Plan: The patient was seen and evaluated by Dr. Landers. Chest x-ray pending. We'll continue with the current treatment plan including DuoNeb inhalations, Symbicort, antibiotics. Hold off on steroids for now due to her altered mental status. Cultures are pending. We will continue to follow and make further recommendations based on her clinical status. I, the cosigning physician, performed a history & physical examination of the patient. Lungs sounds with faint end expiratory wheeze, few scattered rhonchi. Maintaining good O2 saturations in the 90s on 2 L/m per nasal cannula. I discussed the assessment and plan of care with my nurse practitioner, Doris Nails. I attest to the above note as dictated by her.
[2019-09-12 11:24] LABS: Glucose,Whole Blood 139 mg/dL (75-99)
[2019-09-12] MEDS ORDERED: AZITHROMYCIN 500 MG TAB PO SCH (12:00)
--- NOTE | 2019-09-12 12:39 | XR ---
EXAMINATION TYPE: XR chest 1V portable DATE OF EXAM: 09/12/2019 HISTORY: Shortness of breath. COMPARISON: 09/10/2019 TECHNIQUE: Single view of the chest is submitted. FINDINGS: Demonstrated are scattered senescent parenchymal change. Patchy right perihilar infiltrate noted appears to have progressed slightly. Mild increased density l eft lower lobe as well. The heart is stable. Hilar and mediastinal structures are within normal limits. Degenerative changes are seen of the dorsal spine. IMPRESSION: 1. Patchy right perihilar infiltrate noted appears to have progressed slightly. Mild increased densi ty left lower lobe as well.
[2019-09-12] MEDS: hydrALAZINE HCL 50 MG TAB PO SCH ×2 (15:23→20:46)
[2019-09-12] MEDS: [UNRECOGNIZED DRUG - OTHER] TOPICAL SCH (15:23)
--- NOTE | 2019-09-12 16:27 | P.PN ---
Progress Note - Text Progress Note Date: 09/12/19 Interval history: This is a very pleasant 78-year-old patient of Dr. Morrow and Dr. 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 Chronic stable medical conditions include colonic diverticulosis, hypertension, hyperlipidemia, osteoarthritis on home oxygen 1.5 L. patient has not been feeling well. She was just diagnosed with a UTI. Has had a cough and fever. Bringing up sputum. When the home care worker checked on her found her to be a bit confused. Patient was brought to the ER. Found to have fever of 101. Chest x-ray showed infiltrates. Admitted with pneumonia. Patient's appetite gone down. Bringing up yellow sputum. Patient was admitted with acute delirium, pneumonia, acute COPD exacerbation. Today-sitting up in a bit. Looking better. Oral intake improved. Still a bit congested. Feels a bit better. Review of systems: Was done for constitutional, cardiovascular, GI, pulmonary. relevant finding as above Active Medications Acetaminophen (Tylenol Tab) 1,000 mg PO Q6H PRN PRN Reason: Fever Albuterol/Ipratropium (Duoneb 0.5 Mg-3 Mg/3 Ml Soln) 3 ml INHALATION RT-Q4H [facility] Last Admin: 09/12/19 16:02 Dose: 3 ml Documented by: Artificial Tears (Artificial Tear Drops) 2 drops BOTH EYES TID PRN PRN Reason: Dry Eye(s) Bisoprolol Fumarate (Zebeta) 10 mg PO DAILY [facility] Last Admin: 09/12/19 07:43 Dose: 10 mg Documented by: Budesonide (Pulmicort) 1 mg INHALATION RT-BID [facility] Last Admin: 09/12/19 09:01 Dose: 1 mg Documented by: Cholecalciferol (Vitamin D3 (25 Mcg = 1000 Iu)) 5,000 unit PO DAILY [facility] Last Admin: 09/12/19 08:18 Dose: 5,000 unit Documented by: Clonidine (Catapres) 0.1 mg PO Q8H PRN PRN Reason: Hypertension Diltiazem HCl (Cardizem Cd) 240 mg PO DAILY [facility] Last Admin: 09/12/19 07:44 Dose: 240 mg Documented by: Enoxaparin Sodium (Lovenox) 40 mg SQ DAILY [facility] Last Admin: 09/12/19 08:18 Dose: 40 mg Documented by: Formoterol Fumarate (Perforomist) 20 mcg INHALATION RT-BID [facility] Last Admin: 09/12/19 09:01 Dose: 20 mcg Documented by: Furosemide (Lasix) 20 mg PO BID [facility] Last Admin: 09/12/19 07:45 Dose: 20 mg Documented by: Guaifenesin (Mucinex) 1,200 mg PO Q12HR [facility] Last Admin: 09/12/19 08:19 Dose: 1,200 mg Documented by: Lisinopril/HCTZ (Zestoretic 20-12.5) 1 each PO BID [facility] Hydralazine HCl (Apresoline) 50 mg PO TID [facility] Last Admin: 09/12/19 15:23 Dose: 50 mg Documented by: Ceftriaxone Sodium 1 gm/ (Sodium Chloride) 50 mls @ 100 mls/hr IVPB Q24HR [facility] Last Admin: 09/12/19 10:32 Dose: 100 mls/hr Documented by: Insulin Aspart (Novolog) 0 unit SQ ACHS [facility]; Protocol Last Admin: 09/12/19 12:45 Dose: 1 unit Documented by: Loratadine (Claritin) 10 mg PO DAILY [facility] Last Admin: 09/12/19 08:20 Dose: 10 mg Documented by: Meloxicam (Mobic) 7.5 mg PO DAILY [facility] Last Admin: 09/12/19 08:19 Dose: 7.5 mg Documented by: Multi-Ingred Cream/Lotion/Oil/Oint (Triad Cream) 1 applic TOPICAL DAILY [facility] Last Admin: 09/12/19 09:04 Dose: 1 applic Documented by: Multivitamins (Theragran) 1 each PO DAILY [facility] Last Admin: 09/12/19 08:20 Dose: 1 each Documented by: Non-Formulary Medication (Silvsorb Topical Gel) 1 applic TOPICAL DIRECTED [facility] Last Admin: 09/12/19 15:23 Dose: Not Given Documented by: Potassium Chloride (K-Dur 10) 10 meq PO DAILY [facility] Last Admin: 09/12/19 08:21 Dose: 10 meq Documented by: Raloxifene HCl (Evista) 60 mg PO DAILY [facility] Last Admin: 09/12/19 08:20 Dose: 60 mg Care was discussed with the patient. Physical examination: VITAL SIGNS: Afebrile, 89, 16, 167/70, 94% on 2 L GENERAL: Sitting comfortably bed, looking better today EYES: Pupils equal. Conjunctiva normal. HEENT: External appearance of nose and ears normal, oral cavity grossly normal. NECK: JVD not raised; masses not palpable. HEART: First and second heart sounds are normal; no edema. LUNGS: Respiratory rate increased, decreased breath sounds prolonged expiration , few scattered crackles. ABDOMEN: Soft, nontender, liver spleen not palpable, no masses palpable. PSYCH: Answering simple questions MUSCULAR- skeletal: Evidence of OA especially in the hands Investigations, reviewed in the clinical context: [id number], 139 Urine culture growing gram-negative bacilli, sputum culture growing gram- negative bacilli Previous testing White count 3.7 hemoglobin 12.3 potassium 5.3 bun 25 ferritin 0.42 Computed tomography scan of brain-chronic changes EKG tracing personally reviewed by me-normal sinus rhythm Chest x-ray film personally reviewed by me-infiltrates particularly on the right side - Assessment: -Pneumonia, suspected gram-negative organism, causing sepsis, POA -Acute delirium from underlying pneumonia, improved -Acute COPD exacerbation in an ex-smoker, improving -Colonic diverticulosis -Essential hypertension -Hyperlipidemia -Primary osteoarthritis -Chronic hypoxic respiratory failure on 1.5 L of oxygen at home from underlying COPD -History of brain bleed -CODE STATUS DO NOT RESUSCITATE Plan: Continue current medication treatment plan. Patient remains on IV ceftriaxone. Cultures of both urine and sputum are pending. Clinically patient is doing better. Possibly discharge in next 24 hours. Repeat labs in the morning. Oral intake is improved.
[2019-09-12 17:05] LABS: Glucose,Whole Blood 103 mg/dL (75-99)
[2019-09-12 20:15] LABS: Glucose,Whole Blood 130 mg/dL (75-99)
[2019-09-12] MEDS: LISINOPRIL-HCTZ 20-12.5 MG 1 EACH TAB PO SCH (21:13)
[2019-09-13] MEDS: IPRATROPIUM-ALBUTEROL 3 ML NEB INHALATION SCH ×3 (03:54→11:30)
[2019-09-13 07:02] LABS: Glucose,Whole Blood 94 mg/dL (75-99)
[2019-09-13] MEDS: INSULIN ASPART (NovoLOG) 100 UNIT/ML VIAL SQ SCH ×2 (07:10→11:58)
[2019-09-13] MEDS: FORMOTEROL FUMARATE 20 MCG/2 ML NEBU INHALATION SCH (07:19)
[2019-09-13] MEDS: BUDESONIDE 1 MG/2 ML NEBU INHALATION SCH (07:19)
[2019-09-13 08:48] LABS: Hypochromasia Moderate; MCHC 30.8 g/dL (31.0-37.0); MCV 103.9 fL (80.0-100.0); Macrocytosis Slight; Mean Platelet Volume 6.6; Platelet Count 360 k/uL (150-450); RBC 3.76 m/uL (3.80-5.40); RDW 14.9 % (11.5-15.5); WBC 9.9 k/uL (3.8-10.6)
[2019-09-13 08:58] LABS: African American GFR (CKD) >90 (>60 ml/min/1.73 sqM); Anion Gap 6 mmol/L; Blood Urea Nitrogen 24 mg/dL (7-17); Calcium 9.2 mg/dL (8.4-10.2); Carbon Dioxide 39 mmol/L (22-30); Chloride 89 mmol/L (98-107); Glucose 103 mg/dL (74-99); Potassium 3.8 mmol/L (3.5-5.1); Sodium 134 mmol/L (137-145)
[2019-09-13] MEDS: BISOPROLOL 5 MG TAB PO SCH (09:06)
[2019-09-13] MEDS: DILTIAZEM CD 120 MG CAP.ER.24H PO SCH (09:07)
[2019-09-13] MEDS: FUROSEMIDE 20 MG TAB PO SCH (09:07)
[2019-09-13] MEDS: ENOXAPARIN 40 MG/0.4 ML SYRINGE SQ SCH (09:07)
[2019-09-13] MEDS: CHOLECALCIFEROL 1,000 UNIT TAB PO SCH (09:07)
[2019-09-13] MEDS: MELOXICAM 7.5 MG TAB PO SCH (09:08)
[2019-09-13] MEDS: LISINOPRIL-HCTZ 20-12.5 MG 1 EACH TAB PO SCH (09:08)
[2019-09-13] MEDS: guaiFENesin 600 MG TABLET.ER PO SCH (09:08)
[2019-09-13] MEDS: hydrALAZINE HCL 50 MG TAB PO SCH (09:08)
[2019-09-13] MEDS: LORATADINE 10 MG TAB PO SCH (09:08)
[2019-09-13] MEDS: MULTIVITAMINS, THERA 1 EACH TAB PO SCH (09:09)
[2019-09-13] MEDS: RALOXIFENE 60 MG TAB PO SCH (09:09)
[2019-09-13] MEDS: POTASSIUM CHLORIDE ER 10 MEQ TAB.ER.PRT PO SCH (09:09)
[2019-09-13] MEDS: HYDROPHILIC CREAM 180 GM TUBE TOPICAL SCH (09:11)
[2019-09-13] MEDS: [UNRECOGNIZED DRUG - OTHER] TOPICAL SCH (11:25)
[2019-09-13 11:40] LABS: Glucose,Whole Blood 122 mg/dL (75-99)
[2019-09-13 12:16] VITALS: BP 109/57; PULSE 80; RESP 17; TEMP 97.3
--- NOTE | 2019-09-13 17:22 | P.DS ---
Providers Date of admission: 09/10/19 13:00 Attending physician: Chilo Dawkins Consults: 09/11/19 05:31 Consult Physician Routine Consulting Provider: David Landers Consult Reason/Comments: COPD, PNA Do you want consulting provider notified?: Yes, Notify in am Primary care physician: [facility] Course: 70-year-old female with known history of COPD is admitted for pneumoniapatient has Pseudomonas in the sputum because of which are changed and biotic to Cipro 750 twice a day for 10 days and patient will be discharged today patient is feeling better. Patient does have COPD exacerbation not on systemic steroids patient blood pressure is low today to multiple medication changes that were made to during discharge and hospitalization because of her low blood pressure. Patient is hyponatremic [address] Street to hydrochlorothiazide she was started on which will be discontinued patient has ejection fraction of around 40-45% because of which I'll continue with the Lasix and patient will benefit from repeating basic metabolic profile as an outpatient.patient is oxygen dependent and uses about 1.5-2 L of oxygen at home PHYSICAL EXAMINATION: GENERAL: The patient is alert and oriented x3, not in any acute distress. Well developed, well nourished. HEENT: Pupils are round and equally reacting to light. EOMI. No scleral icterus. No conjunctival pallor. Normocephalic, atraumatic. No pharyngeal erythema. No thyromegaly. CARDIOVASCULAR: S1 and S2 present. No murmurs, rubs, or gallops. PULMONARY: Chest is clear to auscultation, no wheezing or crackles. ABDOMEN: Soft, nontender, nondistended, normoactive bowel sounds. No palpable organomegaly. MUSCULOSKELETAL: No joint swelling or deformity. EXTREMITIES: No cyanosis, clubbing, or pedal edema. NEUROLOGICAL: Gross neurological examination did not reveal any focal deficits. SKIN: No rashes. Connie chronic medical problems auscultation) refer to dictation ofwaneftaly not from percussion from yesterday Patient Condition at Discharge: Fair Plan - Discharge Summary Discharge Rx Participant: No New Discharge Prescriptions: New Ciprofloxacin HCl [Cipro] 750 mg PO BID #20 tablet Continue Potassium Chloride ER [K-Dur 10] 10 meq PO DAILY Furosemide [Lasix] 20 mg PO BID Bisoprolol Fumarate [Zebeta] 10 mg PO DAILY Acetaminophen [Tylenol Extra Strength] 500 mg PO Q4HR PRN PRN Reason: Pain Budesonide-Formot 160-4.5 Mcg [Symbicort 160-4.5 Mcg Inhaler] 2 puff INHALATION RT-BID puff Raloxifene [Evista] 60 mg PO DAILY Celecoxib [CeleBREX] 200 mg PO DAILY Fexofenadine HCl [Lucia Allergy] 180 mg PO DAILY Diltiazem HCl [Cardizem CD] 240 mg PO DAILY Multivitamins, Thera [Multivitamin (formulary)] 1 tab PO DAILY Artificial Tears-Hypromellose [Artificial Tear Drops] 2 drops BOTH EYES TID PRN bottle PRN Reason: Dry Eye(S) Ipratropium-Albuterol Nebulize [Duoneb 0.5 mg-3 mg/3 ml Soln] 3 ml INHALATION RT-Q4H PRN PRN Reason: Shortness Of Breath Or Wheezing Cholecalciferol [Vitamin D3 (25 Mcg = 1000 Iu)] 5,000 unit PO DAILY Silvsorb Topical Gel 1 applic TOPICAL DIRECTED Changed Lisinopril 20 mg PO DAILY #0 Discontinued hydrALAZINE HCL 10 mg PO TID Cefuroxime [Ceftin] 250 mg PO BID Discharge Medication List Acetaminophen [Tylenol Extra Strength] 500 mg PO Q4HR PRN 05/01/18 [History] Bisoprolol Fumarate [Zebeta] 10 mg PO DAILY 05/01/18 [History] Furosemide [Lasix] 20 mg PO BID 05/01/18 [History] Potassium Chloride ER [K-Dur 10] 10 meq PO DAILY 05/01/18 [History] Budesonide-Formot 160-4.5 Mcg [Symbicort 160-4.5 Mcg Inhaler] 2 puff INHALATION RT-BID puff 05/13/18 [Rx] Celecoxib [CeleBREX] 200 mg PO DAILY 03/26/19 [History] Diltiazem HCl [Cardizem CD] 240 mg PO DAILY 03/26/19 [History] Fexofenadine HCl [Lucia Allergy] 180 mg PO DAILY 03/26/19 [History] Multivitamins, Thera [Multivitamin (formulary)] 1 tab PO DAILY 03/26/19 [History] Raloxifene [Evista] 60 mg PO DAILY 03/26/19 [History] Artificial Tears-Hypromellose [Artificial Tear Drops] 2 drops BOTH EYES TID PRN bottle 04/01/19 [Rx] Ipratropium-Albuterol Nebulize [Duoneb 0.5 mg-3 mg/3 ml Soln] 3 ml INHALATION RT-Q4H PRN 05/28/19 [History] Cholecalciferol [Vitamin D3 (25 Mcg = 1000 Iu)] 5,000 unit PO DAILY 09/10/19 [History] Silvsorb Topical Gel 1 applic TOPICAL DIRECTED 09/10/19 [History] Ciprofloxacin HCl [Cipro] 750 mg PO BID #20 tablet 09/13/19 [Rx] Lisinopril 20 mg PO DAILY #0 09/13/19 [Rx] Follow up Appointment(s)/Referral(s): Dvaid Landers MD [STAFF PHYSICIAN] - 1 Week Ben Morrow DO [Primary Care Provider] - 3 Days (Office will be in contact with patient upon discharge to set up a follow up appointment) Patient Instructions/Handouts: Ciprofloxacin (By mouth), COPD (Chronic Obstructive Pulmonary Disease) (DC), Hypertension (DC), Pneumonia (DC) Discharge Disposition: HOME SELF-CARE
== END 2019-09-13 16:04 | disposition home or self-care (01) | DRG 871 ==
LOC: EC 10:20 → 3NMEDONC 13:00
PROVIDERS: ADMIT Hospitalist; ATTEND Hospitalist
DX: A41.50 Gram-negative sepsis, unspecified (principal); J15.6 Pneumonia due to other Gram-negative bacteria; E87.1 Hypo-osmolality and hyponatremia; I16.9 Hypertensive crisis, unspecified; I50.22 Chronic systolic (congestive) heart failure; J44.0 Chronic obstructive pulmonary disease with (acute) lower respiratory infection; J44.1 Chronic obstructive pulmonary disease with (acute) exacerbation; J96.11 Chronic respiratory failure with hypoxia; L97.919 Non-pressure chronic ulcer of unspecified part of right lower leg with unspecified severity; L97.929 Non-pressure chronic ulcer of unspecified part of left lower leg with unspecified severity; N39.0 Urinary tract infection, site not specified; F05 Delirium due to known physiological condition; E78.5 Hyperlipidemia, unspecified; E87.5 Hyperkalemia; I11.0 Hypertensive heart disease with heart failure; I87.2 Venous insufficiency (chronic) (peripheral); K57.30 Diverticulosis of large intestine without perforation or abscess without bleeding; L89.152 Pressure ulcer of sacral region, stage 2; M19.91 Primary osteoarthritis, unspecified site; Z66 Do not resuscitate; Z79.1 Long term (current) use of non-steroidal anti-inflammatories (NSAID); Z79.51 Long term (current) use of inhaled steroids; Z79.899 Other long term (current) drug therapy; Z83.3 Family history of diabetes mellitus; Z86.73 Personal history of transient ischemic attack (TIA), and cerebral infarction without residual deficits; Z87.891 Personal history of nicotine dependence; Z96.642 Presence of left artificial hip joint; Z99.81 Dependence on supplemental oxygen; Z88.8 Allergy status to other drugs, medicaments and biological substances
CPT/HCPCS: 36415; 36600; 70450; 71045; 71046; 80048; 80053; 81001; 82805; 83605; 83880; 84484; 85025; 85027; 85610; 85730; 87040; 87070; 87077; 87086; 87186; 87205; 87502; 90686; 93005; 94640; 94760; 96361; 96365; 96366; 96367; 96372; 96375; 99285

== ENCOUNTER → 2019-09-17 | Outpatient (CLI) | payer MEDICARE ==
--- NOTE | 2019-09-17 13:59 | ECHOF ---
Referral Reason:R01.1 Cardiac Murmur MEASUREMENTS -------- HEIGHT: 162.6 cm WEIGHT: 45.4 kg BP: RVIDd: 2.8 cm (< 3.3) IVSd: 1.7 cm (0.6 - 1.1) LVIDd: 3.2 cm (3.9 - 5.3) LVPWd: 1.6 cm (0.6 - 1.1) IVSs: 2.0 cm LVIDs: 1.6 cm LVPWs: 2.0 cm Ao Diam: 3.7 cm (2.0 - 3.7) AV Cusp: 1.1 cm (1.5 - 2.6) LA Diam: 2.8 cm (2.7 - 3.8) MV EXCURSION: 12.842 mm (> 18.000) MV EF SLOPE: 33 mm/s (70 - 150) EPSS: 1.1 cm MV E August: 0.50 m/s MV DecT: 309 ms MV A August: 1.20 m/s MV E/A Ratio: 0.41 AV maxP.14 mmHg AV meanP.43 mmHg AR PHT: 522 ms RAP: 5.00 mmHg RVSP: 21.24 mmHg FINDINGS -------- Sinus rhythm. This was a technically difficult study with suboptimal views. The left ventricular size is normal. There is severe concentric left ventricular hypertrophy. Ove rall left ventricular systolic function is low-normal with, an EF between 50 - 55 %. The right ventricle is normal in size. The left atrial size is normal. The right atrial size is normal. Interatrial and interventricular septum intact. Aortic valve is trileaflet and is mildly thickened. There is moderate aortic regurgitation. There is mild aortic stenosis present. Peak/mean gradient across the Aortic Valve is 15.14mmHg / 6.43mmH g. The mitral valve is normal. The mitral valve leaflets are moderately thickened. Mild mitral annul ar calcification present. Mild mitral regurgitation is present. The tricuspid valve appears structurally normal. Mild tricuspid regurgitation present. Right vent ricular systolic pressure is normal at < 35 mmHg. There is no pulmonic regurgitation present. The aortic root size is normal. IVC Not well visulized. There is no pericardial effusion. CONCLUSIONS -------- 1. Sinus rhythm. 2. This was a technically difficult study with suboptimal views. 3. The left ventricular size is normal. 4. There is severe concentric left ventricular hypertrophy. 5. Overall left ventricular systolic function is low-normal with, an EF between 50 - 55 %. 6. The right ventricle is normal in size. 7. The left atrial size is normal. 8. The right atrial size is normal. 9. Interatrial and interventricular septum intact. 10. Aortic valve is trileaflet and is mildly thickened. 11. There is moderate aortic regurgitation. 12. There is mild aortic stenosis present. 13. Peak/mean gradient across the Aortic Valve is 15.14mmHg / 6.43mmHg. 14. The mitral valve is normal. 15. The mitral valve leaflets are moderately thickened. 16. Mild mitral annular calcification present. 17. Mild mitral regurgitation is present. 18. The tricuspid valve appears structurally normal. 19. Mild tricuspid regurgitation present. 20. Right ventricular systolic pressure is normal at < 35 mmHg. 21. There is no pulmonic regurgitation present. 22. The aortic root size is normal. 23. IVC Not well visulized. 24. There is no pericardial effusion. BEHAVIORAL HEALTH CLINICIAN: Janice Ortega RDCS
== END | disposition home or self-care (01) ==
LOC: RADECHMAIN 12:29
PROVIDERS: ATTEND Family Medicine
DX: I08.3 Combined rheumatic disorders of mitral, aortic and tricuspid valves (principal)
CPT/HCPCS: 93306

== ENCOUNTER → 2019-09-23 | Outpatient (CLI) | payer MEDICARE ==
--- NOTE | 2019-09-23 15:43 | US ---
EXAMINATION TYPE: US venous doppler duplex LE DATE OF EXAM: 09/23/2019 2:02 PM COMPARISON: NONE CLINICAL HISTORY: L97.812 CHR ULCER RT LOWER LEG WITH FAT LAYER EXPOSED. Non-healing wounds bilateral lower legs SIDE PERFORMED: Bilateral LOWER EXTREMITY VENOUS INSUFFICIENCY 1) Color flow is present and patency is documented in the following vessels. No DVT or SVT is noted . EIV Common Femoral Vein Deep Femoral Vein Femoral Vein Popliteal Vein Proximal Calf Veins Greater Saph Vein Upper Small Saph Vein 2) There is venous reflux noted at the following venous levels: Right Proximal Femoral vein, and Le ft CFV IMPRESSION: No ultrasound evidence for acute DVT in either lower extremity.
--- NOTE | 2019-09-24 12:44 | P.ARTDOP ---
Arterial Doppler LOWER EXTREMITY ARTERIAL DOPPLER: DATE OF SERVICE: 09/23/2019 Reason for study: Bilateral leg ulcers. Doppler waveforms: Broadening but multiphasic bilaterally throughout. Pulse volume recording: Mildly blunted on the right distally. Pressure gradients: None on the left. Mild below-knee gradient on the right. Ankle-brachial indices: 0.9 on the right and greater than 1 on the left. Toe pressures: [] on the right, [] on the left Impression: Normal left side. Mild right fem-pop disease. Clinical correlation recommended..
== END | disposition home or self-care (01) ==
LOC: RADUSWWP 13:17
PROVIDERS: ATTEND Thoracic Surgery (Cardiothoracic Vascular Surgery)
DX: L97.812 Non-pressure chronic ulcer of other part of right lower leg with fat layer exposed (principal); L97.822 Non-pressure chronic ulcer of other part of left lower leg with fat layer exposed; L89.152 Pressure ulcer of sacral region, stage 2
CPT/HCPCS: 93923; 93970

== ENCOUNTER 2020-10-24 20:43 | Inpatient (IN) | payer MEDICARE ==
[2020-10-24] MEDS ORDERED: methylPREDNISolone SOD SUCCI 125 MG/2 ML VIAL IV STA (21:02)
[2020-10-24] MEDS ORDERED: SODIUM CHLORIDE 0.9% 1,000 ML IV STA (21:02)
[2020-10-24] MEDS ORDERED: IPRATROPIUM-ALBUTEROL 3 ML NEB INHALATION STA (21:02)
--- NOTE | 2020-10-24 21:07 | ED ---
SOB HPI - General Chief Complaint: Shortness of Breath Stated Complaint: Low oxygen Time Seen by Provider: 10/24/20 20:50 Source: patient, family, RN notes reviewed Mode of arrival: ambulatory Limitations: no limitations - History of Present Illness Initial Comments: Is a 79-year-old female with a history of COPD who is brought in for evaluation after being found to have a low pulse oximetry be short of breath had a local urgent care. Is also suspected she might have a UTI and she's been having some symptoms. No chest pain no other complaints or modifying factors no overt fevers chills sweats or phlegm production MD Complaint: shortness of breath - Related Data Home Medications Medication Instructions Recorded Confirmed Acetaminophen [Tylenol Extra 500 mg PO Q4HR PRN 05/01/18 09/10/19 Strength] Bisoprolol Fumarate [Zebeta] 10 mg PO DAILY 05/01/18 09/10/19 Furosemide [Lasix] 20 mg PO BID 05/01/18 09/10/19 Potassium Chloride ER [K-Dur 10] 10 meq PO DAILY 05/01/18 09/10/19 Celecoxib [CeleBREX] 200 mg PO DAILY 03/26/19 09/10/19 Diltiazem HCl [Cardizem CD] 240 mg PO DAILY 03/26/19 09/10/19 Fexofenadine HCl [Lucia Allergy] 180 mg PO DAILY 03/26/19 09/10/19 Multivitamins, Thera [Multivitamin 1 tab PO DAILY 03/26/19 09/10/19 (formulary)] Raloxifene [Evista] 60 mg PO DAILY 03/26/19 09/10/19 Ipratropium-Albuterol Nebulize 3 ml INHALATION RT-Q4H PRN 05/28/19 09/10/19 [Duoneb 0.5 mg-3 mg/3 ml Soln] Cholecalciferol [Vitamin D3 (25 5,000 unit PO DAILY 09/10/19 09/10/19 Mcg = 1000 Iu)] Silvsorb Topical Gel 1 applic TOPICAL DIRECTED 09/10/19 09/10/19 Previous Rx's Medication Instructions Recorded Budesonide-Formot 160-4.5 Mcg 2 puff INHALATION RT-BID puff 05/13/18 [Symbicort 160-4.5 Mcg Inhaler] Artificial Tears-Hypromellose 2 drops BOTH EYES TID PRN bottle 04/01/19 [Artificial Tear Drops] Ciprofloxacin HCl [Cipro] 750 mg PO BID #20 tablet 09/13/19 lisinopriL 20 mg PO DAILY #0 09/13/19 Allergies Allergy/AdvReac Type Severity Reaction Status Date / Time naproxen [From Naprosyn] Allergy Rash/Hives Verified 10/24/20 20:49 Review of Systems ROS Statement: Those systems with pertinent positive or pertinent negative responses have been documented in the HPI. ROS Other: All systems not noted in ROS Statement are negative. Past Medical History Past Medical History: COPD, Hyperlipidemia, Hypertension, Osteoarthritis (OA) Additional Past Medical History / Comment(s): history of brain bleed about a year ago, pt was sent to [facility]. History of Any Multi-Drug Resistant Organisms: None Reported Past Surgical History: Adenoidectomy, Joint Replacement, Tonsillectomy Additional Past Surgical History / Comment(s): Left hip replacement x 3 Past Anesthesia/Blood Transfusion Reactions: No Reported Reaction Past Psychological History: No Psychological Hx Reported Smoking Status: Never smoker Past Alcohol Use History: None Reported Past Drug Use History: None Reported - Past Family History Father Family Medical History: Diabetes Mellitus Mother Family Medical History: Hyperlipidemia General Exam - General Exam Comments Initial Comments: This is a well-developed asthenic appearing female who is awake alert oriented 3 Limitations: no limitations General appearance: alert, anxious Head exam: Present: atraumatic, normocephalic, normal inspection Eye exam: Present: normal appearance, PERRL, EOMI. Absent: scleral icterus, conjunctival injection, periorbital swelling ENT exam: Present: mucous membranes dry Neck exam: Present: normal inspection. Absent: tenderness, meningismus, lymphadenopathy Respiratory exam: Present: accessory muscle use, decreased breath sounds, other (Kyphosis is noted). Absent: respiratory distress, wheezes, rales, rhonchi, stridor Cardiovascular Exam: Present: regular rate, normal rhythm, normal heart sounds. Absent: systolic murmur, diastolic murmur, rubs, gallop, clicks GI/Abdominal exam: Present: soft, normal bowel sounds. Absent: distended, tenderness, guarding, rebound, rigid Extremities exam: Present: full ROM, normal capillary refill, pedal edema. Abs ent: tenderness, joint swelling, calf tenderness Back exam: Present: normal inspection Neurological exam: Present: alert, oriented X3, CN II-XII intact Psychiatric exam: Present: normal affect, normal mood Skin exam: Present: warm, dry, intact, normal color. Absent: rash Course Vital Signs 10/24/20 10/24/20 10/24/20 20:46 21:02 21:33 Temperature 99.0 F Pulse Rate 73 109 H Respiratory 20 26 H 16 Rate Blood Pressure 158/87 O2 Sat by Pulse 86 L Oximetry 10/24/20 10/24/20 10/24/20 21:41 22:15 22:34 Temperature Pulse Rate 97 110 H 107 H Respiratory 16 21 19 Rate Blood Pressure 166/98 166/98 151/100 O2 Sat by Pulse 100 94 L 92 L Oximetry Medical Decision Making - Medical Decision Making I did discuss findings with patient and she does demonstrate evidence of CHF as well as elevated troponin. UA is pending the case was discussed with Dr. Dawkins patient be admitted with cardiology consultation - Lab Data Result diagrams: 10/24/20 21:17 10/24/20 21:17 Lab Results 10/24/20 10/24/20 10/24/20 Range/Units 21:17 21:17 21:17 WBC 8.7 (3.8-10.6) k/uL RBC 4.09 (3.80-5.40) m/uL Hgb 13.4 (11.4-16.0) gm/dL Hct 43.5 (34.0-46.0) % MCV 106.5 H D (80.0-100.0) fL MCH 32.9 (25.0-35.0) pg MCHC 30.9 L (31.0-37.0) g/dL RDW 14.6 (11.5-15.5) % Plt Count 253 (150-450) k/uL MPV 7.4 Neutrophils % 81 % Lymphocytes % 8 % Monocytes % 7 % Eosinophils % 1 % Basophils % 1 % Neutrophils # 7.0 (1.3-7.7) k/uL Lymphocytes # 0.7 L (1.0-4.8) k/uL Monocytes # 0.6 (0-1.0) k/uL Eosinophils # 0.1 (0-0.7) k/uL Basophils # 0.1 (0-0.2) k/uL Hypochromasia Moderate Macrocytosis Moderate PT 10.7 (9.0-12.0) sec INR 1.0 (<1.2) APTT 26.1 (22.0-30.0) sec Sodium 138 (137-145) mmol/L Potassium 4.7 (3.5-5.1) mmol/L Chloride 101 (98-107) mmol/L Carbon Dioxide 29 (22-30) mmol/L Anion Gap 8 mmol/L BUN 28 H (7-17) mg/dL Creatinine 0.55 (0.52-1.04) mg/dL Est GFR (CKD-EPI)AfAm >90 (>60 ml/min/1.73 sqM) Est GFR (CKD-EPI)NonAf 90 (>60 ml/min/1.73 sqM) Glucose 114 H (74-99) mg/dL Plasma Lactic Acid Kit (0.7-2.0) mmol/L Calcium 9.3 (8.4-10.2) mg/dL Magnesium 2.1 (1.6-2.3) mg/dL Total Bilirubin 0.4 (0.2-1.3) mg/dL AST 53 H (14-36) U/L ALT 29 (4-34) U/L Alkaline Phosphatase 136 H (38-126) U/L Creatine Kinase 29 L (30-135) U/L Troponin I (0.000-0.034) ng/mL NT-Pro-B Natriuret Pep pg/mL Total Protein 7.3 (6.3-8.2) g/dL Albumin 4.0 (3.5-5.0) g/dL 10/24/20 10/24/20 10/24/20 Range/Units 21:17 21:17 21:17 WBC (3.8-10.6) k/uL RBC (3.80-5.40) m/uL Hgb (11.4-16.0) gm/dL Hct (34.0-46.0) % MCV (80.0-100.0) fL MCH (25.0-35.0) pg MCHC (31.0-37.0) g/dL RDW (11.5-15.5) % Plt Count (150-450) k/uL MPV Neutrophils % % Lymphocytes % % Monocytes % % Eosinophils % % Basophils % % Neutrophils # (1.3-7.7) k/uL Lymphocytes # (1.0-4.8) k/uL Monocytes # (0-1.0) k/uL Eosinophils # (0-0.7) k/uL Basophils # (0-0.2) k/uL Hypochromasia Macrocytosis PT (9.0-12.0) sec INR (<1.2) APTT (22.0-30.0) sec Sodium (137-145) mmol/L Potassium (3.5-5.1) mmol/L Chloride (98-107) mmol/L Carbon Dioxide (22-30) mmol/L Anion Gap mmol/L BUN (7-17) mg/dL Creatinine (0.52-1.04) mg/dL Est GFR (CKD-EPI)AfAm (>60 ml/min/1.73 sqM) Est GFR (CKD-EPI)NonAf (>60 ml/min/1.73 sqM) Glucose (74-99) mg/dL Plasma Lactic Acid Kit 1.7 (0.7-2.0) mmol/L Calcium (8.4-10.2) mg/dL Magnesium (1.6-2.3) mg/dL Total Bilirubin (0.2-1.3) mg/dL AST (14-36) U/L ALT (4-34) U/L Alkaline Phosphatase (38-126) U/L Creatine Kinase (30-135) U/L Troponin I 0.198 H* (0.000-0.034) ng/mL NT-Pro-B Natriuret Pep 15400 pg/mL Total Protein (6.3-8.2) g/dL Albumin (3.5-5.0) g/dL - EKG Data -: EKG Interpreted by Me (Sinus tachycardia rate 116. Interval 144 QRS duration 76 daily since QTC 2) - Radiology Data Radiology results: report reviewed (Was reviewed no acute findings), image reviewed Critical Care Time Critical Care Time: Yes Total Critical Care Time: 31 Critical Care Time: 31 minutes of critical care time includes initial presentation with history physical labs x-rays discussed with the patient and her son regarding the initial findings. Review of old charting available discussed with the main physician admission orders and documentation of the above Disposition Clinical Impression: Systolic congestive heart failure, Elevated troponin, Non-STEMI (non-ST elevated myocardial infarction), Hypoxemia Disposition: ADMITTED IP TO THIS HOSP Condition: Fair Referrals: Ben Morrow DO [Primary Care Provider] - 1-2 days
[2020-10-24 21:29] LABS: Basophils # (A) 0.1 k/uL (0-0.2); Basophils % (A) 1 %; Eosinophils # (A) 0.1 k/uL (0-0.7); Eosinophils % (A) 1 %; HCT 43.5 % (34.0-46.0); HGB 13.4 gm/dL (11.4-16.0); Hypochromasia Moderate; Lymphocytes # (A) 0.7 k/uL (1.0-4.8); Lymphocytes % (A) 8 %; MCH 32.9 pg (25.0-35.0); MCHC 30.9 g/dL (31.0-37.0); Macrocytosis Moderate; Mean Platelet Volume 7.4; Monocytes # (A) 0.6 k/uL (0-1.0); Monocytes % (A) 7 %; Neutrophils % (A) 81 %; Platelet Count 253 k/uL (150-450); RBC 4.09 m/uL (3.80-5.40); RDW 14.6 % (11.5-15.5); WBC 8.7 k/uL (3.8-10.6)
[2020-10-24 21:34] LABS: MCV 106.5 fL (80.0-100.0)
[2020-10-24 21:37] LABS: Partial Thromboplastin Time 26.1 sec (22.0-30.0); Prothrombin Time 10.7 sec (9.0-12.0)
[2020-10-24 21:39] LABS: ALT 29 U/L (4-34); AST 53 U/L (14-36); African American GFR (CKD) >90 (>60 ml/min/1.73 sqM); Alkaline Phosphatase 136 U/L (38-126); Anion Gap 8 mmol/L; Blood Urea Nitrogen 28 mg/dL (7-17); Calcium 9.3 mg/dL (8.4-10.2); Carbon Dioxide 29 mmol/L (22-30); Chloride 101 mmol/L (98-107); Creatine Kinase 29 U/L (30-135); Glucose 114 mg/dL (74-99); Magnesium 2.1 mg/dL (1.6-2.3); Non-African American GFR(CKD) 90 (>60 ml/min/1.73 sqM); Potassium 4.7 mmol/L (3.5-5.1); Sodium 138 mmol/L (137-145); Total Bilirubin 0.4 mg/dL (0.2-1.3); Total Protein 7.3 g/dL (6.3-8.2)
--- NOTE | 2020-10-24 21:53 | XR ---
EXAMINATION TYPE: XR chest 2V DATE OF EXAM: 10/24/2020 COMPARISON: 09/12/2019 HISTORY: Difficulty breathing TECHNIQUE: FINDINGS: Heart size is normal. There is no heart failure. There is coarse linear density left lung b ase. There is slight blunting of the costophrenic angles. There are chest leads. IMPRESSION: There is mild scarring and atelectasis at the lung bases similar to old exam. There is cl earing of the bilateral upper lobe pneumonia compared to old exam. No heart failure.
[2020-10-24] MEDS ORDERED: FUROSEMIDE 10 MG/ML 4 ML VIAL IV STA (22:19)
[2020-10-24] MEDS ORDERED: HEPARIN SODIUM,PORCINE 5,000 UNIT/ML 1 ML VIAL IV ONE (22:47)
[2020-10-24] MEDS ORDERED: NITROGLYCERIN SL TABS 0.4 MG TAB SUBLINGUAL PRN (22:47)
[2020-10-24] MEDS ORDERED: ACETAMINOPHEN TAB 500 MG TAB PO PRN (22:50)
[2020-10-24] MEDS ORDERED: ARTIFICIAL TEARS-HYPROMELLOSE DROPS 15 ML BTL BOTH EYES PRN (22:50)
[2020-10-24 23:08] LABS: Appearance,Urine Clear (Clear); Bilirubin,Urine Negative (Negative); Blood,Urine Negative (Negative); Color,Urine Yellow; Glucose,Urine (UA) Negative (Negative); Ketones,Urine Negative (Negative); Leukocyte Esterase,Urine Negative (Negative); Nitrite,Urine Negative (Negative); PH, Urine 5.5 (5.0-8.0); Protein,Urine Negative (Negative); Specific Gravity,Urine 1.015 (1.001-1.035); Urobilinogen,Urine <2.0 mg/dL (<2.0)
[2020-10-24] MEDS: HEPARIN SOD,PORK IN 0.45% NACL 25,000 UNIT in 0.45% NACL 1 250ML.BAG IV SCH (23:56)
[2020-10-25] MEDS: IPRATROPIUM-ALBUTEROL 3 ML NEB INHALATION PRN ×2 (07:52→11:03)
[2020-10-25 08:07] LABS: Cholesterol 154 mg/dL (<200); HDL Cholesterol 43 mg/dL (40-60); LDL Cholesterol,Calculated 97 mg/dL (0-99); Triglycerides 70 mg/dL (<150)
[2020-10-25] MEDS: FUROSEMIDE 20 MG TAB PO SCH ×2 (08:22→10:18)
[2020-10-25] MEDS ORDERED: BISOPROLOL 5 MG TAB PO SCH (09:00)
[2020-10-25] MEDS ORDERED: ASPIRIN 325 MG TAB PO SCH (09:00)
[2020-10-25] MEDS ORDERED: DILTIAZEM CD 240 MG CAP.ER.24H PO SCH (09:00)
[2020-10-25] MEDS: CHOLECALCIFEROL 1,000 UNIT TAB PO SCH (10:16)
[2020-10-25] MEDS: ASPIRIN 81 MG PO SCH (10:17)
[2020-10-25] MEDS: MULTIVITAMINS, THERA 1 EACH TAB PO SCH (10:17)
[2020-10-25] MEDS: lisinopriL 20 MG TAB PO SCH (10:18)
[2020-10-25] MEDS: METOPROLOL TARTRATE 25 MG TAB PO SCH ×2 (10:18→20:04)
[2020-10-25] MEDS: amLODIPine 5 MG TAB PO SCH (10:19)
[2020-10-25] MEDS: RALOXIFENE 60 MG TAB PO SCH (10:19)
[2020-10-25] MEDS: POTASSIUM CHLORIDE ER 10 MEQ TAB.ER.PRT PO SCH (10:21)
[2020-10-25] MEDS: LORATADINE 10 MG TAB PO SCH (10:22)
[2020-10-25] MEDS ORDERED: NYSTATIN 100,000UNIT/GM CREAM 30 GM TUBE TOPICAL PRN (10:48)
[2020-10-25] MEDS ORDERED: PATIENTS OWN MED TOPICAL PRN (10:48)
[2020-10-25] MEDS ORDERED: Acetaminophen-Codeine 300-30mg TAB PO PRN (10:48)
[2020-10-25] MEDS: SYMBICORT 160-4.5 MCG INHALER INHALATION SCH ×2 (11:03→19:50)
--- NOTE | 2020-10-25 11:04 | P.CRDCN ---
History of Present Illness History of present illness: HISTORY OF PRESENTING ILLNESS This is a pleasant 79-year-old female past medical history significant for COPD, hypertension, dyslipidemia and history of brain bleed. 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 We have been asked to see in consultation for elevated troponin. She lives at [facility], when staff checked on her she was slumped over her table. She was easily awakened according to her and she told them she was just sleeping. However, she was visibly short of breath. she does have end stage copd and wears home oxygen. According to the nurse she was found to be hypoxic by the staff. She is seen and examined sitting up in bed in no acute distress. She does agree that she was short of breath yesterday however she states that has improved today. She denies ever having had any symptoms of chest discomfort, dizziness, palpitations, nausea, vomiting or diaphoresis. DIAGNOSTICS EKG reveals sinus tachycardia heart rate of 116 with nonspecific abnormalities noted. Chest xray clearing of bilateral upper lobe pneumonia with no overt heart failure noted. Laboratory reviewed, CBC unremarkable, sodium 138, potassium 4.7, creatinine 0.55, magnesium 2.1, troponin 0.198, 0.163 and 0.144, NT proBNP 25,700, LDL 97 HDL 43. Current cardiac medications include lisinopril 20 mg daily, daily potassium s upplementation, Lasix 20 mg daily, bisoprolol 10 mg daily and diltiazem 240 mg daily. REVIEW OF SYSTEMS At the time of my exam: CONSTITUTIONAL: Denies fever or chills. CARDIOVASCULAR: Denies chest pain, shortness of breath, orthopnea, PND or palpitations. RESPIRATORY: Denies cough. GASTROINTESTINAL: Denies abdominal pain, diarrhea, constipation, nausea or vomiting. MUSCULOSKELETAL: Denies myalgias. NEUROLOGIC: Denies numbness, tingling or weakness. ENDOCRINE: Denies fatigue, weight change, polydipsia or polyurina. GENITOURINARY: Denies burning, hematuria or urgency with micturation. HEMATOLOGIC: Denies history of anemia or bleeding. PHYSICAL EXAMINATION Blood pressure 151/90 heart rate 98 afebrile and maintaining oxygen saturation on nasal cannula. CONSTITUTIONAL: No apparent distress. HEENT: Head is normocephalic. Pupils are equal, round. Sclerae anicteric. Mucous membranes of the mouth are moist. No JVD. No carotid bruit. CHEST EXAMINATION: Lungs are clear to auscultation. No chest wall tenderness is noted on palpation or with deep breathing. Diminished bilaterally. HEART EXAMINATION: Regular rate and rhythm. S1, S2 heard. Systolic ejection murmur at the base, no gallops or rub. ABDOMEN: Soft, nontender. Positive bowel sounds. EXTREMITIES: 2+ peripheral pulses, no lower extremity edema and no calf tenderness. NEUROLOGIC EXAMINATION: Patient is awake, alert and oriented x3. ASSESSMENT Non-ST myocardial infarction Hypoxia COPD on home oxygen Hypertension Dyslipidemia PLAN Troponin elevation could be secondary to underlying coronary artery disease also could be secondary to hypoxia. Continue heparin infusion. Optimize her medical therapy today by initiating atorvastatin 40 mg daily, aspirin 81 mg daily and change cardizem to amlodipine and bisoprolol to lop ressor. NPO after midnight tonight for possible cardiac catheterization tomorrow depending on her clinical course. Obtain 2-D echocardiogram and Doppler study to assess cardiac structure and function. Nurse Practitioner note has been reviewed, I agree with a documented findings and plan of care. Patient was seen and examined. Past Medical History Past Medical History: COPD, Hyperlipidemia, Hypertension, Osteoarthritis (OA) Additional Past Medical History / Comment(s): history of brain bleed about a year ago, pt was sent to [facility]. History of Any Multi-Drug Resistant Organisms: None Reported Past Surgical History: Adenoidectomy, Joint Replacement, Tonsillectomy Additional Past Surgical History / Comment(s): Left hip replacement x 3 Past Anesthesia/Blood Transfusion Reactions: No Reported Reaction Past Psychological History: No Psychological Hx Reported Smoking Status: Never smoker Past Alcohol Use History: None Reported Past Drug Use History: None Reported - Past Family History Father Family Medical History: Diabetes Mellitus Mother Family Medical History: Hyperlipidemia Medications and Allergies Home Medications Medication Instructions Recorded Confirmed Type Furosemide [Lasix] 20 - 40 mg PO DAILY 05/01/18 10/24/20 History Potassium Chloride ER [K-Dur 10] 20 meq PO DAILY 05/01/18 10/24/20 History Budesonide-Formot 160-4.5 Mcg 2 puff INHALATION RT-BID puff 05/13/18 10/24/20 Rx [Symbicort 160-4.5 Mcg Inhaler] Celecoxib [CeleBREX] 200 mg PO DAILY 03/26/19 10/24/20 History Diltiazem HCl [Cardizem CD] 240 mg PO DAILY 03/26/19 10/24/20 History Raloxifene [Evista] 60 mg PO DAILY 03/26/19 10/24/20 History Ipratropium-Albuterol Nebulize 3 ml INHALATION RT-QID 05/28/19 10/24/20 History [Duoneb 0.5 mg-3 mg/3 ml Soln] lisinopriL 20 mg PO DAILY #0 09/13/19 10/24/20 Rx Acetaminophen [Tylenol Arthritis] 1,300 mg PO BID PRN 10/24/20 10/24/20 History Acetaminophen-Codeine 300-30mg 1 tab PO Q6H PRN 10/24/20 10/24/20 History [Tylenol w/codeine #3] Blue Emu Cream 1 applic TOPICAL DAILY PRN 10/24/20 10/24/20 History Collagenase [Santyl] 1 applic TOPICAL DAILY PRN 10/24/20 10/24/20 History Nystatin 100,000Unit/gm Cream 1 applic TOPICAL DAILY PRN 10/24/20 10/24/20 History [Mycostatin Cream] Allergies Allergy/AdvReac Type Severity Reaction Status Date / Time naproxen [From Naprosyn] Allergy Rash/Hives Verified 10/24/20 22:53 Physical Exam Vitals: Vital Signs Temp Pulse Resp BP Pulse Ox 10/25/20 08:02 98 10/25/20 07:52 96 10/25/20 06:12 102 H 16 151/90 97 10/25/20 00:00 100 19 138/76 94 L 10/24/20 22:34 107 H 19 151/100 92 L 10/24/20 22:15 110 H 21 166/98 94 L 10/24/20 21:41 97 16 166/98 100 10/24/20 21:33 109 H 16 10/24/20 21:02 26 H 10/24/20 20:46 99.0 F 73 20 158/87 86 L Intake and Output 10/24/20 10/25/20 10/25/20 22:59 06:59 14:59 Other: Weight 45.359 kg Results 10/24/20 21:17 10/24/20 21:17 Cardiac Enzymes 10/24/20 10/24/20 10/25/20 Range/Units 21:17 21:17 00:01 AST 53 H (14-36) U/L Troponin I 0.198 H* 0.163 H* (0.000-0.034) ng/mL 10/25/20 Range/Units 02:49 AST (14-36) U/L Troponin I 0.144 H* (0.000-0.034) ng/mL Coagulation 10/24/20 10/25/20 Range/Units 21:17 07:42 PT 10.7 (9.0-12.0) sec APTT 26.1 42.4 H (22.0-30.0) sec Lipids 10/25/20 Range/Units 07:42 Triglycerides 70 (<150) mg/dL Cholesterol 154 (<200) mg/dL HDL Cholesterol 43 (40-60) mg/dL CBC 10/24/20 Range/Units 21:17 WBC 8.7 (3.8-10.6) k/uL RBC 4.09 (3.80-5.40) m/uL Hgb 13.4 (11.4-16.0) gm/dL Hct 43.5 (34.0-46.0) % Plt Count 253 (150-450) k/uL Comprehensive Metabolic Panel 10/24/20 Range/Units 21:17 Sodium 138 (137-145) mmol/L Potassium 4.7 (3.5-5.1) mmol/L Chloride 101 (98-107) mmol/L Carbon Dioxide 29 (22-30) mmol/L BUN 28 H (7-17) mg/dL Creatinine 0.55 (0.52-1.04) mg/dL Glucose 114 H (74-99) mg/dL Calcium 9.3 (8.4-10.2) mg/dL AST 53 H (14-36) U/L ALT 29 (4-34) U/L Alkaline Phosphatase 136 H (38-126) U/L Total Protein 7.3 (6.3-8.2) g/dL Albumin 4.0 (3.5-5.0) g/dL Current Medications Generic Name Dose Route Start Last Admin Trade Name Freq PRN Reason Stop Dose Admin Acetaminophen 500 mg 10/24/20 22:50 Acetaminophen Tab 500 Mg Tab PO Q4HR PRN Pain Albuterol/Ipratropium 3 ml 10/24/20 22:50 10/25/20 07:52 Ipratropium-Albuterol 3 Ml Neb INHALATION 3 ml RT-Q4H PRN Administration Shortness Of Breath Or Wheezing Artificial Tears 2 drops 10/24/20 22:50 Artificial Tears-Hypromellose Drops 15 Ml Btl BOTH EYES TID PRN Dry Eye(s) Aspirin 325 mg 10/25/20 09:00 Aspirin 325 Mg Tab PO DAILY [facility] Bisoprolol Fumarate 10 mg 10/25/20 09:00 Bisoprolol 5 Mg Tab PO DAILY [facility] Budesonide/Formoterol Fumarate 2 puff 10/25/20 08:00 Symbicort 160-4.5 Mcg Inhaler INHALATION RT-BID [facility] Cholecalciferol 5,000 unit 10/25/20 09:00 Cholecalciferol 1,000 Unit Tab PO DAILY [facility] Diltiazem HCl 240 mg 10/25/20 09:00 Diltiazem Cd 240 Mg Cap.Er.24h PO DAILY [facility] Furosemide 20 mg 10/25/20 07:30 10/25/20 08:22 Furosemide 20 Mg Tab PO Not Given BID-W/MEALS [facility]OLF Sodium Chloride 1,000 mls @ 75 mls/hr 10/24/20 21:02 10/24/20 22:27 Saline 0.9% IV 10/25/20 10:21 Not Given .[id number] STA Heparin Sodium/Sodium Chloride 250 mls @ 5.443 mls/hr 10/24/20 23:00 10/24/20 23:56 25,000 unit/ Sodium Chloride IV 12 units/kg/hr .Q24H WOLF 5.443 mls/hr Administration Protocol 12 UNITS/KG/HR Lisinopril 20 mg 10/25/20 09:00 Lisinopril 20 Mg Tab PO DAILY [facility] Loratadine 10 mg 10/25/20 09:00 Loratadine 10 Mg Tab PO DAILY [facility] Multivitamins 1 each 10/25/20 09:00 Multivitamins, Thera 1 Each Tab PO DAILY [facility] Nitroglycerin 0.4 mg 10/24/20 22:47 Nitroglycerin Sl Tabs 0.4 Mg Tab SUBLINGUAL Q5M PRN Chest Pain Potassium Chloride 10 meq 10/25/20 09:00 Potassium Chloride Er 10 Meq Tab.Er.Prt PO DAILY [facility] Raloxifene HCl 60 mg 10/25/20 09:00 Raloxifene 60 Mg Tab PO DAILY [facility] Intake and Output 10/24/20 10/25/20 10/25/20 22:59 06:59 14:59 Other: Weight 45.359 kg 10/24/20 21:17 10/24/20 21:17
[2020-10-25] MEDS: MELOXICAM 7.5 MG TAB PO SCH (11:49)
[2020-10-25] MEDS: ATORVASTATIN 40 MG TAB PO SCH (11:49)
--- NOTE | 2020-10-25 12:54 | ECHOF ---
Referral Reason:cp, elev trop MEASUREMENTS -------- HEIGHT: 160.0 cm WEIGHT: 45.4 kg BP: 151/90 RVIDd: 3.4 cm (< 3.3) IVSd: 1.9 cm (0.6 - 1.1) LVIDd: 3.2 cm (3.9 - 5.3) LVPWd: 1.6 cm (0.6 - 1.1) IVSs: 2.2 cm LVIDs: 2.2 cm LVPWs: 2.1 cm LAESV Index (A-L): 28.93 ml/m IVSd: 1.2 cm (0.6 - 1.1) LVIDd: 3.9 cm (3.9 - 5.3) LVPWd: 1.9 cm (0.6 - 1.1) IVSs: 1.5 cm LVIDs: 2.7 cm LVPWs: 2.4 cm EDV(Teich): 66 ml ESV(Teich): 28 ml EF(Teich): 57 % %FS: 30 % SV(Teich): 38 ml Ao Diam: 3.5 cm (2.0 - 3.7) AV Cusp: 1.4 cm (1.5 - 2.6) AV maxP.65 mmHg AV meanP.86 mmHg AR PHT: 400 ms RAP: 5.00 mmHg RVSP: 66.31 mmHg FINDINGS -------- Sinus rhythm. This was a technically adequate study. The left ventricular size is normal. There is severe concentric left ventricular hypertrophy. Ove rall left ventricular systolic function is moderately impaired with, an EF between 35 - 40 %. Mid l ateral LV wall motion is hypokinetic. Mid inferior LV wall motion is hypokinetic. Mid anterosep karlos LV wall motion is hypokinetic. Apical anterior LV wall motion is hypokinetic. Apical latera l LV wall motion is hypokinetic. Apical inferior LV wall motion is hypokinetic. The right ventricle is mildly enlarged. Normal LA size by volume 22+/-6 ml/m2. The right atrium is mildly enlarged. Interatrial and interventricular septum intact. There is moderate aortic regurgitation. There is mild aortic stenosis present. Peak/mean gradient across the Aortic Valve is 26.65mmHg / 9.86mmHg. No mitral regurgitation. Moderate tricuspid regurgitation present. There is severe pulmonary hypertension. The right ventr icular systolic pressure, as measured by Doppler, is 66.31mmHg. Trace/mild (physiologic) pulmonic regurgitation. The aortic root size is normal. Normal inferior vena cava with normal inspiratory collapse consistent with estimated right atrial pre ssure of 5 mmHg. There is no pericardial effusion. CONCLUSIONS -------- 1. The left ventricular size is normal. 2. There is severe concentric left ventricular hypertrophy. 3. Overall left ventricular systolic function is moderately impaired with, an EF between 35 - 40 %. 4. Mid lateral LV wall motion is hypokinetic. 5. Mid inferior LV wall motion is hypokinetic. 6. Mid anteroseptal LV wall motion is hypokinetic. 7. Apical anterior LV wall motion is hypokinetic. 8. Apical lateral LV wall motion is hypokinetic. 9. Apical inferior LV wall motion is hypokinetic. 10. The right ventricle is mildly enlarged. 11. The right atrium is mildly enlarged. 12. There is moderate aortic regurgitation. 13. There is mild aortic stenosis present. 14. Peak/mean gradient across the Aortic Valve is 26.65mmHg / 9.86mmHg. 15. Moderate tricuspid regurgitation present. 16. There is severe pulmonary hypertension. 17. The right ventricular systolic pressure, as measured by Doppler, is 66.31mmHg. 18. Trace/mild (physiologic) pulmonic regurgitation. [employer]REL REAMER: Yumiko Mejía RDCS
--- NOTE | 2020-10-25 21:20 | P.HPIM ---
History of Present Illness H&P Date: 10/25/20 Chief Complaint: short of breath History of presenting complaint: This is a very pleasant 79-year-old patient of Dr. Morrow and Dr. 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 Chronic stable medical conditions include colonic diverticulosis, hypertension, hyperlipidemia, osteoarthritis on home oxygen 1.5 L. patient came in feeling short of breath. Appetite is okay. No obvious fever and chills. Tired.[facility] staff came to check an hour she was slumped over the table. She was easily affect. According to her and she told them she was just sleeping. She was found to be short of breath. Feeling better now.denies any chest pain. Review of systems: GEN.: Tired, EYES: None HEENT: None NECK: None RESPIRATORY: As above CARDIOVASCULAR: None GASTROINTESTINAL: None GENITOURINARY: None MUSCULOSKELETAL: Pain in the joints LYMPHATICS: None HEMATOLOGICAL: None PSYCHIATRY: Was confused at home NEUROLOGICAL: None Past medical history to include: Colonic diverticulosis, hypertension, hyperlipidemia, osteoarthritis, home oxygen 4.5 L, history of brain bleed Social history: Patient stopped smoking 6 years ago. Smoked for about 53 years about a pack a day. No alcohol. Does use a walker. Lives at [facility] Family history: Diabetes mellitus type 2 Physical examination: VITAL SIGNS: 99, 109, 26, 158/87 86% room air GENERAL: BMI 17.7, laying in bed, tired EYES: Pupils equal. Conjunctiva normal. HEENT: External appearance of nose and ears normal, oral cavity grossly normal.heart of hearing NECK: JVD not raised; masses not palpable. HEART: First and second heart sounds are normal; no edema. LUNGS: Respiratory rate increased, decreased breath sounds prolonged expiration and wheezing few scattered crackles. ABDOMEN: Soft, nontender, liver spleen not palpable, no masses palpable. PSYCH: Answering questions, but not sure exactly what happened at home NEUROLOGICAL: Cranial nerves grossly intact; no facial asymmetry, power and sensation grossly intact. LYMPHATICS: No lymph nodes palpable in the axilla and neck MUSCULAR- skeletal: Evidence of OA especially in the hands Investigations, reviewed in the clinical context: white count 8.7 hemoglobin 13.4 platelets 253 potassium 4.7 creatinine 0.55 Troponin I 0.198, 0.163, 0.144 ProBNP 25,700 EKG tracing personally reviewed by me-Sinus rhythm with some nonspecific ST segment changes -Chest x-ray film personally reviewed by me-scarring at the bases chronic changes. 2-D echocardiogram-severe concentric LVH, EF 35-40%, multiple wall motion abnormality, moderate aortic regurgitation moderate tricuspid regurgitation, severely pulmonary hypertension Assessment: -possible acute non-Q-wave myocardial infarction -Acute congestive heart failure exacerbation from systolic dysfunction EF 35-40% -Moderate aortic regurgitation, moderate tricuspid regurgitation, -Secondary severe pulmonary hypertension -COPD in an X smoker -Colonic diverticulosis -Essential hypertension -Hyperlipidemia -Primary osteoarthritis -Chronic hypoxic respiratory failure on 1.5 L of oxygen at home from underlying COPD -History of brain bleed -CODE STATUS DO NOT RESUSCITATE plan: Home medications resumed. Cardiology was consulted. they are considering cardiac catheterization. Care was discussed with the patient. Past Medical History Past Medical History: COPD, Hyperlipidemia, Hypertension, Osteoarthritis (OA) Additional Past Medical History / Comment(s): history of brain bleed about a year ago, pt was sent to [facility]. History of Any Multi-Drug Resistant Organisms: None Reported Past Surgical History: Adenoidectomy, Joint Replacement, Tonsillectomy Additional Past Surgical History / Comment(s): Left hip replacement x 3 Past Anesthesia/Blood Transfusion Reactions: No Reported Reaction Past Psychological History: No Psychological Hx Reported Smoking Status: Never smoker Past Alcohol Use History: None Reported Past Drug Use History: None Reported - Past Family History Father Family Medical History: Diabetes Mellitus Mother Family Medical History: Hyperlipidemia Medications and Allergies Home Medications Medication Instructions Recorded Confirmed Type Furosemide [Lasix] 20 - 40 mg PO DAILY 05/01/18 10/24/20 History Potassium Chloride ER [K-Dur 10] 20 meq PO DAILY 05/01/18 10/24/20 History Budesonide-Formot 160-4.5 Mcg 2 puff INHALATION RT-BID puff 05/13/18 10/24/20 Rx [Symbicort 160-4.5 Mcg Inhaler] Celecoxib [CeleBREX] 200 mg PO DAILY 03/26/19 10/24/20 History Diltiazem HCl [Cardizem CD] 240 mg PO DAILY 03/26/19 10/24/20 History Raloxifene [Evista] 60 mg PO DAILY 03/26/19 10/24/20 History Ipratropium-Albuterol Nebulize 3 ml INHALATION RT-QID 05/28/19 10/24/20 History [Duoneb 0.5 mg-3 mg/3 ml Soln] lisinopriL 20 mg PO DAILY #0 09/13/19 10/24/20 Rx Acetaminophen [Tylenol Arthritis] 1,300 mg PO BID PRN 10/24/20 10/24/20 History Acetaminophen-Codeine 300-30mg 1 tab PO Q6H PRN 10/24/20 10/24/20 History [Tylenol w/codeine #3] Blue Emu Cream 1 applic TOPICAL DAILY PRN 10/24/20 10/24/20 History Collagenase [Santyl] 1 applic TOPICAL DAILY PRN 10/24/20 10/24/20 History Nystatin 100,000Unit/gm Cream 1 applic TOPICAL DAILY PRN 10/24/20 10/24/20 History [Mycostatin Cream] Allergies Allergy/AdvReac Type Severity Reaction Status Date / Time naproxen [From Naprosyn] Allergy Rash/Hives Verified 10/24/20 22:53 Physical Exam Vitals: Vital Signs Temp Pulse Resp BP Pulse Ox 10/25/20 08:02 98 10/25/20 07:52 96 10/25/20 06:12 102 H 16 151/90 97 10/25/20 00:00 100 19 138/76 94 L 10/24/20 22:34 107 H 19 151/100 92 L 10/24/20 22:15 110 H 21 166/98 94 L 10/24/20 21:41 97 16 166/98 100 10/24/20 21:33 109 H 16 10/24/20 21:02 26 H 10/24/20 20:46 99.0 F 73 20 158/87 86 L Intake and Output 10/24/20 10/25/20 10/25/20 22:59 06:59 14:59 Other: Weight 45.359 kg Results CBC & Chem 7: 10/24/20 21:17 10/24/20 21:17 Labs: Abnormal Lab Results - Last 24 Hours (Table) 10/24/20 10/24/20 10/24/20 Range/Units 21:17 21:17 21:17 MCV 106.5 H D (80.0-100.0) fL MCHC 30.9 L (31.0-37.0) g/dL Lymphocytes # 0.7 L (1.0-4.8) k/uL APTT (22.0-30.0) sec BUN 28 H (7-17) mg/dL Glucose 114 H (74-99) mg/dL AST 53 H (14-36) U/L Alkaline Phosphatase 136 H (38-126) U/L Creatine Kinase 29 L (30-135) U/L Troponin I 0.198 H* (0.000-0.034) ng/mL 10/25/20 10/25/20 10/25/20 Range/Units 00:01 02:49 07:42 MCV (80.0-100.0) fL MCHC (31.0-37.0) g/dL Lymphocytes # (1.0-4.8) k/uL APTT 42.4 H (22.0-30.0) sec BUN (7-17) mg/dL Glucose (74-99) mg/dL AST (14-36) U/L Alkaline Phosphatase (38-126) U/L Creatine Kinase (30-135) U/L Troponin I 0.163 H* 0.144 H* (0.000-0.034) ng/mL
[2020-10-26 05:32] LABS: African American GFR (CKD) >90 (>60 ml/min/1.73 sqM); Anion Gap 1 mmol/L; Blood Urea Nitrogen 36 mg/dL (7-17); Calcium 8.4 mg/dL (8.4-10.2); Carbon Dioxide 35 mmol/L (22-30); Chloride 98 mmol/L (98-107); Glucose 91 mg/dL (74-99); Non-African American GFR(CKD) 89 (>60 ml/min/1.73 sqM); Potassium 4.7 mmol/L (3.5-5.1); Sodium 134 mmol/L (137-145)
[2020-10-26] MEDS: HEPARIN SOD,PORK IN 0.45% NACL 25,000 UNIT in 0.45% NACL 1 250ML.BAG IV SCH (06:12)
[2020-10-26] MEDS: FUROSEMIDE 20 MG TAB PO SCH ×2 (06:28→16:48)
[2020-10-26] MEDS: MELOXICAM 7.5 MG TAB PO SCH (08:41)
[2020-10-26] MEDS: LORATADINE 10 MG TAB PO SCH (08:41)
[2020-10-26] MEDS: CHOLECALCIFEROL 1,000 UNIT TAB PO SCH (08:41)
[2020-10-26] MEDS: ASPIRIN 81 MG PO SCH (08:41)
[2020-10-26] MEDS: amLODIPine 5 MG TAB PO SCH (08:41)
[2020-10-26] MEDS: MULTIVITAMINS, THERA 1 EACH TAB PO SCH (08:41)
[2020-10-26] MEDS: lisinopriL 20 MG TAB PO SCH ×2 (08:41→19:55)
[2020-10-26] MEDS: ATORVASTATIN 40 MG TAB PO SCH (08:42)
[2020-10-26] MEDS: POTASSIUM CHLORIDE ER 10 MEQ TAB.ER.PRT PO SCH (08:42)
[2020-10-26] MEDS: METOPROLOL TARTRATE 25 MG TAB PO SCH ×2 (08:42→19:55)
[2020-10-26] MEDS: RALOXIFENE 60 MG TAB PO SCH (08:42)
[2020-10-26] MEDS: IPRATROPIUM-ALBUTEROL 3 ML NEB INHALATION PRN ×3 (09:12→19:55)
[2020-10-26] MEDS: SYMBICORT 160-4.5 MCG INHALER INHALATION SCH ×2 (09:12→19:55)
[2020-10-26] MEDS ORDERED: ALPRAZolam 0.5 MG TAB PO PRN (09:57)
[2020-10-26] MEDS ORDERED: ASPIRIN 325 MG TAB PO STA (09:57)
[2020-10-26] MEDS ORDERED: ALPRAZolam 0.25 MG TAB PO PRN (09:57)
[2020-10-26] MEDS ORDERED: SODIUM CHLORIDE 0.9% 1,000 ML in EMPTY BAG 1 BAG IV ONE (09:57)
--- NOTE | 2020-10-26 11:31 | P.PN ---
Subjective HISTORY OF PRESENTING ILLNESS This is a pleasant 79-year-old female past medical history significant for COPD, hypertension, dyslipidemia and history of brain bleed. Denies prior history of coronary artery disease and does not follow with a volleyball coach for any reason. She is seen and examined laying flat resting comfortably in bed in no acute distress. She denies any worsening shortness of breath. No chest pain, dizziness or palpitations. Blood pressure 156/83 heart rate 100 afebrile and maintaining oxygen saturation on nasal cannula. Laboratory data reviewed, sodium 134, potassium 4.7, creatinine 0.56, LDL 97. Troponin trend 0.198, 0.163 and 0.144. Echocardiogram obtained revealed impaired LV systolic function with ejection fraction 35-40%, mid lateral, mid inferior, mid anterior septal, apical anterior, apical lateral, and apical inferior wall motion hypokinesia, mild aortic stenosis with a mean gradient of 9 mmHg, moderate tricuspid regurgitation and severe pulmonary hypertension with RVSP of 66 mmHg. PHYSICAL EXAMINATION CONSTITUTIONAL: No apparent distress. HEENT: Head is normocephalic. Pupils are equal, round. Sclerae anicteric. Mucous membranes of the mouth are moist. No JVD. No carotid bruit. CHEST EXAMINATION: Lungs are clear to auscultation. No chest wall tenderness is noted on palpation or with deep breathing. Diminished bilaterally. HEART EXAMINATION: Regular rate and rhythm. S1, S2 heard. Systolic ejection murmur at the base, no gallops or rub. EXTREMITIES: 2+ peripheral pulses, no lower extremity edema and no calf tenderness. ASSESSMENT Non-ST myocardial infarction Cardiomyopathy Acute systolic heart failure Hypoxia COPD on home oxygen Hypertension Dyslipidemia Aortic stenosis, mild Pulmonary hypertension, severe PLAN Recommend proceeding with cardiac catheterization to assess for underlying coronary artery disease versus takotsubo. I have discussed the risks, benefits and alternative therapies for the above-mentioned procedure and for both sedation/analgesia as well as necessary blood product administration, if indicated, as they pertain to this patient. The patient has indicated understanding and acceptance of the risks and procedures discussed. Questions have been answered appropriately and she is agreeable to move forward with the above-stated procedure. Her son has been notified of the plan of care. Further recommendations to follow based upon clinical course. Nurse Practitioner note has been reviewed, I agree with a documented findings and plan of care. Patient was seen and examined. Objective - Vital Signs Vital signs: Vital Signs Temp 98.1 F 12/08/20 08:40 Pulse 100 10/26/20 09:31 Resp 16 10/26/20 08:40 BP 156/83 10/26/20 08:40 Pulse Ox 94 L 10/26/20 08:40 Intake & Output 10/25/20 10/26/20 10/26/20 18:59 06:59 18:59 Intake Total 207.179 107.456 Output Total 830 Balance 207.179 -722.544 Weight 41 kg Intake: IV 10 0.9 10 Intake, IV Titration 87.179 97.456 Amount Heparin Sod,Pork in 0.45% 87.179 97.456 NaCl 25,000 unit In 0.45 % NaCl 1 250ml.bag @ 12 UNITS/KG/HR 5.443 mls/hr IV .Q24H [facility] Rx#: [id number] Oral 120 Output: Urine 830 Straight 415 Other: Voiding Method Bedpan Indwelling Catheter Indwelling Catheter # Voids 1 # Bowel Movements 1 - Labs CBC & Chem 7: 10/24/20 21:17 10/26/20 04:50 Labs: Abnormal Lab Results - Last 24 Hours (Table) 10/25/20 10/26/20 10/26/20 Range/Units 21:17 04:50 04:50 APTT 41.7 H 62.8 H (22.0-30.0) sec Sodium 134 L (137-145) mmol/L Carbon Dioxide 35 H (22-30) mmol/L BUN 36 H (7-17) mg/dL Microbiology - Last 24 Hours (Table) 10/24/20 21:17 Blood Culture - Preliminary Blood No Growth after 24 hours
[2020-10-26 11:39] LABS: Glucose,Whole Blood 68 mg/dL (75-99)
[2020-10-26 17:18] LABS: Glucose,Whole Blood 105 mg/dL (75-99)
[2020-10-26 20:13] LABS: Glucose,Whole Blood 120 mg/dL (75-99)
[2020-10-27] MEDS: HEPARIN SOD,PORK IN 0.45% NACL 25,000 UNIT in 0.45% NACL 1 250ML.BAG IV SCH (03:55)
[2020-10-27] MEDS: ATORVASTATIN 40 MG TAB PO SCH (04:54)
[2020-10-27] MEDS: lisinopriL 20 MG TAB PO SCH ×2 (04:54→20:45)
[2020-10-27] MEDS: ASPIRIN 81 MG PO SCH (04:54)
[2020-10-27] MEDS: METOPROLOL TARTRATE 25 MG TAB PO SCH (04:54)
[2020-10-27 06:20] LABS: Glucose,Whole Blood 93 mg/dL (75-99)
[2020-10-27] MEDS ORDERED: IV FLUID CONTINUATION 500 ML IV ONE (07:26)
[2020-10-27] MEDS ORDERED: MIDAZOLAM 2 MG/2 ML VIAL IV ONE (07:38)
[2020-10-27] MEDS: SYMBICORT 160-4.5 MCG INHALER INHALATION SCH ×2 (07:44→21:12)
[2020-10-27] MEDS ORDERED: LIDOCAINE 1% INJ 10MG/ML (20 ML MDV) SQ ONE (07:44)
[2020-10-27] MEDS ORDERED: METOPROLOL TARTRATE 5 MG/5 ML VIAL IVP ONE (07:53)
[2020-10-27] MEDS ORDERED: ONDANSETRON 4 MG/2 ML VIAL IVP ONE (07:57)
[2020-10-27] MEDS ORDERED: NITROGLYCERIN 1000MCG/10ML SYRINGE INTRAARTER ONE (08:09)
[2020-10-27] MEDS ORDERED: NITROGLYCERIN SL TABS 0.4 MG TAB SUBLINGUAL ONE (08:11)
[2020-10-27] MEDS ORDERED: IOPAMIDOL-370 100ML BTL INJ ONE (08:11)
[2020-10-27] MEDS ORDERED: SODIUM CHLORIDE 0.9% 1,000 ML IV SCH (09:00)
[2020-10-27 09:35] LABS: African American GFR (CKD) >90 (>60 ml/min/1.73 sqM); Anion Gap 1 mmol/L; Blood Urea Nitrogen 25 mg/dL (7-17); Calcium 8.3 mg/dL (8.4-10.2); Carbon Dioxide 35 mmol/L (22-30); Chloride 97 mmol/L (98-107); Glucose 98 mg/dL (74-99); Non-African American GFR(CKD) >90 (>60 ml/min/1.73 sqM); Potassium 4.9 mmol/L (3.5-5.1); Sodium 133 mmol/L (137-145)
[2020-10-27] MEDS: CHOLECALCIFEROL 1,000 UNIT TAB PO SCH (11:04)
[2020-10-27] MEDS: METOPROLOL TARTRATE 50 MG TAB PO SCH ×2 (11:04→20:45)
[2020-10-27] MEDS: MELOXICAM 7.5 MG TAB PO SCH (11:04)
[2020-10-27] MEDS: FUROSEMIDE 40 MG TAB PO SCH ×2 (11:04→17:21)
[2020-10-27] MEDS: POTASSIUM CHLORIDE ER 20 MEQ TAB.ER PO SCH (11:04)
[2020-10-27] MEDS: MULTIVITAMINS, THERA 1 EACH TAB PO SCH (11:04)
[2020-10-27] MEDS: LORATADINE 10 MG TAB PO SCH (11:05)
[2020-10-27] MEDS: RALOXIFENE 60 MG TAB PO SCH (11:05)
--- NOTE | 2020-10-27 11:23 | CC ---
CARDIAC CATHETERIZATION REPORT DATE OF SERVICE: 10/27/2020 PROCEDURE: Left heart catheterization and coronary angiography. PERFORMED BY: Dr. Zoila Guthrie. Moderate conscious sedation time was 29 minutes. Patient was administered Versed. Oxygen saturation, hemodynamics and EKG were monitored closely. CLINICAL INFORMATION: Mrs. Jacquelin Dueñas is a 79-year-old lady with hypertension, hyperlipidemia, patient of Dr. Gagandeep Morrwo, came into the hospital with increasing shortness of breath, was found to be in congestive heart failure and treated appropriately. Echocardiogram revealed a significant wall motion abnormalities suggestive of takotsubo. However, patient had troponin elevation suggestive of non-ST elevation FL. Given her age, circumstances, risk factors, she was advised cardiac catheterization after due discussion regarding risks, benefits, and options. PROCEDURE NOTE: Under local anesthesia and strict aseptic precautions, a 6-Sinhala introducer was placed in the right femoral artery. There was heavy calcification in the femoral arteries as well as the aorta. A micropuncture needle technique was used. A 6-Sinhala introducer was placed. Using standard Santy catheters, I performed coronary angiography and the same right catheter was used to check LV pressure but LV gram was not performed. The sheath was taken out and manual compression used to secure hemostasis and Femstop applied. Patient tolerated the procedure well without complications. CARDIAC CATH FINDINGS: The left end-diastolic pressure was 23 mmHg without any gradient across the aortic valve. CORONARY ANGIOGRAPHY FINDINGS: RIGHT CORONARY ARTERY: Dominant vessel, heavily calcified in the midportion has a 50% lesion and then bifurcates into mostly a PDA and a small PLV, diffuse distal disease in the distal branches of the vessel, but RCA itself has no significant disease. The branch of RCA has minor irregularities. LEFT MAIN CORONARY ARTERY: Short patent vessel, free of significant disease that bifurcates into LAD and circumflex. This is a very short vessel. LEFT ANTERIOR DESCENDING CORONARY ARTERY: Good caliber vessel extends along the anterior wall, gives off septal and diagonal branches. All of these branches have a 30% to 40% narrowing with calcification but no significant disease. LAD is a large caliber, large distribution vessel that curves over the apex to supply the inferoapical portion of left ventricle. No significant disease in the LAD system. LEFT POSTERIOR CIRCUMFLEX CORONARY ARTERY: Nondominant vessel, tortuous, gives off a single obtuse marginal then runs in the AV groove has minor irregularities of no more than 30% to 40%, no significant disease in the nondominant circumflex. . Left ventriculogram was not performed. FINAL IMPRESSION: This patient has elevated filling pressures, no gradient across aortic valve. She has a right dominant system with 50% disease involving the RCA at the junction of the proximal and middle 1/3. Less than 40% lesion in the left system, heavily calcified vessels, but no significant obstructive CAD. RECOMMENDATIONS: Findings were discussed with the patient and her son by phone. Continued medical therapy with risk factor modification advised. I will address the heart failure by increasing the Lasix and optimizing BP control. Prognosis remains guarded. MMODL / IJN: [id number] /
--- NOTE | 2020-10-27 11:31 | P.PN ---
Progress Note - Text Progress Note Date: 10/27/20 Chief Complaint: short of breath History of presenting complaint: This is a very pleasant 79-year-old patient of Dr. Morrow and Dr. 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 Chronic stable medical conditions include colonic diverticulosis, hypertension, hyperlipidemia, osteoarthritis on home oxygen 1.5 L. patient came in feeling short of breath. Appetite is okay. No obvious fever and chills. Tired. staff came to check an hour she was slumped over the table. She was easily awakened. According to her and she told them she was just sleeping. She was found to be short of breath. Feeling better now.denies any chest pain. Patient felt to have acute non-Q-wave myocardial infarction. Acute CHF exacerbation. Today-no chest pain. Breathing is a bit better. Eating. Review of systems: Was done for constitutional, cardiovascular, GI, pulmonary. relevant finding as above Current medications reviewed in today's electronic records Physical examination: VITAL SIGNS: 97.4, 95, 18, 146/70, 95% on 2 L GENERAL: Sitting up, comfortable EYES: Pupils equal. Conjunctiva normal. HEENT: External appearance of nose and ears normal, oral cavity grossly normal.hard of hearing NECK: JVD not raised; masses not palpable. HEART: First and second heart sounds are normal; no edema. LUNGS: Respiratory rate increased, decreased breath sounds prolonged expiration and wheezing few scattered crackles. ABDOMEN: Soft, nontender, liver spleen not palpable, no masses palpable. PSYCH: Answering questions, but not sure exactly what happened at home MUSCULAR- skeletal: Evidence of OA especially in the hands Investigations, reviewed in the clinical context: October 26: Potassium 4.7 creatinine 0.56 white count 8.7 hemoglobin 13.4 platelets 253 potassium 4.7 creatinine 0.55 Troponin I 0.198, 0.163, 0.144 ProBNP 25,700 EKG tracing personally reviewed by me-Sinus rhythm with some nonspecific ST segment changes -Chest x-ray film personally reviewed by me-scarring at the bases chronic changes. 2-D echocardiogram-severe concentric LVH, EF 35-40%, multiple wall motion abnormality, moderate aortic regurgitation moderate tricuspid regurgitation, severely pulmonary hypertension Assessment: -possible acute non-Q-wave myocardial infarction -Acute congestive heart failure exacerbation from systolic dysfunction EF 35-40%-improving -Moderate aortic regurgitation, moderate tricuspid regurgitation, -Secondary severe pulmonary hypertension -COPD in an X smoker -Colonic diverticulosis -Essential hypertension -Hyperlipidemia -Primary osteoarthritis -Chronic hypoxic respiratory failure on 1.5 L of oxygen at home from underlying COPD -History of brain bleed -CODE STATUS DO NOT RESUSCITATE plan: Patient on IV heparin. Oral Lasix. Cardiology is contemplating cardiac catheterization.
[2020-10-27] MEDS: IPRATROPIUM-ALBUTEROL 3 ML NEB INHALATION PRN ×3 (11:32→21:12)
[2020-10-27 11:57] LABS: Glucose,Whole Blood 90 mg/dL (75-99)
[2020-10-27] MEDS: FUROSEMIDE 20 MG TAB PO SCH (12:43)
[2020-10-27] MEDS: POTASSIUM CHLORIDE ER 10 MEQ TAB.ER.PRT PO SCH (12:43)
[2020-10-27 16:29] LABS: Glucose,Whole Blood 101 mg/dL (75-99)
[2020-10-27 20:46] LABS: Glucose,Whole Blood 107 mg/dL (75-99)
--- NOTE | 2020-10-27 22:51 | P.PN ---
Progress Note - Text Progress Note Date: 10/27/20 Chief Complaint: short of breath History of presenting complaint: This is a very pleasant 79-year-old patient of Dr. 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 Chronic stable medical conditions include colonic diverticulosis, hypertension, hyperlipidemia, osteoarthritis on home oxygen 1.5 L. patient came in feeling short of breath. Appetite is okay. No obvious fever and chills. Tired.[facility] staff came to check an hour she was slumped over the table. She was easily affect. According to her and she told them she was just sleeping. She was found to be short of breath. Feeling better now.denies any chest pain. Admitted with acute non-Q-wave MT. Acute CHF exacerbation. EF 35-40% Today-underwent cardiac catheterization. Non-obstructive disease. Breathing better. Review of systems: Was done for constitutional, cardiovascular, GI, pulmonary. relevant finding as above Active Medications Acetaminophen (Acetaminophen Tab 500 Mg Tab) 500 mg PO Q4HR PRN PRN Reason: Pain Acetaminophen/Codeine Phosphate (Acetaminophen-Codeine 300-30mg Tab) 1 each PO Q6H PRN PRN Reason: Pain Albuterol/Ipratropium (Ipratropium-Albuterol 3 Ml Neb) 3 ml INHALATION RT-Q4H PRN PRN Reason: Shortness Of Breath Or Wheezing Last Admin: 10/27/20 21:12 Dose: 3 ml Documented by: Alprazolam (Alprazolam 0.25 Mg Tab) 0.25 mg PO Q6HR PRN PRN Reason: Mild Anxiety Alprazolam (Alprazolam 0.5 Mg Tab) 0.5 mg PO Q6HR PRN PRN Reason: Moderate Anxiety Artificial Tears (Artificial Tears-Hypromellose Drops 15 Ml Btl) 2 drops BOTH EYES TID PRN PRN Reason: Dry Eye(s) Aspirin (Aspirin 81 Mg) 81 mg PO DAILY [facility] Last Admin: 10/27/20 04:54 Dose: 81 mg Documented by: Atorvastatin Calcium (Atorvastatin 40 Mg Tab) 40 mg PO DAILY [facility] Last Admin: 10/27/20 04:54 Dose: 40 mg Documented by: Budesonide/Formoterol Fumarate (Symbicort 160-4.5 Mcg Inhaler) 2 puff INHALATION RT-BID [facility] Last Admin: 10/27/20 21:12 Dose: 2 puff Documented by: Cholecalciferol (Cholecalciferol 1,000 Unit Tab) 5,000 unit PO DAILY [facility] Last Admin: 10/27/20 11:04 Dose: 5,000 unit Documented by: Enoxaparin Sodium (Enoxaparin 40 Mg/0.4 Ml Syringe) 40 mg SQ DAILY [facility] Furosemide (Furosemide 40 Mg Tab) 40 mg PO BID@0900,1600 [facility] Last Admin: 10/27/20 17:21 Dose: 40 mg Documented by: Sodium Chloride (Saline 0.9%) 500 mls @ 20 mls/hr IV .Q24H [facility] Lisinopril (Lisinopril 20 Mg Tab) 20 mg PO BID [facility] Last Admin: 10/27/20 20:45 Dose: 20 mg Documented by: Loratadine (Loratadine 10 Mg Tab) 10 mg PO DAILY [facility] Last Admin: 10/27/20 11:05 Dose: 10 mg Documented by: Meloxicam (Meloxicam 7.5 Mg Tab) 7.5 mg PO DAILY [facility] Last Admin: 10/27/20 11:04 Dose: 7.5 mg Documented by: Metoprolol Tartrate (Metoprolol Tartrate 50 Mg Tab) 50 mg PO BID [facility] Last Admin: 10/27/20 20:45 Dose: 50 mg Documented by: Multivitamins (Multivitamins, Thera 1 Each Tab) 1 each PO DAILY [facility] Last Admin: 10/27/20 11:04 Dose: 1 each Documented by: Nitroglycerin (Nitroglycerin Sl Tabs 0.4 Mg Tab) 0.4 mg SUBLINGUAL Q5M PRN PRN Reason: Chest Pain Non-Formulary Medication (Patients Own Med) 1 each TOPICAL DAILY PRN PRN Reason: dressing change Nystatin (Nystatin 100,000unit/Gm Cream 30 Gm Tube) 1 applic TOPICAL DAILY PRN PRN Reason: buttocks after cleanse Potassium Chloride (Potassium Chloride Er 20 Meq Tab.Er) 20 meq PO DAILY [facility] Last Admin: 10/27/20 11:04 Dose: 20 meq Documented by: Raloxifene HCl (Raloxifene 60 Mg Tab) 60 mg PO DAILY [facility] Last Admin: 10/27/20 11:05 Dose: 60 mg Documented by: Physical examination: VITAL SIGNS: 98.3, 18, 164.78, 98% on 3 daughters GENERAL: BMI 17.7, laying in bed, comfortable EYES: Pupils equal. Conjunctiva normal. HEENT: Decreased hearing NECK: JVD not raised; masses not palpable. HEART: First and second heart sounds are normal; no edema. LUNGS: Respiratory rate increased, decreased breath sounds . ABDOMEN: Soft, nontender, liver spleen not palpable, no masses palpable. PSYCH: Answering questions, but not sure exactly what happened at home MUSCULAR- skeletal: Evidence of OA especially in the hands Investigations, reviewed in the clinical context: October 27: Potassium 4.9 creatinine 0.48 Cardiac catheterization-nonobstructive disease white count 8.7 hemoglobin 13.4 platelets 253 potassium 4.7 creatinine 0.55 Troponin I 0.198, 0.163, 0.144 ProBNP 25,700 EKG tracing personally reviewed by me-Sinus rhythm with some nonspecific ST segment changes -Chest x-ray film personally reviewed by me-scarring at the bases chronic changes. 2-D echocardiogram-severe concentric LVH, EF 35-40%, multiple wall motion abnormality, moderate aortic regurgitation moderate tricuspid regurgitation, severely pulmonary hypertension Assessment: - acute non-Q-wave myocardial infarction -Nonobstructive carotid artery disease-per cardiac catheterization -Acute congestive heart failure exacerbation from systolic dysfunction EF 35-40%-improving -Moderate aortic regurgitation, moderate tricuspid regurgitation, -Secondary severe pulmonary hypertension -COPD in an X smoker -Colonic diverticulosis -Essential hypertension, and can -Hyperlipidemia -Primary osteoarthritis -Chronic hypoxic respiratory failure on 1.5 L of oxygen at home from underlying COPD -History of brain bleed -CODE STATUS DO NOT RESUSCITATE plan: Patient on Lopressor, Zestril, by mouth Lasix. Add Aldactone. Other medications to continue.
[2020-10-28] MEDS: SODIUM CHLORIDE 0.9% 500 ML 500 ML IV SCH (01:13)
[2020-10-28 06:30] LABS: Glucose,Whole Blood 101 mg/dL (75-99)
[2020-10-28 08:15] LABS: African American GFR (CKD) >90 (>60 ml/min/1.73 sqM); Anion Gap -1 mmol/L; Blood Urea Nitrogen 20 mg/dL (7-17); Calcium 8.4 mg/dL (8.4-10.2); Carbon Dioxide 40 mmol/L (22-30); Chloride 93 mmol/L (98-107); Glucose 92 mg/dL (74-99); Non-African American GFR(CKD) >90 (>60 ml/min/1.73 sqM); Potassium 4.3 mmol/L (3.5-5.1); Sodium 132 mmol/L (137-145)
[2020-10-28] MEDS: IPRATROPIUM-ALBUTEROL 3 ML NEB INHALATION PRN ×3 (09:07→20:56)
[2020-10-28] MEDS: SYMBICORT 160-4.5 MCG INHALER INHALATION SCH ×2 (09:07→20:57)
[2020-10-28] MEDS: FUROSEMIDE 40 MG TAB PO SCH ×2 (10:23→15:53)
[2020-10-28] MEDS: POTASSIUM CHLORIDE ER 20 MEQ TAB.ER PO SCH (10:23)
[2020-10-28] MEDS: METOPROLOL TARTRATE 50 MG TAB PO SCH (10:23)
[2020-10-28] MEDS: MELOXICAM 7.5 MG TAB PO SCH (10:23)
[2020-10-28] MEDS: MULTIVITAMINS, THERA 1 EACH TAB PO SCH (10:24)
[2020-10-28] MEDS: lisinopriL 20 MG TAB PO SCH ×2 (10:24→20:15)
[2020-10-28] MEDS: RALOXIFENE 60 MG TAB PO SCH (10:24)
[2020-10-28] MEDS: ATORVASTATIN 40 MG TAB PO SCH (10:24)
[2020-10-28] MEDS: SPIRONOLACTONE 25 MG TAB PO SCH (10:24)
[2020-10-28] MEDS: CHOLECALCIFEROL 1,000 UNIT TAB PO SCH (10:24)
[2020-10-28] MEDS: ASPIRIN 81 MG PO SCH (10:24)
[2020-10-28] MEDS: LORATADINE 10 MG TAB PO SCH (10:24)
[2020-10-28] MEDS: ENOXAPARIN 40 MG/0.4 ML SYRINGE SQ SCH (10:25)
[2020-10-28] MEDS: hydrALAZINE HCL 25 MG TAB PO SCH ×2 (12:20→20:15)
[2020-10-28 12:25] LABS: Glucose,Whole Blood 151 mg/dL (75-99)
--- NOTE | 2020-10-28 13:23 | P.PN ---
Subjective HISTORY OF PRESENTING ILLNESS This is a pleasant 79-year-old female past medical history significant for COPD, hypertension, dyslipidemia and history of brain bleed. Denies prior history of coronary artery disease and does not follow with a flight director for any reason. She is seen and examined laying flat resting comfortably in bed in no acute distress. She denies any worsening shortness of breath. No chest pain, dizziness or palpitations. Blood pressure 156/83 heart rate 100 afebrile and maintaining oxygen saturation on nasal cannula. Laboratory data reviewed, sodium 134, potassium 4.7, creatinine 0.56, LDL 97. Troponin trend 0.198, 0.163 and 0.144. Echocardiogram obtained revealed impaired LV systolic function with ejection fraction 35-40%, mid lateral, mid inferior, mid anterior septal, apical anterior, apical lateral, and apical inferior wall motion hypokinesia, mild aortic stenosis with a mean gradient of 9 mmHg, moderate tricuspid regurgitation and severe pulmonary hypertension with RVSP of 66 mmHg. 10/28/2020 Pt is seen and examined laying flat resting comfortably in bed in no acute distress. She denies worsening shortness of breath. No chest pain, dizziness or palpitations. Blood pressure 121/63 heart rate 92 maintaining oxygen saturation on nasal cannula. Laboratory data reviewed, sodium 132, potassium 4.3 and creatinine 0.52. She underwent cardiac catheterization yesterday revealing 50% disease of the RCA at the junction of the proximal and mid one third, less than 40% lesion in the circumflex artery with no significant obstructive disease. PHYSICAL EXAMINATION CONSTITUTIONAL: No apparent distress. HEENT: Head is normocephalic. Pupils are equal, round. Sclerae anicteric. Mucous membranes of the mouth are moist. No JVD. No carotid bruit. CHEST EXAMINATION: Lungs are clear to auscultation. No chest wall tenderness is noted on palpation or with deep breathing. Diminished bilaterally. HEART EXAMINATION: Regular rate and rhythm. S1, S2 heard. Systolic ejection murmur at the base, no gallops or rub. EXTREMITIES: 2+ peripheral pulses, no lower extremity edema and no calf tenderness. Right femoral access site soft and dry with no hematoma, oozing, bleeding or tenderness. ASSESSMENT Non-ST myocardial infarction Cardiomyopathy Acute systolic heart failure Takotsubo Hypoxia COPD on home oxygen Hypertension Dyslipidemia Aortic stenosis, mild Pulmonary hypertension, severe PLAN Increase lopressor to 75 mg BID. Continue to monitor for another 24 hours. Pt's son was updated as to the plan of care. Nurse Practitioner note has been reviewed, I agree with a documented findings and plan of care. Patient was seen and examined. Objective - Vital Signs Vital signs: Vital Signs Temp 97.8 F 10/28/20 08:00 Pulse 92 10/28/20 11:52 Resp 20 10/28/20 08:00 BP 121/63 10/28/20 08:00 Pulse Ox 93 L 10/28/20 08:00 Intake & Output 10/27/20 10/28/20 10/28/20 18:59 06:59 18:59 Intake Total 460 Balance 460 Weight 49 kg Intake: IV 100 Oral 360 Other: Voiding Method Diaper Diaper # Voids 2 3 5 - Labs CBC & Chem 7: 10/24/20 21:17 10/28/20 07:39 Labs: Abnormal Lab Results - Last 24 Hours (Table) 10/27/20 10/27/20 10/28/20 Range/Units 16:27 20:44 06:28 Sodium (137-145) mmol/L Chloride (98-107) mmol/L Carbon Dioxide (22-30) mmol/L BUN (7-17) mg/dL POC Glucose (mg/dL) 101 H 107 H 101 H (75-99) mg/dL 10/28/20 10/28/20 Range/Units 07:39 12:24 Sodium 132 L (137-145) mmol/L Chloride 93 L (98-107) mmol/L Carbon Dioxide 40 H (22-30) mmol/L BUN 20 H (7-17) mg/dL POC Glucose (mg/dL) 151 H (75-99) mg/dL Microbiology - Last 24 Hours (Table) 10/24/20 21:17 Blood Culture - Preliminary Blood No Growth after 72 hours
[2020-10-28 13:55] VITALS: BMI 19.1
[2020-10-28 17:34] LABS: Glucose,Whole Blood 146 mg/dL (75-99)
[2020-10-28] MEDS: METOPROLOL TARTRATE 25 MG TAB PO SCH (20:15)
[2020-10-28 20:31] LABS: Glucose,Whole Blood 130 mg/dL (75-99)
--- NOTE | 2020-10-28 20:54 | P.PN ---
Progress Note - Text Progress Note Date: 10/28/20 Chief Complaint: short of breath History of presenting complaint: This is a very pleasant 79-year-old patient of Dr. Morrow and Dr. 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 Chronic stable medical conditions include colonic diverticulosis, hypertension, hyperlipidemia, osteoarthritis on home oxygen 1.5 L. patient came in feeling short of breath. Appetite is okay. No obvious fever and chills. Tired.[facility] staff came to check an hour she was slumped over the table. She was easily affect. According to her and she told them she was just sleeping. She was found to be short of breath. Feeling better now.denies any chest pain. Admitted with acute non-Q-wave HI. Acute CHF exacerbation. EF 35-40%. cardiac aozpyauiixvpvhb-Hxh-owwjffreage coronary disease Today-Comfortable. Breathing stable. Eating fair Review of systems: Was done for constitutional, cardiovascular, GI, pulmonary. relevant finding as above Active Medications Acetaminophen (Acetaminophen Tab 500 Mg Tab) 500 mg PO Q4HR PRN PRN Reason: Pain Last Admin: 10/28/20 15:55 Dose: 500 mg Documented by: Acetaminophen/Codeine Phosphate (Acetaminophen-Codeine 300-30mg Tab) 1 each PO Q6H PRN PRN Reason: Pain Albuterol/Ipratropium (Ipratropium-Albuterol 3 Ml Neb) 3 ml INHALATION RT-Q4H PRN PRN Reason: Shortness Of Breath Or Wheezing Last Admin: 10/28/20 11:39 Dose: 3 ml Documented by: Alprazolam (Alprazolam 0.25 Mg Tab) 0.25 mg PO Q6HR PRN PRN Reason: Mild Anxiety Alprazolam (Alprazolam 0.5 Mg Tab) 0.5 mg PO Q6HR PRN PRN Reason: Moderate Anxiety Artificial Tears (Artificial Tears-Hypromellose Drops 15 Ml Btl) 2 drops BOTH EYES TID PRN PRN Reason: Dry Eye(s) Aspirin (Aspirin 81 Mg) 81 mg PO DAILY [facility] Last Admin: 10/28/20 10:24 Dose: 81 mg Documented by: Atorvastatin Calcium (Atorvastatin 40 Mg Tab) 40 mg PO DAILY [facility] Last Admin: 10/28/20 10:24 Dose: 40 mg Documented by: Budesonide/Formoterol Fumarate (Symbicort 160-4.5 Mcg Inhaler) 2 puff INHALATION RT-BID [facility] Last Admin: 10/28/20 09:07 Dose: 2 puff Documented by: Cholecalciferol (Cholecalciferol 1,000 Unit Tab) 5,000 unit PO DAILY [facility] Last Admin: 10/28/20 10:24 Dose: 5,000 unit Documented by: Enoxaparin Sodium (Enoxaparin 40 Mg/0.4 Ml Syringe) 40 mg SQ DAILY [facility] Last Admin: 10/28/20 10:25 Dose: 40 mg Documented by: Furosemide (Furosemide 40 Mg Tab) 40 mg PO BID@0900,1600 [facility] Last Admin: 10/28/20 15:53 Dose: 40 mg Documented by: Hydralazine HCl (Hydralazine Hcl 25 Mg Tab) 25 mg PO BID [facility] Last Admin: 10/28/20 20:15 Dose: 25 mg Documented by: Sodium Chloride (Saline 0.9%) 500 mls @ 20 mls/hr IV .Q24H [facility] Last Admin: 10/28/20 01:13 Dose: Not Given Documented by: Lisinopril (Lisinopril 20 Mg Tab) 20 mg PO BID [facility] Last Admin: 10/28/20 20:15 Dose: 20 mg Documented by: Loratadine (Loratadine 10 Mg Tab) 10 mg PO DAILY [facility] Last Admin: 10/28/20 10:24 Dose: 10 mg Documented by: Meloxicam (Meloxicam 7.5 Mg Tab) 7.5 mg PO DAILY [facility] Last Admin: 10/28/20 10:23 Dose: 7.5 mg Documented by: Metoprolol Tartrate (Metoprolol Tartrate 25 Mg Tab) 75 mg PO BID [facility] Last Admin: 10/28/20 20:15 Dose: 75 mg Documented by: Multivitamins (Multivitamins, Thera 1 Each Tab) 1 each PO DAILY [facility] Last Admin: 10/28/20 10:24 Dose: 1 each Documented by: Nitroglycerin (Nitroglycerin Sl Tabs 0.4 Mg Tab) 0.4 mg SUBLINGUAL Q5M PRN PRN Reason: Chest Pain Non-Formulary Medication (Patients Own Med) 1 each TOPICAL DAILY PRN PRN Reason: dressing change Nystatin (Nystatin 100,000unit/Gm Cream 30 Gm Tube) 1 applic TOPICAL DAILY PRN PRN Reason: buttocks after cleanse Potassium Chloride (Potassium Chloride Er 20 Meq Tab.Er) 20 meq PO DAILY [facility] Last Admin: 10/28/20 10:23 Dose: 20 meq Documented by: Raloxifene HCl (Raloxifene 60 Mg Tab) 60 mg PO DAILY [facility] Last Admin: 10/28/20 10:24 Dose: 60 mg Documented by: Spironolactone (Spironolactone 25 Mg Tab) 12.5 mg PO DAILY [facility] Last Admin: 10/28/20 10:24 Dose: 12.5 mg Documented by: Physical examination: VITAL SIGNS: 97.8, 93, 20, 121/63, 93% on 3 L GENERAL: BMI 17.7, laying in bed, comfortable EYES: Pupils equal. Conjunctiva normal. HEENT: Decreased hearing NECK: JVD not raised; masses not palpable. HEART: First and second heart sounds are normal; no edema. LUNGS: Respiratory rate increased, decreased breath sounds . ABDOMEN: Soft, nontender, liver spleen not palpable, no masses palpable. PSYCH: Answering questions MUSCULAR- skeletal: Evidence of OA especially in the hands Investigations, reviewed in the clinical context: October 28: Potassium 4.3 creatinine 0.5 to October 27: Potassium 4.9 creatinine 0.48 Cardiac catheterization-nonobstructive disease white count 8.7 hemoglobin 13.4 platelets 253 potassium 4.7 creatinine 0.55 Troponin I 0.198, 0.163, 0.144 ProBNP 25,700 EKG tracing personally reviewed by me-Sinus rhythm with some nonspecific ST segment changes -Chest x-ray film personally reviewed by me-scarring at the bases chronic changes. 2-D echocardiogram-severe concentric LVH, EF 35-40%, multiple wall motion abnormality, moderate aortic regurgitation moderate tricuspid regurgitation, severely pulmonary hypertension Assessment: - acute non-Q-wave myocardial infarction -Nonobstructive coronary artery disease-per cardiac catheterization -Acute congestive heart failure exacerbation from systolic dysfunction EF 35-40%-improved -Moderate aortic regurgitation, moderate tricuspid regurgitation, -Secondary severe pulmonary hypertension -COPD in an X smoker -Colonic diverticulosis -Essential hypertension, and can -Hyperlipidemia -Primary osteoarthritis -Chronic hypoxic respiratory failure on 1.5 L of oxygen at home from underlying COPD -History of brain bleed -CODE STATUS DO NOT RESUSCITATE plan: Hydralazine 25 mg twice a day and Lopressor increased to 75 mg twice daily by cardiology. Patient is feeling much better.
[2020-10-29 00:02] VITALS: TEMP 98.2
[2020-10-29] MEDS: SODIUM CHLORIDE 0.9% 500 ML 500 ML IV SCH (02:35)
[2020-10-29 06:12] LABS: Glucose,Whole Blood 142 mg/dL (75-99)
[2020-10-29] MEDS: FUROSEMIDE 40 MG TAB PO SCH (08:02)
[2020-10-29] MEDS: METOPROLOL TARTRATE 25 MG TAB PO SCH (08:02)
[2020-10-29] MEDS: RALOXIFENE 60 MG TAB PO SCH (08:02)
[2020-10-29] MEDS: POTASSIUM CHLORIDE ER 20 MEQ TAB.ER PO SCH (08:02)
[2020-10-29] MEDS: MULTIVITAMINS, THERA 1 EACH TAB PO SCH (08:02)
[2020-10-29] MEDS: lisinopriL 20 MG TAB PO SCH (08:02)
[2020-10-29] MEDS: ATORVASTATIN 40 MG TAB PO SCH (08:02)
[2020-10-29] MEDS: MELOXICAM 7.5 MG TAB PO SCH (08:02)
[2020-10-29] MEDS: LORATADINE 10 MG TAB PO SCH (08:02)
[2020-10-29] MEDS: SPIRONOLACTONE 25 MG TAB PO SCH (08:02)
[2020-10-29] MEDS: CHOLECALCIFEROL 1,000 UNIT TAB PO SCH (08:03)
[2020-10-29] MEDS: ENOXAPARIN 40 MG/0.4 ML SYRINGE SQ SCH (08:03)
[2020-10-29] MEDS: ASPIRIN 81 MG PO SCH (08:03)
[2020-10-29] MEDS: hydrALAZINE HCL 25 MG TAB PO SCH (08:04)
[2020-10-29] MEDS: SYMBICORT 160-4.5 MCG INHALER INHALATION SCH (08:59)
[2020-10-29] MEDS: IPRATROPIUM-ALBUTEROL 3 ML NEB INHALATION PRN ×2 (08:59→12:05)
[2020-10-29 11:46] LABS: Glucose,Whole Blood 103 mg/dL (75-99)
--- NOTE | 2020-10-29 11:47 | P.PN ---
Subjective HISTORY OF PRESENTING ILLNESS This is a pleasant 79-year-old female past medical history significant for COPD, hypertension, dyslipidemia and history of brain bleed. Denies prior history of coronary artery disease and does not follow with a distance education director for any reason. She is seen and examined resting comfortably sitting up in bed in no acute distress. She denies chest pain, shortness of breath, dizziness or palpitations. Blood pressure 141/90 heart rate 95 afebrile maintaining oxygen saturation on nasal cannula. PHYSICAL EXAMINATION CONSTITUTIONAL: No apparent distress. HEENT: Head is normocephalic. Pupils are equal, round. Sclerae anicteric. Mucous membranes of the mouth are moist. No JVD. No carotid bruit. CHEST EXAMINATION: Lungs are clear to auscultation. No chest wall tenderness is noted on palpation or with deep breathing. Diminished bilaterally. HEART EXAMINATION: Regular rate and rhythm. S1, S2 heard. Systolic ejection murmur at the base, no gallops or rub. EXTREMITIES: 2+ peripheral pulses, no lower extremity edema and no calf tenderness. Right femoral access site soft and dry with no hematoma, oozing, bleeding or tenderness. ASSESSMENT Non-ST myocardial infarction Cardiomyopathy Acute systolic heart failure Takotsubo Hypoxia COPD on home oxygen Hypertension Dyslipidemia Aortic stenosis, mild Pulmonary hypertension, severe PLAN Stable for discharge on current medical regimen. Follow-up in the office with Dr. Guthrie in 1-2 weeks. Nurse Practitioner note has been reviewed, I agree with a documented findings and plan of care. Patient was seen and examined. Objective - Vital Signs Vital signs: Vital Signs Temp 98.2 F 10/29/20 08:00 Pulse 95 10/29/20 09:10 Resp 18 10/29/20 08:00 BP 141/90 10/29/20 08:00 Pulse Ox 95 10/29/20 08:59 Intake & Output 10/28/20 10/29/20 10/29/20 18:59 06:59 18:59 Intake Total 225 420 Output Total 100 100 Balance 225 -100 320 Weight 49 kg 49.5 kg Intake: Oral 225 420 Output: Urine 100 100 Other: Voiding Method Diaper Diaper Diaper # Voids 3 # Bowel Movements 1 - Labs CBC & Chem 7: 10/24/20 21:17 10/28/20 07:39 Labs: Abnormal Lab Results - Last 24 Hours (Table) 10/28/20 10/28/20 10/28/20 Range/Units 12:24 17:23 20:29 POC Glucose (mg/dL) 151 H 146 H 130 H (75-99) mg/dL 10/29/20 Range/Units 06:00 POC Glucose (mg/dL) 142 H (75-99) mg/dL Microbiology - Last 24 Hours (Table) 10/24/20 21:17 Blood Culture - Preliminary Blood No Growth after 96 hours
[2020-10-29 14:02] VITALS: BP 137/65; PULSE 80; RESP 20
--- NOTE | 2020-10-30 16:43 | P.DS ---
Providers Date of admission: 10/24/20 22:47 Expected date of discharge: 10/29/20 Attending physician: Chilo Dawkins Consults: 10/24/20 22:47 Consult Physician Urgent Consulting Provider: Miko Mcmullen Consult Reason/Comments: N STEMI, CHF Do you want consulting provider notified?: Yes Primary care physician: [facility] Course: Chief Complaint: short of breath History of presenting complaint: This is a very pleasant 79-year-old patient of Dr. Morrow and Dr. 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 Chronic stable medical conditions include colonic diverticulosis, hypertension, hyperlipidemia, osteoarthritis on home oxygen 1.5 L. patient came in feeling short of breath. Appetite is okay. No obvious fever and chills. Tired.[facility] staff came to check an hour she was slumped over the table. She was easily affect. According to her and she told them she was just sleeping. She was found to be short of breath. Feeling better now.denies any chest pain. Admitted with acute non-Q-wave ME. Acute CHF exacerbation. EF 35-40%. cardiac xlzgdvzkivpzews-Nox-whjdhjvbrqx coronary disease Today-stable. No chest pain. Breathing stable. Cleared by cardiology. News Internship: [facility] Physical examination: VITAL SIGNS: 98.2, 90, 18, 141/90, 95% on 3 L GENERAL: BMI 17.7, sitting up comfortable EYES: Pupils equal. Conjunctiva normal. HEENT: Decreased hearing NECK: JVD not raised; masses not palpable. HEART: First and second heart sounds are normal; no edema. LUNGS: Respiratory rate normal, decreased breath sounds . ABDOMEN: Soft, nontender, liver spleen not palpable, no masses palpable. PSYCH: Answering questions MUSCULAR- skeletal: Evidence of OA especially in the hands Investigations, reviewed in the clinical context: October 28: Potassium 4.3 creatinine 0.5 to October 27: Potassium 4.9 creatinine 0.48 Cardiac catheterization-nonobstructive disease white count 8.7 hemoglobin 13.4 platelets 253 potassium 4.7 creatinine 0.55 Troponin I 0.198, 0.163, 0.144 ProBNP 25,700 EKG tracing personally reviewed by me-Sinus rhythm with some nonspecific ST segment changes -Chest x-ray film personally reviewed by me-scarring at the bases chronic changes. 2-D echocardiogram-severe concentric LVH, EF 35-40%, multiple wall motion abnormality, moderate aortic regurgitation moderate tricuspid regurgitation, severely pulmonary hypertension Assessment: - acute non-Q-wave myocardial infarction -Nonobstructive coronary artery disease-per cardiac catheterization -Acute congestive heart failure exacerbation from systolic dysfunction EF 35-40%-improved -Moderate aortic regurgitation, moderate tricuspid regurgitation, -Secondary severe pulmonary hypertension -COPD in an X smoker -Colonic diverticulosis -Essential hypertension, and can -Hyperlipidemia -Primary osteoarthritis -Chronic hypoxic respiratory failure on 1.5 L of oxygen at home from underlying COPD -History of brain bleed -CODE STATUS DO NOT RESUSCITATE Disposition: Home Patient Condition at Discharge: Stable Plan - Discharge Summary Discharge Rx Participant: No New Discharge Prescriptions: New Spironolactone [Aldactone] 12.5 mg PO DAILY #30 tab Artificial Tears-Hypromellose [Artificial Tear Drops] 2 drops BOTH EYES TID PRN bottle PRN Reason: Dry Eye(S) Aspirin 81 mg PO DAILY #30 chew Atorvastatin [Lipitor] 40 mg PO DAILY #30 tab Metoprolol Tartrate [Lopressor] 75 mg PO BID #90 tab Multivitamins, Thera [Multivitamin (formulary)] 1 each PO DAILY tab Nitroglycerin Sl Tabs [Nitrostat] 0.4 mg SUBLINGUAL Q5M PRN #25 tab PRN Reason: Chest Pain Cholecalciferol [Vitamin D3 (25 Mcg = 1000 Iu)] 5,000 unit PO DAILY tab Furosemide [Lasix] 40 mg PO BID@0900,1600 #60 tab Continue Potassium Chloride ER [K-Dur 10] 20 meq PO DAILY Budesonide-Formot 160-4.5 Mcg [Symbicort 160-4.5 Mcg Inhaler] 2 puff INHALATION RT-BID puff Raloxifene [Evista] 60 mg PO DAILY Celecoxib [CeleBREX] 200 mg PO DAILY Ipratropium-Albuterol Nebulize [Duoneb 0.5 mg-3 mg/3 ml Soln] 3 ml INHALATION RT-QID Acetaminophen-Codeine 300-30mg [Tylenol w/codeine #3] 1 tab PO Q6H PRN PRN Reason: Pain Acetaminophen [Tylenol Arthritis] 1,300 mg PO BID PRN PRN Reason: Pain Collagenase [Santyl] 1 applic TOPICAL DAILY PRN PRN Reason: dressing change Nystatin 100,000Unit/gm Cream [Mycostatin Cream] 1 applic TOPICAL DAILY PRN PRN Reason: buttocks after cleanse Blue Emu Cream 1 applic TOPICAL DAILY PRN PRN Reason: shoulders Changed lisinopriL 20 mg PO BID #0 Discontinued Furosemide [Lasix] 20 - 40 mg PO DAILY Diltiazem HCl [Cardizem CD] 240 mg PO DAILY Discharge Medication List Potassium Chloride ER [K-Dur 10] 20 meq PO DAILY 05/01/18 [History] Budesonide-Formot 160-4.5 Mcg [Symbicort 160-4.5 Mcg Inhaler] 2 puff INHALATION RT-BID puff 05/13/18 [Rx] Celecoxib [CeleBREX] 200 mg PO DAILY 03/26/19 [History] Raloxifene [Evista] 60 mg PO DAILY 03/26/19 [History] Ipratropium-Albuterol Nebulize [Duoneb 0.5 mg-3 mg/3 ml Soln] 3 ml INHALATION RT-QID 05/28/19 [History] Acetaminophen [Tylenol Arthritis] 1,300 mg PO BID PRN 10/24/20 [History] Acetaminophen-Codeine 300-30mg [Tylenol w/codeine #3] 1 tab PO Q6H PRN 10/24/20 [History] Blue Emu Cream 1 applic TOPICAL DAILY PRN 10/24/20 [History] Collagenase [Santyl] 1 applic TOPICAL DAILY PRN 10/24/20 [History] Nystatin 100,000Unit/gm Cream [Mycostatin Cream] 1 applic TOPICAL DAILY PRN 10/24/20 [History] Artificial Tears-Hypromellose [Artificial Tear Drops] 2 drops BOTH EYES TID PRN bottle 10/29/20 [Rx] Aspirin 81 mg PO DAILY #30 chew 10/29/20 [Rx] Atorvastatin [Lipitor] 40 mg PO DAILY #30 tab 10/29/20 [Rx] Cholecalciferol [Vitamin D3 (25 Mcg = 1000 Iu)] 5,000 unit PO DAILY tab 10/29/20 [Rx] Furosemide [Lasix] 40 mg PO BID@0900,1600 #60 tab 10/29/20 [Rx] Metoprolol Tartrate [Lopressor] 75 mg PO BID #90 tab 10/29/20 [Rx] Multivitamins, Thera [Multivitamin (formulary)] 1 each PO DAILY tab 10/29/20 [Rx] Nitroglycerin Sl Tabs [Nitrostat] 0.4 mg SUBLINGUAL Q5M PRN #25 tab 10/29/20 [Rx] Spironolactone [Aldactone] 12.5 mg PO DAILY #30 tab 10/29/20 [Rx] lisinopriL 20 mg PO BID #0 10/29/20 [Rx] Follow up Appointment(s)/Referral(s): cardiology, [Other] - 1 Week (See cardiology appt. ) Darius Guthrie MD [STAFF PHYSICIAN] - 1 Week (Office will call you with a follow up. ) Ben Morrow DO [Primary Care Provider] - 11/04/20 10:40 am () Patient Instructions/Handouts: Heart Failure (DC), COPD (Chronic Obstructive Pulmonary Disease) (DC), How Your Lungs Work (GEN) Discharge Disposition: HOME SELF-CARE
== END 2020-10-29 15:23 | disposition home or self-care (01) | DRG 280 ==
LOC: EC 20:43 → 3SCARD 22:47
PROVIDERS: ADMIT Hospitalist; ATTEND Hospitalist
PROC: 4A023N7 Measurement of Cardiac Sampling and Pressure, Left Heart, Percutaneous Approach (ICD-10-PCS; principal; 2020-10-27 07:30)
PROC: B2111ZZ Fluoroscopy of Multiple Coronary Arteries using Low Osmolar Contrast (ICD-10-PCS; principal; 2020-10-27 07:30)
DX: I21.4 Non-ST elevation (NSTEMI) myocardial infarction (principal); I50.23 Acute on chronic systolic (congestive) heart failure; J96.11 Chronic respiratory failure with hypoxia; I51.81 Takotsubo syndrome; I27.20 Pulmonary hypertension, unspecified; I11.0 Hypertensive heart disease with heart failure; I08.2 Rheumatic disorders of both aortic and tricuspid valves; I70.203 Unspecified atherosclerosis of native arteries of extremities, bilateral legs; I70.0 Atherosclerosis of aorta; J44.9 Chronic obstructive pulmonary disease, unspecified; I25.10 Atherosclerotic heart disease of native coronary artery without angina pectoris; Z66 Do not resuscitate; E78.5 Hyperlipidemia, unspecified; K57.30 Diverticulosis of large intestine without perforation or abscess without bleeding; M19.91 Primary osteoarthritis, unspecified site; Z99.81 Dependence on supplemental oxygen; Z79.51 Long term (current) use of inhaled steroids; Z79.1 Long term (current) use of non-steroidal anti-inflammatories (NSAID); Z79.890 Hormone replacement therapy; Z79.899 Other long term (current) drug therapy; Z87.891 Personal history of nicotine dependence; Z86.79 Personal history of other diseases of the circulatory system; Z90.89 Acquired absence of other organs; Z96.642 Presence of left artificial hip joint; Z98.890 Other specified postprocedural states; Z88.6 Allergy status to analgesic agent; Z83.3 Family history of diabetes mellitus; Z83.49 Family history of other endocrine, nutritional and metabolic diseases
CPT/HCPCS: 36415; 71046; 80048; 80053; 80061; 81003; 82550; 83605; 83735; 83880; 84484; 85025; 85610; 85730; 87040; 93005; 93306; 93458; 94640; 94760; 96365; 96366; 96375; 96376; 99291

== ENCOUNTER 2020-12-29 19:42 | Inpatient (IN) | payer MEDICARE ==
--- NOTE | 2020-12-29 20:10 | ED ---
General Adult HPI - General Chief complaint: Weakness Stated complaint: Weakness Time Seen by Provider: 12/29/20 19:44 Source: patient, EMS, RN notes reviewed Mode of arrival: EMS Limitations: altered mental status - History of Present Illness Initial comments: Patient is a pleasant 80-year-old female presenting to the emergency Department with generalized weakness. Patient reportedly lives on her own however does have visiting nurse and senior painter. Patient is a extremely poor historian and offers very little information. Patient just complains of feeling weak. Unclear if there is fever at home. Patient denies cough. Patient denies dyspnea however did earlier complain of that to nursing staff. Patient does reportedly have leg wounds and does have the nurse take care of that. - Related Data Home Medications Medication Instructions Recorded Confirmed Potassium Chloride ER [K-Dur 10] 10 meq PO DAILY PRN 05/01/18 12/29/20 Celecoxib [CeleBREX] 200 mg PO DAILY 03/26/19 12/29/20 Raloxifene [Evista] 60 mg PO DAILY 03/26/19 12/29/20 Ipratropium-Albuterol Nebulize 3 ml INHALATION RT-QID 05/28/19 12/29/20 [Duoneb 0.5 mg-3 mg/3 ml Soln] Collagenase [Santyl] 1 applic TOPICAL DAILY PRN 10/24/20 12/29/20 Nystatin 100,000Unit/gm Cream 1 applic TOPICAL BID PRN 10/24/20 12/29/20 [Mycostatin Cream] Acetaminophen Tab [Tylenol Tab] 500 mg PO Q4H PRN 12/29/20 12/29/20 Atorvastatin Calcium [Lipitor] 20 mg PO HS 12/29/20 12/29/20 Cephalexin [Keflex] 500 mg PO QID 12/29/20 12/29/20 Cholecalciferol [Vitamin D3 (25 1,000 unit PO DAILY 12/29/20 12/29/20 Mcg = 1000 Iu)] Fexofenadine HCl 180 mg PO DAILY 12/29/20 12/29/20 Furosemide [Lasix] 40 mg PO BID PRN 12/29/20 12/29/20 Multivitamins, Thera [Multivitamin 1 tab PO DAILY 12/29/20 12/29/20 (formulary)] lisinopriL 20 mg PO DAILY 12/29/20 12/29/20 Previous Rx's Medication Instructions Recorded Budesonide-Formot 160-4.5 Mcg 2 puff INHALATION RT-BID puff 05/13/18 [Symbicort 160-4.5 Mcg Inhaler] Artificial Tears-Hypromellose 2 drops BOTH EYES TID PRN bottle 10/29/20 [Artificial Tear Drops] Aspirin 81 mg PO DAILY #30 chew 10/29/20 Metoprolol Tartrate [Lopressor] 75 mg PO BID #90 tab 10/29/20 Nitroglycerin Sl Tabs [Nitrostat] 0.4 mg SUBLINGUAL Q5M PRN #25 tab 10/29/20 Spironolactone [Aldactone] 12.5 mg PO DAILY #30 tab 10/29/20 Allergies Allergy/AdvReac Type Severity Reaction Status Date / Time naproxen [From Naprosyn] Allergy Rash/Hives Verified 12/29/20 21:58 Review of Systems ROS Statement: Those systems with pertinent positive or pertinent negative responses have been documented in the HPI. ROS Other: All systems not noted in ROS Statement are negative. Constitutional: Denies: fever Eyes: Denies: eye pain ENT: Denies: ear pain Respiratory: Reports: as per HPI. Denies: cough Cardiovascular: Denies: chest pain Endocrine: Reports: fatigue Gastrointestinal: Denies: abdominal pain Genitourinary: Denies: dysuria Musculoskeletal: Denies: back pain Skin: Denies: rash Neurological: Denies: headache Past Medical History Past Medical History: COPD, Hyperlipidemia, Hypertension, Osteoarthritis (OA) Additional Past Medical History / Comment(s): history of brain bleed about a year ago, pt was sent to [facility]. History of Any Multi-Drug Resistant Organisms: None Reported Past Surgical History: Adenoidectomy, Joint Replacement, Tonsillectomy Additional Past Surgical History / Comment(s): Left hip replacement x 3 Past Anesthesia/Blood Transfusion Reactions: No Reported Reaction Past Psychological History: No Psychological Hx Reported Smoking Status: Never smoker Past Alcohol Use History: None Reported Past Drug Use History: None Reported - Past Family History Father Family Medical History: Diabetes Mellitus Mother Family Medical History: Hyperlipidemia General Exam Limitations: altered mental status General appearance: alert, in no apparent distress Head exam: Present: atraumatic Eye exam: Present: normal appearance, PERRL ENT exam: Present: normal oropharynx Neck exam: Present: normal inspection. Absent: tenderness, meningismus Respiratory exam: Present: rales Cardiovascular Exam: Present: tachycardia GI/Abdominal exam: Present: soft. Absent: tenderness Extremities exam: Present: pedal edema (+1 bili) Neurological exam: Present: alert. Absent: motor sensory deficit Psychiatric exam: Present: flat affect Skin exam: Present: other (Stage II skin ulcer pain the right knee approximately 1 x 4 cm) Course Vital Signs 12/29/20 12/29/20 19:47 21:00 Temperature 100.0 F H Pulse Rate 102 H 105 H Respiratory 22 22 Rate Blood Pressure 193/95 191/116 O2 Sat by Pulse 98 98 Oximetry - Reevaluation(s) Reevaluation #1: 12/29/20 22:24 Patient meet sepsis criteria diagnosed at 2220. Blood culture and lactic acid ordered. IV antibiotic's will be ordered EKG Findings - EKG Comments: EKG Findings:: Sinus tachycardia 117. MA 148. QRS 70. QT 322. QTC 449. Left axis. LVH. Septal Q waves. Nonspecific ST-T. Medical Decision Making - Medical Decision Making Patient reevaluated and updated. Case discussed in detail with Dr. Dawkins, who will admit covering for Dr. Morrow. - Lab Data Result diagrams: 12/29/20 20:54 12/29/20 20:54 Lab Results 12/29/20 12/29/20 12/29/20 Range/Units 20:41 20:54 20:54 WBC 17.1 H (3.8-10.6) k/uL RBC 3.65 L (3.80-5.40) m/uL Hgb 11.9 (11.4-16.0) gm/dL Hct 38.4 (34.0-46.0) % MCV 105.0 H (80.0-100.0) fL MCH 32.7 (25.0-35.0) pg MCHC 31.1 (31.0-37.0) g/dL RDW 17.0 H (11.5-15.5) % Plt Count 256 (150-450) k/uL MPV 8.0 Neutrophils % 89 % Lymphocytes % 2 % Monocytes % 7 % Eosinophils % 1 % Basophils % 0 % Neutrophils # 15.2 H (1.3-7.7) k/uL Lymphocytes # 0.4 L (1.0-4.8) k/uL Monocytes # 1.1 H (0-1.0) k/uL Eosinophils # 0.2 (0-0.7) k/uL Basophils # 0.1 (0-0.2) k/uL Hypochromasia Marked Poikilocytosis Slight Anisocytosis Slight Macrocytosis Moderate PT 13.2 H (9.0-12.0) sec INR 1.3 H (<1.2) APTT 23.8 (22.0-30.0) sec Sodium (137-145) mmol/L Potassium (3.5-5.1) mmol/L Chloride (98-107) mmol/L Carbon Dioxide (22-30) mmol/L Anion Gap mmol/L BUN (7-17) mg/dL Creatinine (0.52-1.04) mg/dL Est GFR (CKD-EPI)AfAm (>60 ml/min/1.73 sqM) Est GFR (CKD-EPI)NonAf (>60 ml/min/1.73 sqM) Glucose (74-99) mg/dL Plasma Lactic Acid Kit (0.7-2.0) mmol/L Calcium (8.4-10.2) mg/dL Total Bilirubin (0.2-1.3) mg/dL AST (14-36) U/L ALT (4-34) U/L Alkaline Phosphatase (38-126) U/L Creatine Kinase (30-135) U/L Troponin I (0.000-0.034) ng/mL Total Protein (6.3-8.2) g/dL Albumin (3.5-5.0) g/dL Urine Color Urine Appearance (Clear) Urine pH (5.0-8.0) Ur Specific [place] (1.001-1.035) Urine Protein (Negative) Urine Glucose (UA) (Negative) Urine Ketones (Negative) Urine Blood (Negative) Urine Nitrite (Negative) Urine Bilirubin (Negative) Urine Urobilinogen (<2.0) mg/dL Ur Leukocyte Esterase (Negative) Urine RBC (0-5) /hpf Urine WBC (0-5) /hpf Urine WBC Clumps (None) /hpf Ur Squamous Epith Cells (0-4) /hpf Amorphous Sediment (None) /hpf Urine Bacteria (None) /hpf Urine Mucus (None) /hpf Coronavirus (PCR) Not Detected (Not Detectd) 12/29/20 12/29/20 12/29/20 Range/Units 20:54 20:54 20:54 WBC (3.8-10.6) k/uL RBC (3.80-5.40) m/uL Hgb (11.4-16.0) gm/dL Hct (34.0-46.0) % MCV (80.0-100.0) fL MCH (25.0-35.0) pg MCHC (31.0-37.0) g/dL RDW (11.5-15.5) % Plt Count (150-450) k/uL MPV Neutrophils % % Lymphocytes % % Monocytes % % Eosinophils % % Basophils % % Neutrophils # (1.3-7.7) k/uL Lymphocytes # (1.0-4.8) k/uL Monocytes # (0-1.0) k/uL Eosinophils # (0-0.7) k/uL Basophils # (0-0.2) k/uL Hypochromasia Poikilocytosis Anisocytosis Macrocytosis PT (9.0-12.0) sec INR (<1.2) APTT (22.0-30.0) sec Sodium 142 (137-145) mmol/L Potassium 4.6 (3.5-5.1) mmol/L Chloride 101 (98-107) mmol/L Carbon Dioxide 32 H (22-30) mmol/L Anion Gap 9 mmol/L BUN 60 H (7-17) mg/dL Creatinine 0.96 (0.52-1.04) mg/dL Est GFR (CKD-EPI)AfAm 65 (>60 ml/min/1.73 sqM) Est GFR (CKD-EPI)NonAf 56 (>60 ml/min/1.73 sqM) Glucose 108 H (74-99) mg/dL Plasma Lactic Acid Kit 1.9 (0.7-2.0) mmol/L Calcium 9.2 (8.4-10.2) mg/dL Total Bilirubin 0.9 (0.2-1.3) mg/dL AST 738 H (14-36) U/L ALT 553 H (4-34) U/L Alkaline Phosphatase 148 H (38-126) U/L Creatine Kinase 53 (30-135) U/L Troponin I 0.171 H* (0.000-0.034) ng/mL Total Protein 6.8 (6.3-8.2) g/dL Albumin 3.9 (3.5-5.0) g/dL Urine Color Urine Appearance (Clear) Urine pH (5.0-8.0) Ur Specific [place] (1.001-1.035) Urine Protein (Negative) Urine Glucose (UA) (Negative) Urine Ketones (Negative) Urine Blood (Negative) Urine Nitrite (Negative) Urine Bilirubin (Negative) Urine Urobilinogen (<2.0) mg/dL Ur Leukocyte Esterase (Negative) Urine RBC (0-5) /hpf Urine WBC (0-5) /hpf Urine WBC Clumps (None) /hpf Ur Squamous Epith Cells (0-4) /hpf Amorphous Sediment (None) /hpf Urine Bacteria (None) /hpf Urine Mucus (None) /hpf Coronavirus (PCR) (Not Detectd) 12/29/20 Range/Units 20:57 WBC (3.8-10.6) k/uL RBC (3.80-5.40) m/uL Hgb (11.4-16.0) gm/dL Hct (34.0-46.0) % MCV (80.0-100.0) fL MCH (25.0-35.0) pg MCHC (31.0-37.0) g/dL RDW (11.5-15.5) % Plt Count (150-450) k/uL MPV Neutrophils % % Lymphocytes % % Monocytes % % Eosinophils % % Basophils % % Neutrophils # (1.3-7.7) k/uL Lymphocytes # (1.0-4.8) k/uL Monocytes # (0-1.0) k/uL Eosinophils # (0-0.7) k/uL Basophils # (0-0.2) k/uL Hypochromasia Poikilocytosis Anisocytosis Macrocytosis PT (9.0-12.0) sec INR (<1.2) APTT (22.0-30.0) sec Sodium (137-145) mmol/L Potassium (3.5-5.1) mmol/L Chloride (98-107) mmol/L Carbon Dioxide (22-30) mmol/L Anion Gap mmol/L BUN (7-17) mg/dL Creatinine (0.52-1.04) mg/dL Est GFR (CKD-EPI)AfAm (>60 ml/min/1.73 sqM) Est GFR (CKD-EPI)NonAf (>60 ml/min/1.73 sqM) Glucose (74-99) mg/dL Plasma Lactic Acid Kit (0.7-2.0) mmol/L Calcium (8.4-10.2) mg/dL Total Bilirubin (0.2-1.3) mg/dL AST (14-36) U/L ALT (4-34) U/L Alkaline Phosphatase (38-126) U/L Creatine Kinase (30-135) U/L Troponin I (0.000-0.034) ng/mL Total Protein (6.3-8.2) g/dL Albumin (3.5-5.0) g/dL Urine Color Yellow Urine Appearance Cloudy H (Clear) Urine pH 5.5 (5.0-8.0) Ur Specific [place] 1.023 (1.001-1.035) Urine Protein 2+ H (Negative) Urine Glucose (UA) Negative (Negative) Urine Ketones Negative (Negative) Urine Blood Negative (Negative) Urine Nitrite Negative (Negative) Urine Bilirubin Negative (Negative) Urine Urobilinogen 3.0 (<2.0) mg/dL Ur Leukocyte Esterase Large H (Negative) Urine RBC 1 (0-5) /hpf Urine WBC 19 H (0-5) /hpf Urine WBC Clumps Few H (None) /hpf Ur Squamous Epith Cells <1 (0-4) /hpf Amorphous Sediment Rare H (None) /hpf Urine Bacteria Rare H (None) /hpf Urine Mucus Rare H (None) /hpf Coronavirus (PCR) (Not Detectd) - Radiology Data Radiology results: image reviewed (Mild bilateral opacities, question new versus residual infiltrates) Critical Care Time Critical Care Time: Yes Total Critical Care Time: 31 Disposition Clinical Impression: Dehydration Disposition: ADMITTED IP TO THIS [facility] Is patient prescribed a controlled substance at d/c from ED?: No Referrals: Ben Morrow DO [Primary Care Provider] - 1-2 days Decision Time: 22:24
[2020-12-29] MEDS ORDERED: SODIUM CHLORIDE 0.9% 500 ML 500 ML IV SCH (20:15)
[2020-12-29 21:04] LABS: Anisocytosis Slight; Basophils # (A) 0.1 k/uL (0-0.2); Basophils % (A) 0 %; Eosinophils # (A) 0.2 k/uL (0-0.7); Eosinophils % (A) 1 %; HCT 38.4 % (34.0-46.0); HGB 11.9 gm/dL (11.4-16.0); Hypochromasia Marked; Lymphocytes # (A) 0.4 k/uL (1.0-4.8); Lymphocytes % (A) 2 %; MCH 32.7 pg (25.0-35.0); MCHC 31.1 g/dL (31.0-37.0); Macrocytosis Moderate; Monocytes # (A) 1.1 k/uL (0-1.0); Monocytes % (A) 7 %; Neutrophils # (A) 15.2 k/uL (1.3-7.7); Neutrophils % (A) 89 %; Platelet Count 256 k/uL (150-450); Poikilocytosis Slight; RBC 3.65 m/uL (3.80-5.40); WBC 17.1 k/uL (3.8-10.6)
[2020-12-29 21:12] LABS: Albumin 3.9 g/dL (3.5-5.0); Calcium 9.2 mg/dL (8.4-10.2); Potassium 4.6 mmol/L (3.5-5.1); Total Bilirubin 0.9 mg/dL (0.2-1.3); Total Protein 6.8 g/dL (6.3-8.2)
[2020-12-29] MEDS: ACETAMINOPHEN TAB 325 MG TAB PO STA ×2 (21:12→21:17)
[2020-12-29 21:15] LABS: INR 1.3 (<1.2); Partial Thromboplastin Time 23.8 sec (22.0-30.0); Prothrombin Time 13.2 sec (9.0-12.0)
--- NOTE | 2020-12-29 21:20 | XR ---
EXAMINATION TYPE: XR chest 2V DATE OF EXAM: 12/29/2020 COMPARISON: 10/24/2020. HISTORY: Fever. TECHNIQUE: Frontal and lateral views of the chest are obtained. FINDINGS: There is bilateral diffuse mild patchy opacities predominantly in the upper to mid lungs. Findings are similar to mildly more prominent compared to the prior study. No pleural effusion, or pn eumothorax seen. The cardiac silhouette size is within normal limits. The osseous structures are i ntact. IMPRESSION: Bilateral mild opacities, may represent new versus residual infiltrates.
[2020-12-29 22:06] LABS: Amorphous Sediment,Urine Rare /hpf; Appearance,Urine Cloudy (Clear); Bacteria,Urine Rare /hpf; Bilirubin,Urine Negative (Negative); Blood,Urine Negative (Negative); Color,Urine Yellow; Glucose,Urine (UA) Negative (Negative); Ketones,Urine Negative (Negative); Leukocyte Esterase,Urine Large (Negative); Mucus,Urine Rare /hpf; Nitrite,Urine Negative (Negative); PH, Urine 5.5 (5.0-8.0); Protein,Urine 2+ (Negative); RBC,Urine 1 /hpf (0-5); Specific Gravity,Urine 1.023 (1.001-1.035); Squamous Epithelial Cell,Urine <1 /hpf (0-4); WBC,Urine 19 /hpf (0-5)
[2020-12-29] MEDS ORDERED: AZITHROMYCIN 500 MG in SODIUM CHLORIDE 0.9% 250 ML IVPB STA (22:27)
[2020-12-29] MEDS ORDERED: PNEUMONIA PROTOCOL UTILIZED 1 EACH MISC PO PRN (22:27)
[2020-12-29] MEDS ORDERED: VANCOMYCIN IV PER PHARMACY 1 EACH MISC MISCELLANE PRN (22:27)
[2020-12-29] MEDS ORDERED: SODIUM CHLORIDE 0.9% 1,000 ML IV SCH (22:30)
[2020-12-29] MEDS ORDERED: VANCOMYCIN 1,000 MG in SODIUM CHLORIDE 0.9% 250 ML IVPB STA (22:32)
[2020-12-29] MEDS ORDERED: ACETAMINOPHEN TAB 500 MG TAB PO PRN (22:33)
[2020-12-29] MEDS ORDERED: ASPIRIN 81 MG PO STA (22:34)
[2020-12-29] MEDS ORDERED: HEPARIN SOD,PORK IN 0.45% NACL 25,000 UNIT in 0.45% NACL 1 250ML.BAG IV SCH (22:45)
[2020-12-29] MEDS: SODIUM CHLORIDE 0.9% 1,000 ML IV SCH (23:48)
[2020-12-30] MEDS: HEPARIN SODIUM,PORCINE 5,000 UNIT/ML 1 ML VIAL IV PRN ×2 (00:34→05:21)
[2020-12-30] MEDS ORDERED: FUROSEMIDE 10 MG/ML 4 ML VIAL IV STA (00:39)
[2020-12-30] MEDS ORDERED: IPRATROPIUM-ALBUTEROL 3 ML NEB INHALATION PRN (00:40)
[2020-12-30 01:24] VITALS: TEMP 98.9
[2020-12-30 04:32] LABS: Anisocytosis Slight; Basophils # (A) 0.1 k/uL (0-0.2); Basophils % (A) 0 %; Eosinophils % (A) 0 %; HCT 39.7 % (34.0-46.0); HGB 11.6 gm/dL (11.4-16.0); Hypochromasia Marked; Lymphocytes # (A) 0.5 k/uL (1.0-4.8); Lymphocytes % (A) 2 %; MCH 32.3 pg (25.0-35.0); MCHC 29.2 g/dL (31.0-37.0); Macrocytosis Marked; Mean Platelet Volume 7.9; Monocytes # (A) 1.5 k/uL (0-1.0); Monocytes % (A) 6 %; Neutrophils # (A) 21.2 k/uL (1.3-7.7); Neutrophils % (A) 90 %; Platelet Count 221 k/uL (150-450); Poikilocytosis Slight; RBC 3.59 m/uL (3.80-5.40); RDW 17.2 % (11.5-15.5); WBC 23.6 k/uL (3.8-10.6)
[2020-12-30] MEDS: SODIUM CHLORIDE 0.9% 1,000 ML IV SCH (04:43)
[2020-12-30 04:47] LABS: MCV 110.7 fL (80.0-100.0)
--- NOTE | 2020-12-30 07:53 | XR ---
EXAMINATION TYPE: XR chest 2V DATE OF EXAM: 12/30/2020 COMPARISON: 12/29/2020 HISTORY: Shortness of breath TECHNIQUE: Frontal and lateral views of the chest are obtained. FINDINGS: Scattered senescent parenchymal changes noted. Hyperinflation compatible with COPD. No evidence for infiltrate. No evidence for atelectasis. Heart size is stable. Mediastinal structures are stable and grossly unremarkable. No evidence for hilar prominence. Degenerative changes dorsal spine. IMPRESSION: 1. No evidence for acute pulmonary disease.
[2020-12-30] MEDS ORDERED: lisinopriL 20 MG TAB PO SCH (09:00)
[2020-12-30] MEDS ORDERED: ASPIRIN 325 MG TAB PO SCH (09:00)
[2020-12-30] MEDS ORDERED: SPIRONOLACTONE 25 MG TAB PO SCH (09:00)
[2020-12-30] MEDS ORDERED: METOPROLOL TARTRATE 25 MG TAB PO SCH (09:00)
[2020-12-30] MEDS ORDERED: NITROGLYCERIN OINT 1 INCH/GM PACKET TOPICAL SCH (09:30)
[2020-12-30] MEDS ORDERED: ARTIFICIAL TEARS-HYPROMELLOSE DROPS 15 ML BTL BOTH EYES PRN (10:42)
[2020-12-30] MEDS ORDERED: NITROGLYCERIN SL TABS 0.4 MG TAB SUBLINGUAL PRN (10:42)
[2020-12-30] MEDS ORDERED: NYSTATIN 100,000UNIT/GM CREAM 30 GM TUBE TOPICAL PRN (10:42)
[2020-12-30] MEDS ORDERED: COLLAGENASE 250 UNIT/GM OINTMENT 30 GM TUBE TOPICAL PRN (10:42)
[2020-12-30] MEDS ORDERED: MULTIVITAMINS, THERA 1 EACH TAB PO SCH (10:45)
[2020-12-30] MEDS ORDERED: SYMBICORT 160-4.5 MCG INHALER INHALATION SCH (10:45)
[2020-12-30] MEDS ORDERED: HEPARIN SODIUM,PORCINE 5,000 UNIT/ML 1 ML VIAL IV PRN (10:48)
[2020-12-30 11:42] LABS: INR 1.5 (<1.2); Partial Thromboplastin Time 52.3 sec (22.0-30.0); Prothrombin Time 14.7 sec (9.0-12.0)
--- NOTE | 2020-12-30 11:53 | CONS ---
CONSULTATION REASON FOR CONSULTATION: Elevated troponin. Donna is an 80-year-old lady who is brought into the hospital because of generalized weakness, not feeling well, fatigue and tiredness. She is a very poor historian and I have not really been able to obtain any information from her. What little information I have, I have from extensive review of her records and conversations with the nurse. The patient denies any chest pain or difficulty in breathing. She does not have any leg edema. She is not short of breath. The patient was in the hospital with shortness of breath and a non ST-segment elevation PA in October and underwent cardiac catheterization that did not reveal significant obstructive coronary artery disease. Her LV function was thought to be secondary to Takotsubo syndrome and her LV function has improved subsequently. Her cardiac catheterization in October of 2020, revealed elevated left ventricular end-diastolic pressures without significant gradient. Right dominance of circulation with a 50% mid RCA disease and a 40% stenosis involving circumflex coronary artery and LAD. An echo done in November of 2020 revealed an ejection fraction of 55%. Her clinical presentation is suggestive of intravascular volume depletion secondary to diuretics. Her BUN is elevated at 16, creatinine is only 0.96. Hemoglobin is normal at 11.6, white cell count is elevated at 23. She has evidence of urinary tract infection. EKG shows a sinus tachycardia with nonspecific ST- T wave changes. PAST MEDICAL HISTORY: Significant for hypertension, cardiomyopathy, Takotsubo syndrome, mild nonobstructive coronary artery disease. MEDICATIONS: Medications at home included lisinopril, metoprolol 75 b.i.d., Keflex, K-Dur, Aldactone, DuoNeb, Lasix as needed, Lipitor, aspirin. ALLERGIES: NAPROSYN. FAMILY HISTORY: Negative for premature coronary artery disease. SOCIAL HISTORY: Negative for current smoking, EtOH abuse, or drug abuse. REVIEW OF SYSTEMS: HEENT is unremarkable. CARDIAC: As described above. RESPIRATORY: As described above. GI: Negative. GENITOURINARY: Negative. ALLERGY/IMMUNOLOGY: Negative. SKIN: Negative. MUSCULOSKELETAL: Significant for arthritis. PSYCHOSOCIAL: Negative. ENDOCRINE: Negative. DERM: Negative. CONSTITUTIONAL: Significant for fatigue, tiredness. [employer] PERSON: Negative. Rest of the system review is not relevant. PHYSICAL EXAMINATION: Heart rate is 110 beats per minute. Blood pressure is 180/97. Respiratory rate is 18. Chest exam reveals good air entry bilaterally. Heart exam reveals first and second heart sounds and a systolic murmur at the apex. Abdomen is soft. Examination of extremities did not reveal any edema. ASSESSMENT: 1. Elevated troponin probably secondary to intravascular volume depletion and elevated BUN. This is not suggestive of myocardial infarction. The patient had recent cardiac catheterization and did not have significant obstructive coronary artery disease. 2. Uncontrolled hypertension. 3. Fatigue, tiredness secondary to intravascular volume depletion. PLAN: Continue the blood pressures optimally. I will obtain a 2D echo to document her LV function. We will decide on further course of action based on how she progresses in the hospital. MMODL / IJN: [id number] /
[2020-12-30] MEDS ORDERED: IPRATROPIUM-ALBUTEROL 3 ML NEB INHALATION SCH (12:00)
[2020-12-30 15:42] VITALS: BP 126/80; PULSE 26; RESP 39
--- NOTE | 2020-12-30 19:38 | CONS ---
CONSULTATION DATE OF SERVICE: 12/30/2020 REASON FOR CONSULTATION: Sepsis. HISTORY OF PRESENT ILLNESS: The patient is an 80-year-old female brought to the ER last night for evaluation of generalized weakness. Apparently the patient is on her own but does have a home care nurse and a solar energy technician. The patient was sent to the ER complaining of feeling weak and having no energy. The patient denies having any fever or any chills. The patient denies having any chest pain. She did have some shortness of breath which she reported to the nursing staff. The patient is very lethargic though awake and does shake her head to questions, but is not a very good historian. The patient on presentation to the hospital did have a low-grade fever of 100 degrees Fahrenheit. She has been tachycardic. She did have a white count of 17.1 and repeat is up to 23.6. The patient did have elevated troponin. Creatinine is normal. Urine was cloudy with large leukocyte esterases, 19 WBCs. Dietrich PCR was negative. Some superficial wounds on the leg, from which culture has been obtained. The patient did have a chest x-ray with no acute cardiopulmonary process. The patient has been started on Rocephin and vancomycin. Infectious Disease was consulted for further management of antibiotic therapy. Most of the information has been obtained from review of the chart and talking to the nursing staff. REVIEW OF SYSTEMS: Positive points have been mentioned in the HPI. Complete review could not be obtained because of her underlying mental status. PAST MEDICAL HISTORY: COPD, hypertension, hyperlipidemia, osteoarthritis, history of brain bleed and CT. PAST SURGICAL HISTORY: Appendectomy, left hip replacement, tonsillectomy. SOCIAL HISTORY: No history of smoking, drinking or drug use. FAMILY HISTORY: Father with history of diabetes. Mother with history of hyperlipidemia. ALLERGIES: NAPROXEN. MEDICATIONS: The patient is currently on Tylenol, DuoNeb, aspirin, Lipitor, Zithromax, Rocephin 2 grams daily, heparin per weight-based protocol, Zestril, Lopressor, Nitro-Bid, nystatin cream, Aldactone and vancomycin. PHYSICAL EXAMINATION: Blood pressure 126/80 with a pulse of 103. Temperature is 98.9, T-max 100. She is 93% on room air. General description is an elderly female lying in bed in no distress. No tachypnea or accessory muscle of respiration use. HEENT: Examination shows no pallor or scleral icterus. Oral mucous membrane is dry. NECK: Trachea is central. No thyromegaly. LUNGS: Unlabored breathing. Clear to auscultation anteriorly. No wheeze or crackle. HEART: S1, S2. Regular rate and rhythm. ABDOMEN: Soft. No tenderness. No guarding or rigidity. EXTREMITIES: Some diffuse swelling and some bruising. No open wound that I could appreciate or any foul-smelling drainage. Neurologically the patient is awake, alert, though not communicating. Orientation could not be determined. No neck rigidity. LABS: Hemoglobin 11.6, white count 23.6. BUN is 60, creatinine 0.96. Troponin is elevated. Urine is positive. Cultures currently pending. Chest x-ray reported negative for any acute infiltrate. DIAGNOSTIC IMPRESSION AND PLAN: Patient admitted to hospital with weakness in this patient with a low-grade fever, elevated white count. Source is likely symptomatic urinary tract infection. Suspicion low for underlying cellulitis. No evidence of any pneumonia. Abdomen was soft on physical examination. PLAN: 1. We will keep the patient on Rocephin 2 grams IV piggyback daily. 2. Gentle IV fluid. 3. Will follow clinical condition and culture to further adjust medication if needed. Thank you for this consultation. Will follow this patient along with you. MMODL / IJN: [id number] /
--- NOTE | 2020-12-30 19:46 | P.HPIM ---
History of Present Illness H&P Date: 12/30/20 Chief Complaint: weak and tired History of presenting complaint. This patient presented to the ER feeling weak and tired. Could not give much of a history. Some elevation troponin. Given IV fluids. Possible UTI. Given IV ceftriaxone. And vancomycin. Troponins were elevated liver care was given IV heparin. Before I could see the patient this afternoon patient . Patient seen by: Cardiology. Patient was not seen by me not examined by me. Admitting diagnosis: -Acute UTI with possible sepsis. -Possible ischemic hepatitis acute -Troponin leak from hemodynamic mismatch. -Nonsevere coronary artery disease Patient Past Medical History Past Medical History: COPD, Hyperlipidemia, Hypertension, Osteoarthritis (OA) Additional Past Medical History / Comment(s): history of brain bleed about a year ago, pt was sent to [facility]. History of Any Multi-Drug Resistant Organisms: None Reported Past Surgical History: Adenoidectomy, Joint Replacement, Tonsillectomy Additional Past Surgical History / Comment(s): Left hip replacement x 3 Past Anesthesia/Blood Transfusion Reactions: No Reported Reaction Past Psychological History: No Psychological Hx Reported Smoking Status: Never smoker Past Alcohol Use History: None Reported Past Drug Use History: None Reported - Past Family History Father Family Medical History: Diabetes Mellitus Mother Family Medical History: Hyperlipidemia Medications and Allergies Home Medications Medication Instructions Recorded Confirmed Type Potassium Chloride ER [K-Dur 10] 10 meq PO DAILY PRN 05/01/18 12/29/20 History Budesonide-Formot 160-4.5 Mcg 2 puff INHALATION RT-BID puff 05/13/18 12/29/20 Rx [Symbicort 160-4.5 Mcg Inhaler] Celecoxib [CeleBREX] 200 mg PO DAILY 03/26/19 12/29/20 History Raloxifene [Evista] 60 mg PO DAILY 03/26/19 12/29/20 History Ipratropium-Albuterol Nebulize 3 ml INHALATION RT-QID 05/28/19 12/29/20 History [Duoneb 0.5 mg-3 mg/3 ml Soln] Collagenase [Santyl] 1 applic TOPICAL DAILY PRN 10/24/20 12/29/20 History Nystatin 100,000Unit/gm Cream 1 applic TOPICAL BID PRN 10/24/20 12/29/20 History [Mycostatin Cream] Artificial Tears-Hypromellose 2 drops BOTH EYES TID PRN bottle 10/29/20 12/29/20 Rx [Artificial Tear Drops] Aspirin 81 mg PO DAILY #30 chew 10/29/20 12/29/20 Rx Metoprolol Tartrate [Lopressor] 75 mg PO BID #90 tab 10/29/20 12/29/20 Rx Nitroglycerin Sl Tabs [Nitrostat] 0.4 mg SUBLINGUAL Q5M PRN #25 tab 10/29/20 12/29/20 Rx Spironolactone [Aldactone] 12.5 mg PO DAILY #30 tab 10/29/20 12/29/20 Rx Acetaminophen Tab [Tylenol Tab] 500 mg PO Q4H PRN 12/29/20 12/29/20 History Atorvastatin Calcium [Lipitor] 20 mg PO HS 12/29/20 12/29/20 History Cephalexin [Keflex] 500 mg PO QID 12/29/20 12/29/20 History Cholecalciferol [Vitamin D3 (25 1,000 unit PO DAILY 12/29/20 12/29/20 History Mcg = 1000 Iu)] Fexofenadine HCl 180 mg PO DAILY 12/29/20 12/29/20 History Furosemide [Lasix] 40 mg PO BID PRN 12/29/20 12/29/20 History Multivitamins, Thera [Multivitamin 1 tab PO DAILY 12/29/20 12/29/20 History (formulary)] lisinopriL 20 mg PO DAILY 12/29/20 12/29/20 History Allergies Allergy/AdvReac Type Severity Reaction Status Date / Time naproxen [From Naprosyn] Allergy Rash/Hives Verified 12/29/20 21:58 Physical Exam Vitals: Vital Signs Temp Pulse Pulse Resp BP BP Pulse Ox 12/30/20 10:19 125 H 30 H 193/101 91 L 12/30/20 08:12 112 H 30 H 12/30/20 08:00 112 H 30 H 183/97 97 12/30/20 07:50 124 H 12/30/20 07:37 122 H 12/30/20 03:32 96 18 173/95 100 12/30/20 02:00 96 18 12/30/20 00:05 98.9 F 101 H 22 172/111 99 12/29/20 23:00 101 H 20 175/74 99 12/29/20 22:00 102 H 20 177/97 99 12/29/20 21:00 105 H 22 191/116 98 12/29/20 20:10 102 H 20 12/29/20 19:47 100.0 F H 102 H 22 193/95 98 Intake and Output 12/29/20 12/30/20 12/30/20 22:59 06:59 14:59 Intake Total 29.213 Balance 29.213 Intake: Intake, IV Titration 29.213 Amount Heparin Sod,Pork in 0.45% 29.213 NaCl 25,000 unit In 0.45 % NaCl 1 250ml.bag @ 12 UNITS/KG/HR 6.26 mls/hr IV .Q24H [facility] Rx#: [id number] Other: Voiding Method Diaper Diaper Incontinent Incontinent Weight 52.163 kg Results CBC & Chem 7: 12/30/20 04:12 12/29/20 20:54 Labs: Abnormal Lab Results - Last 24 Hours (Table) 12/29/20 12/29/20 12/29/20 Range/Units 20:54 20:54 20:54 WBC 17.1 H (3.8-10.6) k/uL RBC 3.65 L (3.80-5.40) m/uL MCV 105.0 H (80.0-100.0) fL MCHC (31.0-37.0) g/dL RDW 17.0 H (11.5-15.5) % Neutrophils # 15.2 H (1.3-7.7) k/uL Lymphocytes # 0.4 L (1.0-4.8) k/uL Monocytes # 1.1 H (0-1.0) k/uL Macrocytosis PT 13.2 H (9.0-12.0) sec INR 1.3 H (<1.2) APTT (22.0-30.0) sec Carbon Dioxide 32 H (22-30) mmol/L BUN 60 H (7-17) mg/dL Glucose 108 H (74-99) mg/dL AST 738 H (14-36) U/L ALT 553 H (4-34) U/L Alkaline Phosphatase 148 H (38-126) U/L Troponin I (0.000-0.034) ng/mL Urine Appearance (Clear) Urine Protein (Negative) Ur Leukocyte Esterase (Negative) Urine WBC (0-5) /hpf Urine WBC Clumps (None) /hpf Amorphous Sediment (None) /hpf Urine Bacteria (None) /hpf Urine Mucus (None) /hpf 12/29/20 12/29/20 12/30/20 Range/Units 20:54 20:57 04:12 WBC (3.8-10.6) k/uL RBC (3.80-5.40) m/uL MCV (80.0-100.0) fL MCHC (31.0-37.0) g/dL RDW (11.5-15.5) % Neutrophils # (1.3-7.7) k/uL Lymphocytes # (1.0-4.8) k/uL Monocytes # (0-1.0) k/uL Macrocytosis PT (9.0-12.0) sec INR (<1.2) APTT 36.0 H (22.0-30.0) sec Carbon Dioxide (22-30) mmol/L BUN (7-17) mg/dL Glucose (74-99) mg/dL AST (14-36) U/L ALT (4-34) U/L Alkaline Phosphatase (38-126) U/L Troponin I 0.171 H* (0.000-0.034) ng/mL Urine Appearance Cloudy H (Clear) Urine Protein 2+ H (Negative) Ur Leukocyte Esterase Large H (Negative) Urine WBC 19 H (0-5) /hpf Urine WBC Clumps Few H (None) /hpf Amorphous Sediment Rare H (None) /hpf Urine Bacteria Rare H (None) /hpf Urine Mucus Rare H (None) /hpf 12/30/20 Range/Units 04:12 WBC 23.6 H (3.8-10.6) k/uL RBC 3.59 L (3.80-5.40) m/uL MCV 110.7 H D (80.0-100.0) fL MCHC 29.2 L (31.0-37.0) g/dL RDW 17.2 H (11.5-15.5) % Neutrophils # 21.2 H (1.3-7.7) k/uL Lymphocytes # 0.5 L (1.0-4.8) k/uL Monocytes # 1.5 H (0-1.0) k/uL Macrocytosis Marked A PT (9.0-12.0) sec INR (<1.2) APTT (22.0-30.0) sec Carbon Dioxide (22-30) mmol/L BUN (7-17) mg/dL Glucose (74-99) mg/dL AST (14-36) U/L ALT (4-34) U/L Alkaline Phosphatase (38-126) U/L Troponin I (0.000-0.034) ng/mL Urine Appearance (Clear) Urine Protein (Negative) Ur Leukocyte Esterase (Negative) Urine WBC (0-5) /hpf Urine WBC Clumps (None) /hpf Amorphous Sediment (None) /hpf Urine Bacteria (None) /hpf Urine Mucus (None) /hpf Microbiology - Last 24 Hours (Table) 12/29/20 20:41 Gram Stain - Preliminary Leg - Right Wound Culture - Preliminary 12/29/20 20:57 Urine Culture - Preliminary Urine,Voided
--- NOTE | 2020-12-30 19:47 | P.DS ---
Providers Date of admission: 12/29/20 22:27 Expected date of discharge: 12/30/20 (Patient ) Attending physician: Chilo Dawkins Consults: 12/29/20 22:27 Consult Physician Routine Consulting Provider: Veronica Romero Consult Reason/Comments: sepsis Do you want consulting provider notified?: Yes 12/29/20 22:28 Consult Physician Routine Consulting Provider: Miko Mcmullen Consult Reason/Comments: elevated troponin Do you want consulting provider notified?: Yes Primary care physician: [facility] Course: Chief Complaint: weak and tired History of presenting complaint. This patient presented to the ER feeling weak and tired. Could not give much of a history. Some elevation troponin. Given IV fluids. Possible UTI. Given IV ceftriaxone. And vancomycin. Troponins were elevated liver care was given IV heparin. Before I could see the patient this afternoon patient . Patient seen by: Cardiology. Patient was not seen by me not examined by me. Consultation: Dr. Kathryn Mcmullen from cardiology Possible cause of : Coronary artery disease Admitting diagnosis: -Acute UTI with possible sepsis. -Possible ischemic hepatitis acute -Troponin leak from hemodynamic mismatch. -Nonsevere coronary artery disease Patient Plan - Discharge Summary New Discharge Prescriptions: No Action Potassium Chloride ER [K-Dur 10] 10 meq PO DAILY PRN PRN Reason: WITH LASIX Budesonide-Formot 160-4.5 Mcg [Symbicort 160-4.5 Mcg Inhaler] 2 puff INHALATION RT-BID puff Raloxifene [Evista] 60 mg PO DAILY Celecoxib [CeleBREX] 200 mg PO DAILY Ipratropium-Albuterol Nebulize [Duoneb 0.5 mg-3 mg/3 ml Soln] 3 ml INHALATION RT-QID Collagenase [Santyl] 1 applic TOPICAL DAILY PRN PRN Reason: dressing change Nystatin 100,000Unit/gm Cream [Mycostatin Cream] 1 applic TOPICAL BID PRN PRN Reason: BUTTOCKS AFTER CLEANSE Spironolactone [Aldactone] 12.5 mg PO DAILY #30 tab Artificial Tears-Hypromellose [Artificial Tear Drops] 2 drops BOTH EYES TID PRN bottle PRN Reason: Dry Eye(S) Aspirin 81 mg PO DAILY #30 chew Metoprolol Tartrate [Lopressor] 75 mg PO BID #90 tab Nitroglycerin Sl Tabs [Nitrostat] 0.4 mg SUBLINGUAL Q5M PRN #25 tab PRN Reason: Chest Pain lisinopriL 20 mg PO DAILY Fexofenadine HCl 180 mg PO DAILY Cephalexin [Keflex] 500 mg PO QID Multivitamins, Thera [Multivitamin (formulary)] 1 tab PO DAILY Furosemide [Lasix] 40 mg PO BID PRN PRN Reason: Edema Cholecalciferol [Vitamin D3 (25 Mcg = 1000 Iu)] 1,000 unit PO DAILY Atorvastatin Calcium [Lipitor] 20 mg PO HS Acetaminophen Tab [Tylenol Tab] 500 mg PO Q4H PRN PRN Reason: Pain Discharge Medication List Potassium Chloride ER [K-Dur 10] 10 meq PO DAILY PRN 05/01/18 [History] Budesonide-Formot 160-4.5 Mcg [Symbicort 160-4.5 Mcg Inhaler] 2 puff INHALATION RT-BID puff 05/13/18 [Rx] Celecoxib [CeleBREX] 200 mg PO DAILY 03/26/19 [History] Raloxifene [Evista] 60 mg PO DAILY 03/26/19 [History] Ipratropium-Albuterol Nebulize [Duoneb 0.5 mg-3 mg/3 ml Soln] 3 ml INHALATION RT-QID 05/28/19 [History] Collagenase [Santyl] 1 applic TOPICAL DAILY PRN 10/24/20 [History] Nystatin 100,000Unit/gm Cream [Mycostatin Cream] 1 applic TOPICAL BID PRN 10/24/20 [History] Artificial Tears-Hypromellose [Artificial Tear Drops] 2 drops BOTH EYES TID PRN bottle 10/29/20 [Rx] Aspirin 81 mg PO DAILY #30 chew 10/29/20 [Rx] Metoprolol Tartrate [Lopressor] 75 mg PO BID #90 tab 10/29/20 [Rx] Nitroglycerin Sl Tabs [Nitrostat] 0.4 mg SUBLINGUAL Q5M PRN #25 tab 10/29/20 [Rx] Spironolactone [Aldactone] 12.5 mg PO DAILY #30 tab 10/29/20 [Rx] Acetaminophen Tab [Tylenol Tab] 500 mg PO Q4H PRN 12/29/20 [History] Atorvastatin Calcium [Lipitor] 20 mg PO HS 12/29/20 [History] Cephalexin [Keflex] 500 mg PO QID 12/29/20 [History] Cholecalciferol [Vitamin D3 (25 Mcg = 1000 Iu)] 1,000 unit PO DAILY 12/29/20 [History] Fexofenadine HCl 180 mg PO DAILY 12/29/20 [History] Furosemide [Lasix] 40 mg PO BID PRN 12/29/20 [History] Multivitamins, Thera [Multivitamin (formulary)] 1 tab PO DAILY 12/29/20 [History] lisinopriL 20 mg PO DAILY 12/29/20 [History] Follow up Appointment(s)/Referral(s): Ben Morrow DO [Primary Care Provider] - 1-2 days Discharge Disposition: - Preliminary Cause of Preliminary Cause of : Coronary artery disease
[2020-12-30] MEDS ORDERED: ATORVASTATIN 20 MG TAB PO SCH (21:00)
[2020-12-30] MEDS ORDERED: AZITHROMYCIN 500 MG TAB PO SCH (21:00)
[2020-12-30] MEDS ORDERED: VANCOMYCIN 1,000 MG in SODIUM CHLORIDE 0.9% 250 ML IVPB SCH (23:45)
== END 2020-12-30 18:01 | disposition expired | DRG 872 ==
LOC: EC 19:42 → 3SCARD 22:27
PROVIDERS: ADMIT Hospitalist; ATTEND Hospitalist
DX: A41.9 Sepsis, unspecified organism (principal); I42.9 Cardiomyopathy, unspecified; N39.0 Urinary tract infection, site not specified; I51.81 Takotsubo syndrome; B17.9 Acute viral hepatitis, unspecified; E78.5 Hyperlipidemia, unspecified; E86.0 Dehydration; I10 Essential (primary) hypertension; I25.10 Atherosclerotic heart disease of native coronary artery without angina pectoris; I25.2 Old myocardial infarction; J44.9 Chronic obstructive pulmonary disease, unspecified; L89.892 Pressure ulcer of other site, stage 2; Z20.822 Contact with and (suspected) exposure to COVID-19; Z90.89 Acquired absence of other organs; Z79.1 Long term (current) use of non-steroidal anti-inflammatories (NSAID); Z79.51 Long term (current) use of inhaled steroids; Z79.82 Long term (current) use of aspirin; Z79.899 Other long term (current) drug therapy; Z83.3 Family history of diabetes mellitus; Z96.642 Presence of left artificial hip joint; R79.89 Other specified abnormal findings of blood chemistry; R53.83 Other fatigue; Z88.6 Allergy status to analgesic agent; Z87.820 Personal history of traumatic brain injury; Z82.49 Family history of ischemic heart disease and other diseases of the circulatory system
CPT/HCPCS: 36415; 51701; 71046; 80053; 81001; 82550; 83605; 84484; 85025; 85610; 85730; 87040; 87070; 87086; 87205; 87635; 93005; 93306; 94640; 96361; 96365; 96366; 96367; 96368; 96375; 96376; 99291